=== PATIENT | male | born 1960 | race Caucasian/White ===

== ENCOUNTER 2020-04-03 19:16 | Inpatient (IN) | payer MEDICARE, SELFPAY ==
[2020-04-03] VITALS (10 sets, daily range): BP systolic 118–157; BP diastolic 54–88; PULSE 69–90; RESP 15–24; TEMP 36.8–38; O2SAT 88–98; BMI 24.1
--- NOTE | 2020-04-03 19:20 | XR_ITS ---
PROCEDURE: XR CHEST PORTABLE CLINICAL HISTORY: short of breath COMPARISON: CT CT ANGIO CHEST from 04/03/2020 FINDINGS: The cardiomediastinal silhouette and pulmonary vascularity are within normal limits. Bilateral lower lobe consolidation. There are low lung volumes. No acute bony abnormalities. IMPRESSION: Bilateral lower lobe pneumonia Dictated by: Jamie Shoemaker MD 04/04/2020 05:32 Jamie Shoemaker MD in [place] 04/04/2020 05:32
[2020-04-03 19:32] LABS: Basophils % 0.4 % (0.1-2.0); Eosinophils % 0.1 % (0.1-12.0); Hematocrit 47.1 % (42.0-52.0); Hemoglobin 15.5 g/dL (14.1-18.0); Lymphocytes # 1.2 K/mm3 (0.7-4.5); Mean Corpuscular Hemoglobin 30.5 pg (27.0-31.2); Mean Corpuscular Volume 92.5 fl (80-94); Mean Platelet Volume 9.2 fl (7.4-10.4); Monocytes # 0.4 K/mm3 (0.1-1.0); Monocytes % 3.2 % (1.7-9.3); Neutrophils # 10.7 K/mm3 (1.8-7.8); Neutrophils % 86.3 % (37.0-80.0); Platelet Count 271 K/mm3 (142-424); Red Blood Count 5.09 M/mm3 (4.60-6.20); Red Cell Distribution Width 14.6 % (11.5-17.5); White Blood Count 12.4 K/mm3 (4.8-10.8)
[2020-04-03 19:34] LABS: Chloride 102 mmol/L (98-107)
[2020-04-03 19:35] LABS: Potassium 4.2 mmoL/L (3.5-5.1); Sodium 134 mmol/L (136-145)
[2020-04-03 19:36] LABS: MANUAL DIFFERENTIAL MANUAL DIFFERENTIAL (MANUAL DIFF)
[2020-04-03 19:37] LABS: Alanine Aminotransferase 59 U/L (12-78); Alkaline Phosphatase 86 U/L (38-126); Aspartate Amino Transferase 106 U/L (17-59); Bilirubin,Total 0.4 mg/dl (0.2-1.3); Blood Urea Nitrogen 17 mg/dl (9-20); Creatinine Clearance Estimated 74 mL/min (50-200); Estimated Glomerular Filt Rate 69 ml/min (>60); GFR (African American) 83 ML/MIN (>60)
[2020-04-03 19:38] LABS: Anion Gap 15.2 mEq/L (5-15); Calcium 9.2 mg/dl (8.4-10.2); Carbon Dioxide 21 mmol/L (22.0-30.0); Globulin 4.2 g/dL (1.3-3.2); Glucose 127 mg/dl (74-100); Lactic Acid 1.8 mmol/L (0.7-2.1); Total Protein,Serum 8.2 g/dl (6.3-8.2)
[2020-04-03 19:43] LABS: C-Reactive Protein 60.9 mg/L (0-4)
--- NOTE | 2020-04-03 19:44 | ECG_ITS ---
APPROVED REPORT Exam: Resting ECG HR:83 bpm ECG Measurements Heart Rate 83 AXES LA 136 P 57 QRSd 72 QRS 17 QT 350 T 9 QTc 411 Conclusion Normal sinus rhythm Late r wave progression Abnormal ECG Electronically signed by : Renan Dorsey, 04/04/2020 15:20:29
[2020-04-03 19:56] LABS: Troponin I < 0.01 ng/ml (0.00-0.034)
[2020-04-03 19:58] LABS: Lymphocytes % 15 % (10-50); Monocytes % 4 % (2-9); Neutrophils % 76 % (42-76); Platelet Estimate Normal; RBC Morphology Normal; Total Cells Counted 100
[2020-04-03 20:05] LABS: NT Pro Brain Natriuretic Pep. 23.2 pg/mL (0-125)
[2020-04-03 20:06] LABS: Erythrocyte Sedimentation Rate 19 mm/hr (0-20)
--- NOTE | 2020-04-03 20:09 | HMH.EDSOB ---
ED Disposition Clinical Impression: COVID-19 virus detected, COVID-19 virus IgG antibody detected, Acute exacerbation of chronic obstructive airways disease, Tobacco use Respiratory failure with hypoxia Qualifiers: Chronicity: acute Qualified Code(s): J96.01 - Acute respiratory failure with hypoxia Disposition: Admitted As Inpatient Condition on Discharge: Serious Referrals: PCP,No [Primary Care Provider] - - Critical Care Critical Care Time: No Attestation: On 04/03/20, the high probability of a clinically significant, sudden or life threatening deterioration of the following system(s) required my full and direct attention, intervention and personal management. The time I documented below is in addition to time spent performing reported procedures but includes the following listed in this critical care notation. Medical Decision Making - Medical Records Medical records reviewed: Yes: I reviewed the patient's medical records. - Jose Inquiry Pt receiving controlled substance: No Vital Signs: 04/03/20 19:06 Temperature 100.4 F H Temperature Source Oral Pulse Rate [Right Brachial] 90 Respiratory Rate 22 Blood Pressure [Right Arm] 127/79 Blood Pressure Mean [Right Arm] 95 Blood Pressure Source [Right Arm] Automatic Cuff Blood Pressure Position [Right Arm] Supine 02 Sat by Pulse Oximetry 88 L Oxygen Delivery Method Room Air - Lab Data Lab results reviewed: Yes: I reviewed the patient's lab results. Lab Results 04/03/20 19:10: WBC 12.4 H, RBC 5.09, Hgb 15.5, Hct 47.1, MCV 92.5, MCH 30.5, MCHC 33.0, RDW 14.6, Plt Count 271, MPV 9.2, Neut % (Auto) 86.3 H, Lymph % (Auto) 10.0, [place] % (Auto) 3.2, Eos % (Auto) 0.1, Baso % (Auto) 0.4, Neut # (Auto) 10.7 H, Lymph # (Auto) 1.2, [place] # (Auto) 0.4, Eos # (Auto) 0.0, Baso # (Auto) 0.0, Total Counted 100, Neutrophils % (Manual) 76, Band Neutrophils % 5.0, Lymphocytes % (Manual) 15, Monocytes % (Manual) 4, Platelet Estimate Normal, RBC Morphology Normal, ESR 19 04/03/20 19:10: Sodium 134 L, Potassium 4.2, Chloride 102, Carbon Dioxide 21 L, Anion Gap 15.2 H, BUN 17, Creatinine 1.10, Estimated Creat Clear 74, Estimated GFR 69, Est GFR ( Amer) 83, Glucose 127 H, Calcium 9.2, Total Bilirubin 0.4, AST 106 H, ALT 59, Alkaline Phosphatase 86, Troponin I < 0.01, C-Reactive Protein 60.9 H, Total Protein 8.2, Albumin 4.0, Globulin 4.2 H, Albumin/Globulin Ratio 1.0 L 04/03/20 19:10: Lactate 1.8 04/03/20 19:10: NT-Pro-B Natriuret Pep 23.2 04/03/20 19:10: SARS-CoV-2 IgG Ab (Rapid) Positive A, SARS-CoV-2 IgM Ab (Rapid) Negative 04/03/20 19:10: Procalcitonin 0.205 04/03/20 20:52: Specimen Source Left radial, O2 % 2 lpm, ABG pH 7.39, ABG pCO2 27.3 L, ABG pO2 49.4 L, ABG HCO3 16.3 L, ABG Total CO2 17.1 L, ABG O2 Saturation 87 L*, ABG Base Excess -8.6 L, Jamie Test Acceptable Result diagrams: 04/03/20 19:10 04/03/20 19:10 Orders (Tests/Meds): ED MEDICATIONS Generic Name Dose Route Start Last Admin Trade Name Freq PRN Reason Stop Dose Admin Sodium Chloride 1,000 mls @ 999 mls/hr 04/03/20 19:30 04/03/20 19:26 Sod Chlor 0.9% 1000ml Bag IV 04/03/20 20:30 999 mls/hr .Q1H1M HOMERO Administration Discontinued Medications Generic Name Dose Route Start Last Admin Trade Name Freq PRN Reason Stop Dose Admin Iopamidol 70 ml 04/03/20 20:47 04/03/20 20:49 Iopamidol-370 (76%);100ml Bottle IV 04/03/20 20:48 70 ml ONCE ONE Administration Methylprednisolone Sodium Succinate 125 mg 04/03/20 19:21 04/03/20 19:25 Methylprednisolone Sod Succ 125mg Vial IV 04/03/20 19:22 125 mg ONCE ONE Administration Ondansetron HCl 4 mg 04/03/20 19:21 04/03/20 19:25 Ondansetron 4mg/2ml Vial IV 04/03/20 19:22 4 mg ONCE ONE Administration Sodium Chloride 40 ml 04/03/20 20:47 04/03/20 20:48 0.9 % Sodium Chloride 50 Ml Vial IV 04/03/20 20:48 40 ml ONCE ONE Administration Sodium Chloride 10 ml 04/03/20 20:47 04/03/20 20:49 Sodium Chloride 0.9% 10ml Sy
--- NOTE | 2020-04-03 20:10 | CT_ITS ---
PROCEDURE: CT ANGIO CHEST CLINCIAL INDICATION: shortness of air Shortness of air with chest COMPARISON: No exams were available for comparison TECHNIQUE: IV Contrast: 70ML Isovue 370 Axial images obtained with sagittal and coronal reformats. All CT scans at the facility use one or more dose reduction, viz: automated exposure control, ma/kV adjustment per patient size (including targeted exams where dose is matched to indication, i.e. head), or iterative reconstruction technique. FINDINGS: HEART AND MEDIASTINAL STRUCTURES: No evidence of aortic aneurysm or dissection. No evidence of pulmonary embolus. No mediastinal mass. Coronary artery calcifications are present. There are mildly prominent hilar lymph nodes on both sides greater on the right measuring up to 3.4 by 2 cm. There is mild thickening of the pericardium anteriorly LUNGS AND PLEURAL SPACES: Multifocal in bilateral mostly peripheral ground-glass opacities with superimposed interlobular septal thickening with areas of consolidation with a crazy paving pattern. This may be seen with atypical/Covid19 pneumonia. No effusions. BONY STRUCTURES: No acute bony abnormalities apparent. UPPER ABDOMEN: Mild nonspecific thickening of the distal esophagus ADDITIONAL FINDINGS: No other significant abnormalities. IMPRESSION: 1. No evidence of pulmonary embolus. 2. Bilateral pneumonia as described above with crazy paving pattern which may be seen with Covid19 pneumonia among other etiologies. 3. Mild hilar adenopathy 4. Trace pericardial effusion Dictated by: Jamie Shoemaker MD 04/04/2020 06:38 Jamie Shoemaker MD in [place] 04/04/2020 06:38
[2020-04-03 20:16] LABS: Adenovirus,PCR Not Detected (NotDetected); Bordetella Pertussis Not Detected (NotDetected); Chlamydophila Pneumoniae, PCR Not Detected (NotDetected); Coronavirus 229E Not Detected (NotDetected); Coronavirus NL63 Not Detected (NotDetected); Coronavirus OC43 Not Detected (NotDetected); Coronovirus HKU1,PCR Not Detected (NotDetected); Human Metapneumovirus Not Detected (NotDetected); Influenza A, PCR Not Detected (NotDetected); Influenza AH1, 2009 Not Detected (NotDetected); Influenza AH1, PCR Not Detected (NotDetected); Influenza AH3,PCR Not Detected (NotDetected); Influenza B, PCR Not Detected (NotDetected); Mycoplasma Pneumoniae, PCR Not Detected (NotDetected); Parainfluenza 1, PCR Not Detected (NotDetected); Parainfluenza 2, PCR Not Detected (NotDetected); Parainfluenza 3, PCR Not Detected (NotDetected); Parainfluenza 4, PCR Not Detected (NotDetected); Respiratory Syncytial Virus Not Detected (NotDetected); Rhinovirus/Enterovirus Not Detected (NotDetected)
[2020-04-03 20:41] LABS: Coronavirus 19 IgG Antibody Positive (Negative); Coronavirus 19 IgM Antibody Negative (Negative)
[2020-04-03 20:48] LABS: Procalcitonin 0.205 ng/mL (0.0-2.0)
[2020-04-03 21:11] LABS: ABG Base Excess -8.6 mmol/L (-2.4-2.3); ABG HCO3 16.3 mmhg (22.0-26.0); ABG Oxygen Saturation 87 % (90-100); ABG PCO2 27.3 mmhg (35.0-45.0); ABG PH 7.39 mmol/L (7.35-7.45); ABG TCO2 17.1 mmhg (23-27)
[2020-04-03 21:14] LABS: Allen's Test Acceptable; Oxygen 2 lpm %; Source Left Radial
[2020-04-03 21:18] LABS: ABG PO2 49.4 mmhg (80-100)
[2020-04-03 21:50] LABS: Coronavirus 19, PCR Detected (NotDetected)
--- NOTE | 2020-04-03 21:52 | PC.NURSE ---
house wrecker notified of need for bed assignment.
--- NOTE | 2020-04-03 21:56 | PC.NURSE ---
on phone with dr lindquist
--- NOTE | 2020-04-03 22:52 | PC.NURSE ---
ED called and states they will bring pt up @ this time.
[2020-04-03 23:09] LABS: Troponin I < 0.01 ng/ml (0.00-0.034)
--- NOTE | 2020-04-03 23:37 | PC.NURSE ---
Pt. given up for SPT.
[2020-04-04] VITALS (47 sets, daily range): BP systolic 81–131; BP diastolic 55–80; PULSE 65–102; RESP 18–45; TEMP 36.5–38.1; O2SAT 72–99; BMI 24.1
[2020-04-04 02:43] LABS: Troponin I < 0.01 ng/ml (0.00-0.034)
--- NOTE | 2020-04-04 04:47 | PC.NURSE ---
Since arriving to floor @ 2315 pt has been restless and continues to state I've never felt this bad repeatedly. Pt initially on 3L O2 per nasal cannula, pt did desat to low-mid 80's and O2 was titrated to maintain sat > 90%. Pt continued to de-sat throughout night and was therefore placed on a venturi mask @ 50%. Dr. Metzger aware of these events. Lungs noted to have ronchi in bilat upper lobes. Pt has a frequent non-productive cough. Is aware that a sputum specimen is needed, and a cup is available at bedside. IS is at bedside as well, he has been educated on, but will need encouragement. Is @ best = 750. Pt reports diarrhea and has had one loose stool since arriving to floor. Voiding clear jorge urine w/o difficulty. Skin intact. No needs voiced @ this time. Call sabrina w/in reach.
--- NOTE | 2020-04-04 06:21 | PC.NURSE ---
0600 - Pt heard moaning from nurses station saying help me , sat had decreased to 80%. RN entered room and found pt had taken off his mask and sitting on side of bed. Placed venturi mask back on pt and educated him on need for O2. Pt verbalized understanding and was assisted back in bed, repositioned and HOB elevated. O2 sat slow to increased, 86% @ best. Pt placed on non-rebreather @ 0615, sat currently 92%.
--- NOTE | 2020-04-04 07:04 | PC.NURSE ---
0600 - Pt heard moaning from nurses station saying help me , sat had decreased to might 70's. RN entered room and found pt had taken off his mask and sitting on side of bed. Placed venturi mask back on pt and educated him on need for O2. Pt verbalized understanding and was assisted back in bed, repositioned and HOB elevated. O2 sat slow to increased, 86% @ best. Pt placed on non-rebreather @ 0620, sat increased to 92%. 0640 - Pt's sat decreased to mid 80's on non-rebreather. RN entered room and found pt to be tachypneic @ 35 breaths/min and w/ fever of 100.5. Dr. Metzger notified of this. Orders for pt to be placed on vapotherm, RT notified of this. 0715 - Pt placed on vapotherm 40 L @ 100%.
[2020-04-04 07:05] LABS: Basophils % 0.1 % (0.1-2.0); Eosinophils % 0.1 % (0.1-12.0); Hematocrit 42.5 % (42.0-52.0); Lymphocytes # 1.1 K/mm3 (0.7-4.5); Lymphocytes % 5.9 % (10-50); Mean Corpuscular HGB Conc 32.9 g/dL (31.8-35.4); Mean Corpuscular Hemoglobin 30.3 pg (27.0-31.2); Mean Corpuscular Volume 92.2 fl (80-94); Monocytes # 0.3 K/mm3 (0.1-1.0); Monocytes % 1.8 % (1.7-9.3); Neutrophils # 16.6 K/mm3 (1.8-7.8); Neutrophils % 92.2 % (37.0-80.0); Platelet Count 305 K/mm3 (142-424); Red Blood Count 4.61 M/mm3 (4.60-6.20); Red Cell Distribution Width 14.7 % (11.5-17.5)
--- NOTE | 2020-04-04 07:05 | HMH.HP ---
*Admission Date: 04/03/20 *Chief complaint: COVID-19 pneumonia, respiratory distress *History of present illness: Mr. Gayle is a 60-year-old male who presented to the ER due to 2 to 3 days of shortness of breath. He has a history of smoking, reported history of hypertension but does not currently take anything. Complains that he has been feeling tightness in his chest and difficulty breathing leading to the point he needed to come to the hospital. On presentation he was found to be hypoxic on room air with a saturation in the high 80s. Was started on oxygen and initial work-up begun. Found to be positive for COVID-19 with diffuse bilateral infiltrates necessitating admission. On assessment this morning, unable to gain any further information from the patient due to his fatigue and somnolence. He will wake briefly to answer questions and then dozes back off. Overnight he has had progressive worsening of respiratory failure with escalation of support to high flow nasal cannula on 100% oxygen this morning at 40 L. History predominantly obtained from chart. Patient is a service patient and we will reach out to his primary care, Dr. Lee in [place], for further information on next of kin and medical history. Pharmacy assisting this morning with obtaining medical record/medications over the past year. At this time it appears that he is on no medications as an outpatient. [facility] History I have reviewed the patient's past medical history: Yes Medical History: Reports:: Hyperlipidemia Denies:: Internal Pacemaker *Have you ever received a pneumonia vaccine?: No *Have you received a flu vaccine this season?: No Other Surgeries: Yes: No Previous Surgery. No: Pacemaker - *Social History Last grade of school completed: 11th or 12th Smoking Status: Current every day smoker Tobacco Type: cigarettes # Packs/Day (cigarettes): 1 Alcohol Intake: never Alcohol Intake Frequency:: holidays/special occasions only *Occupational Status:: disabled *Travel in the last 8 weeks: None Family Hx:: No significant family history Review of Systems - Review of Systems Review of systems:: pertinent systems reviewed and negative unless documented below (14 point review of systems performed, pertinent positives and negatives as per HPI) - *Neurologic Denies seizure-like activity Meds Home Medications Medication Instructions Recorded Confirmed Type No Known Home Medications 04/04/20 04/04/20 History Allergies Allergy/AdvReac Type Severity Reaction Status Date / Time esomeprazole [From NEXIUM] Allergy Intermediate I-ITCHING Verified 04/03/20 19:25 methocarbamol [From ROBAXIN] Allergy Intermediate I-ITCHING Verified 04/03/20 19:25 morphine [MORPHINE] Allergy Mild NA-NAUSEA Verified 04/03/20 19:25 Exam Vital signs and Labs for Last 24 Hours: Temp Pulse Resp BP Pulse Ox 99.5 F 69 24 118/54 L 92 L 04/03/20 23:40 04/03/20 23:40 04/03/20 23:42 04/03/20 23:40 04/03/20 23:42 Laboratory Results - last 24 hr 04/03/20 19:10: WBC 12.4 H, RBC 5.09, Hgb 15.5, Hct 47.1, MCV 92.5, MCH 30.5, MCHC 33.0, RDW 14.6, Plt Count 271, MPV 9.2, Neut % (Auto) 86.3 H, Lymph % (Auto) 10.0, [place] % (Auto) 3.2, Eos % (Auto) 0.1, Baso % (Auto) 0.4, Neut # (Auto) 10.7 H, Lymph # (Auto) 1.2, [place] # (Auto) 0.4, Eos # (Auto) 0.0, Baso # (Auto) 0.0, Total Counted 100, Neutrophils % (Manual) 76, Band Neutrophils % 5.0, Lymphocytes % (Manual) 15, Monocytes % (Manual) 4, Platelet Estimate Normal, RBC Morphology Normal, ESR 19 04/03/20 19:10: Sodium 134 L, Potassium 4.2, Chloride 102, Carbon Dioxide 21 L, Anion Gap 15.2 H, BUN 17, Creatinine 1.10, Estimated Creat Clear 74, Estimated GFR 69, Est GFR ( Amer) 83, Glucose 127 H, Calcium 9.2, Total Bilirubin 0.4, AST 106 H, ALT 59, Alkaline Phosphatase 86, Troponin I < 0.01, C-Reactive Protein 60.9 H, Total Protein 8.2, Albumin 4.0, Globulin 4.2 H, Albumin/Globulin Ratio 1.0 L 04/03/20 19:10: Lactate 1.8 04/03/20 19:10: NT
[2020-04-04 07:08] LABS: MANUAL DIFFERENTIAL MANUAL DIFFERENTIAL (MANUAL DIFF)
[2020-04-04 07:11] LABS: Blood Urea Nitrogen 15 mg/dl (9-20); Calcium 8.5 mg/dl (8.4-10.2); Carbon Dioxide 19 mmol/L (22.0-30.0); Chloride 105 mmol/L (98-107); Creatinine Clearance Estimated 96 mL/min (50-200); Estimated Glomerular Filt Rate 86 ml/min (>60); GFR (African American) 105 ML/MIN (>60); Glucose 179 mg/dl (74-100); Sodium 133 mmol/L (136-145)
[2020-04-04 07:44] LABS: Lymphocytes % 4 % (10-50); Monocytes % 2 % (2-9); Neutrophils % 91 % (42-76); Platelet Estimate Normal; RBC Morphology Normal; Total Cells Counted 100
--- NOTE | 2020-04-04 08:12 | P.CONPHA_ITS ---
[facility] Pharmacy VTE Monitoring - Patient Demographics Admission date: 04/03/20 Report Date: 04/04/20 Time: 08:12 Allergies/Adverse Reactions: Patient Allergies esomeprazole [From NEXIUM] Allergy (Intermediate, Verified 04/03/20 19:25) I-ITCHING methocarbamol [From ROBAXIN] Allergy (Intermediate, Verified 04/03/20 19:25) I-ITCHING morphine [MORPHINE] Allergy (Mild, Verified 04/03/20 19:25) NA-NAUSEA Height: 1.78 m Weight: 76.43 kg Patient Problems: Current Active Problems COVID-19 virus detected (Acute) COVID-19 virus IgG antibody detected (Acute) Acute exacerbation of chronic obstructive airways disease (Acute) Tobacco use (Acute) Respiratory failure with hypoxia (Acute) Acute hypoxemic respiratory failure due to COVID-19 (Acute) Acute respiratory distress syndrome (ARDS) due to 2019 novel coronavirus (Acute) - VTE Risk Labs: VTE Related Lab Results Hgb 14.0 g/dL (14.1-18.0) L 04/04/20 06:00 Hct 42.5 % (42.0-52.0) 04/04/20 06:00 Plt Count 305 K/mm3 (142-424) 04/04/20 06:00 BUN 15 mg/dl (9-20) 04/04/20 06:00 Creatinine 0.90 mg/dl (0.66-1.25) 04/04/20 06:00 Estimated Creat Clear 96 mL/min (50-200) 04/04/20 06:00 Was VTE Risk Assessment Performed: Yes VTE Score: 3 VTE Risk Level: Low Risk - Prophylaxis VTE Prophylaxis Ordered?: Yes Types of VTE Prophylaxis: Pharmacological Pharmacologic Type: Enoxaparin
--- NOTE | 2020-04-04 08:23 | HMH.PHACONS ---
- Pharmacy Consult Date: 04/04/20 Time: 08:23 Referring provider: DR. PERALTA Reason for Consult:: VANCOMYCIN DOSING Allergies and ADEs:: Allergies Allergy/AdvReac Type Severity Reaction Status Date / Time esomeprazole [From NEXIUM] Allergy Intermediate I-ITCHING Verified 04/03/20 19:25 methocarbamol [From ROBAXIN] Allergy Intermediate I-ITCHING Verified 04/03/20 19:25 morphine [MORPHINE] Allergy Mild NA-NAUSEA Verified 04/03/20 19:25 Home Medications:: Home Medications Medication Instructions Recorded Confirmed Type No Known Home Medications 04/04/20 04/04/20 History Height: 1.78 m Weight: 76.43 kg Laboratory Results:: Laboratory Results - last 24 hr 04/03/20 19:10: WBC 12.4 H, RBC 5.09, Hgb 15.5, Hct 47.1, MCV 92.5, MCH 30.5, MCHC 33.0, RDW 14.6, Plt Count 271, MPV 9.2, Neut % (Auto) 86.3 H, Lymph % (Auto) 10.0, [place] % (Auto) 3.2, Eos % (Auto) 0.1, Baso % (Auto) 0.4, Neut # (Auto) 10.7 H, Lymph # (Auto) 1.2, [place] # (Auto) 0.4, Eos # (Auto) 0.0, Baso # (Auto) 0.0, Total Counted 100, Neutrophils % (Manual) 76, Band Neutrophils % 5.0, Lymphocytes % (Manual) 15, Monocytes % (Manual) 4, Platelet Estimate Normal, RBC Morphology Normal, ESR 19 04/03/20 19:10: Sodium 134 L, Potassium 4.2, Chloride 102, Carbon Dioxide 21 L, Anion Gap 15.2 H, BUN 17, Creatinine 1.10, Estimated Creat Clear 74, Estimated GFR 69, Est GFR ( Amer) 83, Glucose 127 H, Calcium 9.2, Total Bilirubin 0.4, AST 106 H, ALT 59, Alkaline Phosphatase 86, Troponin I < 0.01, C-Reactive Protein 60.9 H, Total Protein 8.2, Albumin 4.0, Globulin 4.2 H, Albumin/Globulin Ratio 1.0 L 04/03/20 19:10: Lactate 1.8 04/03/20 19:10: NT-Pro-B Natriuret Pep 23.2 04/03/20 19:10: SARS-CoV-2 IgG Ab (Rapid) Positive A, SARS-CoV-2 IgM Ab (Rapid) Negative 04/03/20 19:10: Procalcitonin 0.205 04/03/20 20:00: Chlamy pneumoniae PCR Not detected, Adenovirus (PCR) Not detected, B. pertussis DNA (PCR) Not detected, Coronavirus OC43 (PCR) Not detected, Coronavirus HKU1 (PCR) Not detected, Coronavirus 229E (PCR) Not detected, SARS-CoV-2 (PCR) Detected A, Coronavirus NL63 (PCR) Not detected, Human Metapneumovir PCR Not detected, Influenza A (H1) PCR Not detected, Influ A (H1N1/09) PCR Not detected, Influenza A (H3) PCR Not detected, Influenza Type A (PCR) Not detected, Influenza Type B (PCR) Not detected, M. pneumoniae (PCR) Not detected, Parainfluenza 1 (PCR) Not detected, Parainfluenza 2 (PCR) Not detected, Parainfluenza 3 (PCR) Not detected, Parainfluenza 4 (PCR) Not detected, RSV (PCR) Not detected, Entero/Rhino (PCR) Not detected 04/03/20 20:52: Specimen Source Left radial, O2 % 2 lpm, ABG pH 7.39, ABG pCO2 27.3 L, ABG pO2 49.4 L, ABG HCO3 16.3 L, ABG Total CO2 17.1 L, ABG O2 Saturation 87 L*, ABG Base Excess -8.6 L, Jamie Test Acceptable 04/03/20 22:38: Troponin I < 0.01 04/04/20 01:40: Troponin I < 0.01 04/04/20 06:00: WBC 18.0 H D, RBC 4.61, Hgb 14.0 L, Hct 42.5, MCV 92.2, MCH 30.3, MCHC 32.9, RDW 14.7, Plt Count 305, MPV 10.0, Neut % (Auto) 92.2 H, Lymph % (Auto) 5.9 L, [place] % (Auto) 1.8, Eos % (Auto) 0.1, Baso % (Auto) 0.1, Neut # (Auto) 16.6 H, Lymph # (Auto) 1.1, [place] # (Auto) 0.3, Eos # (Auto) 0.0, Baso # (Auto) 0.0, Total Counted 100, Neutrophils % (Manual) 91 H, Band Neutrophils % 3.0, Lymphocytes % (Manual) 4 L, Monocytes % (Manual) 2, Platelet Estimate Normal, RBC Morphology Normal 04/04/20 06:00: Sodium 133 L, Chloride 105, Carbon Dioxide 19 L, BUN 15, Creatinine 0.90, Estimated Creat Clear 96, Estimated GFR 86, Est GFR ( Amer) 105 D, Glucose 179 H D, Calcium 8.5 Medical History: Reports:: Hyperlipidemia Denies:: Internal Pacemaker Assessment and Plan (1) Acute respiratory distress syndrome (ARDS) due to 2019 novel coronavirus Status: Acute Category: Medical Code(s): U07.1 - COVID-19; J80 - Acute respiratory distress syndrome (2) Acute hypoxemic respiratory failure due to COVID-19 Status: Acute Category: Medical Code(s): U07.1 - COVID-19; J96.01 - Acute respiratory fail
[2020-04-04 08:26] LABS: Anion Gap 13.1 mEq/L (5-15); Potassium 4.1 mmoL/L (3.5-5.1)
--- NOTE | 2020-04-04 10:21 | PC.NURSE ---
Dr. Shah @ BS with Liss and RTs (Sabrina, Bryanna, and Julia). Dr. Shah intubated pt @ 0952 with a 7.5 ET tube. Tube is on the right side of mouth 25 @ the lip. Etomidate 50mg was given @ 0950. Rocuronium 50mg was given @ 0953. Vent settings: 80% fI02, rate 18, TV 420, PEEP10. OG inserted @ 10am. It is 56cm @ the lip.
--- NOTE | 2020-04-04 10:24 | XR_ITS ---
PROCEDURE: XR CHEST PORTABLE CLINICAL HISTORY: intubation and OG tube placement COMPARISON: CT CT ANGIO CHEST from 04/03/2020 CR XR CHEST PORTABLE from 04/03/2020 FINDINGS: 10:09 a.m. Endotracheal tube is in good position with the tip 6 cm above the scooby at the T3-T4 level. Orogastric tube tip is in the region of the body of the stomach. There is bilateral airspace disease involving the mid lower lung zones. No acute bony abnormalities. IMPRESSION: Endotracheal tube and nasogastric tube in good position with diffuse bilateral pneumonia which appears slightly worse. Dictated by: Jamie Shoemaker MD 04/04/2020 11:11 Jamie Shoemaker MD in [place] 04/04/2020 11:11
[2020-04-04 10:37] LABS: ABG HCO3 19.3 mmhg (22.0-26.0); ABG Oxygen Saturation 88 % (90-100); ABG PO2 67.8 mmhg (80-100); ABG TCO2 21.1 mmhg (23-27)
[2020-04-04 10:48] LABS: Allen's Test Patient Unable; Oxygen 80 %; PEEP 10; Tidal Volume 420; Vent Rate 18
[2020-04-04 10:49] LABS: ABG PCO2 60.5 mmhg (35.0-45.0); ABG PH 7.12 mmol/L (7.35-7.45); Source Left Radial
--- NOTE | 2020-04-04 11:12 | XR_ITS ---
PROCEDURE: XR CHEST PORTABLE CLINICAL HISTORY: hypoxia COMPARISON: CT CT ANGIO CHEST from 04/03/2020 CR XR CHEST PORTABLE from 04/03/2020 CR XR CHEST PORTABLE from 04/04/2020 FINDINGS: Endotracheal tube tip is at the T3-T4 level. The tip is 6.7 cm above the scooby. Nasogastric tube tip is in the region the body of stomach. No change diffuse bilateral pneumonia. IMPRESSION: Endotracheal tube and nasogastric tube in good position with diffuse bilateral pneumonia Dictated by: Jamie Shoemaker MD 04/04/2020 12:47 Jamie Shoemaker MD in [place] 04/04/2020 12:47
--- NOTE | 2020-04-04 13:00 | PC.NURSE ---
Dr. Valles @ BS and inserted left SC TLDL.
--- NOTE | 2020-04-04 13:02 | XR_ITS ---
PROCEDURE: XR CHEST PORTABLE CLINICAL HISTORY: Central Line Placement COMPARISON: CT CT ANGIO CHEST from 04/03/2020 CR XR CHEST PORTABLE from 04/03/2020 CR XR CHEST PORTABLE from 04/04/2020 CR XR CHEST PORTABLE from 04/04/2020 FINDINGS: Endotracheal tube is slightly high at the T3 level and could be advanced 1-2 cm. NG tube tip is in the region of the body of the stomach. New central venous line is present from left subclavian approach with tip in the region the SVC. No evidence of pneumothorax. There is bilateral lower lobe pneumonia not significantly changed. Heart size is normal. IMPRESSION: 1. Tubes and lines present as described above with bilateral pneumonia Dictated by: Jamie Shoemaker MD 04/04/2020 14:01 Jamie Shoemaker MD in [place] 04/04/2020 14:01
[2020-04-04 13:21] LABS: ABG Base Excess -9.7 mmol/L (-2.4-2.3); ABG HCO3 17.7 mmhg (22.0-26.0); ABG Oxygen Saturation 84 % (90-100); ABG PCO2 41.8 mmhg (35.0-45.0); ABG PH 7.24 mmol/L (7.35-7.45); ABG PO2 51.1 mmhg (80-100)
[2020-04-04 13:23] LABS: Oxygen 100 %; Tidal Volume 420; Vent Rate 24
[2020-04-04 13:24] LABS: Allen's Test Patient Unable; PEEP 12; Source Right Radial
--- NOTE | 2020-04-04 13:26 | HMH.PROC ---
[facility] Procedure Note Procedure Note:: Preoperative diagnosis: Need for central venous access Postoperative diagnosis: Same Procedure: Placement of 7.5 [place] triple-lumen nontunneled catheter and left subclavian vein Anesthesia: 1% Xylocaine Indications: 60-year-old male admitted overnight with Covid pneumonia who has had significant respiratory compromise requiring sedation and mechanical ventilation. Surgery was consulted for central line placement. Consent was obtained. Patient was positioned in Trendelenburg position. Left neck and chest were prepped and draped in the standard surgical fashion. Local anesthetic was infiltrated inferior to the left clavicle medial to the deltopectoral groove. 18-gauge needle was inserted and left subclavian vein was cannulated with somewhat sluggish return of venous blood. However, guidewire easily threaded. Small incision was made at the insertion site. Subcutaneous tissues were dilated. 7.5 [place] triple-lumen catheter was inserted over the guidewire using Seldinger technique. It was secured at the skin at approximately 18 cm skylar with silk suture. Clean dry sterile dressing was applied. Chest x-ray done at the time of this dictation.
--- NOTE | 2020-04-04 13:42 | PC.NURSE ---
PEEP turned to 14 per .
--- NOTE | 2020-04-04 13:43 | CA_ITS ---
APPROVED REPORT EXAM: Comprehensive 2D, Doppler, and color-flow Echocardiogram Accounting Instructor: Esthela Rizo CRT Ht: 5 ft 10 in Wt: 168lbs BSA: 1.94 BP: 122/79 mmHg Indications: Covid, COPD, Shortness of Breath, Hyperlipidemia Echo Enhancing Agent Indication: Rule out Shunt Agent(s) / Amount(s) Used: Agitated Saline 5 cc Comments: B/S x 3 Appears negative. 2D Dimensions LVOT 1.73 cm (M/F) 1.5-2.5 M-Mode Dimensions RVDd 2.47 cm (0.9-2.6) LA Diam 3.79 cm (1.9-4.0) LVDd 5.94 cm (3.5-5.7) Ao Diam 3.91 cm (2.0-3.7) LVDs 4.61 cm (3.5-5.7) IVSd 0.99 cm (0.6-1.1) PWd 0.69 cm (0.6-1.1) EF (Teich) 44.40% FS 22.40% EDV (Teich) 175.90 mL ESV (Teich) 97.80 mL LV Diastology E Decel Time 237.00 (160-240 msec) E/A Ratio 0.45 MED E' 5.80 (< 7 cm/sec) MED A' 13.40 cm/s E'/MED E' Ratio 7.93 (>14) LAT E' 4.40 (<10 cm/sec) LAT A' 11.30 cm/s E/LAT E' Ratio 10.45 (>14) Aortic Valve AO Peak GR. 6.80 mmHg Mitral Valve MV A Velocity 102.00 (40-130 cm/s) E/A Ratio 0.45 MV Decel. Time 237.00 (160-240 ms) Pulmonary Valve PV Peak Velocity 64.00 (50-150 cm/s) Tricuspid Valve TR P. Velocity 247.00 cm/s RAP Estimate 10.00 mmHg RVSP 34.40 mmHg Left Ventricle Left atrium is mildly enlarged, left ventricle is mildly dilated, severe reduced left ventricular systolic function, visually estimated ejection fraction 25%, left ventricle is globally hypokinetic. Grade 1 diastolic dysfunction seen without tissue Doppler evidence of raise left atrial pressure. Doppler evidence of low cardiac output state seen. Right Ventricle Right atrium and right ventricle are normal size and contractility. Atria Intra-atrial septum is intact, there is no flow across the interatrial septum, agitated saline contrast fails to identify intracardiac shunt. Aortic Valve Aortic valve is thickened and calcified, there is no aortic stenosis or aortic insufficiency. Mitral Valve Mitral valve is minimally thickened, there is mild mitral regurgitation. Tricuspid Valve Tricuspid valve is grossly normal, there is mild tricuspid regurgitation, tricuspid regurgitation jet velocity is inadequate for calculation of the right ventricular systolic pressure. Pulmonic Valve Pulmonic valve is poorly visualized. Great Vessels Aortic root is normal size. Pericardium No significant pericardial effusion noted. Conclusion 1. Mildly enlarged left atrium, mildly dilated left ventricle, severely disrupt ventricular systolic function, visually estimated ejection fraction 25%, left ventricle is globally hypokinetic, Doppler evidence of low cardiac output state seen, grade 1 diastolic dysfunction without tissue Doppler evidence of raise left atrial pressure. 2. Mild mitral and tricuspid regurgitation. 3. No significant pericardial effusion noted. 4. Agitated saline contrast study fails to identify intracardiac shunt, inferior vena cava is normal size with normal inspiratory collapse. Electronically signed by : Guillermo Siegel, 04/07/2020 14:45:19
--- NOTE | 2020-04-04 13:56 | ECG_ITS ---
APPROVED REPORT Exam: Resting ECG HR:74 bpm ECG Measurements Heart Rate 74 AXES SD 132 P 50 QRSd 90 QRS -13 QT 406 T 17 QTc 450 Conclusion Normal sinus rhythm Normal ECG Electronically signed by : Renan Dorsey, 04/04/2020 15:18:06
--- NOTE | 2020-04-04 14:17 | PC.NURSE ---
PEEP turned to [address] Shah.
--- NOTE | 2020-04-04 14:31 | PC.NURSE ---
PEEP turned back to [address] Shah.
--- NOTE | 2020-04-04 14:51 | HMH.PULMCON ---
*Admission Date: 04/03/20 *Reason for consult:: Acute hypoxic respiratory failure, COVID-19 pneumonia *History of present illness: Mr. Gayle is a 60-year-old male significant smoking history, carries a diagnosis of OPD using inhalers presented to the hospital complaining of 2 to 3-day worsening shortness of breath and productive phlegm. Of breath also says the fevers and chills are worsening productive phlegm. Patient did not remember any known sick contacts. Presentation the patient needing oxygen requirement with his saturations initially on high 80s. He was admitted to the isolation unit and pulmonary was called for further management. [facility] History Medical History: Reports:: Hyperlipidemia Denies:: Internal Pacemaker *Have you ever received a pneumonia vaccine?: No *Have you received a flu vaccine this season?: No Other Surgeries: Yes: No Previous Surgery. No: Pacemaker - *Social History Last grade of school completed: 11th or 12th Smoking Status: Current every day smoker Tobacco Type: cigarettes # Packs/Day (cigarettes): 1 Alcohol Intake: never Alcohol Intake Frequency:: holidays/special occasions only *Occupational Status:: disabled *Travel in the last 8 weeks: None Family Hx:: No significant family history ROS - Review of Systems Review of systems:: pertinent systems reviewed and negative unless documented below Review of systems limited as patient was on high flow nasal cannula confused not able to answer all the questions appropriately - Cons Reports anorexia, Reports body ache(s), Reports chills - Card Reports shortness of breath, Reports shortness of breath with activity - Resp Respiratory: Reports change in phlegm color, Reports chest congestion, Reports cough, Reports dyspnea on exertion, Reports excessive phlegm production, Denies coughing up blood - GI Gastrointestingal: Reports: system reviewed and no additional complaints, except as docu Meds Home Medications Medication Instructions Recorded Confirmed Type No Known Home Medications 04/04/20 04/04/20 History Allergies Allergy/AdvReac Type Severity Reaction Status Date / Time esomeprazole [From NEXIUM] Allergy Intermediate I-ITCHING Verified 04/03/20 19:25 methocarbamol [From ROBAXIN] Allergy Intermediate I-ITCHING Verified 04/03/20 19:25 morphine [MORPHINE] Allergy Mild NA-NAUSEA Verified 04/03/20 19:25 Exam - Constitutional Comment:: Patient appeared to be in severe respiratory distress, on high flow nasal cannula 40 L 100% saturating 87%. - HENMT Exam HENMT: normocephalic, atraumatic - Eye Exam Eyes:: eyelids normal, normal conjunctiva - Neck Exam Neck:: thyroid normal, no lymphadenopathy - Respiratory Exam Comments: Patient in severe respiratory distress. Unable to speak in full sentences. Bilateral coarse breath sounds with decreased air movement. - Cardiovascular Exam Cardiac:: S1, S2 - GI Exam GI:: soft, no hepatosplenomegaly - Skin Exam Skin: warm, no rash, dry - Neurological Exam Neurological: awake - Extremities Exam Extremities: no cyanosis, no clubbing, no edema - Psychiatric Exam Psychiatric: normal affect Internal Medicine - CN: Reslt - Labs CBC & Chem 7: 04/04/20 06:00 04/04/20 06:00 Labs: Short CBC 04/03/20 04/04/20 Range/Units 19:10 06:00 WBC 12.4 H 18.0 H D (4.8-10.8) K/mm3 Hgb 15.5 14.0 L (14.1-18.0) g/dL Hct 47.1 42.5 (42.0-52.0) % Plt Count 271 305 (142-424) K/mm3 BMP 04/03/20 04/04/20 19:10 06:00 Sodium 134 L 133 L Potassium 4.2 4.1 Chloride 102 105 Carbon Dioxide 21 L 19 L BUN 17 15 Creatinine 1.10 0.90 Glucose 127 H 179 H D Calcium 9.2 8.5 Cardiac Enzymes 04/03/20 04/03/20 04/04/20 Range/Units 19:10 22:38 01:40 Troponin I < 0.01 < 0.01 < 0.01 (0.00-0.034) ng/ml Liver Function 04/03/20 Range/Units 19:10 Total Bilirubin 0.4 (0.2-1.3) mg/dl AST 106 H (17-59) U/L ALT 59 (12-78)
[2020-04-04 14:56] LABS: Troponin I 1.55 ng/ml (0.00-0.034)
--- NOTE | 2020-04-04 15:05 | P.PCN_ITS ---
[facility] Procedure Note Procedure Note:: Name of the procedure: endotracheal intubation Reason for intubation: Acute hypoxic respiratory failure A time out was performed. My hands were washed immediately prior to the procedure. The patient was placed on a traffic monitor specialist including continuous pulse oximetry. Rapid Sequence Intubation was conducted. The patient received 50 mg of Etomidate for induction and 100 mg of Rocoronium for adequate paralysis. Cricoid pressure was maintained from time induction agent was given to time of cuff balloon inflation. Using a Size 4 mac laryngoscope and a size 7.5 endotracheal tube with stylet, the patient was intubated on the first attempt. The stylet was removed and cuff balloon was inflated. Appropriate endotracheal tube position was confirmed by direct visualization of vocal cord passage, CO2 colometric indicator and bilateral symmetric breath sounds. The tube was secured at 26 cm at the lips. Post intubation chest x-ray is pending at this time. Patient tolerated the procedure well. Estimated blood loss minimal
[2020-04-04 15:42] LABS: Microscopic, Urine URINE MICROSCOPIC (MICROSCOPIC)
[2020-04-04 16:03] LABS: Appearance,Urine CLEAR (Clear); Bilirubin,Urine Negative (Negative); Blood, Urine 1+ (Negative); Color,Urine YELLOW (Yellow); Glucose,Urine (UA) Negative (Negative); Ketones,Urine Negative (Negative); Leukocyte Esterase,Urine Negative (Negative); Nitrate,Urine Negative (Negative); PH,Urine 5.5 (5.0-8.5); Protein,Urine 2+ (Negative); Specific Gravity, Urine >= 1.030 (1.005-1.030); Urobilinogen,Urine 0.2 EU/dl (0.2)
[2020-04-04 16:18] LABS: Amorphous Sediment,Urine 3+ /lpf; Squamous Epithelial Cell,Urine Occasional #/hpf (0-5)
[2020-04-04 16:40] LABS: Activated Partial Thrombo Time 33.7 seconds (23.6-34.0)
--- NOTE | 2020-04-04 16:59 | DIET.NUTRFU ---
Pt intubated, recommend initiating continuous tube feeding upon MD order with following regimen: Recommend initiating continuous tube feeding regimen of Pulmocare 1.5 at 20ml/hr and increase by 10ml/hr q 8hrs as tolerated to goal rate of 55ml/hr. Pt meeting fluid needs through IVF at 100ml/hr, recommend slightly decreasing IVF as pt reaches goal rate. Formula provides 950ml. Recommend minimal water flushes of 60ml for irrigation. Will monitor IVF and adjust as indicated. Current propofol rate providing minimal additional kcal, will monitor and adjust TF rate as indicated.
--- NOTE | 2020-04-04 18:32 | PC.NURSE ---
shift note: this RN was transferred to the COVID unit to care for this pt @ 0900. Please see the following time of events: 0900: O2 sats on 40L/100% are between 72/84%. Pt is breathing 19-38 breaths/min. He is very lethargic and does not wake to answer questions. 0952: Dr. Shah intubated pt with a 7.5 ET tube that is 25 @ the lip. OG inserted and remains clamped. 1030: Fentanyl gtt started @ 25mcg/hr per Dr. Shah 1045: pt bucking the vent and sats continue in the 70s and 80s. 1053: Propofol gtt started @ 20mcg/kg/min per Dr. Shah [id number]: multiple vent changes made by Dr. Shah and RT secondary to sats in the 70s and 80s. 1300: Dr. Valles @ BS and inserted left SC 7fr TLDL. 1400: Pt flailing arms, bucking vent and with high peak pressures. Per Dr. Shah, Fentanyl gtt increased to 50mcg/hr and Propofol gtt increased to 50mcg/kg/min. 1527: Levophed gtt started @ 5mcg/min per Dr. Metzger secondary to SBP 80s. 1600: SBP high 80s/low 90s and Levophed gtt increased to 10mcg/min. 1630: Heparin gtt started per Dr. Shah @ 900units/hr. 4857-2264: SBP 90s. Levophed gtt continues @ 10mcg/min. 1900: Fentanyl gtt @ 50mcg/hr, Propofol gtt @ 50mcg/kg/min, Levophed gtt @ 10mcg/min, Heparin gtt @ 900units/hr, and NS @ 100mL/hr. Pt had an echo with bubbles, and EKG, and troponin lab drawn today. Osuna catheter inserted @ 1400 with 380mL returned in bag. Urine specimen sent to lab for routine UA. CRE rectal swab obtained. Next PTT is due @ [address] Metzger plans to place an arterial line for better BP monitoring and serial ABGs. Lasix 60mb IV was given today without diuresis. Current vent settings: 100% FiO2, AC, 24, 440, 14/-. Oral care provided Q2 ATC. Pt was turned and repositioned Q2 ATC as well. Report given to Juan Pablo Walls RN.
[2020-04-04 21:49] LABS: POC Glucose,Bedside 196 (70-110)
[2020-04-04 22:24] LABS: Activated Partial Thrombo Time 55.3 seconds (23.6-34.0)
[2020-04-04 22:48] LABS: Basophils # 0.2 K/mm3 (0-0.2); Basophils % 0.6 % (0.1-2.0); Hematocrit 39.1 % (42.0-52.0); Hemoglobin 12.9 g/dL (14.1-18.0); Lymphocytes # 1.3 K/mm3 (0.7-4.5); Lymphocytes % 3.7 % (10-50); Mean Corpuscular HGB Conc 32.9 g/dL (31.8-35.4); Mean Corpuscular Hemoglobin 30.7 pg (27.0-31.2); Mean Corpuscular Volume 93.3 fl (80-94); Mean Platelet Volume 9.6 fl (7.4-10.4); Monocytes # 0.4 K/mm3 (0.1-1.0); Monocytes % 1.2 % (1.7-9.3); Neutrophils # 34.3 K/mm3 (1.8-7.8); Neutrophils % 94.5 % (37.0-80.0); Platelet Count 331 K/mm3 (142-424); Red Blood Count 4.19 M/mm3 (4.60-6.20); Red Cell Distribution Width 15.2 % (11.5-17.5)
[2020-04-04 22:51] LABS: White Blood Count 36.3 K/mm3 (4.8-10.8)
[2020-04-04 22:52] LABS: MANUAL DIFFERENTIAL MANUAL DIFFERENTIAL (MANUAL DIFF)
[2020-04-04 23:05] LABS: Lymphocytes % 2 % (10-50); Neutrophils % 64 % (42-76); Platelet Estimate Normal; RBC Morphology Normal; Rouleaux 3+; Total Cells Counted 100
[2020-04-04 23:12] LABS: Troponin I 1.97 ng/ml (0.00-0.034)
[2020-04-05] VITALS (98 sets, daily range): BP systolic 87–122; BP diastolic 51–79; PULSE 67–90; RESP 5–32; TEMP 36.3–37.2; O2SAT 93–98; BMI 25.5
--- NOTE | 2020-04-05 00:35 | PC.NURSE ---
1929 sbp in the 80s with map less than 65. levophed drip increased to 12 mcq
--- NOTE | 2020-04-05 00:36 | PC.NURSE ---
3 dr. lemus notified of decreasing rectal temp, diaphoresis and cool skin, new orders received for stat labs.
--- NOTE | 2020-04-05 00:38 | PC.NURSE ---
2315 received lab results from roberto in lab.
--- NOTE | 2020-04-05 00:38 | PC.NURSE ---
2320 dr. lemus notified of stat lab results, no new orders received.
--- NOTE | 2020-04-05 01:27 | PC.NURSE ---
2126 patient has been extremely diaphoretic and cool to touch. fsbs 196
[2020-04-05 04:16] LABS: Basophils # 0.2 K/mm3 (0-0.2); Basophils % 0.5 % (0.1-2.0); Hematocrit 38.9 % (42.0-52.0); Hemoglobin 12.8 g/dL (14.1-18.0); Lymphocytes # 1.3 K/mm3 (0.7-4.5); Lymphocytes % 3.6 % (10-50); Mean Corpuscular Hemoglobin 31.2 pg (27.0-31.2); Mean Corpuscular Volume 94.6 fl (80-94); Mean Platelet Volume 10.5 fl (7.4-10.4); Monocytes # 0.5 K/mm3 (0.1-1.0); Monocytes % 1.2 % (1.7-9.3); Neutrophils # 34.2 K/mm3 (1.8-7.8); Neutrophils % 94.7 % (37.0-80.0); Platelet Count 333 K/mm3 (142-424); Red Blood Count 4.11 M/mm3 (4.60-6.20); White Blood Count 36.1 K/mm3 (4.8-10.8)
[2020-04-05 04:27] LABS: Chloride 109 mmol/L (98-107); Sodium 137 mmol/L (136-145)
[2020-04-05 04:28] LABS: Potassium 4.4 mmoL/L (3.5-5.1)
[2020-04-05 04:30] LABS: Alanine Aminotransferase 37 U/L (12-78); Albumin Level 3.2 g/dl (3.5-5.0); Albumin/Globulin Ratio 0.9 (1.1-1.8); Alkaline Phosphatase 89 U/L (38-126); Anion Gap 16.4 mEq/L (5-15); Aspartate Amino Transferase 76 U/L (17-59); Bilirubin,Total 0.3 mg/dl (0.2-1.3); Blood Urea Nitrogen 33 mg/dl (9-20); Carbon Dioxide 16 mmol/L (22.0-30.0); Creatinine Clearance Estimated 54 mL/min (50-200); Estimated Glomerular Filt Rate 44 ml/min (>60); GFR (African American) 54 ML/MIN (>60); Globulin 3.6 g/dL (1.3-3.2); Total Protein,Serum 6.8 g/dl (6.3-8.2)
[2020-04-05 04:31] LABS: Calcium 7.9 mg/dl (8.4-10.2)
[2020-04-05 04:37] LABS: Glucose 232 mg/dl (74-100)
[2020-04-05 04:48] LABS: Activated Partial Thrombo Time 63.8 seconds (23.6-34.0)
--- NOTE | 2020-04-05 04:49 | PC.NURSE ---
received call from pharmacist, no change to heparin drip needed
--- NOTE | 2020-04-05 06:00 | XR_ITS ---
PROCEDURE: XR CHEST PORTABLE CLINICAL HISTORY: Assess tube placement Pneumonia follow-up COMPARISON: CT CT ANGIO CHEST from 04/03/2020 CR XR CHEST PORTABLE from 04/04/2020 CR XR CHEST PORTABLE from 04/04/2020 CR XR CHEST PORTABLE from 04/04/2020 FINDINGS: 5:43 a.m.. Endotracheal tube nasogastric tube and left subclavian central venous line are all in good position. Endotracheal tube tip is at the T3 level 7 cm above the scooby There is diffuse bilateral pneumonia in the mid lower lung zones not significantly changed. No evidence of pneumothorax. No acute bony abnormalities. IMPRESSION: Tubes and lines in good position with no change diffuse bilateral pneumonia Dictated by: Jamie Shoemaker MD 04/05/2020 06:09 Jamie Shoemaker MD in [place] 04/05/2020 06:09
--- NOTE | 2020-04-05 06:27 | PC.NURSE ---
shift summary patient has remained on levophed at 12 mcq/min with sbp greater than 90 and map greater than 65. diprivan at 50 mcq/kg, fentanyl at 50 mcq, rass score -3, cpot 0. heparin drip titrated per pharmacy according to ptt results. conveyor monitor shows sr without ectopy, peep of 14 and fio2 of 100% with sats sustaining greater than 95%, respiratory rate 24-32. peep pressures maintained 42-45 throughout shift. draining clear yellow urine with occasional sediment present. ogt in place-clamped. unable to obtain temperatures except for rectally throughout shift. temp ranged from 97.5 to 98.3 rectally. patient was cool to touch and extremely diaphoretic, saturating bedding throughout shift up until about 0400. patient also appeared to be pale at that time. currently patient more pink in color, warmer but still cool and dry.
--- NOTE | 2020-04-05 08:24 | HMH.ACPN2 ---
Internal Medicine - PN: Subj *Date: 04/05/20 *Time: 08:24 Interval history: Patient remains intubated and sedated on ventilator-see pulmonary notes. Labs, CT scan reports, medication list reviewed. Exam Vital signs and Labs for Last 24 Hours: Temp Pulse Resp BP Pulse Ox 98.2 F 77 20 108/62 L 94 L 04/05/20 06:00 04/05/20 07:00 04/05/20 07:00 04/05/20 07:00 04/05/20 07:00 Laboratory Results - last 24 hr 04/04/20 06:00: Potassium 4.1, Anion Gap 13.1 04/04/20 10:45: Specimen Source Left radial, O2 % 80, ABG pH 7.12 L*, ABG pCO2 60.5 H, ABG pO2 67.8 L, ABG HCO3 19.3 L, ABG Total CO2 21.1 L, ABG O2 Saturation 88 L, ABG Base Excess -10.0 L, Jamie Test Patient unable, Vent Rate 18, Tidal Volume 420, PEEP 10 04/04/20 13:00: Specimen Source Right radial, O2 % 100, ABG pH 7.24 L*, ABG pCO2 41.8, ABG pO2 51.1 L, ABG HCO3 17.7 L, ABG Total CO2 19.0 L, ABG O2 Saturation 84 L*, ABG Base Excess -9.7 L, Jamie Test Patient unable, Vent Rate 24, Tidal Volume 420, PEEP 12 04/04/20 14:05: Troponin I 1.55 H 04/04/20 15:15: Urine Color Yellow, Urine Appearance Clear, Urine pH 5.5, Ur Specific [place] >= 1.030, Urine Protein 2+, Urine Glucose (UA) Negative, Urine Ketones Negative, Urine Blood 1+, Urine Nitrate Negative, Urine Bilirubin Negative, Urine Urobilinogen 0.2, Ur Leukocyte Esterase Negative, Urine RBC 5-10, Urine WBC None, Ur Squamous Epith Cells Occasional, Amorphous Sediment 3+, Urine Bacteria None, Coarse Granular Casts 10-20 04/04/20 16:05: APTT 33.7 04/04/20 21:25: POC Glucose 196 H 04/04/20 21:50: APTT 55.3 H* D 04/04/20 22:40: WBC 36.3 H* D, RBC 4.19 L, Hgb 12.9 L, Hct 39.1 L, MCV 93.3, MCH 30.7, MCHC 32.9, RDW 15.2, Plt Count 331, MPV 9.6, Neut % (Auto) 94.5 H, Lymph % (Auto) 3.7 L, Creek % (Auto) 1.2 L, Eos % (Auto) 0.0 L, Baso % (Auto) 0.6, Neut # (Auto) 34.3 H, Lymph # (Auto) 1.3, [place] # (Auto) 0.4, Eos # (Auto) 0.0, Baso # (Auto) 0.2, Total Counted 100, Neutrophils % (Manual) 64, Band Neutrophils % 34.0 H, Lymphocytes % (Manual) 2 L, Platelet Estimate Normal, RBC Morphology Normal, [place] 3+ 04/04/20 22:40: Troponin I 1.97 H 04/05/20 03:45: APTT 63.8 H* D 04/05/20 03:45: WBC 36.1 H*, RBC 4.11 L, Hgb 12.8 L, Hct 38.9 L, MCV 94.6 H, MCH 31.2, MCHC 33.0, RDW 15.0, Plt Count 333, MPV 10.5 H, Neut % (Auto) 94.7 H, Lymph % (Auto) 3.6 L, Creek % (Auto) 1.2 L, Eos % (Auto) 0.0 L, Baso % (Auto) 0.5, Neut # (Auto) 34.2 H, Lymph # (Auto) 1.3, Creek # (Auto) 0.5, Eos # (Auto) 0.0, Baso # (Auto) 0.2 04/05/20 03:45: Sodium 137, Potassium 4.4, Chloride 109 H, Carbon Dioxide 16 L, Anion Gap 16.4 H, BUN 33 H D, Creatinine 1.60 H D, Estimated Creat Clear 54, Estimated GFR 44 L, Est GFR ( Amer) 54 L D, Glucose 232 H D, Calcium 7.9 L, Total Bilirubin 0.3, AST 76 H D, ALT 37 D, Alkaline Phosphatase 89, Total Protein 6.8, Albumin 3.2 L D, Globulin 3.6 H, Albumin/Globulin Ratio 0.9 L I & O for Last 24 hours: Intake & Output 04/02/20 04/03/20 04/04/20 04/05/20 11:59 11:59 11:59 11:59 Intake Total 642 / 642 3294.639 / 3294.639 Output Total 1400 / 1400 1025 / 1025 Balance -758 / -758 2269.639 / 2269.639 Weight 168 lb 8 oz 178 lb 5.663 oz Microbiology Reports for the Last 24 Hours: Microbiology 04/04/20 10:05 Sputum - Endotracheal Tube Aspirate Gram Stain - Final 04/04/20 10:05 Sputum - Endotracheal Tube Aspirate Sputum Culture - Preliminary Narrative: Patient is intubated, sedated, appears comfortable. Is not overbreathing the ventilator. Lungs with rhonchi and crackles throughout, symmetric air entry. Trachea is midline. Heart rate regular but muffled sounds secondary to ventilator sounds. Abdomen is soft. Osuna catheter draining clear yellow urine. No perfusion deficits in the extremities. ENT exam otherwise clear. Assessment and Plan (1) Acute respiratory distress syndrome (ARDS) due to 2019 novel coronavirus Status: Acute Category: Medical Code(s): U07.1 - COVID-19; J80 - Acute respiratory distr
[2020-04-05 08:42] LABS: ABG Oxygen Saturation 92 % (90-100); ABG PCO2 33.8 mmhg (35.0-45.0); ABG PH 7.26 mmol/L (7.35-7.45); ABG PO2 65.9 mmhg (80-100)
[2020-04-05 08:45] LABS: Allen's Test Patient Unable; Oxygen 100 %; PEEP 14; Source Left Radial; Tidal Volume 440; Vent Rate 24
--- NOTE | 2020-04-05 10:06 | HMH.PHAHEP ---
[facility] Pharmacy Heparin Dosing - Demographic Data Admission date:: 04/05/20 Date: 04/05/20 Time: 16:30 Allergies/Adverse Reactions: Allergies Allergy/AdvReac Type Severity Reaction Status Date / Time esomeprazole [From NEXIUM] Allergy Intermediate I-ITCHING Verified 04/03/20 19:25 methocarbamol [From ROBAXIN] Allergy Intermediate I-ITCHING Verified 04/03/20 19:25 morphine [MORPHINE] Allergy Mild NA-NAUSEA Verified 04/03/20 19:25 Height: 1.78 m Weight: 80.9 kg - Indication Medication therapy:: Heparin Patient Problems: Current Active Problems COVID-19 virus detected (Acute) COVID-19 virus IgG antibody detected (Acute) Acute exacerbation of chronic obstructive airways disease (Acute) Tobacco use (Acute) Respiratory failure with hypoxia (Acute) Acute hypoxemic respiratory failure due to COVID-19 (Acute) Acute respiratory distress syndrome (ARDS) due to 2019 novel coronavirus (Acute) Severe sepsis (Acute) Metabolic acidosis (Acute) Acute respiratory acidosis (Acute) Acute kidney injury (Acute) Cardiomyopathy (Acute) CVA?: No Bleeding problem?: No Kidney disease?: No UT?: No Desired PTT range:: 60-80 seconds - Labs Anticoagulation Lab Results:: 04/04/20 04/05/20 22:40 03:45 Hgb 12.9 L 12.8 L Hct 39.1 L 38.9 L Plt Count 331 333 - Monitoring Dose Monitor 1 Date: 04/04/20 Time: 16:30 PTT Result:: 33.7 Infusion Rate:: 900 UNITS/HR NO BOLUS PER DR. CORREIA Dose Monitor 2 Date: 04/04/20 Time: 22:00 PTT Result:: 55.3 Infusion Rate:: HEPARIN 1050 UNITS/HR Dose Monitor 3 Date: 04/05/20 Time: 04:00 PTT Result:: 63.8 Infusion Rate:: CONTINUE HEPARIN 1050 UNITS/HR Dose Monitor 4 Date: 04/05/20 Time: 09:00 PTT Result:: 58.0 Infusion Rate:: 1200 UNITS/HR Dose Monitor 5 Date: 04/05/20 Time: 15:00 PTT Result:: 63.6 Infusion Rate:: 1200 UNITS/HR Dose Monitor 6 Date: 04/05/20 Time: 22:00 PTT Result:: 62.1 Infusion Rate:: 1200 UNITS/HR Dose Monitor 7 Date: 04/06/20 Time: 06:00 PTT Result:: 58.0 Infusion Rate:: 1200 UNITS/HR Dose Monitor 8 Date: 04/06/20 Time: 18:00 PTT Result:: 56.1 Infusion Rate:: 1200 UNITS/HR Dose Monitor 9 Date: 04/07/20 Time: 06:00 PTT Result:: 54.6 Infusion Rate:: INCREASE TO 1250 UNITS/HR Dose Monitor 10 Date: 04/07/20 Time: 15:45 PTT Result:: 118.0 Infusion Rate:: LEAVE AT 25 ML/HR AND REDRAW Dose Monitor 11 Date: 04/07/20 Time: 17:40 PTT Result:: 124.0 Infusion Rate:: DECREASE TO 1200 UNITS/HR Dose Monitor 12 Date: 04/08/20 Time: 01:15 PTT Result:: 41.5 Infusion Rate:: CONTINUE WITH 1200 UNITS/HR Dose Monitor 13 Date: 04/08/20 Time: 07:55 PTT Result:: 67.4 Infusion Rate:: D/C BY MD. [place] STARTED - Core Measures Is INR > or = 2 at discharge?: No Most Recent Labs:: Laboratory Results - last 24 hr 04/04/20 10:45: Specimen Source Left radial, O2 % 80, ABG pH 7.12 L*, ABG pCO2 60.5 H, ABG pO2 67.8 L, ABG HCO3 19.3 L, ABG Total CO2 21.1 L, ABG O2 Saturation 88 L, ABG Base Excess -10.0 L, Jamie Test Patient unable, Vent Rate 18, Tidal Volume 420, PEEP 10 04/04/20 13:00: Specimen Source Right radial, O2 % 100, ABG pH 7.24 L*, ABG pCO2 41.8, ABG pO2 51.1 L, ABG HCO3 17.7 L, ABG Total CO2 19.0 L, ABG O2 Saturation 84 L*, ABG Base Excess -9.7 L, Jamie Test Patient unable, Vent Rate 24, Tidal Volume 420, PEEP 12 04/04/20 14:05: Troponin I 1.55 H 04/04/20 15:15: Urine Color Yellow, Urine Appearance Clear, Urine pH 5.5, Ur Specific [place] >= 1.030, Urine Protein 2+, Urine Glucose (UA) Negative, Urine Ketones Negative, Urine Blood 1+, Urine Nitrate Negative, Urine Bilirubin Negative, Urine Urobilinogen 0.2, Ur Leukocyte Esterase Negative, Urine RBC 5-10, Urine WBC None, Ur Squamous Epith Cells Occasional, Amorphous Sediment 3+, Urine Bacteria None, Coarse Granular Casts 1
[2020-04-05 13:54] LABS: ABG Base Excess -12.4 mmol/L (-2.4-2.3); ABG HCO3 15.2 mmhg (22.0-26.0); ABG Oxygen Saturation 78 % (90-100); ABG PH 7.23 mmol/L (7.35-7.45); ABG TCO2 16.3 mmhg (23-27)
[2020-04-05 13:57] LABS: Allen's Test Patient Unable; PEEP 14; Source Right Brachial; Tidal Volume 440; Vent Rate 24
[2020-04-05 13:58] LABS: ABG PO2 42.9 mmhg (80-100)
--- NOTE | 2020-04-05 16:30 | PC.NURSE ---
Addendum entered by Ina Johnson RN 04/05/20 18:36: Levo titrated and currently @ 8 mcg/min Propofol titrated and currently @ 20 mcg/kg/min Original Note: No acute changes this shift. Remains on [facility] vent on assist control 100%, TV 440, PEEP 14, Rate 24. 7.5 ETT 25 @ lip, midline. Fine crackles auscultated in bilat lower lobe. Secretions are clear and thin, minimal. Suctioning performed Q2HP as well as oral care provided. Sinus rhythm noted on tely. Remains on Levo gtt, has been titrated down to 10 mcg/min. OGT remains 56 cm @ lip. No BM this shift. Osuna cath to drain @ beside w/ adequte UOP this shift. Urine is clear and yellow. Skin is intact. Has been turned & repositioned Q2H. Remained afebrile this shift. L SC line dressing changed @ 1300 using sterile technique. Propofol titrated to 30 mcg/kg/min. Fentanyl remains @ 50 mcg/hr. Dr. Shah spoke w/ pharmacy, IVF changed to Sodium Bicarb 100 meq in NS @ 150mls/hr.
[2020-04-05 17:09] LABS: Activated Partial Thrombo Time 63.6 seconds (23.6-34.0)
[2020-04-05 17:25] LABS: Chloride 113 mmol/L (98-107); Potassium 4.4 mmoL/L (3.5-5.1); Sodium 138 mmol/L (136-145)
[2020-04-05 17:28] LABS: Anion Gap 13.4 mEq/L (5-15); Blood Urea Nitrogen 45 mg/dl (9-20); Calcium 7.8 mg/dl (8.4-10.2); Carbon Dioxide 16 mmol/L (22.0-30.0); Creatinine Clearance Estimated 57 mL/min (50-200); Estimated Glomerular Filt Rate 44 ml/min (>60); GFR (African American) 54 ML/MIN (>60); Glucose 170 mg/dl (74-100)
[2020-04-05 22:25] LABS: Activated Partial Thrombo Time 62.1 seconds (23.6-34.0)
[2020-04-06] VITALS (60 sets, daily range): BP systolic 93–113; BP diastolic 55–73; PULSE 67–89; RESP 13–32; TEMP 36.4–37.7; O2SAT 82–100; BMI 25.0
--- NOTE | 2020-04-06 00:47 | PC.NURSE ---
1999 diprivan increased to 30mcq, patient overbreathing vent and stacking breaths. peak pressures maintaining high 40s to low 50s, rr 28-32.
--- NOTE | 2020-04-06 00:48 | PC.NURSE ---
2330 diprivan drip increased to 40 mcq, patient awake, attempting to climb out of bed and pull ett out. peak airway pressures sustaining 50s, respiratory rate 35-40, sats dropped to 81%, when patient sedated again, peak pressures returned to low 40s, rr mid 20s and sats returned back to mid 90s.
--- NOTE | 2020-04-06 00:52 | PC.NURSE ---
2200 levophed drip decreased to 6 mcq for systolic greater than 100 and map greater than 65.
--- NOTE | 2020-04-06 00:53 | PC.NURSE ---
0030 levophed drip decreased to 4 mcq for systolic greater than 100 and map greater than 65.
--- NOTE | 2020-04-06 02:26 | PC.NURSE ---
0200 levophed drip decreased to 2 mcq for systolic greater than 100 and map greater than 65.
--- NOTE | 2020-04-06 04:40 | PC.NURSE ---
0300 levo drip turned off for systolic greater than 100 and map greater than 65. temp has been more consistent tonight than previous night, patients skin warm,pink and moist, occasionally diaphoretic. parachute [employer] has shown sr without ectopic beats. propofol has needed to be increased throughout shift, now currently at 40 mcq and resting with slight grimace to brow. fentanyl drip currently at 50 mcq. heparin drip has maintained 1200 per pharmacy. sats have maintained mid to high 90s, with rr of 26 to 32 on 100% fio2 and peep of 14. breath sounds course throughout and diminished in right lower lobe. ogt 56 cm at lip and clamped auscultated for placement. guido to gravity,clear yellow urine.
--- NOTE | 2020-04-06 06:00 | XR_ITS ---
PROCEDURE: XR CHEST PORTABLE CLINICAL HISTORY: Assess tube placement COMPARISON: CT CT ANGIO CHEST from 04/03/2020 CR XR CHEST PORTABLE from 04/04/2020 CR XR CHEST PORTABLE from 04/04/2020 CR XR CHEST PORTABLE from 04/05/2020 FINDINGS: The endotracheal tube is 4.2 cm above the scooby. The left subclavian line is again noted with the tip in the SVC above the right atrium. The NG tube is in satisfactory position. Coarse patchy ill-defined opacities are seen in both perihilar regions and lower lobes slightly more prominent and diffuse than seen on yesterday's study. IMPRESSION: Satisfactory position of tubes and lines, interval progression of diffuse bilateral perihilar and lower lobe ill-defined patchy pneumonic infiltrates consistent with Covid19 pneumonia Dictated by: Dr. Arnulfo Yarbrough MD 04/06/2020 09:33 Dr. Arnulfo Yarbrough MD in [place] 04/06/2020 09:33
[2020-04-06 06:21] LABS: Basophils % 0.1 % (0.1-2.0); Hematocrit 31.2 % (42.0-52.0); Hemoglobin 10.2 g/dL (14.1-18.0); Lymphocytes # 0.7 K/mm3 (0.7-4.5); Lymphocytes % 2.9 % (10-50); Mean Corpuscular HGB Conc 32.7 g/dL (31.8-35.4); Mean Corpuscular Hemoglobin 30.3 pg (27.0-31.2); Mean Corpuscular Volume 92.7 fl (80-94); Mean Platelet Volume 9.5 fl (7.4-10.4); Monocytes # 0.4 K/mm3 (0.1-1.0); Monocytes % 1.6 % (1.7-9.3); Neutrophils # 21.6 K/mm3 (1.8-7.8); Neutrophils % 95.2 % (37.0-80.0); Platelet Count 293 K/mm3 (142-424); Red Blood Count 3.37 M/mm3 (4.60-6.20); Red Cell Distribution Width 15.3 % (11.5-17.5); White Blood Count 22.6 K/mm3 (4.8-10.8)
[2020-04-06 06:30] LABS: MANUAL DIFFERENTIAL MANUAL DIFFERENTIAL (MANUAL DIFF)
[2020-04-06 06:33] LABS: Alanine Aminotransferase 27 U/L (12-78); Albumin Level 2.6 g/dl (3.5-5.0); Albumin/Globulin Ratio 0.8 (1.1-1.8); Alkaline Phosphatase 100 U/L (38-126); Anion Gap 13.2 mEq/L (5-15); Aspartate Amino Transferase 67 U/L (17-59); Bilirubin,Total 0.3 mg/dl (0.2-1.3); Blood Urea Nitrogen 49 mg/dl (9-20); Calcium 7.7 mg/dl (8.4-10.2); Carbon Dioxide 19 mmol/L (22.0-30.0); Chloride 115 mmol/L (98-107); Creatinine Clearance Estimated 64 mL/min (50-200); Estimated Glomerular Filt Rate 52 ml/min (>60); GFR (African American) 63 ML/MIN (>60); Globulin 3.3 g/dL (1.3-3.2); Potassium 4.2 mmoL/L (3.5-5.1); Sodium 143 mmol/L (136-145); Total Protein,Serum 5.9 g/dl (6.3-8.2)
--- NOTE | 2020-04-06 06:40 | PC.NURSE ---
per pharmacy continue heparin drip at current rate 1200 units
[2020-04-06 06:42] LABS: Glucose 129 mg/dl (74-100)
[2020-04-06 07:16] LABS: ABG Base Excess -8.3 mmol/L (-2.4-2.3); ABG HCO3 17.6 mmhg (22.0-26.0); ABG Oxygen Saturation 96 % (90-100); ABG PCO2 33.9 mmhg (35.0-45.0); ABG PH 7.33 mmol/L (7.35-7.45); ABG PO2 82.4 mmhg (80-100); ABG TCO2 18.6 mmhg (23-27)
[2020-04-06 07:19] LABS: Allen's Test Patient Unable; Oxygen 100 %; PEEP 14; Source Right Radial; Tidal Volume 440; Vent Rate 24
[2020-04-06 07:56] LABS: Lymphocytes % 4 % (10-50); Monocytes % 2 % (2-9); Neutrophils % 94 % (42-76); Platelet Estimate Normal; RBC Morphology Normal; Total Cells Counted 100
--- NOTE | 2020-04-06 08:56 | HMH.ACPN2 ---
Internal Medicine - PN: Subj *Date: 04/06/20 *Time: 08:56 Interval history: Patient was stable through the night, was able to be weaned off of Levophed drip, tolerated a higher intensity fluids and a couple of fluid boluses well and kidney function is slightly improved per his panel this morning. Remains intubated and sedated on ventilator. Appreciate pulmonary ventilator management. Exam Vital signs and Labs for Last 24 Hours: Temp Pulse Resp BP Pulse Ox 98.7 F 76 30 H 110/56 L 99 04/06/20 06:00 04/06/20 07:02 04/06/20 07:02 04/06/20 06:39 04/06/20 07:02 Laboratory Results - last 24 hr 04/05/20 09:30: APTT 58.0 H* 04/05/20 13:00: Specimen Source Right brachial, O2 % 100% mixed sample, ABG pH 7.23 L*, ABG pCO2 37.0, ABG pO2 42.9 L, ABG HCO3 15.2 L, ABG Total CO2 16.3 L, ABG O2 Saturation 78 L*, ABG Base Excess -12.4 L, Jamie Test Patient unable, Vent Rate 24, Tidal Volume 440, PEEP 14 04/05/20 14:50: APTT 63.6 H* 04/05/20 17:00: Sodium 138, Potassium 4.4, Chloride 113 H, Carbon Dioxide 16 L, Anion Gap 13.4, BUN 45 H D, Creatinine 1.60 H, Estimated Creat Clear 57, Estimated GFR 44 L, Est GFR ( Amer) 54 L, Glucose 170 H D, Calcium 7.8 L 04/05/20 21:55: Vancomycin Trough 20.0 H 04/05/20 21:55: APTT 62.1 H* 04/06/20 05:00: APTT 58.0 H* 04/06/20 05:00: WBC 22.6 H* D, RBC 3.37 L, Hgb 10.2 L, Hct 31.2 L, MCV 92.7, MCH 30.3, MCHC 32.7, RDW 15.3, Plt Count 293, MPV 9.5, Neut % (Auto) 95.2 H, Lymph % (Auto) 2.9 L, [place] % (Auto) 1.6 L, Eos % (Auto) 0.0 L, Baso % (Auto) 0.1, Neut # (Auto) 21.6 H, Lymph # (Auto) 0.7, [place] # (Auto) 0.4, Eos # (Auto) 0.0, Baso # (Auto) 0.0, Total Counted 100, Neutrophils % (Manual) 94 H, Lymphocytes % (Manual) 4 L, Monocytes % (Manual) 2, Platelet Estimate Normal, RBC Morphology Normal 04/06/20 05:00: Sodium 143, Potassium 4.2, Chloride 115 H, Carbon Dioxide 19 L, Anion Gap 13.2, BUN 49 H, Creatinine 1.40 H, Estimated Creat Clear 64, Estimated GFR 52 L, Est GFR ( Amer) 63, Glucose 129 H D, Calcium 7.7 L, Total Bilirubin 0.3, AST 67 H, ALT 27 D, Alkaline Phosphatase 100, Total Protein 5.9 L, Albumin 2.6 L D, Globulin 3.3 H, Albumin/Globulin Ratio 0.8 L 04/06/20 07:14: Specimen Source Right radial, O2 % 100, ABG pH 7.33 L, ABG pCO2 33.9 L, ABG pO2 82.4, ABG HCO3 17.6 L, ABG Total CO2 18.6 L, ABG O2 Saturation 96, ABG Base Excess -8.3 L, Jamie Test Patient unable, Vent Rate 24, Tidal Volume 440, PEEP 14 I & O for Last 24 hours: Intake & Output 04/03/20 04/04/20 04/05/20 04/06/20 11:59 11:59 11:59 11:59 Intake Total 642 / 642 4644.639 / 5217.639 4119.413 / 4119.413 Output Total 1400 / 1400 1210 / 1310 1979 / 1979 Balance -758 / -758 3434.639 / 3907.639 2139.413 / 2139.413 Weight 168 lb 8 oz 178 lb 5.663 oz 174 lb 8 oz Microbiology Reports for the Last 24 Hours: Microbiology 04/04/20 10:05 Sputum - Endotracheal Tube Aspirate Gram Stain - Final 04/04/20 10:05 Sputum - Endotracheal Tube Aspirate Sputum Culture - Preliminary 04/03/20 19:10 Blood Blood Culture - Preliminary NO GROWTH AFTER 48 HOURS 04/03/20 19:10 Blood Blood Culture - Preliminary NO GROWTH AFTER 48 HOURS Narrative: Patient intubated, sedated. Pressure readings reviewed on ventilator, still remains fairly high but are stable. Blood pressure 103/60 off Levophed. Lungs actually sound pretty good this morning with ventilator sounds but symmetric expansion. Heart rate regular but exam difficult because of ventilator sounds. No gallops or murmurs heard. Abdomen soft. Osuna catheter draining clear yellow urine. Of note urine output has been good. Extremities warm and well-perfused. Oropharynx clear, no bleeding. Assessment and Plan (1) Acute respiratory distress syndrome (ARDS) due to 2019 novel coronavirus Status: Acute Category: Medical Code(s): U07.1 - COVID-19; J80 - Acute respiratory distress syndrome (2) Acute hypoxemi
--- NOTE | 2020-04-06 13:05 | HMH.PHACONS ---
- Pharmacy Consult Date: 04/06/20 Time: 13:05 Referring provider: DR. PERALTA Reason for Consult:: VANCOMYCIN LEVEL Allergies and ADEs:: Allergies Allergy/AdvReac Type Severity Reaction Status Date / Time esomeprazole [From NEXIUM] Allergy Intermediate I-ITCHING Verified 04/03/20 19:25 methocarbamol [From ROBAXIN] Allergy Intermediate I-ITCHING Verified 04/03/20 19:25 morphine [MORPHINE] Allergy Mild NA-NAUSEA Verified 04/03/20 19:25 Home Medications:: Home Medications Medication Instructions Recorded Confirmed Type No Known Home Medications 04/04/20 04/04/20 History Height: 1.78 m Weight: 79.152 kg Laboratory Results:: Laboratory Results - last 24 hr 04/05/20 13:00: Specimen Source Right brachial, O2 % 100% mixed sample, ABG pH 7.23 L*, ABG pCO2 37.0, ABG pO2 42.9 L, ABG HCO3 15.2 L, ABG Total CO2 16.3 L, ABG O2 Saturation 78 L*, ABG Base Excess -12.4 L, Jamie Test Patient unable, Vent Rate 24, Tidal Volume 440, PEEP 14 04/05/20 14:50: APTT 63.6 H* 04/05/20 17:00: Sodium 138, Potassium 4.4, Chloride 113 H, Carbon Dioxide 16 L, Anion Gap 13.4, BUN 45 H D, Creatinine 1.60 H, Estimated Creat Clear 57, Estimated GFR 44 L, Est GFR ( Amer) 54 L, Glucose 170 H D, Calcium 7.8 L 04/05/20 21:55: Vancomycin Trough 20.0 H 04/05/20 21:55: APTT 62.1 H* 04/06/20 05:00: APTT 58.0 H* 04/06/20 05:00: WBC 22.6 H* D, RBC 3.37 L, Hgb 10.2 L, Hct 31.2 L, MCV 92.7, MCH 30.3, MCHC 32.7, RDW 15.3, Plt Count 293, MPV 9.5, Neut % (Auto) 95.2 H, Lymph % (Auto) 2.9 L, [place] % (Auto) 1.6 L, Eos % (Auto) 0.0 L, Baso % (Auto) 0.1, Neut # (Auto) 21.6 H, Lymph # (Auto) 0.7, [place] # (Auto) 0.4, Eos # (Auto) 0.0, Baso # (Auto) 0.0, Total Counted 100, Neutrophils % (Manual) 94 H, Lymphocytes % (Manual) 4 L, Monocytes % (Manual) 2, Platelet Estimate Normal, RBC Morphology Normal 04/06/20 05:00: Sodium 143, Potassium 4.2, Chloride 115 H, Carbon Dioxide 19 L, Anion Gap 13.2, BUN 49 H, Creatinine 1.40 H, Estimated Creat Clear 64, Estimated GFR 52 L, Est GFR ( Amer) 63, Glucose 129 H D, Calcium 7.7 L, Total Bilirubin 0.3, AST 67 H, ALT 27 D, Alkaline Phosphatase 100, Total Protein 5.9 L, Albumin 2.6 L D, Globulin 3.3 H, Albumin/Globulin Ratio 0.8 L 04/06/20 07:14: Specimen Source Right radial, O2 % 100, ABG pH 7.33 L, ABG pCO2 33.9 L, ABG pO2 82.4, ABG HCO3 17.6 L, ABG Total CO2 18.6 L, ABG O2 Saturation 96, ABG Base Excess -8.3 L, Jamie Test Patient unable, Vent Rate 24, Tidal Volume 440, PEEP 14 Medical History: Reports:: Hyperlipidemia Denies:: Internal Pacemaker Assessment and Plan (1) Acute respiratory distress syndrome (ARDS) due to 2019 novel coronavirus Status: Acute Category: Medical Code(s): U07.1 - COVID-19; J80 - Acute respiratory distress syndrome (2) Acute hypoxemic respiratory failure due to COVID-19 Status: Acute Category: Medical Code(s): U07.1 - COVID-19; J96.01 - Acute respiratory failure with hypoxia (3) Tobacco use Status: Acute Category: Social Hx Code(s): Z72.0 - Tobacco use (4) Severe sepsis Status: Acute Category: Medical Code(s): A41.9 - Sepsis, unspecified organism; R65.20 - Severe sepsis without septic shock (5) Metabolic acidosis Status: Acute Category: Medical Code(s): E87.2 - Acidosis (6) Acute respiratory acidosis Status: Acute Category: Medical Code(s): E87.2 - Acidosis (7) Acute kidney injury Status: Acute Category: Medical Code(s): N17.9 - Acute kidney failure, unspecified (8) Cardiomyopathy Status: Acute Category: Medical Code(s): I42.9 - Cardiomyopathy, unspecified - Assessment and plan all Dx Assessment and Plan for all problems:: PATIENT'S VANCOMYCIN TROUGH LEVEL WAS 20.0 MCG/ML OVERNIGHT. HAD NURSE HOLD DOSE OVERNIGHT AND RESTARTED THIS AM AT VANCOMYCIN 1500 MG Q18H. PHARMACY WILL FOLLOW DAILY AND ADJUST APPROPRIATE.
[2020-04-06 18:26] LABS: Activated Partial Thrombo Time 56.1 seconds (23.6-34.0)
--- NOTE | 2020-04-06 18:29 | PC.NURSE ---
Remains on mech vent on assist control 100%, TV 440, PEEP 14, Rate 24. 7.5 ETT 25 @ lip, Right side. Has had increase in secretions today, creamy and thick. Suctioning performed Q2HP as well as oral care provided. Sinus rhythm noted on tely. Has remained off Levo gtt. OGT remains 56 cm @ lip. Spoke w/ Dr. Dorsey this AM about tube feeds, wishes to hold off on tube feeds today and possible start tomorrow. No BM this shift. Osuna cath to drain @ beside w/ adequte UOP this shift. Urine is clear and yellow. Skin is intact. Has been turned & repositioned Q2H. Heparin gtt managed, no changes made this shift. Propofol @ 50 mcg/kg/min. Fentanyl @ 50 mcg/hr.
[2020-04-07] VITALS (33 sets, daily range): BP systolic 97–142; BP diastolic 56–80; PULSE 66–97; RESP 14–34; TEMP 37–37.7; O2SAT 92–100; BMI 26.2
[2020-04-07 06:15] LABS: Basophils % 0.2 % (0.1-2.0); Hematocrit 30.6 % (42.0-52.0); Lymphocytes # 0.6 K/mm3 (0.7-4.5); Lymphocytes % 3.1 % (10-50); Mean Corpuscular HGB Conc 32.8 g/dL (31.8-35.4); Mean Corpuscular Volume 94.5 fl (80-94); Mean Platelet Volume 9.2 fl (7.4-10.4); Monocytes # 0.5 K/mm3 (0.1-1.0); Monocytes % 2.6 % (1.7-9.3); Neutrophils # 18.6 K/mm3 (1.8-7.8); Platelet Count 339 K/mm3 (142-424); Red Blood Count 3.23 M/mm3 (4.60-6.20); Red Cell Distribution Width 15.7 % (11.5-17.5); White Blood Count 19.8 K/mm3 (4.8-10.8)
[2020-04-07 06:16] LABS: Alanine Aminotransferase 22 U/L (12-78); Albumin Level 2.4 g/dl (3.5-5.0); Albumin/Globulin Ratio 0.7 (1.1-1.8); Alkaline Phosphatase 96 U/L (38-126); Anion Gap 10.3 mEq/L (5-15); Aspartate Amino Transferase 60 U/L (17-59); Bilirubin,Total 0.3 mg/dl (0.2-1.3); Blood Urea Nitrogen 52 mg/dl (9-20); Calcium 7.7 mg/dl (8.4-10.2); Carbon Dioxide 21 mmol/L (22.0-30.0); Chloride 119 mmol/L (98-107); Creatinine Clearance Estimated 64 mL/min (50-200); Estimated Glomerular Filt Rate 52 ml/min (>60); GFR (African American) 63 ML/MIN (>60); Globulin 3.3 g/dL (1.3-3.2); Glucose 134 mg/dl (74-100); Potassium 4.3 mmoL/L (3.5-5.1); Sodium 146 mmol/L (136-145); Total Protein,Serum 5.7 g/dl (6.3-8.2)
[2020-04-07 06:21] LABS: MANUAL DIFFERENTIAL MANUAL DIFFERENTIAL (MANUAL DIFF)
[2020-04-07 06:23] LABS: Activated Partial Thrombo Time 54.6 seconds (23.6-34.0)
[2020-04-07 07:06] LABS: ABG Base Excess -6.3 mmol/L (-2.4-2.3); ABG Oxygen Saturation 99 % (90-100); ABG PCO2 33.8 mmhg (35.0-45.0); ABG PH 7.37 mmol/L (7.35-7.45); ABG PO2 159.6 mmhg (80-100); ABG TCO2 20.1 mmhg (23-27)
[2020-04-07 07:07] LABS: Oxygen 100 %; Tidal Volume 440
[2020-04-07 07:08] LABS: Allen's Test Patient Unable; PEEP 14; Source Right Radial; Vent Rate 24
--- NOTE | 2020-04-07 09:00 | XR_ITS ---
PROCEDURE: XR CHEST PORTABLE CLINICAL HISTORY: PNM Follow-up pneumonia COMPARISON: CT CT ANGIO CHEST from 04/03/2020 CR XR CHEST PORTABLE from 04/04/2020 CR XR CHEST PORTABLE from 04/05/2020 CR XR CHEST PORTABLE from 04/06/2020 FINDINGS: Endotracheal tube nasogastric tube and left subclavian central venous line remain in good position. Bilateral pneumonia once again noted involving the mid lower lung zones which appears slightly improved. No acute bony abnormalities. IMPRESSION: Tubes and lines in good position with persistent but slightly improved bilateral pneumonia Dictated by: Jamie Shoemaker MD 04/07/2020 10:06 Jamie Shoemaker MD in [place] 04/07/2020 10:06
[2020-04-07 09:21] LABS: Lymphocytes % 4 % (10-50); Monocytes % 2 % (2-9); Neutrophils % 94 % (42-76); Total Cells Counted 100
[2020-04-07 09:22] LABS: Platelet Estimate Normal; RBC Morphology Normal
--- NOTE | 2020-04-07 09:30 | HMH.ACPN2 ---
Internal Medicine - PN: Tameka *Date: 04/07/20 *Time: 09:30 Interval history: Internal medicine intensive care unit follow-up note: Patient remains intubated, sedated, ventilator settings are unchanged, please refer to pulmonary notes. Acute kidney injury has stabilized, patient's perfusion remains good and he has now been off Levophed drip for over 24 hours. Urine output is good. Exam Vital signs and Labs for Last 24 Hours: Temp Pulse Resp BP Pulse Ox 99.3 F 70 29 H 112/64 100 04/07/20 06:56 04/07/20 06:56 04/07/20 08:13 04/07/20 06:56 04/07/20 08:13 Laboratory Results - last 24 hr 04/06/20 18:00: APTT 56.1 H* 04/07/20 05:10: APTT 54.6 H* 04/07/20 05:10: WBC 19.8 H, RBC 3.23 L, Hgb 10.0 L, Hct 30.6 L, MCV 94.5 H, MCH 31.0, MCHC 32.8, RDW 15.7, Plt Count 339, MPV 9.2, Neut % (Auto) 94.0 H, Lymph % (Auto) 3.1 L, [place] % (Auto) 2.6, Eos % (Auto) 0.0 L, Baso % (Auto) 0.2, Neut # (Auto) 18.6 H, Lymph # (Auto) 0.6 L, [place] # (Auto) 0.5, Eos # (Auto) 0.0, Baso # (Auto) 0.0, Total Counted 100, Neutrophils % (Manual) 94 H, Lymphocytes % (Manual) 4 L, Monocytes % (Manual) 2, Platelet Estimate Normal, RBC Morphology Normal 04/07/20 05:10: Sodium 146 H, Potassium 4.3, Chloride 119 H, Carbon Dioxide 21 L, Anion Gap 10.3, BUN 52 H, Creatinine 1.40 H, Estimated Creat Clear 64, Estimated GFR 52 L, Est GFR ( Amer) 63, Glucose 134 H, Calcium 7.7 L, Total Bilirubin 0.3, AST 60 H, ALT 22, Alkaline Phosphatase 96, Total Protein 5.7 L, Albumin 2.4 L, Globulin 3.3 H, Albumin/Globulin Ratio 0.7 L 04/07/20 06:45: Specimen Source Right radial, O2 % 100, ABG pH 7.37, ABG pCO2 33.8 L, ABG pO2 159.6 H, ABG HCO3 19.0 L, ABG Total CO2 20.1 L, ABG O2 Saturation 99, ABG Base Excess -6.3 L, Jamie Test Patient unable, Vent Rate 24, Tidal Volume 440, PEEP 14 I & O for Last 24 hours: Intake & Output 04/04/20 04/05/20 04/06/20 04/07/20 11:59 11:59 11:59 11:59 Intake Total 642 / 642 4644.639 / 5217.639 5453.413 / 5504.413 4487.333 / 4487.333 Output Total 1400 / 1400 1210 / 1310 2445 / 2520 1780 / 1780 Balance -758 / -758 3434.639 / 3907.639 3008.413 / 2984.413 2707.333 / 2707.333 Weight 168 lb 8 oz 178 lb 5.663 oz 174 lb 8 oz 182 lb 15.739 oz Microbiology Reports for the Last 24 Hours: Microbiology 04/04/20 10:05 Sputum - Endotracheal Tube Aspirate Gram Stain - Final 04/04/20 10:05 Sputum - Endotracheal Tube Aspirate Sputum Culture - Preliminary Narrative: Unchanged exam, intubated and sedated, oropharynx otherwise clear. OG tube in good position. Lungs have fairly symmetric air entry, minimal rhonchi. Heart rate regular, distal perfusion good, extremities warm, abdomen soft and nontender. Osuna catheter draining clear yellow urine. Assessment and Plan (1) Acute respiratory distress syndrome (ARDS) due to 2019 novel coronavirus Status: Acute Category: Medical Code(s): U07.1 - COVID-19; J80 - Acute respiratory distress syndrome (2) Acute hypoxemic respiratory failure due to COVID-19 Status: Acute Category: Medical Code(s): U07.1 - COVID-19; J96.01 - Acute respiratory failure with hypoxia (3) Tobacco use Status: Acute Category: Social Hx Code(s): Z72.0 - Tobacco use (4) Severe sepsis Status: Acute Category: Medical Code(s): A41.9 - Sepsis, unspecified organism; R65.20 - Severe sepsis without septic shock (5) Metabolic acidosis Status: Acute Category: Medical Code(s): E87.2 - Acidosis (6) Acute respiratory acidosis Status: Acute Category: Medical Code(s): E87.2 - Acidosis (7) Acute kidney injury Status: Acute Category: Medical Code(s): N17.9 - Acute kidney failure, unspecified (8) Cardiomyopathy Status: Acute Category: Medical Code(s): I42.9 - Cardiomyopathy, unspecified - Assessment and plan all Dx Assessment and Plan for all problems:: Remains in ICU with very guarded and overall poor prognosis secondary to cardiomyopathy and significant effects from
--- NOTE | 2020-04-07 10:20 | PC.NURSE ---
Upon entering the room found ventilator on 80% FiO2. See chart note for details.
--- NOTE | 2020-04-07 10:26 | HMH.PULMPN ---
Internal Medicine - PN: Subj *Date: 04/07/20 *Time: 10:26 Interval history: Patient remained intubated and mechanically ventilated over the weekend. Patient off pressors. Oxygenation improved. Exam - Constitutional Constitutional:: no acute distress, comfortable - HENMT Exam HENMT: normocephalic, atraumatic - Eye Exam Eyes:: normal appearance both eyes and related structures - Neck Exam Neck:: normal visual inspection, thyroid normal - Respiratory Exam Comments: Intubated and sedated. Bilateral coarse breath sounds, slightly improved. - Cardiovascular Exam Cardiac:: S1, S2 - GI Exam GI:: no hepatosplenomegaly - Skin Exam Skin: warm, no rash - Extremities Exam Extremities: no cyanosis, no clubbing, edema Assessment and Plan (1) Acute respiratory distress syndrome (ARDS) due to 2019 novel coronavirus Status: Acute Category: Medical Code(s): U07.1 - COVID-19; J80 - Acute respiratory distress syndrome (2) Acute hypoxemic respiratory failure due to COVID-19 Status: Acute Category: Medical Code(s): U07.1 - COVID-19; J96.01 - Acute respiratory failure with hypoxia (3) Tobacco use Status: Acute Category: Social Hx Code(s): Z72.0 - Tobacco use (4) Severe sepsis Status: Acute Category: Medical Code(s): A41.9 - Sepsis, unspecified organism; R65.20 - Severe sepsis without septic shock (5) Metabolic acidosis Status: Acute Category: Medical Code(s): E87.2 - Acidosis (6) Acute respiratory acidosis Status: Acute Category: Medical Code(s): E87.2 - Acidosis (7) Acute kidney injury Status: Acute Category: Medical Code(s): N17.9 - Acute kidney failure, unspecified (8) Cardiomyopathy Status: Acute Category: Medical Code(s): I42.9 - Cardiomyopathy, unspecified - Assessment and plan all Dx Assessment and Plan for all problems:: # Acute hypoxic respiratory failure needing mechanical ventilation: # COVID-19 pneumonia: 60-year-old COPD presented with worsening respiratory failure and chest x-ray showed bilateral pulmonary infiltrates. CTA did not show evidence of PE but showed diffuse bilateral pulmonary infiltrates along with trace effusions. Patient respiratory status acutely worsened after admission, escalated from 3 L nasal cannula to mechanical ventilation within 12 hours. Interval update: Patient respiratory status post intubation slightly improved. Auscultation coarse breath sounds slightly improved from admission -FiO2 decreased to 80% Examination revealed volume overload with bilateral worsening lower extremity edema. Will discontinue incline fluid study closely monitor volume status and determine the need for Lasix tomorrow. Patient already clear urine output throughout the hospital course. Patient also found a low EF at 20% elevated troponins, not a candidate for cardiac angiography, initiated on heparin drip. ABG this morning improved with a PO2 of 160, pH of 7.37 and PCO2 33.8 Plan: -Continue lung protective mechanical ventilation, currently on PEEP of 14, 440 tidal volume rate of 24 and FiO2 of 80% -Discontinue maintenance fluids, dietary consult and initiate tube feeding -Continue vancomycin and cefepime levofloxacin and azithromycin. Follow with BAL and nasal MRSA cultures - Continue remdesivir and dexamethasone for COVID-19 pneumonia - Sedation and analgesics with propofol and fentanyl with RASS goal of 0 to 1 and CPOT goal of less than or equal to 2 - VAP bundle with aspiration precautions - Chemical DVT and PPI prophylaxis #Rest of medical management including electrolyte replacement as per primary team Total critical care time spent on this patient is 40 minutes managing acute hypoxic respiratory failure needing mechanical ventilation. This time spent include reviewing test results including interpreting chest x-rays, labs and arterial blood gas, optimizing the ventilator settings,formulating plan of care, discussing the plan of care with the team
--- NOTE | 2020-04-07 15:40 | PC.NURSE ---
HALI THURSTON CALLED RT DUE TO THE VENT ALARMING LOW FI02. UPON ENTERING PTS ROOM VENT WAS ALARMING LOW FI02 AND LOW PAW. SPO2 85% BEGAN BAGGING. RISK PROFESSIONAL AND MAINTENANCE CALLED, TROUBLESHOOTING VENTILATOR PER RISK PROFESSIONAL REQUEST VENT EXCHANGED WITH ANOTHER VENTILATOR. PROBLEM CONTINUED. PT MOVED TO A DIFFERENT ROOM IN ORDER FOR MAINTENANCE EVALUATION. BAGGED PT TO NEW LOCATION. PLACED ON VENTILATOR TOLERATED WELL AND REMAINED STABLE. VENT ASSESSMENT IN CHART.
--- NOTE | 2020-04-07 17:20 | PC.NURSE ---
UPON DOING BREATHING TX VENT STARTED ALARMING LOW FI02 AGAIN. VENT CHANGED AT THIS TIME.
--- NOTE | 2020-04-07 17:26 | DIET.NUTRFU ---
Tube feedings were held today dt not having proper equipment per nursing, to be started this evening. No changes to regimen listed below at this time. Plans to dc IVF- when dc'd add water flushes of 230ml q 4hr to meet additional fluid needs not provided by formula. Continuing to monitor IVF/propofol and will monitor pt tolerance to adjust regimen/rate as indicated. Regimen listed below for convenience: Recommend initiating continuous tube feeding regimen of Pulmocare 1.5 at 20ml/hr and increase by 10ml/hr q 8hrs as tolerated to goal rate of 55ml/hr. Pt meeting fluid needs through IVF at 100ml/hr, recommend slightly decreasing IVF as pt reaches goal rate. Formula provides 950ml. Recommend minimal water flushes of 60ml for irrigation. Will monitor IVF and adjust as indicated.- If IVF completely dc'd- add water flushes of 230ml q 4hr.
--- NOTE | 2020-04-07 18:59 | PC.NURSE ---
Patient continues to be intubated and sedated, FiO2 decreased to 80% this shift per Dr Shah, lungs diminished in bl bases with scattered rhonchi, 7.[address] 25@lip, OG in place 56 @lip, tube feedings initiated this shift, abd soft and nontender, hypoactive bs in all quads, perrla, pupils 2+, FC patent and draining clear yellow urine, peripheral pulses 2+, nonpitting edema noted peripherally, vss at this time, will continue to monitor.
[2020-04-07 22:36] LABS: Vancomycin,Trough 17.3 ug/mL (5.0-10.0)
[2020-04-08] VITALS (34 sets, daily range): BP systolic 129–165; BP diastolic 73–93; PULSE 88–121; RESP 24–34; TEMP 36.8–38.3; O2SAT 95–99; BMI 26.4
[2020-04-08 01:40] LABS: Activated Partial Thrombo Time 41.5 seconds (23.6-34.0)
--- NOTE | 2020-04-08 02:11 | PC.NURSE ---
He is intubated and sedated. Vent settings are as follows: AC mode, TV 440, Rate 24, PEEP 14, 100% FiO2. He continues in contact airborne precautions. His HOB is elevated to 30 degrees. Per report, his last BM was on 04/04/20. He continues with pulmocare tube feedings with residual at 2000 is 5mL and 2400 is 60mL. His glasses, watch, and phone is in the drawer.
--- NOTE | 2020-04-08 05:00 | XR_ITS ---
PROCEDURE: XR CHEST PORTABLE CLINICAL HISTORY: Pt intubated Pneumonia COMPARISON: CT CT ANGIO CHEST from 04/03/2020 CR XR CHEST PORTABLE from 04/05/2020 CR XR CHEST PORTABLE from 04/06/2020 CR XR CHEST PORTABLE from 04/07/2020 FINDINGS: The endotracheal tube tip is slightly high at the T2 level. Endotracheal tube is 8.6 cm proximal to the scooby. Nasogastric tube tip is in the region of the body of stomach. Left subclavian central venous line tip in the SVC. Bilateral pneumonia once again noted and appears slightly improved. No evidence of pneumothorax. No acute bony abnormalities. IMPRESSION: Endotracheal tube tip slightly high and could be advanced 2-3 cm. Bilateral pneumonia slightly improved Dictated by: Jamie Shoemaker MD 04/08/2020 06:45 Jamie Shoemaker MD in [facility] 04/08/2020 06:45
[2020-04-08 06:24] LABS: Alanine Aminotransferase 22 U/L (12-78); Albumin Level 2.8 g/dl (3.5-5.0); Albumin/Globulin Ratio 0.8 (1.1-1.8); Alkaline Phosphatase 93 U/L (38-126); Anion Gap 8.7 mEq/L (5-15); Aspartate Amino Transferase 45 U/L (17-59); Bilirubin,Total 0.4 mg/dl (0.2-1.3); Blood Urea Nitrogen 55 mg/dl (9-20); Carbon Dioxide 24 mmol/L (22.0-30.0); Chloride 122 mmol/L (98-107); Creatinine Clearance Estimated 73 mL/min (50-200); Estimated Glomerular Filt Rate 57 ml/min (>60); GFR (African American) 68 ML/MIN (>60); Globulin 3.5 g/dL (1.3-3.2); Glucose 147 mg/dl (74-100); Potassium 4.7 mmoL/L (3.5-5.1); Total Protein,Serum 6.3 g/dl (6.3-8.2)
[2020-04-08 06:29] LABS: Sodium 150 mmol/L (136-145)
[2020-04-08 06:53] LABS: Basophils # 0.1 K/mm3 (0-0.2); Basophils % 0.3 % (0.1-2.0); Hemoglobin 10.7 g/dL (14.1-18.0); Lymphocytes # 0.6 K/mm3 (0.7-4.5); Lymphocytes % 2.7 % (10-50); Mean Corpuscular HGB Conc 32.4 g/dL (31.8-35.4); Mean Corpuscular Hemoglobin 30.9 pg (27.0-31.2); Mean Corpuscular Volume 95.4 fl (80-94); Mean Platelet Volume 9.2 fl (7.4-10.4); Monocytes # 0.9 K/mm3 (0.1-1.0); Monocytes % 3.9 % (1.7-9.3); Neutrophils # 21.3 K/mm3 (1.8-7.8); Neutrophils % 93.1 % (37.0-80.0); Platelet Count 414 K/mm3 (142-424); Red Blood Count 3.46 M/mm3 (4.60-6.20); Red Cell Distribution Width 15.6 % (11.5-17.5); White Blood Count 22.9 K/mm3 (4.8-10.8)
--- NOTE | 2020-04-08 06:55 | PC.NURSE ---
OG advance 3cm per chest x-ray. OG currently at 59 @ the lip.
--- NOTE | 2020-04-08 06:57 | HMH.ACPN2 ---
Internal Medicine - PN: Subj *Date: 04/08/20 *Time: 09:28 Interval history: Internal medicine intensive care unit follow-up note: Patient remains intubated, sedated, ventilator settings are unchanged, please refer to pulmonary notes. Acute kidney injury remains sam. Started on Tube feeds yesterday, no intolerance. Reviewed labs, has developed Hypernatremia. Tachycardic overnight with development of fever. Perfusion remains good and he has now been off Levophed drip for over 48 hours. Urine output is good. Exam Vital signs and Labs for Last 24 Hours: Temp Pulse Resp BP Pulse Ox 99.8 F H 105 H 33 H 149/90 H 98 04/08/20 05:00 04/08/20 06:47 04/08/20 06:47 04/08/20 06:47 04/08/20 06:47 Laboratory Results - last 24 hr 04/07/20 05:10: Total Counted 100, Neutrophils % (Manual) 94 H, Lymphocytes % (Manual) 4 L, Monocytes % (Manual) 2, Platelet Estimate Normal, RBC Morphology Normal 04/07/20 06:45: Specimen Source Right radial, O2 % 100, ABG pH 7.37, ABG pCO2 33.8 L, ABG pO2 159.6 H, ABG HCO3 19.0 L, ABG Total CO2 20.1 L, ABG O2 Saturation 99, ABG Base Excess -6.3 L, Jamie Test Patient unable, Vent Rate 24, Tidal Volume 440, PEEP 14 04/07/20 15:45: APTT 118.0 H* D 04/07/20 17:40: APTT 124.0 H* 04/07/20 20:25: Vancomycin Trough 17.3 H 04/08/20 01:15: APTT 41.5 H D 04/08/20 05:10: Sodium 150 H, Potassium 4.7, Chloride 122 H, Carbon Dioxide 24, Anion Gap 8.7, BUN 55 H, Creatinine 1.30 H, Estimated Creat Clear 73, Estimated GFR 57 L, Est GFR ( Amer) 68, Glucose 147 H, Total Bilirubin 0.4, AST 45, ALT 22, Alkaline Phosphatase 93, Total Protein 6.3, Albumin 2.8 L D, Globulin 3.5 H, Albumin/Globulin Ratio 0.8 L I & O for Last 24 hours: Intake & Output 04/05/20 04/06/20 04/07/20 04/08/20 23:59 23:59 23:59 23:59 Intake Total 4827.052 / 5035.052 5228.208 / 5429.208 3896.000 / 3946.000 828.792 / 828.792 Output Total 1889 / 1965 2045 / 2170 2690 / 2915 1150 / 1150 Balance 2937.052 / 3070.052 3183.208 / 3259.208 1206.000 / 1031.000 -321.208 / -321.208 Weight 80.9 kg 79.152 kg 83 kg 83.869 kg - Constitutional mild distress, average body habitus - *Routine HEENT Exam Head: Present: normocephalic Eye: Present: EOMI, PERRL ENT: Present: mucous membranes moist Comments: ET tube and OG in place - *Routine Neck Exam Present: supple. Absent: lymphadenopathy - *Routine Respiratory Exam Present: patient mechanically ventilated, rhonchi, wheezes - *Routine Cardiovascular Exam Present: tachycardia - *Routine Abdominal Exam Present: soft, normoactive bowel sounds. Absent: tenderness - *Routine Extremities Exam Absent: cyanosis, clubbing, edema - *Routine Skin Exam Present: warm. Absent: rash - *Routine Neurological Exam Present: altered mental status (Intubated and sedated) Assessment and Plan (1) Acute respiratory distress syndrome (ARDS) due to 2019 novel coronavirus Status: Acute Category: Medical Code(s): U07.1 - COVID-19; J80 - Acute respiratory distress syndrome (2) Acute hypoxemic respiratory failure due to COVID-19 Status: Acute Category: Medical Code(s): U07.1 - COVID-19; J96.01 - Acute respiratory failure with hypoxia (3) Tobacco use Status: Acute Category: Social Hx Code(s): Z72.0 - Tobacco use (4) Severe sepsis Status: Acute Category: Medical Code(s): A41.9 - Sepsis, unspecified organism; R65.20 - Severe sepsis without septic shock (5) Metabolic acidosis Status: Acute Category: Medical Code(s): E87.2 - Acidosis (6) Acute respiratory acidosis Status: Acute Category: Medical Code(s): E87.2 - Acidosis (7) Acute kidney injury Status: Acute Category: Medical Code(s): N17.9 - Acute kidney failure, unspecified (8) Cardiomyopathy Status: Acute Category: Medical Code(s): I42.9 - Cardiomyopathy, unspecified - Assessment and plan all Dx Assessment and Plan for all problems:: Mr. Gayle is a 60-year-old male with COVID-19
[2020-04-08 07:02] LABS: ABG Base Excess -5.3 mmol/L (-2.4-2.3); ABG Oxygen Saturation 100 % (90-100); ABG PH 7.31 mmol/L (7.35-7.45); ABG PO2 278.3 mmhg (80-100); ABG TCO2 22.3 mmhg (23-27)
[2020-04-08 07:05] LABS: Allen's Test Patient Unable; Oxygen 100 %; PEEP 14; Source Right Radial; Tidal Volume 440; Vent Rate 24
[2020-04-08 07:12] LABS: MANUAL DIFFERENTIAL MANUAL DIFFERENTIAL (MANUAL DIFF)
--- NOTE | 2020-04-08 07:30 | PC.NURSE ---
Heparin gtt turned OFF per Dr. Metzger, who is @ [facility] rounding.
--- NOTE | 2020-04-08 08:00 | PC.NURSE ---
gastric residual 0mL. Tubefeed rate increased to 30mL/hr. Goal rate is 55mL/hr.
[2020-04-08 08:41] LABS: Lymphocytes % 27 % (10-50); Monocytes % 4 % (2-9); Neutrophils % 69 % (42-76); Platelet Estimate Slight Increase; RBC Morphology Normal; Total Cells Counted 100
[2020-04-08 08:49] LABS: Activated Partial Thrombo Time 67.4 seconds (23.6-34.0)
--- NOTE | 2020-04-08 09:24 | PC.NURSE ---
Dr. Metzger added D5 1/2NS @ 150mL/hr x 1 liter this morning @ 0730. Fluid was hung @ 0735. Dr. Shah just rounded and ordered to discontinue D5 1/2NS. Fluid was stopped @ 0925.
--- NOTE | 2020-04-08 09:27 | DIET.NUTRFU ---
Dr. Metzger requested free water be adjusted with stop in IV fluids. Free water flushes have been increased to 230mL every four hours. This will provide pt an additional 1380mL free H2O per day and 950mL of free water from TF formula at goal rate. Will continue to monitor pt TF tolerance and adjust fluids as needed.
--- NOTE | 2020-04-08 09:29 | P.CONPHA_ITS ---
- Pharmacy Consult Date: 04/08/20 Time: 09:29 Referring provider: DR. PERALTA Reason for Consult:: VANCOMYCIN TROUGH LEVEL Allergies and ADEs:: Allergies Allergy/AdvReac Type Severity Reaction Status Date / Time esomeprazole [From NEXIUM] Allergy Intermediate I-ITCHING Verified 04/03/20 19:25 methocarbamol [From ROBAXIN] Allergy Intermediate I-ITCHING Verified 04/03/20 19:25 morphine [MORPHINE] Allergy Mild NA-NAUSEA Verified 04/03/20 19:25 Home Medications:: Home Medications Medication Instructions Recorded Confirmed Type No Known Home Medications 04/04/20 04/04/20 History Height: 1.78 m Weight: 83.869 kg Laboratory Results:: Laboratory Results - last 24 hr 04/07/20 15:45: APTT 118.0 H* D 04/07/20 17:40: APTT 124.0 H* 04/07/20 20:25: Vancomycin Trough 17.3 H 04/08/20 01:15: APTT 41.5 H D 04/08/20 05:10: WBC 22.9 H*, RBC 3.46 L, Hgb 10.7 L, Hct 33.0 L, MCV 95.4 H, MCH 30.9, MCHC 32.4, RDW 15.6, Plt Count 414, MPV 9.2, Neut % (Auto) 93.1 H, Lymph % (Auto) 2.7 L, [place] % (Auto) 3.9, Eos % (Auto) 0.0 L, Baso % (Auto) 0.3, Neut # (Auto) 21.3 H, Lymph # (Auto) 0.6 L, [place] # (Auto) 0.9, Eos # (Auto) 0.0, Baso # (Auto) 0.1, Total Counted 100, Neutrophils % (Manual) 69, Lymphocytes % (Manual) 27, Monocytes % (Manual) 4, Platelet Estimate Slight increase, RBC Morphology Normal 04/08/20 05:10: Sodium 150 H, Potassium 4.7, Chloride 122 H, Carbon Dioxide 24, Anion Gap 8.7, BUN 55 H, Creatinine 1.30 H, Estimated Creat Clear 73, Estimated GFR 57 L, Est GFR ( Amer) 68, Glucose 147 H, Total Bilirubin 0.4, AST 45, ALT 22, Alkaline Phosphatase 93, Total Protein 6.3, Albumin 2.8 L D, Globulin 3.5 H, Albumin/Globulin Ratio 0.8 L 04/08/20 06:00: Specimen Source Right radial, O2 % 100, ABG pH 7.31 L, ABG pCO2 43.0, ABG pO2 278.3 H, ABG HCO3 21.0 L, ABG Total CO2 22.3 L, ABG O2 Saturation 100, ABG Base Excess -5.3 L, Jamie Test Patient unable, Vent Rate 24, Tidal Volume 440, PEEP 14 04/08/20 07:55: APTT 67.4 H* D Medical History: Reports:: Hyperlipidemia Denies:: Internal Pacemaker Assessment and Plan (1) Acute respiratory distress syndrome (ARDS) due to 2019 novel coronavirus Status: Acute Category: Medical Code(s): U07.1 - COVID-19; J80 - Acute respiratory distress syndrome (2) Acute hypoxemic respiratory failure due to COVID-19 Status: Acute Category: Medical Code(s): U07.1 - COVID-19; J96.01 - Acute respiratory failure with hypoxia (3) Tobacco use Status: Acute Category: Social Hx Code(s): Z72.0 - Tobacco use (4) Severe sepsis Status: Acute Category: Medical Code(s): A41.9 - Sepsis, unspecified organism; R65.20 - Severe sepsis without septic shock (5) Metabolic acidosis Status: Acute Category: Medical Code(s): E87.2 - Acidosis (6) Acute respiratory acidosis Status: Acute Category: Medical Code(s): E87.2 - Acidosis (7) Acute kidney injury Status: Acute Category: Medical Code(s): N17.9 - Acute kidney failure, unspecified (8) Cardiomyopathy Status: Acute Category: Medical Code(s): I42.9 - Cardiomyopathy, unspecified - Assessment and plan all Dx Assessment and Plan for all problems:: BASED ON PATIENT FACTORS AND VANCOMYCIN TROUGH LEVEL LAST NIGHT, RECOMMEND CONTINUING VANCOMYCIN 1500 MG IV Q18H. PHARMACY WILL CONTINUE TO MONITOR DAILY AND ADJUST APPROPRIATE.
--- NOTE | 2020-04-08 09:33 | HMH.PULMPN ---
Internal Medicine - PN: Subj *Date: 04/08/20 *Time: 09:33 Interval history: No acute respite events overnight. Patient respiratory status improved with improved oxygenation on his ABG. Exam - Constitutional Constitutional:: no acute distress, comfortable - HENMT Exam HENMT: normocephalic, atraumatic - Eye Exam Eyes:: eyelids normal, normal conjunctiva - Neck Exam Neck:: thyroid normal, no lymphadenopathy - Respiratory Exam Comments: Patient intubated and sedated. Appears comfortable. Bilateral coarse breath sounds improved from yesterday. - Cardiovascular Exam Cardiac:: S1, S2 - GI Exam GI:: soft, no hepatosplenomegaly - Skin Exam Skin: warm, no rash - Extremities Exam Extremities: no cyanosis, no clubbing, no edema Assessment and Plan (1) Acute respiratory distress syndrome (ARDS) due to 2019 novel coronavirus Status: Acute Category: Medical Code(s): U07.1 - COVID-19; J80 - Acute respiratory distress syndrome (2) Acute hypoxemic respiratory failure due to COVID-19 Status: Acute Category: Medical Code(s): U07.1 - COVID-19; J96.01 - Acute respiratory failure with hypoxia (3) Tobacco use Status: Acute Category: Social Hx Code(s): Z72.0 - Tobacco use (4) Severe sepsis Status: Acute Category: Medical Code(s): A41.9 - Sepsis, unspecified organism; R65.20 - Severe sepsis without septic shock (5) Metabolic acidosis Status: Acute Category: Medical Code(s): E87.2 - Acidosis (6) Acute respiratory acidosis Status: Acute Category: Medical Code(s): E87.2 - Acidosis (7) Acute kidney injury Status: Acute Category: Medical Code(s): N17.9 - Acute kidney failure, unspecified (8) Cardiomyopathy Status: Acute Category: Medical Code(s): I42.9 - Cardiomyopathy, unspecified - Assessment and plan all Dx Assessment and Plan for all problems:: # Acute hypoxic respiratory failure needing mechanical ventilation: # COVID-19 pneumonia: 60-year-old COPD presented with worsening respiratory failure and chest x-ray showed bilateral pulmonary infiltrates. CTA did not show evidence of PE but showed diffuse bilateral pulmonary infiltrates along with trace effusions. Patient respiratory status acutely worsened after admission, escalated from 3 L nasal cannula to mechanical ventilation within 12 hours. Interval update: Patient respiratory status post intubation slightly improved. Auscultation coarse breath sounds slightly improved from admission -FiO2 decreased to 80% Examination revealed volume overload with bilateral worsening lower extremity edema. Will discontinue incline fluid study closely monitor volume status and determine the need for Lasix tomorrow. Patient already clear urine output throughout the hospital course. Patient also found a low EF at 20% elevated troponins, not a candidate for cardiac angiography, initiated on heparin drip. Interval update: Patient continues to be on vancomycin cefepime azithromycin along with heparin drip. Patient oxygenation improved with a PO2 of 278 on this morning's ABG, FiO2 decreased to 60%, will maintain a PEEP of 14 patient continued to have adequate urine output. We will hold off on initiating Lasix at this point of time. Renal function improving, creatinine decreased to 1.30 today. Hypernatremia worsening today, will change all his antibiotic dilations to D5 water from normal saline. We will hold off on initiating any additional fluid to avoid volume overload. We will closely monitor his sodium levels. Chest x-ray reviewed, improving infiltrates, ET tube well above the scooby, however still 22 cm at the lip. Unclear whether the ET tube was advanced or not after the chest x-ray was done. We will repeat a chest x-ray to confirm the placement Plan: - Continue lung protective mechanical ventilation, currently on PEEP of 14, 440 tidal volume rate of 24 and FiO2 of 60% - Continue tube feeding - Continue vancomycin and cefepime levofloxacin
--- NOTE | 2020-04-08 09:39 | XR_ITS ---
PROCEDURE: XR CHEST PORTABLE CLINICAL HISTORY: ET tube placement COMPARISON: CT CT ANGIO CHEST from 04/03/2020 CR XR CHEST PORTABLE from 04/06/2020 CR XR CHEST PORTABLE from 04/07/2020 CR XR CHEST PORTABLE from 04/08/2020 FINDINGS: Endotracheal tube tip is approximately 6.7 cm above the scooby at the T3-T4 level and could be advanced 2 cm. NG tube tip is in the region of the body of the stomach and left subclavian central venous line tip is in good position in the region of the superior vena cava. Bilateral lower lobe pneumonia unchanged. No acute bony abnormalities. IMPRESSION: Slightly high position of the endotracheal tube. No change bilateral pneumonia Dictated by: Jamie Shoemaker MD 04/08/2020 12:31 Jamie Shoemaker MD in [facility] 04/08/2020 12:31
[2020-04-08 11:33] LABS: Calcium 8.6 mg/dl (8.4-10.2)
--- NOTE | 2020-04-08 11:36 | PC.NURSE ---
Dr. Shah @ [facility] and ordered to advance ET tube 3cm. Called RT (Ary) and updated her.
--- NOTE | 2020-04-08 12:00 | PC.NURSE ---
gastric residual 0mL. Tubefeed rate increased to 40mL/hr.
--- NOTE | 2020-04-08 12:20 | PC.NURSE ---
Addendum entered by Rosalia Ornelas RN 04/08/20 16:52: should say advanced ET tube by 3cm Original Note: RT (Bryanna) advanced ET tube by cm. ET tube is now 27 @ the lip. Repeat CXR to confirm placement has been ordered.
--- NOTE | 2020-04-08 12:21 | XR_ITS ---
PROCEDURE: XR CHEST PORTABLE CLINICAL HISTORY: ET tube advanced by 3cm. COMPARISON: CT CT ANGIO CHEST from 04/03/2020 CR XR CHEST PORTABLE from 04/07/2020 CR XR CHEST PORTABLE from 04/08/2020 CR XR CHEST PORTABLE from 04/08/2020 FINDINGS: Endotracheal tube tip in good position at the T3-T4 level 6 cm above the scooby. Nasogastric tube left subclavian central venous line remain in place. No change diffuse bilateral pneumonia. IMPRESSION: Endotracheal tube slightly advanced at the T3-T4 level Dictated by: Jamie Shoemaker MD 04/08/2020 15:31 Jamie Shoemaker MD in [facility] 04/08/2020 15:31
--- NOTE | 2020-04-08 15:43 | HMH.ACPN ---
Internal Medicine - PN: Subj *Date: 04/08/20 *Time: 15:43 Exam Vital signs and Labs for Last 24 Hours: Temp Pulse Resp BP Pulse Ox 100.3 F H 100 H 24 145/83 H 97 04/08/20 12:00 04/08/20 15:00 04/08/20 15:00 04/08/20 15:00 04/08/20 15:00 Laboratory Results - last 24 hr 04/07/20 15:45: APTT 118.0 H* D 04/07/20 17:40: APTT 124.0 H* 04/07/20 20:25: Vancomycin Trough 17.3 H 04/08/20 01:15: APTT 41.5 H D 04/08/20 05:10: WBC 22.9 H*, RBC 3.46 L, Hgb 10.7 L, Hct 33.0 L, MCV 95.4 H, MCH 30.9, MCHC 32.4, RDW 15.6, Plt Count 414, MPV 9.2, Neut % (Auto) 93.1 H, Lymph % (Auto) 2.7 L, [place] % (Auto) 3.9, Eos % (Auto) 0.0 L, Baso % (Auto) 0.3, Neut # (Auto) 21.3 H, Lymph # (Auto) 0.6 L, [place] # (Auto) 0.9, Eos # (Auto) 0.0, Baso # (Auto) 0.1, Total Counted 100, Neutrophils % (Manual) 69, Lymphocytes % (Manual) 27, Monocytes % (Manual) 4, Platelet Estimate Slight increase, RBC Morphology Normal 04/08/20 05:10: Sodium 150 H, Potassium 4.7, Chloride 122 H, Carbon Dioxide 24, Anion Gap 8.7, BUN 55 H, Creatinine 1.30 H, Estimated Creat Clear 73, Estimated GFR 57 L, Est GFR ( Amer) 68, Glucose 147 H, Calcium 8.6 D, Total Bilirubin 0.4, AST 45, ALT 22, Alkaline Phosphatase 93, Total Protein 6.3, Albumin 2.8 L D, Globulin 3.5 H, Albumin/Globulin Ratio 0.8 L 04/08/20 06:00: Specimen Source Right radial, O2 % 100, ABG pH 7.31 L, ABG pCO2 43.0, ABG pO2 278.3 H, ABG HCO3 21.0 L, ABG Total CO2 22.3 L, ABG O2 Saturation 100, ABG Base Excess -5.3 L, Jamie Test Patient unable, Vent Rate 24, Tidal Volume 440, PEEP 14 04/08/20 07:55: APTT 67.4 H* D I & O for Last 24 hours: Intake & Output 04/05/20 04/06/20 04/07/20 04/08/20 23:59 23:59 23:59 23:59 Intake Total 4827.052 / 5035.052 5228.208 / 5429.208 3896.000 / 3946.000 1444.792 / 1444.792 Output Total 1890 / 1965 2045 / 2170 2690 / 2915 2375 / 2375 Balance 2937.052 / 3070.052 3183.208 / 3259.208 1206.000 / 1031.000 -930.208 / -930.208 Weight 80.9 kg 79.152 kg 83 kg 83.869 kg Microbiology Reports for the Last 24 Hours: Microbiology 04/04/20 15:15 Rectum CRE Surveillance Culture - Final Negative 04/04/20 10:05 Sputum - Endotracheal Tube Aspirate Gram Stain - Final 04/04/20 10:05 Sputum - Endotracheal Tube Aspirate Sputum Culture - Preliminary Gram Positive Cocci Assessment and Plan (1) Acute respiratory distress syndrome (ARDS) due to 2019 novel coronavirus Status: Acute Category: Medical Code(s): U07.1 - COVID-19; J80 - Acute respiratory distress syndrome (2) Acute hypoxemic respiratory failure due to COVID-19 Status: Acute Category: Medical Code(s): U07.1 - COVID-19; J96.01 - Acute respiratory failure with hypoxia (3) Tobacco use Status: Acute Category: Social Hx Code(s): Z72.0 - Tobacco use (4) Severe sepsis Status: Acute Category: Medical Code(s): A41.9 - Sepsis, unspecified organism; R65.20 - Severe sepsis without septic shock (5) Metabolic acidosis Status: Acute Category: Medical Code(s): E87.2 - Acidosis (6) Acute respiratory acidosis Status: Acute Category: Medical Code(s): E87.2 - Acidosis (7) Acute kidney injury Status: Acute Category: Medical Code(s): N17.9 - Acute kidney failure, unspecified (8) Cardiomyopathy Status: Acute Category: Medical Code(s): I42.9 - Cardiomyopathy, unspecified The patient's infection will respond to the chosen ABx?: Yes Is the patient receiving the right drug, dose, and route?: Yes Could a more targeted ABx be ordered?: No
--- NOTE | 2020-04-08 16:00 | PC.NURSE ---
gastric residual is 0mL. Tubefeed rate increased to 55mL/hr, which is the goal rate.
--- NOTE | 2020-04-08 20:16 | PC.NURSE ---
He continues in contact and airborne precautions. Voiding per f/c. Urine is yellow, clear. Turn and reposition q 2 hours. He has 2+ non-pitting edema in his right hand and 1+ non-pitting edema in his left hand. BUE are elevated. Gag reflex is present. Receiving pulmocare tube feedings at 55mL/hr. HOB elevated 30 degrees. Ambu bag available at the bedside. He is overbreathing the vent. His belongings are still in the supervisor covering and lining the room.
--- NOTE | 2020-04-08 20:28 | PC.NURSE ---
Noted to be febrile. Attempt made at environmental factors. Covers removed and fan turned on in room.
[2020-04-09] VITALS (29 sets, daily range): BP systolic 145–175; BP diastolic 86–100; PULSE 84–118; RESP 24–33; TEMP 36.6–37.4; O2SAT 90–100; BMI 26.4
[2020-04-09 04:52] LABS: Basophils # 0.1 K/mm3 (0-0.2); Basophils % 0.2 % (0.1-2.0); Hematocrit 34.2 % (42.0-52.0); Hemoglobin 10.5 g/dL (14.1-18.0); Lymphocytes # 0.6 K/mm3 (0.7-4.5); Lymphocytes % 2.7 % (10-50); Mean Corpuscular HGB Conc 30.6 g/dL (31.8-35.4); Mean Corpuscular Hemoglobin 30.5 pg (27.0-31.2); Mean Corpuscular Volume 99.6 fl (80-94); Mean Platelet Volume 9.8 fl (7.4-10.4); Monocytes # 0.8 K/mm3 (0.1-1.0); Monocytes % 3.8 % (1.7-9.3); Neutrophils # 19.5 K/mm3 (1.8-7.8); Neutrophils % 93.2 % (37.0-80.0); Platelet Count 411 K/mm3 (142-424); Red Blood Count 3.43 M/mm3 (4.60-6.20); Red Cell Distribution Width 15.4 % (11.5-17.5)
[2020-04-09 04:53] LABS: Chloride 122 mmol/L (98-107)
[2020-04-09 04:54] LABS: Potassium 4.9 mmoL/L (3.5-5.1)
[2020-04-09 04:56] LABS: Alanine Aminotransferase 20 U/L (12-78); Aspartate Amino Transferase 30 U/L (17-59); Bilirubin,Total 0.5 mg/dl (0.2-1.3); Blood Urea Nitrogen 64 mg/dl (9-20); Creatinine Clearance Estimated 86 mL/min (50-200); Estimated Glomerular Filt Rate 69 ml/min (>60); GFR (African American) 83 ML/MIN (>60)
[2020-04-09 04:57] LABS: Albumin Level 2.7 g/dl (3.5-5.0); Albumin/Globulin Ratio 0.8 (1.1-1.8); Alkaline Phosphatase 82 U/L (38-126); Anion Gap 8.9 mEq/L (5-15); Calcium 8.8 mg/dl (8.4-10.2); Carbon Dioxide 25 mmol/L (22.0-30.0); Globulin 3.5 g/dL (1.3-3.2); Glucose 206 mg/dl (74-100); Magnesium 3.3 mg/dl (1.6-2.3); Total Protein,Serum 6.2 g/dl (6.3-8.2)
[2020-04-09 05:00] LABS: MANUAL DIFFERENTIAL MANUAL DIFFERENTIAL (MANUAL DIFF)
--- NOTE | 2020-04-09 05:00 | XR_ITS ---
PROCEDURE: XR CHEST PORTABLE CLINICAL HISTORY: Pt intubated Pneumonia follow-up COMPARISON: CT CT ANGIO CHEST from 04/03/2020 CR XR CHEST PORTABLE from 04/08/2020 CR XR CHEST PORTABLE from 04/08/2020 CR XR CHEST PORTABLE from 04/08/2020 FINDINGS: 5:26 a.m.. Endotracheal tube nasogastric tube and left subclavian central venous line all are in good position. The endotracheal tube tip is 6 cm above the scooby at the T4 level. Normal heart size. Diffuse bilateral pneumonia with some sparing though of the lung apices once again noted not significantly changed. No acute bony abnormalities. IMPRESSION: Tubes and lines in good position with diffuse bilateral pneumonia Dictated by: Jamie Shoemaker MD 04/09/2020 05:43 Jamie Shoemaker MD in [facility] 04/09/2020 05:43
[2020-04-09 05:01] LABS: Sodium 151 mmol/L (136-145)
--- NOTE | 2020-04-09 05:56 | PC.NURSE ---
ETT moved from midline to the right side.
[2020-04-09 06:25] LABS: Lymphocytes % 1 % (10-50); Neutrophils % 99 % (42-76); Total Cells Counted 100
[2020-04-09 06:26] LABS: Macrocytosis 1+; Platelet Estimate Normal; Stomatocytes 1+
[2020-04-09 07:06] LABS: ABG Base Excess -3.4 mmol/L (-2.4-2.3); ABG HCO3 22.8 mmhg (22.0-26.0); ABG Oxygen Saturation 98 % (90-100); ABG PCO2 46.3 mmhg (35.0-45.0); ABG PH 7.31 mmol/L (7.35-7.45); ABG PO2 109.2 mmhg (80-100); ABG TCO2 24.3 mmhg (23-27)
[2020-04-09 07:13] LABS: Allen's Test Patient Unable; Oxygen 60 %; PEEP 14; Source Right Radial; Tidal Volume 440; Vent Rate 24
--- NOTE | 2020-04-09 08:49 | CA_ITS ---
APPROVED REPORT EXAM: Comprehensive 2D, Doppler, and color-flow Echocardiogram Jet Man: Nery Vences, RT(R) Ht: 5 ft 10 in Wt: 184lbs BSA: 2.02 BP: 150/90 mmHg Indications: COVID pneumonia, COPD, SOB, hyperlipidemia, EF check only, EF 25% 04/04/20 M-Mode Dimensions RVDd 1.68 cm (0.9-2.6) LVDd 6.00 cm (3.5-5.7) LVDs 4.93 cm (3.5-5.7) IVSd 0.71 cm (0.6-1.1) PWd 0.75 cm (0.6-1.1) EF (Teich) 36.40% FS 17.80% EDV (Teich) 180.00 mL ESV (Teich) 114.40 mL Conclusion 1. Limited transthoracic echocardiogram was obtained to evaluate left ventricular systolic function. 2. Left ventricle is normal size, there is preserved left ventricular systolic function, visually estimated ejection fraction 55% with no regional wall motion abnormality. 3. As compared to prior echocardiogram left ventricular ejection fraction has significantly improved. Electronically signed by : Guillermo Siegel, 04/10/2020 15:13:06
--- NOTE | 2020-04-09 08:50 | HMH.ACPN2 ---
Internal Medicine - PN: Subj *Date: 04/09/20 *Time: 08:50 Interval history: Patient has remained stable over the past 24 hours, FiO2 has been weaned down. Blood pressure has been actually somewhat elevated, perfusion has been good, has remained off pressors for 48 hours. Exam Vital signs and Labs for Last 24 Hours: Temp Pulse Resp BP Pulse Ox 99.0 F 107 H 27 H 150/90 H 100 04/09/20 07:00 04/09/20 07:00 04/09/20 07:00 04/09/20 07:00 04/09/20 02:25 Laboratory Results - last 24 hr 04/08/20 05:10: Calcium 8.6 D 04/09/20 04:00: WBC 21.0 H*, RBC 3.43 L, Hgb 10.5 L, Hct 34.2 L, MCV 99.6 H, MCH 30.5, MCHC 30.6 L, RDW 15.4, Plt Count 411, MPV 9.8, Neut % (Auto) 93.2 H, Lymph % (Auto) 2.7 L, [place] % (Auto) 3.8, Eos % (Auto) 0.0 L, Baso % (Auto) 0.2, Neut # (Auto) 19.5 H, Lymph # (Auto) 0.6 L, [place] # (Auto) 0.8, Eos # (Auto) 0.0, Baso # (Auto) 0.1, Total Counted 100, Neutrophils % (Manual) 99 H, Lymphocytes % (Manual) 1 L, Platelet Estimate Normal, Macrocytosis 1+, Stomatocytes 1+ 04/09/20 04:00: Sodium 151 H*, Potassium 4.9, Chloride 122 H, Carbon Dioxide 25, Anion Gap 8.9, BUN 64 H, Creatinine 1.10, Estimated Creat Clear 86, Estimated GFR 69, Est GFR ( Amer) 83 D, Glucose 206 H D, Calcium 8.8, Magnesium 3.3 H, Total Bilirubin 0.5, AST 30 D, ALT 20, Alkaline Phosphatase 82, Total Protein 6.2 L, Albumin 2.7 L, Globulin 3.5 H, Albumin/Globulin Ratio 0.8 L 04/09/20 06:00: Specimen Source Right radial, O2 % 60, ABG pH 7.31 L, ABG pCO2 46.3 H, ABG pO2 109.2 H, ABG HCO3 22.8, ABG Total CO2 24.3, ABG O2 Saturation 98, ABG Base Excess -3.4 L, Jamie Test Patient unable, Vent Rate 24, Tidal Volume 440, PEEP 14 I & O for Last 24 hours: Intake & Output 04/06/20 04/07/20 04/08/20 04/09/20 11:59 11:59 11:59 11:59 Intake Total 5453.413 / 5504.413 5769.333 / 5831.333 1838.667 / 7785.020 6706 / 1796 Output Total 2445 / 2520 2330 / 2480 3015 / 3390 3315 / 3315 Balance 3008.413 / 2984.413 3439.333 / 3351.333 -1176.333 / -1431.333 -1519 / -1519 Weight 174 lb 8 oz 182 lb 15.739 oz 184 lb 14.4 oz 184 lb 4.8 oz Microbiology Reports for the Last 24 Hours: Microbiology 04/03/20 19:10 Blood Blood Culture - Final NO GROWTH AFTER 5 DAYS 04/03/20 19:10 Blood Blood Culture - Final NO GROWTH AFTER 5 DAYS 04/04/20 15:15 Rectum CRE Surveillance Culture - Final Negative 04/04/20 10:05 Sputum - Endotracheal Tube Aspirate Gram Stain - Final 04/04/20 10:05 Sputum - Endotracheal Tube Aspirate Sputum Culture - Preliminary Gram Positive Cocci Narrative: Patient remains intubated and sedated on ventilator. OG feedings are going well, nurses report no residuals, on max goal feeds. Abdomen soft and nontender. Lungs are well expanded on ventilator, heart rate regular. Perfusion is good distally. Oropharynx clear, tubes appear to be in good position. No evidence of bleeding, rash or extremity deformity. Assessment and Plan (1) Acute respiratory distress syndrome (ARDS) due to 2019 novel coronavirus Status: Acute Category: Medical Code(s): U07.1 - COVID-19; J80 - Acute respiratory distress syndrome (2) Acute hypoxemic respiratory failure due to COVID-19 Status: Acute Category: Medical Code(s): U07.1 - COVID-19; J96.01 - Acute respiratory failure with hypoxia (3) Tobacco use Status: Acute Category: Social Hx Code(s): Z72.0 - Tobacco use (4) Severe sepsis Status: Acute Category: Medical Code(s): A41.9 - Sepsis, unspecified organism; R65.20 - Severe sepsis without septic shock (5) Metabolic acidosis Status: Acute Category: Medical Code(s): E87.2 - Acidosis (6) Acute respiratory acidosis Status: Acute Category: Medical Code(s): E87.2 - Acidosis (7) Acute kidney injury Status: Acute Category: Medical Code(s): N17.9 - Acute kidney failure, unspecified (8)
--- NOTE | 2020-04-09 12:17 | HMH.PULMPN ---
Internal Medicine - PN: Subj *Date: 04/09/20 *Time: 12:17 Interval history: No acute respiratory vents overnight. Patient respiratory status remained stable. Exam - Constitutional Constitutional:: comfortable - HENMT Exam HENMT: normocephalic, atraumatic - Eye Exam Eyes:: normal conjunctiva - Neck Exam Neck:: thyroid normal, no lymphadenopathy - Respiratory Exam Comments: Bilateral coarse breath sound significantly improved from prior. Patient intubated and sedated. ET tube in place. - Cardiovascular Exam Cardiac:: S1, S2 - GI Exam GI:: soft, no hepatosplenomegaly - Skin Exam Skin: warm, no rash - Extremities Exam Extremities: no cyanosis, no clubbing, edema Assessment and Plan (1) Acute respiratory distress syndrome (ARDS) due to 2019 novel coronavirus Status: Acute Category: Medical Code(s): U07.1 - COVID-19; J80 - Acute respiratory distress syndrome (2) Acute hypoxemic respiratory failure due to COVID-19 Status: Acute Category: Medical Code(s): U07.1 - COVID-19; J96.01 - Acute respiratory failure with hypoxia (3) Tobacco use Status: Acute Category: Social Hx Code(s): Z72.0 - Tobacco use (4) Severe sepsis Status: Acute Category: Medical Code(s): A41.9 - Sepsis, unspecified organism; R65.20 - Severe sepsis without septic shock (5) Metabolic acidosis Status: Acute Category: Medical Code(s): E87.2 - Acidosis (6) Acute respiratory acidosis Status: Acute Category: Medical Code(s): E87.2 - Acidosis (7) Acute kidney injury Status: Acute Category: Medical Code(s): N17.9 - Acute kidney failure, unspecified (8) Cardiomyopathy Status: Acute Category: Medical Code(s): I42.9 - Cardiomyopathy, unspecified - Assessment and plan all Dx Assessment and Plan for all problems:: # Acute hypoxic respiratory failure needing mechanical ventilation: # COVID-19 pneumonia: 60-year-old COPD presented with worsening respiratory failure and chest x-ray showed bilateral pulmonary infiltrates. CTA did not show evidence of PE but showed diffuse bilateral pulmonary infiltrates along with trace effusions. Patient respiratory status acutely worsened after admission, escalated from 3 L nasal cannula to mechanical ventilation within 12 hours. Patient during the course also started on heparin drip as concern for NSTEMI Interval update: Patient continued to be on vancomycin cefepime azithromycin along with heparin drip. Patient oxygenation slightly worsened yesterday with a PaO2 at 108. No acute respiratory events X-ray relatively unchanged Patient examination appears volume overload bilateral lower extremity edema present we will proceed with diuresis today and then will eventually decrease the PEEP as tolerated. Leukocytosis unresolved, relatively stable at 21.0. Patient remains off pressors Renal function improving, creatinine at 1.10. Patient hyponatremia worsened over 151 Plan: - Continue lung protective mechanical ventilation, currently on PEEP of 14, 440 tidal volume rate of 24 and FiO2 of 60% -wean PEEP as tolerated to 10 after diuresis - Continue tube feeding - Continue vancomycin and cefepime levofloxacin and azithromycin. Follow with BAL and nasal MRSA cultures - Continue remdesivir and dexamethasone for COVID-19 pneumonia - Sedation and analgesics with midazolam and fentanyl with RASS goal of 0 to 1 and CPOT goal of less than or equal to 2 (propofol was changed to midazolam secondary to pharmacy shortage) - VAP bundle with aspiration precautions - Chemical DVT and PPI prophylaxis #Rest of medical management including electrolyte management as per primary team Total critical care time spent on this patient is 45 minutes managing acute hypoxic respiratory failure needing mechanical ventilation. This time spent include reviewing test results including interpreting chest x-rays, labs and arterial blood gas, optimizing the ventilator settings,formulating plan of care, di
--- NOTE | 2020-04-09 17:00 | DIET.NUTRFU ---
Addendum entered by Brooke Elizalde 04/11/20 16:48: Tolerating tube feeds at goal rate. Question accuracy in 15# weight loss recorded over past 48h. BG ~160. Continued elevated Na-149 and BUN-71. Pt is meeting fluid needs receiving 2322ml/day through formula and water flushes. No changes at this time to nutritional care plan as stated in TF order. Original Note: Pt tolerating tube feeds well, have reached goal rate. Water flushes of 230ml q 4h were added when IVF DC'd, he has tolerated well. Weight is stable. Increasing hypernatremia- 151, improvement renal function, BG avg.=160. No changes to nutritional care plan at this time, continuing to monitor.
--- NOTE | 2020-04-09 18:33 | PC.NURSE ---
gastric residuals were 0mL @ 0800, 1200, and 1600
[2020-04-10] VITALS (26 sets, daily range): BP systolic 140–181; BP diastolic 80–99; PULSE 88–113; RESP 24–41; TEMP 36.3–38.6; O2SAT 92–96; BMI 26.2
[2020-04-10 07:12] LABS: ABG Base Excess 0.2 mmol/L (-2.4-2.3); ABG HCO3 27.3 mmhg (22.0-26.0); ABG Oxygen Saturation 94 % (90-100); ABG PH 7.26 mmol/L (7.35-7.45); ABG PO2 74.5 mmhg (80-100); ABG TCO2 29.3 mmhg (23-27)
[2020-04-10 07:21] LABS: Allen's Test ACCEPTABLE; Oxygen 60 %; PEEP 10; Source R RADIAL; Tidal Volume 440; Vent Rate 24
[2020-04-10 07:22] LABS: ABG PCO2 62.9 mmhg (35.0-45.0)
--- NOTE | 2020-04-10 08:49 | XR_ITS ---
PROCEDURE: XR CHEST PORTABLE CLINICAL HISTORY: PNM Follow-up pneumonia COMPARISON: CT CT ANGIO CHEST from 04/03/2020 CR XR CHEST PORTABLE from 04/08/2020 CR XR CHEST PORTABLE from 04/08/2020 CR XR CHEST PORTABLE from 04/09/2020 FINDINGS: Endotracheal tube is in good position with the tip at the T3 level well above the scooby. Nasogastric tube tip is in the region of the body of stomach. Left subclavian central venous line tip in the region of superior vena cava. There is bilateral lower lobe pneumonia which appears slightly improved. No acute bony abnormalities. IMPRESSION: Tubes and lines in good position with bilateral pneumonia slightly improved Dictated by: Jamie Shoemaker MD 04/10/2020 10:37 Jamie Shoemaker MD in [facility] 04/10/2020 10:37
--- NOTE | 2020-04-10 08:59 | HMH.ACPN2 ---
Internal Medicine - PN: Subj *Date: 04/10/20 *Time: 08:59 Interval history: Patient has remained intubated and sedated in the unit, pulmonary has been able to wean down some of his pressure parameters and FiO2. Overnight he has developed some elevated blood pressure and heart rate issues which are new for him. Remains on antibiotics, remains culture negative from blood and urine and sputum. Remains on ICU prophylaxis for DVT and stress ulcer. Dexamethasone has been tapered down according to ARDS protocol. Exam Vital signs and Labs for Last 24 Hours: Temp Pulse Resp BP Pulse Ox 97.9 F 106 H 27 H 167/93 H 93 L 04/10/20 08:00 04/10/20 08:00 04/10/20 08:00 04/10/20 08:00 04/10/20 08:00 Laboratory Results - last 24 hr 04/10/20 07:07: Specimen Source R radial, O2 % 60, ABG pH 7.26 L, ABG pCO2 62.9 H, ABG pO2 74.5 L, ABG HCO3 27.3 H, ABG Total CO2 29.3 H, ABG O2 Saturation 94, ABG Base Excess 0.2, Jamie Test Acceptable, Vent Rate 24, Tidal Volume 440, PEEP 10 I & O for Last 24 hours: Intake & Output 04/07/20 04/08/20 04/09/20 04/10/20 11:59 11:59 11:59 11:59 Intake Total 5769.333 / 5831.333 1838.667 / 7503.880 9436 / 2156 3588 / 3588 Output Total 2330 / 2480 3015 / 3390 4000 / 4450 4835 / 4835 Balance 3439.333 / 3351.333 -1176.333 / -1431.333 -2024 / -2294 -1247 / -1247 Weight 182 lb 15.739 oz 184 lb 14.4 oz 184 lb 4.8 oz 182 lb 15.739 oz Microbiology Reports for the Last 24 Hours: Microbiology 04/04/20 10:05 Sputum - Endotracheal Tube Aspirate Gram Stain - Final 04/04/20 10:05 Sputum - Endotracheal Tube Aspirate Sputum Culture - Final Streptococcus pneumoniae 04/04/20 15:00 Nose - Nasal MRSA Culture - Final Negative Narrative: Slight elevation noted. Patient is intubated and sedated. Appears fairly comfortable except for some belly breathing. Lungs have rhonchorous sounds but are well-expanded bilaterally, heart rate tachycardic but regular. Extremities are warm and well-perfused Assessment and Plan (1) Acute respiratory distress syndrome (ARDS) due to 2019 novel coronavirus Status: Acute Category: Medical Code(s): U07.1 - COVID-19; J80 - Acute respiratory distress syndrome (2) Acute hypoxemic respiratory failure due to COVID-19 Status: Acute Category: Medical Code(s): U07.1 - COVID-19; J96.01 - Acute respiratory failure with hypoxia (3) Tobacco use Status: Acute Category: Social Hx Code(s): Z72.0 - Tobacco use (4) Severe sepsis Status: Acute Category: Medical Code(s): A41.9 - Sepsis, unspecified organism; R65.20 - Severe sepsis without septic shock (5) Metabolic acidosis Status: Acute Category: Medical Code(s): E87.2 - Acidosis (6) Acute respiratory acidosis Status: Acute Category: Medical Code(s): E87.2 - Acidosis (7) Acute kidney injury Status: Acute Category: Medical Code(s): N17.9 - Acute kidney failure, unspecified (8) Cardiomyopathy Status: Acute Category: Medical Code(s): I42.9 - Cardiomyopathy, unspecified - Assessment and plan all Dx Assessment and Plan for all problems:: Overall no changes in plan. Echocardiogram from yesterday looked improved vis-?-vis his ejection fraction. I will order a check of troponin level this morning to look at myocardial inflammation and also a twelve-lead EKG. We will start low-dose labetalol to keep blood pressure and pulse rates more physiologic. Ventilatory management per pulmonary-much appreciated. Remains on broad-spectrum IV antibiotics, remdesivir and lower dose dexamethasone. Please note 1 hour critical care time.
[2020-04-10 10:25] LABS: Basophils # 0.1 K/mm3 (0-0.2); Basophils % 0.2 % (0.1-2.0); Hematocrit 36.9 % (42.0-52.0); Hemoglobin 11.7 g/dL (14.1-18.0); Lymphocytes # 0.6 K/mm3 (0.7-4.5); Lymphocytes % 2.5 % (10-50); Mean Corpuscular HGB Conc 31.6 g/dL (31.8-35.4); Mean Corpuscular Hemoglobin 30.9 pg (27.0-31.2); Mean Corpuscular Volume 97.8 fl (80-94); Mean Platelet Volume 9.7 fl (7.4-10.4); Monocytes % 3.7 % (1.7-9.3); Neutrophils # 24.3 K/mm3 (1.8-7.8); Neutrophils % 93.6 % (37.0-80.0); Platelet Count 519 K/mm3 (142-424); Red Blood Count 3.78 M/mm3 (4.60-6.20); Red Cell Distribution Width 15.1 % (11.5-17.5); White Blood Count 25.9 K/mm3 (4.8-10.8)
[2020-04-10 10:26] LABS: MANUAL DIFFERENTIAL MANUAL DIFFERENTIAL (MANUAL DIFF)
[2020-04-10 10:30] LABS: Chloride 117 mmol/L (98-107); Potassium 5.8 mmoL/L (3.5-5.1)
[2020-04-10 10:33] LABS: Alanine Aminotransferase 18 U/L (12-78); Albumin Level 3.1 g/dl (3.5-5.0); Albumin/Globulin Ratio 0.8 (1.1-1.8); Alkaline Phosphatase 98 U/L (38-126); Anion Gap 8.8 mEq/L (5-15); Aspartate Amino Transferase 30 U/L (17-59); Bilirubin,Total 0.4 mg/dl (0.2-1.3); Blood Urea Nitrogen 70 mg/dl (9-20); Calcium 9.4 mg/dl (8.4-10.2); Carbon Dioxide 31 mmol/L (22.0-30.0); Creatinine Clearance Estimated 93 mL/min (50-200); Estimated Glomerular Filt Rate 76 ml/min (>60); GFR (African American) 93 ML/MIN (>60); Globulin 3.8 g/dL (1.3-3.2); Glucose 153 mg/dl (74-100); Total Protein,Serum 6.9 g/dl (6.3-8.2)
[2020-04-10 10:44] LABS: Troponin I 0.13 ng/ml (0.00-0.034)
[2020-04-10 10:51] LABS: Sodium 151 mmol/L (136-145)
[2020-04-10 11:11] LABS: Lymphocytes % 5 % (10-50); Monocytes % 4 % (2-9); Myelocytes % 2 (0-1); Neutrophils % 87 % (42-76); Platelet Estimate Moderate Increase; RBC Morphology Normal; Total Cells Counted 100
--- NOTE | 2020-04-10 11:27 | XR_ITS ---
PROCEDURE: XR CHEST PORTABLE CLINICAL HISTORY: Change in breathing pattern Pneumonia COMPARISON: CT CT ANGIO CHEST from 04/03/2020 CR XR CHEST PORTABLE from 04/08/2020 CR XR CHEST PORTABLE from 04/09/2020 CR XR CHEST PORTABLE from 04/10/2020 FINDINGS: The cardiomediastinal silhouette and pulmonary vascularity are within normal limits. Endotracheal tube is in good position 6.9 cm above the scooby. Nasogastric tube tip in good position in the fundus of the stomach. There remains diffuse bilateral pneumonia which is probably unchanged given difference in technique. Left subclavian central venous line tip is in the region of the superior vena cava No acute bony abnormalities. IMPRESSION: Endotracheal tube and nasogastric tube in good position. No change diffuse bilateral pneumonia Dictated by: Jamie Shoemaker MD 04/10/2020 14:06 Jamie Shoemaker MD in [facility] 04/10/2020 14:06
--- NOTE | 2020-04-10 11:41 | HMH.PULMPN ---
Internal Medicine - PN: Subj *Date: 04/10/20 *Time: 11:41 Interval history: Patient respiratory status remained stable since yesterday. PEEP weaned down to 10 Exam - Constitutional Constitutional:: no acute distress, comfortable - HENMT Exam HENMT: normocephalic, atraumatic - Eye Exam Eyes:: normal conjunctiva - Neck Exam Neck:: thyroid normal, no lymphadenopathy - Respiratory Exam Respiratory:: bibailar crackels heard - Cardiovascular Exam Cardiac:: S1, S2 - GI Exam GI:: soft, no hepatosplenomegaly - Skin Exam Skin: warm, no rash - Neurological Exam Intubated and sedated. Appears comfortable. - Extremities Exam Extremities: no cyanosis, no clubbing, no edema Assessment and Plan (1) Acute respiratory distress syndrome (ARDS) due to 2019 novel coronavirus Status: Acute Category: Medical Code(s): U07.1 - COVID-19; J80 - Acute respiratory distress syndrome (2) Acute hypoxemic respiratory failure due to COVID-19 Status: Acute Category: Medical Code(s): U07.1 - COVID-19; J96.01 - Acute respiratory failure with hypoxia (3) Tobacco use Status: Acute Category: Social Hx Code(s): Z72.0 - Tobacco use (4) Severe sepsis Status: Acute Category: Medical Code(s): A41.9 - Sepsis, unspecified organism; R65.20 - Severe sepsis without septic shock (5) Metabolic acidosis Status: Acute Category: Medical Code(s): E87.2 - Acidosis (6) Acute respiratory acidosis Status: Acute Category: Medical Code(s): E87.2 - Acidosis (7) Acute kidney injury Status: Acute Category: Medical Code(s): N17.9 - Acute kidney failure, unspecified (8) Cardiomyopathy Status: Acute Category: Medical Code(s): I42.9 - Cardiomyopathy, unspecified - Assessment and plan all Dx Assessment and Plan for all problems:: # Acute hypoxic respiratory failure needing mechanical ventilation: # COVID-19 pneumonia: 60-year-old COPD presented with worsening respiratory failure and chest x-ray showed bilateral pulmonary infiltrates. CTA did not show evidence of PE but showed diffuse bilateral pulmonary infiltrates along with trace effusions. Patient respiratory status acutely worsened after admission, escalated from 3 L nasal cannula to mechanical ventilation within 12 hours. Patient during the course also started on heparin drip as concern for NSTEMI Interval update: Patient respiratory status improved yesterday, his PEEP eventually weaned down to 10 however given worsening blood gas likely from derecruitment will increase the PEEP. We will discontinue vancomycin and azithromycin. Sputum cultures growing strep pneumonia. Blood gas showed respiratory acidosis Chest x-ray relatively stable. Hemodynamically stable. Renal function stable. Continued to have hypernatremia with a sodium of 151 Along with hyperkalemia today. Plan: -nAdvance ET tube by 2 cm - Continue lung protective mechanical ventilation, currently on PEEP of 12, 440 tidal volume rate of 24 and FiO2 of 60% - Repeat Blood gas - Continue tube feeding - Discontinue vancomycin and azithromycin - Continue cefepime for a total of 7 days - Continue remdesivir and dexamethasone x for COVID-19 pneumonia - Sedation and analgesics with midazolam and fentanyl with RASS goal of 0 to 1 and CPOT goal of less than or equal to 2 (propofol was changed to midazolam secondary to pharmacy shortage) - VAP bundle with aspiration precautions - Chemical DVT and PPI prophylaxis #Rest of medical management including electrolyte management / Hypernatremia as per primary team Total critical care time spent on this patient is 45 minutes managing acute hypoxic respiratory failure needing mechanical ventilation. This time spent include reviewing test results including interpreting chest x-rays, labs and arterial blood gas, optimizing the ventilator settings,formulating plan of care, discussing the plan of care with the team and the nursing staff.
--- NOTE | 2020-04-10 12:27 | ECG_ITS ---
APPROVED REPORT Exam: Resting ECG HR:103 bpm ECG Measurements Heart Rate 103 AXES LA 114 P 63 QRSd 64 QRS 40 QT 308 T 58 QTc 403 Conclusion Sinus tachycardia with premature supraventricular complexes Possible Left atrial enlargement Septal infarct, age undetermined Abnormal ECG Electronically signed by : Renan Dorsey, 04/10/2020 19:25:59
[2020-04-10 16:58] LABS: ABG HCO3 27.5 mmhg (22.0-26.0); ABG Oxygen Saturation 95 % (90-100); ABG PH 7.29 mmol/L (7.35-7.45); ABG PO2 73.1 mmhg (80-100); ABG TCO2 29.3 mmhg (23-27); Allen's Test Patient Unable; Oxygen 100 %; PEEP 12; Tidal Volume 440; Vent Rate 24
[2020-04-10 16:59] LABS: Source rr
--- NOTE | 2020-04-10 17:12 | PC.NURSE ---
Dr. Shah called @ this time after review of ABG, states to increase TV to 480. Julia,RT notified of this.
--- NOTE | 2020-04-10 19:32 | PC.NURSE ---
Shift Summary: Patient remains intubated and sedated, perrla, pupils 2+, HR reg, lung sounds scattered rhonchi, diminished in bl bases, 7.[address] 27@lip, abd soft with active bs in all quads, OG tube in place 59@lip, pulmocare infusing at goal rate, FC patent and draining clear yellow urine, 2+ peripheral edema noted to bue, LSC TLDL in place with dsg intact, peripheral pulses 2+, vss at this time, will continue to monitor.
[2020-04-11] VITALS (29 sets, daily range): BP systolic 127–158; BP diastolic 61–96; PULSE 73–120; RESP 28–38; TEMP 36.2–38.3; O2SAT 92–98; BMI 24.0
--- NOTE | 2020-04-11 00:46 | PC.NURSE ---
refrained from turning patient due to increased oxygen demand during activity, fio2 60%, peep of 12, rr 41, labored and abdominal breathing
[2020-04-11 05:59] LABS: ABG Base Excess 1.7 mmol/L (-2.4-2.3); ABG HCO3 27.1 mmhg (22.0-26.0); ABG Oxygen Saturation 94 % (90-100); ABG PCO2 48.1 mmhg (35.0-45.0); ABG PH 7.37 mmol/L (7.35-7.45); ABG PO2 70.1 mmhg (80-100); ABG TCO2 28.5 mmhg (23-27)
[2020-04-11 06:00] LABS: Allen's Test Patient Unable; Oxygen 60 %; PEEP 12; Source Left Radial; Tidal Volume 480; Vent Rate 24
--- NOTE | 2020-04-11 06:00 | XR_ITS ---
PROCEDURE: XR CHEST PORTABLE CLINICAL HISTORY: tube placement Covid19 pneumonia COMPARISON: CT CT ANGIO CHEST from 04/03/2020 CR XR CHEST PORTABLE from 04/09/2020 CR XR CHEST PORTABLE from 04/10/2020 CR XR CHEST PORTABLE from 04/10/2020 FINDINGS: 0500 hours. Endotracheal tube nasogastric tube and left subclavian central venous line all remain in good position. Bilateral mid lower lung airspace disease once again noted consistent with Covid19 pneumonia which appears slightly improved. IMPRESSION: Tubes and lines in good position. Persistent but slightly improved bilateral pneumonia Dictated by: Jamie Shoemaker MD 04/11/2020 06:54 Jamie Shoemaker MD in [facility] 04/11/2020 06:54
[2020-04-11 06:24] LABS: Basophils % 0.1 % (0.1-2.0); Eosinophils % 0.1 % (0.1-12.0); Hematocrit 36.1 % (42.0-52.0); Hemoglobin 11.6 g/dL (14.1-18.0); Lymphocytes # 0.7 K/mm3 (0.7-4.5); Lymphocytes % 3.4 % (10-50); Mean Corpuscular Hemoglobin 30.8 pg (27.0-31.2); Mean Corpuscular Volume 96.3 fl (80-94); Mean Platelet Volume 9.9 fl (7.4-10.4); Monocytes # 0.5 K/mm3 (0.1-1.0); Monocytes % 2.2 % (1.7-9.3); Neutrophils # 19.6 K/mm3 (1.8-7.8); Neutrophils % 94.1 % (37.0-80.0); Platelet Count 481 K/mm3 (142-424); Red Blood Count 3.75 M/mm3 (4.60-6.20); Red Cell Distribution Width 15.1 % (11.5-17.5); White Blood Count 20.8 K/mm3 (4.8-10.8)
[2020-04-11 06:30] LABS: Magnesium 3.1 mg/dl (1.6-2.3)
[2020-04-11 06:31] LABS: Alanine Aminotransferase 17 U/L (12-78); Albumin/Globulin Ratio 0.8 (1.1-1.8); Alkaline Phosphatase 99 U/L (38-126); Anion Gap 6.6 mEq/L (5-15); Aspartate Amino Transferase 25 U/L (17-59); Bilirubin,Total 0.4 mg/dl (0.2-1.3); Blood Urea Nitrogen 71 mg/dl (9-20); Calcium 9.5 mg/dl (8.4-10.2); Carbon Dioxide 31 mmol/L (22.0-30.0); Chloride 117 mmol/L (98-107); Creatinine Clearance Estimated 86 mL/min (50-200); Estimated Glomerular Filt Rate 76 ml/min (>60); GFR (African American) 93 ML/MIN (>60); Globulin 3.6 g/dL (1.3-3.2); Glucose 161 mg/dl (74-100); Potassium 5.6 mmoL/L (3.5-5.1); Sodium 149 mmol/L (136-145); Total Protein,Serum 6.6 g/dl (6.3-8.2)
[2020-04-11 06:41] LABS: MANUAL DIFFERENTIAL MANUAL DIFFERENTIAL (MANUAL DIFF)
--- NOTE | 2020-04-11 06:45 | HMH.ACPN2 ---
Internal Medicine - PN: Subj *Date: 04/11/20 *Time: 08:50 Interval history: Patient remained hemodynamically stable overnight. Blood gas reviewed from this morning. Stable oxygenation ventilation on current vent settings. Patient remained afebrile. Exam Vital signs and Labs for Last 24 Hours: Temp Pulse Resp BP Pulse Ox 97.8 F 91 H 35 H 149/89 H 96 04/11/20 06:00 04/11/20 06:00 04/11/20 06:00 04/11/20 06:00 04/11/20 06:00 Laboratory Results - last 24 hr 04/10/20 07:07: Specimen Source R radial, O2 % 60, ABG pH 7.26 L, ABG pCO2 62.9 H, ABG pO2 74.5 L, ABG HCO3 27.3 H, ABG Total CO2 29.3 H, ABG O2 Saturation 94, ABG Base Excess 0.2, Jamie Test Acceptable, Vent Rate 24, Tidal Volume 440, PEEP 10 04/10/20 09:31: Sodium 151 H*, Potassium 5.8 H, Chloride 117 H, Carbon Dioxide 31 H D, Anion Gap 8.8, BUN 70 H, Creatinine 1.00, Estimated Creat Clear 93, Estimated GFR 76, Est GFR ( Amer) 93, Glucose 153 H, Calcium 9.4, Total Bilirubin 0.4, AST 30, ALT 18, Alkaline Phosphatase 98, Total Protein 6.9, Albumin 3.1 L D, Globulin 3.8 H, Albumin/Globulin Ratio 0.8 L 04/10/20 09:31: WBC 25.9 H*, RBC 3.78 L, Hgb 11.7 L, Hct 36.9 L, MCV 97.8 H, MCH 30.9, MCHC 31.6 L, RDW 15.1, Plt Count 519 H D, MPV 9.7, Neut % (Auto) 93.6 H, Lymph % (Auto) 2.5 L, [place] % (Auto) 3.7, Eos % (Auto) 0.0 L, Baso % (Auto) 0.2, Neut # (Auto) 24.3 H, Lymph # (Auto) 0.6 L, [place] # (Auto) 1.0, Eos # (Auto) 0.0, Baso # (Auto) 0.1, Total Counted 100, Neutrophils % (Manual) 87 H, Lymphocytes % (Manual) 5 L, Monocytes % (Manual) 4, Metamyelocytes % 2.0 H, Myelocytes % 2 H, Platelet Estimate Moderate increase, RBC Morphology Normal 04/10/20 09:31: Troponin I 0.13 H 04/10/20 16:43: Specimen Source rr, O2 % 100, ABG pH 7.29 L, ABG pCO2 58.0 H, ABG pO2 73.1 L, ABG HCO3 27.5 H, ABG Total CO2 29.3 H, ABG O2 Saturation 95, ABG Base Excess 1.0, Jamie Test Patient unable, Vent Rate 24, Tidal Volume 440, PEEP 12 04/11/20 04:45: WBC 20.8 H*, RBC 3.75 L, Hgb 11.6 L, Hct 36.1 L, MCV 96.3 H, MCH 30.8, MCHC 32.0, RDW 15.1, Plt Count 481 H, MPV 9.9, Neut % (Auto) 94.1 H, Lymph % (Auto) 3.4 L, [place] % (Auto) 2.2, Eos % (Auto) 0.1, Baso % (Auto) 0.1, Neut # (Auto) 19.6 H, Lymph # (Auto) 0.7, [place] # (Auto) 0.5, Eos # (Auto) 0.0, Baso # (Auto) 0.0 04/11/20 04:45: Magnesium 3.1 H 04/11/20 04:45: Sodium 149 H, Potassium 5.6 H, Chloride 117 H, Carbon Dioxide 31 H, Anion Gap 6.6, BUN 71 H, Creatinine 1.00, Estimated Creat Clear 86, Estimated GFR 76, Est GFR ( Amer) 93, Glucose 161 H, Calcium 9.5, Total Bilirubin 0.4, AST 25, ALT 17, Alkaline Phosphatase 99, Total Protein 6.6, Albumin 3.0 L, Globulin 3.6 H, Albumin/Globulin Ratio 0.8 L 04/11/20 06:00: Specimen Source Left radial, O2 % 60, ABG pH 7.37, ABG pCO2 48.1 H, ABG pO2 70.1 L, ABG HCO3 27.1 H, ABG Total CO2 28.5 H, ABG O2 Saturation 94, ABG Base Excess 1.7, Jamie Test Patient unable, Vent Rate 24, Tidal Volume 480, PEEP 12 I & O for Last 24 hours: Intake & Output 04/08/20 04/09/20 04/10/20 04/11/20 23:59 23:59 23:59 23:59 Intake Total 3037.792 / 3050.792 3121 / 3191 1333.5 / 1747.5 1267.167 / 1267.167 Output Total 3795 / 3920 5590 / 5765 3900 / 4155 1280 / 1280 Balance -757.208 / -869.208 -2469 / -2574 -2566.5 / -2407.5 -12.833 / -12.833 Weight 83.869 kg 83.597 kg 83 kg 76.022 kg Microbiology Reports for the Last 24 Hours: Microbiology 04/04/20 10:05 Sputum - Endotracheal Tube Aspirate Gram Stain - Final 04/04/20 10:05 Sputum - Endotracheal Tube Aspirate Sputum Culture - Final Streptococcus pneumoniae - Constitutional mild distress, obtunded Comments: Sedated and intubated - *Routine HEENT Exam Head: Present: normocephalic Eye: Present: EOMI, PERRL ENT: Present: mucous membranes dry Comments: Poor dentition - *Routine Neck Exam Present: supple. Absent: lymphadenopathy - *Routine Respiratory Exam Present: patient mechanically ventilated Comments: Coarse bilaterally
--- NOTE | 2020-04-11 08:00 | PC.NURSE ---
gastric residual 70mL. Tubefeed rate continues @ goal rate of 55mL/hr.
[2020-04-11 09:19] LABS: Lymphocytes % 8 % (10-50); Monocytes % 1 % (2-9); Neutrophils % 91 % (42-76); Platelet Estimate Slight Increase; RBC Morphology Normal; Total Cells Counted 100
--- NOTE | 2020-04-11 10:27 | CA_ITS ---
APPROVED REPORT Bilateral Lower Extremity Venous Study for DVT. 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 Indications Lower Extremity Edema: Bilateral Current Smoker lower extremity swelling,COVID +,PT ON VENT Risk Factors Bed Rest Current Smoker Vein Imaging CFV (R): compressive, spontaneous, phasic, augmentation FEM (R): compressive, spontaneous, phasic, augmentation POP (R): compressive, spontaneous, phasic, augmentation PTV (R): Compressible GSV (R): Compressible Peroneals (R):Compressible GAS (R): Compressible CFV (L): compressive, spontaneous, phasic, augmentation FEM (L): compressive, spontaneous, phasic, augmentation POP (L): compressive, spontaneous, phasic, augmentation PTV (L): Compressible GSV (L): Compressible Peroneals (L):Compressible GAS (L): Compressible Findings Study suggests no evidence of DVT of the bilateral lower extremites. Study suggests no evidence of SVT of the bilateral lower extremites. Conclusion Study suggests no evidence of DVT of the bilateral lower extremites. Study suggests no evidence of SVT of the bilateral lower extremites. Electronically signed by : Jamie Shoemaker MD 04/11/2020 16:47:49
[2020-04-11 11:18] LABS: D-Dimer 1.19 ug/mL (0.0-0.5)
--- NOTE | 2020-04-11 12:00 | PC.NURSE ---
gastric residual 0mL. Tubefeed rate continues @ goal rate of 55mL/hr.
--- NOTE | 2020-04-11 13:50 | HMH.PULMPN ---
Internal Medicine - PN: Subj *Date: 04/11/20 *Time: 13:50 Interval history: Patient respiratory status remained relatively stable with no acute events overnight. Exam - Constitutional Constitutional:: comfortable - HENMT Exam HENMT: normocephalic, atraumatic - Eye Exam Eyes:: eyelids normal, normal conjunctiva - Neck Exam Neck:: normal visual inspection, thyroid normal - Respiratory Exam Comments: Bilateral coarse breath sounds unchanged from yesterday. Patient intubated sedated, appears comfortable. - Cardiovascular Exam Cardiac:: S1, S2 - GI Exam GI:: soft, no hepatosplenomegaly - Skin Exam Skin: warm, no rash - Neurological Exam Neurological: alert Intubated and sedated, appears comfortable. - Extremities Exam Extremities: no cyanosis, no clubbing, edema Assessment and Plan (1) Acute respiratory distress syndrome (ARDS) due to 2019 novel coronavirus Status: Acute Category: Medical Code(s): U07.1 - COVID-19; J80 - Acute respiratory distress syndrome (2) Acute hypoxemic respiratory failure due to COVID-19 Status: Acute Category: Medical Code(s): U07.1 - COVID-19; J96.01 - Acute respiratory failure with hypoxia (3) Tobacco use Status: Acute Category: Social Hx Code(s): Z72.0 - Tobacco use (4) Severe sepsis Status: Acute Category: Medical Code(s): A41.9 - Sepsis, unspecified organism; R65.20 - Severe sepsis without septic shock (5) Metabolic acidosis Status: Acute Category: Medical Code(s): E87.2 - Acidosis (6) Acute respiratory acidosis Status: Acute Category: Medical Code(s): E87.2 - Acidosis (7) Acute kidney injury Status: Acute Category: Medical Code(s): N17.9 - Acute kidney failure, unspecified (8) Cardiomyopathy Status: Acute Category: Medical Code(s): I42.9 - Cardiomyopathy, unspecified - Assessment and plan all Dx Assessment and Plan for all problems:: # Acute hypoxic respiratory failure needing mechanical ventilation: # COVID-19 pneumonia: 60-year-old COPD presented with worsening respiratory failure and chest x-ray showed bilateral pulmonary infiltrates. CTA did not show evidence of PE but showed diffuse bilateral pulmonary infiltrates along with trace effusions. Patient respiratory status acutely worsened after admission, escalated from 3 L nasal cannula to mechanical ventilation within 12 hours. Patient during the course also started on heparin drip as concern for NSTEMI Vancomycin and azithromycin DC'd owing to negative cultures and completed 5-day course. Endotracheal aspirate from eighth growing strep pneumonia. Interval update: Patient continued to receive remdesivir, dexamethasone, cefepime and heparin Patient respiratory status remained stable after increasing the PEEP to 12 yesterday. ABG this morning showed a PO2 of 70.1. Renal function stable, patient having adequate urine output 3900 mL yesterday, net negative 2.5 L. Hemodynamically stable. Afebrile. Chest x-ray showed marked improvement in his bilateral pulmonary infiltrates. Given adequate urine output will hold off on diuresis at this point of time. Will evaluate on a daily basis to determine the need for Lasix. Hemodynamically stable. Afebrile. Renal function stable, creatinine 1.0. Plan: - Bilateral lower extremity venous Doppler and D-dimer - Continue lung protective mechanical ventilation - Continue tube feeding - Continue cefepime for a total of 7 days - Continue remdesivir and dexamethasone x for COVID-19 pneumonia - Sedation and analgesics with midazolam and fentanyl with RASS goal of 0 to 1 and CPOT goal of less than or equal to 2 (propofol was changed to midazolam secondary to pharmacy shortage) - VAP bundle with aspiration precautions - Chemical DVT and PPI prophylaxis #Rest of medical management including electrolyte management as per primary team Total critical care time spent on this patient is 35 minutes managing acute hypoxic respiratory fail
--- NOTE | 2020-04-11 16:00 | PC.NURSE ---
gastric residual 30mL. Tubefeed rate continues @ 55mL/hr.
[2020-04-12] VITALS (33 sets, daily range): BP systolic 104–148; BP diastolic 51–88; PULSE 93–119; RESP 11–40; TEMP 36.4–38.3; O2SAT 92–96; BMI 22.8
[2020-04-12 04:21] LABS: ABG Base Excess 2.6 mmol/L (-2.4-2.3); ABG HCO3 28.5 mmhg (22.0-26.0); ABG Oxygen Saturation 96 % (90-100); ABG PH 7.33 mmol/L (7.35-7.45); ABG TCO2 30.2 mmhg (23-27)
[2020-04-12 04:22] LABS: Allen's Test Patient Unable; Oxygen 60 %; PEEP 12; Source Right Radial; Tidal Volume 460; Vent Rate 26
[2020-04-12 04:23] LABS: ABG PCO2 54.8 mmhg (35.0-45.0)
--- NOTE | 2020-04-12 06:00 | XR_ITS ---
PROCEDURE: XR CHEST PORTABLE Referring Doctor: Zion Metzger Patient Age:60Y CLINICAL HISTORY: tube placement covid positive, cough shortness of breath. Check tube placements COMPARISON: CT CT ANGIO CHEST from 04/03/2020 CR XR CHEST PORTABLE from 04/10/2020 CR XR CHEST PORTABLE from 04/10/2020 CR XR CHEST PORTABLE from 04/11/2020 FINDINGS: AP portable supine CXR performed today is compared to yesterday's CXR. ET tube satisfactory position nearly 6 cm above scooby. NG tube passes approximately 8 cm stomach with tip projected over the proximal stomach and directed towards fundus although good position currently you may want to advance to maintain good position Left subclavian central line appears stable satisfactory with tip at SVC. Bilateral infiltrates most pronounced towards the lung bases. Infiltrates are slightly more evident today towards bases but this may in part reflect a slightly higher contrast less penetrated CXR. Left lung I would note that there is been the slight clearing of a mild focal patchy infiltrate which partially obscure the medial left hemidiaphragm on yesterday's study.-Today we see slightly more diffuse interstitial infiltrate at the left lung base but again this may be accentuated by sugar reprocess operator head technique Right lung base with infiltrate most evident just above right hemidiaphragm but not obscuring it. Mild RLL volume loss but When compared back to April 10 there has been more definite improvement radiographically, with less vascular congestion and improving infiltrates at the mid and upper lung dickinson bilaterally. The heart is normal in size johnny and mediastinal structures satisfactory. Chest wall unremarkable IMPRESSION: Today's sugar reprocess operator head P CXR reveals mild accentuation bilateral infiltrates at the lung bases, when compared to yesterday's study. The question subtle progression versus technique. Ongoing follow-up required. However there has more convincing improvement improvement when compared back to April 10 CXR ET tube satisfactory position. NG tube tip at proximal stomach as detailed above Dictated by: Rex Jackson MD 04/12/2020 10:08 Rex Jackson MD in [facility] 04/12/2020 10:08
[2020-04-12 06:37] LABS: Basophils % 0.1 % (0.1-2.0); Hematocrit 36.9 % (42.0-52.0); Hemoglobin 11.5 g/dL (14.1-18.0); Lymphocytes # 0.7 K/mm3 (0.7-4.5); Lymphocytes % 2.1 % (10-50); Mean Corpuscular Hemoglobin 30.5 pg (27.0-31.2); Mean Corpuscular Volume 98.3 fl (80-94); Mean Platelet Volume 9.9 fl (7.4-10.4); Monocytes # 0.5 K/mm3 (0.1-1.0); Monocytes % 1.5 % (1.7-9.3); Neutrophils % 96.2 % (37.0-80.0); Platelet Count 501 K/mm3 (142-424); Red Blood Count 3.76 M/mm3 (4.60-6.20); Red Cell Distribution Width 14.9 % (11.5-17.5); White Blood Count 34.3 K/mm3 (4.8-10.8)
[2020-04-12 06:45] LABS: Alanine Aminotransferase 16 U/L (12-78); Albumin/Globulin Ratio 0.8 (1.1-1.8); Alkaline Phosphatase 96 U/L (38-126); Anion Gap 9.1 mEq/L (5-15); Aspartate Amino Transferase 21 U/L (17-59); Bilirubin,Total 0.4 mg/dl (0.2-1.3); Calcium 9.3 mg/dl (8.4-10.2); Carbon Dioxide 33 mmol/L (22.0-30.0); Chloride 115 mmol/L (98-107); Creatinine Clearance Estimated 74 mL/min (50-200); Estimated Glomerular Filt Rate 69 ml/min (>60); GFR (African American) 83 ML/MIN (>60); Globulin 3.7 g/dL (1.3-3.2); Glucose 206 mg/dl (74-100); Magnesium 3.5 mg/dl (1.6-2.3); Total Protein,Serum 6.7 g/dl (6.3-8.2)
[2020-04-12 06:50] LABS: Blood Urea Nitrogen 85 mg/dl (9-20); Potassium 6.1 mmoL/L (3.5-5.1); Sodium 151 mmol/L (136-145)
[2020-04-12 06:52] LABS: MANUAL DIFFERENTIAL MANUAL DIFFERENTIAL (MANUAL DIFF)
--- NOTE | 2020-04-12 07:08 | PC.NURSE ---
Pt remains intubated. Current settings are as follows: AC, FiO2 60%, TV, 460, R 26, PEEP, 12. Pt is edematous to chadd hands. Scab noted to lips. F/C draining to bedside with clear, yellow urine. Medication administered per may. Pulmocare infusing @ 55 ml/hr. Fentanyl infusing @ 75 mcg/hr. Versed infusing @ 0.15 mg/kg/hr. notified of critical labs this am. No new orders. Will continue to monitor.
--- NOTE | 2020-04-12 07:36 | HMH.ACPN2 ---
Internal Medicine - PN: Subj *Date: 04/12/20 *Time: 11:13 Interval history: Patient remains intubated and sedated. Appears slightly increased distress today. Persistent tachypnea and tachycardia. Patient has been febrile overnight. Reviewed labs from this morning, elevated potassium, magnesium, BUN. Kidney function/Cr remains stable. 1 bowel movement overnight, no melena Exam Vital signs and Labs for Last 24 Hours: Temp Pulse Resp BP Pulse Ox 100 F H 111 H 37 H 131/78 94 L 04/12/20 07:00 04/12/20 07:16 04/12/20 07:00 04/12/20 07:00 04/12/20 07:00 Laboratory Results - last 24 hr 04/11/20 04:45: Total Counted 100, Neutrophils % (Manual) 91 H, Lymphocytes % (Manual) 8 L, Monocytes % (Manual) 1 L, Platelet Estimate Slight increase, RBC Morphology Normal 04/11/20 10:35: D-Dimer 1.19 H 04/12/20 06:00: Specimen Source Right radial, O2 % 60, ABG pH 7.33 L, ABG pCO2 54.8 H, ABG pO2 83.0, ABG HCO3 28.5 H, ABG Total CO2 30.2 H, ABG O2 Saturation 96, ABG Base Excess 2.6 H, Jamie Test Patient unable, Vent Rate 26, Tidal Volume 460, PEEP 12 04/12/20 06:00: WBC 34.3 H* D, RBC 3.76 L, Hgb 11.5 L, Hct 36.9 L, MCV 98.3 H, MCH 30.5, MCHC 31.0 L, RDW 14.9, Plt Count 501 H, MPV 9.9, Neut % (Auto) 96.2 H, Lymph % (Auto) 2.1 L, [place] % (Auto) 1.5 L, Eos % (Auto) 0.0 L, Baso % (Auto) 0.1, Neut # (Auto) 33.0 H, Lymph # (Auto) 0.7, [place] # (Auto) 0.5, Eos # (Auto) 0.0, Baso # (Auto) 0.0 04/12/20 06:00: Sodium 151 H*, Potassium 6.1 H*, Chloride 115 H, Carbon Dioxide 33 H, Anion Gap 9.1, BUN 85 H, Creatinine 1.10, Estimated Creat Clear 74, Estimated GFR 69, Est GFR ( Amer) 83, Glucose 206 H, Calcium 9.3, Magnesium 3.5 H D, Total Bilirubin 0.4, AST 21, ALT 16, Alkaline Phosphatase 96, Total Protein 6.7, Albumin 3.0 L, Globulin 3.7 H, Albumin/Globulin Ratio 0.8 L I & O for Last 24 hours: Intake & Output 04/09/20 04/10/20 04/11/20 04/12/20 23:59 23:59 23:59 23:59 Intake Total 3121 / 3191 1333.5 / 1747.5 4010.417 / 4010.417 620 / 620 Output Total 5590 / 5765 3900 / 4155 4615 / 4740 715 / 715 Balance -2469 / -2574 -2566.5 / -2407.5 -604.583 / -729.583 -95 / -95 Weight 83.597 kg 83 kg 76.022 kg 72.393 kg Narrative: - Constitutional mild distress, obtunded Comments: Sedated and intubated - *Routine HEENT Exam Head: Present: normocephalic Eye: Present: EOMI, PERRL ENT: Present: mucous membranes dry Comments: Poor dentition - *Routine Neck Exam Present: supple. Absent: lymphadenopathy - *Routine Respiratory Exam Present: patient mechanically ventilated Comments: Coarse bilaterally, stable previous exam - *Routine Cardiovascular Exam Present: tachycardia - *Routine Abdominal Exam Present: soft, normoactive bowel sounds. Absent: tenderness - *Routine Extremities Exam Absent: cyanosis, clubbing, edema - *Routine Skin Exam Present: warm. Absent: rash - *Routine Neurological Exam unable to assess due to sedation Assessment and Plan (1) Acute respiratory distress syndrome (ARDS) due to 2019 novel coronavirus Status: Acute Category: Medical Code(s): U07.1 - COVID-19; J80 - Acute respiratory distress syndrome (2) Acute hypoxemic respiratory failure due to COVID-19 Status: Acute Category: Medical Code(s): U07.1 - COVID-19; J96.01 - Acute respiratory failure with hypoxia (3) Tobacco use Status: Acute Category: Social Hx Code(s): Z72.0 - Tobacco use (4) Severe sepsis Status: Acute Category: Medical Code(s): A41.9 - Sepsis, unspecified organism; R65.20 - Severe sepsis without septic shock (5) Metabolic acidosis Status: Acute Category: Medical Code(s): E87.2 - Acidosis (6) Acute respiratory acidosis Status: Acute Category: Medical Code(s): E87.2 - Acidosis (7) Acute kidney injury Status: Acute Category: Medical Code(s): N17.9 - Acute kidney failure, unspecified (8) Cardiomyopathy Status: Acute Category: Medical Code(s): I42.9 - Cardiomyopathy, unspecifie
[2020-04-12 08:14] LABS: Procalcitonin 0.717 ng/mL (0.0-2.0)
[2020-04-12 08:18] LABS: Creatine Kinase 39 U/L (55-170)
[2020-04-12 09:22] LABS: Lymphocytes % 4 % (10-50); Monocytes % 4 % (2-9); Neutrophils % 92 % (42-76); Platelet Estimate Slight Increase; RBC Morphology Normal; Total Cells Counted 100
--- NOTE | 2020-04-12 09:50 | PC.NURSE ---
blood cultures drawn. One set drawn from left SC TLDL and one set drawn from right hand stick. Bottles labeled as such.
--- NOTE | 2020-04-12 10:52 | PC.NURSE ---
Dr. Shah rounded and ordered 500mL LR bolus. Order faxed to pharmacy
--- NOTE | 2020-04-12 11:00 | ECG_ITS ---
APPROVED REPORT Exam: Resting ECG HR:116 bpm ECG Measurements Heart Rate 116 AXES RI 122 P 78 QRSd 54 QRS 65 QT 298 T 90 QTc 414 Conclusion Sinus tachycardia Right atrial abnormality Borderline ECG Electronically signed by : Renan Dorsey, 04/14/2020 19:42:10
--- NOTE | 2020-04-12 11:05 | PC.NURSE ---
EKG read by Dr. Metzger, who is @ rounding. He also requested that nursing staff not call juan HE regarding critical ABG results as Dr. Shah is managing the vent. I will enter a communication order. Notification sent to manager gaming, Elvia Romero RN.
--- NOTE | 2020-04-12 11:28 | HMH.PULMPN ---
Internal Medicine - PN: Subj *Date: 04/12/20 *Time: 11:28 Interval history: No acute respiratory events overnight. Exam - Constitutional Constitutional:: comfortable - HENMT Exam HENMT: atraumatic - Eye Exam Eyes:: eyelids normal, normal conjunctiva - Neck Exam Neck:: thyroid normal, no lymphadenopathy - Respiratory Exam Comments: Bilateral mild coarse breath sounds unchanged from yesterday. No audible wheeze heard. Intubated and sedated. Appears comfortable. - Cardiovascular Exam Cardiac:: S1, S2 - GI Exam GI:: soft, no hepatosplenomegaly - Skin Exam Skin: warm, no rash - Neurological Exam Intubated and sedated - Extremities Exam Extremities: no cyanosis, no clubbing, no edema Assessment and Plan (1) Acute respiratory distress syndrome (ARDS) due to 2019 novel coronavirus Status: Acute Category: Medical Code(s): U07.1 - COVID-19; J80 - Acute respiratory distress syndrome (2) Acute hypoxemic respiratory failure due to COVID-19 Status: Acute Category: Medical Code(s): U07.1 - COVID-19; J96.01 - Acute respiratory failure with hypoxia (3) Tobacco use Status: Acute Category: Social Hx Code(s): Z72.0 - Tobacco use (4) Severe sepsis Status: Acute Category: Medical Code(s): A41.9 - Sepsis, unspecified organism; R65.20 - Severe sepsis without septic shock (5) Metabolic acidosis Status: Acute Category: Medical Code(s): E87.2 - Acidosis (6) Acute respiratory acidosis Status: Acute Category: Medical Code(s): E87.2 - Acidosis (7) Acute kidney injury Status: Acute Category: Medical Code(s): N17.9 - Acute kidney failure, unspecified (8) Cardiomyopathy Status: Acute Category: Medical Code(s): I42.9 - Cardiomyopathy, unspecified (9) Hyperkalemia Status: Acute Category: Medical Code(s): E87.5 - Hyperkalemia (10) Hypermagnesemia Status: Acute Category: Medical Code(s): E83.41 - Hypermagnesemia - Assessment and plan all Dx Assessment and Plan for all problems:: # Acute hypoxic respiratory failure needing mechanical ventilation: # COVID-19 pneumonia: 60-year-old COPD presented with worsening respiratory failure and chest x-ray showed bilateral pulmonary infiltrates. CTA did not show evidence of PE but showed diffuse bilateral pulmonary infiltrates along with trace effusions. Patient respiratory status acutely worsened after admission, escalated from 3 L nasal cannula to mechanical ventilation within 12 hours. Patient during the course also started on heparin drip as concern for NSTEMI Vancomycin and azithromycin DC'd owing to negative cultures and completed 5-day course. Endotracheal aspirate from eighth growing strep pneumonia. Interval update: Patient continued to receive remdesivir, dexamethasone, cefepime and heparin Patient respiratory status remained stable. Renal function stable Chest x-ray unchanged from yesterday. Hemodynamically stable. Leukocytosis worsening increased to 34. Patient afebrile in the last 12 hours. Blood cultures pending -given hemodynamic stability, afebrile with only low-grade temps with a T-max of 100.2 yesterday and stable settings on the ventilator and stable CXR we will closely monitor this patient's worsening leukocytosis. Plan:. - Continue lung protective mechanical ventilation - Continue tube feeding - Continue cefepime for a total of 7 days - Continue remdesivir and dexamethasone x for COVID-19 pneumonia - Sedation and analgesics with midazolam and fentanyl with RASS goal of 0 to 1 and CPOT goal of less than or equal to 2 (propofol was changed to midazolam secondary to pharmacy shortage) - VAP bundle with aspiration precautions - Chemical DVT and PPI prophylaxis #Rest of medical management including electrolyte management as per primary team Total critical care time spent on this patient is 35 minutes managing acute hypoxic respiratory failure needing mechanical ventilation. This time spent includ
--- NOTE | 2020-04-12 11:39 | PC.NURSE ---
guido catheter changed per Dr. Metzger. Specimen sent to lab for UA with cx/s.
--- NOTE | 2020-04-12 11:43 | DIET.NUTRFU ---
Addendum entered by Brooke Elizalde 04/18/20 16:32: Tolerating tube feeds well, weight is stable, BG moderate, electrolyte abnormalities and elevated Na, BUN continuing to improve. BUN and Na remain elevated. K wnl, Magnesium remains slightly elevated. Had 3 BMs with stool softener yesterday. Pt is meeting energy, protein, and fluid needs. Considering presumed GI bleed and continued stabilizing labs, continuing TF at current rate indicated. No change to current nutritional care plan as stated in order. Continuing to monitor and reassess. Addendum entered by Brooke Elizalde 04/16/20 13:06: Pt has had good tolerance and improvement nutrition related labs with new TF formula/rate. Weight is stabilizing, 19# loss past 48h. Of note pt was having diarrhea with Pulmocare, he has not had a BM since change in formula. Pt is meeting conservative energy and protein needs, receiving optimal fluids through water flushes. No changes to current regimen at this time, continuing to monitor and will advance as indicated. Would like him to have a BM as well as see further normalized labs over next 48h, upon this will increase rate cautiously. Addendum entered by Brooke Elizalde 04/14/20 14:42: Informed Osmolite 1.5 not available, order changed to Osmolite 1.2 with goal rate of 50ml/h- Start at 40ml/h and advance to 50ml/hr q 8h as tolerated. Will reevaluate goal rate based on pt's tolerance/labs. Fluids very slightly decreased from 230 to 220ml q 4h- 2303ml total with flushes and formula (30ml/kg). Regimen of continuous tube feeding of Osmolite 1.2 at 50ml/hr provides 1440kcal, 66g protein, 189g cho, 47g fat, and 984ml free water. Addendum entered by Brooke Elizalde 04/14/20 09:42: Pt with fair toleration, most concerned by 15# weight gain past 24h despite low running TF rate. Electrolytes have decreased but remain elevated. Remains with clinical indicators dehydration, however is meeting optimal fluid needs of 30ml/kg. Possibility GI bleed noted as well. I suspect pt would better tolerate a low residue, low osmolality formula which offers lowest renal solute load of formulas available to [facility]. While macronutrient range of this formula not ideal for respiratory support/COVID, it does meet needs and should assist with electrolyte abnormalities as well as being the most appropriate option for possible GI bleed/any GI dysfunction. Do have concerns for hyperglycemia with formula switch, pt is not a diabetic but has had hyperglycemia rt COVID/steroids t/o stay, will monitor closely. We will plan to advance very slowly, starting new formula of Osmolite 1.5 at current rate of 40ml/h. Would like to cautiously evaluate how pt tolerate's this rate t/o today, will evaluate advancement plan/new goal rate pending tolerance/labs/BG. New regimen of continuous tube feeding of Osmolite 1.5 at current rate of 40ml/h provides 1380kcal, 58g protein, 188g cho, 45g fat, and 701ml free water. No changes to fluids at this time, continue flushes of 230ml q 4h, pt still meeting elevated needs at 2088ml. Addendum entered by Brooke Elizalde 04/13/20 16:45: Pt advanced to 40ml/h with good tolerance. Order changed to 40ml/h as current goal rate, communicated with RN. Goal is to slowly advance as tolerated and indicated by labs, will reassess with MD in am. Addendum entered by Brooke Elizalde 04/13/20 15:16: Pt with continued elevated labs, concur with MD's order to restart TF at 30ml/hr. Advance q 8h as tolerated, slow and low advancement important, monitoring tolerance/labs. Pt receiving 1900ml fluid with formula and flushes, 2100ml at goal rate. Weight stable, normal BM past 24h. BG moderate-high. Original Note: Nutritional consult received, change made in TF rate to 44ml/h. No change in fluids at this time. Will monitor pt tolerance and continue to alter rate as needed, will add additional protein as indicated with lab normalization. Pt with nutritional indicators possible refeedi
[2020-04-12 14:00] LABS: Microscopic, Urine URINE MICROSCOPIC (MICROSCOPIC)
[2020-04-12 14:54] LABS: Appearance,Urine CLEAR (Clear); Bilirubin,Urine Negative (Negative); Blood, Urine 2+ (Negative); Color,Urine YELLOW (Yellow); Glucose,Urine (UA) Negative (Negative); Ketones,Urine Negative (Negative); Leukocyte Esterase,Urine Negative (Negative); Nitrate,Urine Negative (Negative); Protein,Urine 1+ (Negative); Urobilinogen,Urine 0.2 EU/dl (0.2)
[2020-04-12 15:57] LABS: Bacteria,Urine 2+ /lpf
--- NOTE | 2020-04-12 17:40 | PC.NURSE ---
gastric residual has been 0mL for 0800, 1200, and 1600. Tubefeed rate continues @ goal of 55mL/hr. Left SC TLDL dressing changed using sterile technique.
[2020-04-12 18:25] LABS: Chloride 115 mmol/L (98-107); Sodium 149 mmol/L (136-145)
[2020-04-12 18:28] LABS: Carbon Dioxide 31 mmol/L (22.0-30.0); Creatinine Clearance Estimated 58 mL/min (50-200); Estimated Glomerular Filt Rate 52 ml/min (>60); GFR (African American) 63 ML/MIN (>60); Glucose 301 mg/dl (74-100)
[2020-04-12 18:29] LABS: Anion Gap 9.8 mEq/L (5-15); Blood Urea Nitrogen 99 mg/dl (9-20); Potassium 6.8 mmoL/L (3.5-5.1)
--- NOTE | 2020-04-12 18:34 | PC.NURSE ---
notified Dr. Metzger that potassium is 6.8 and BUN 99.
[2020-04-13] VITALS (32 sets, daily range): BP systolic 105–130; BP diastolic 58–76; PULSE 80–112; RESP 21–33; TEMP 36.2–38.3; O2SAT 96–100; BMI 23.3
--- NOTE | 2020-04-13 02:41 | PC.NURSE ---
Spoke with MD Metzger early in shift. New orders placed. Pulmocare feeding to be held @ 2100 and reassessed in AM by . 1 Liter of D5 1/2 NS @ 150 ml/hr. Calcium gluconate 1 gm, D50, Regular insulin 10 units and Kayexalate. Orders carried out. FSBS was obtained prior resulting 243. Pt turned and repositioned. Oral care provided. Vent settings are as follows: AC, FiO2 60%, TV 460, R 26, PEEP 12. F/C draining to bedside with clear, yellow urine. Medications administered per may. Central line patent with Fentanyl infusing @ 75 mcg/hr and Versed infusing @ 0.15 mg/kg/hr. D5 1/2 NS is infusing @ 150 ml/hr. BP stable. He is sinus tach with periods of NSR. He is febrile. No other concerns. Will continue to monitor.
--- NOTE | 2020-04-13 07:00 | XR_ITS ---
PROCEDURE: XR CHEST PORTABLE Referring Doctor: DomenicaZion Patient Age:60Y CLINICAL HISTORY: ETT and OG placement Covid; pneumonia COMPARISON: CR XR CHEST PORTABLE from 04/12/2020 FINDINGS: . AP portable upright CXR performed today . ET tube satisfactory position with tip 6.5 cm above scooby.. . NG tube passes through GE junction slightly into the stomach. This study does not include much of the upper abdomen but it appears NG tube has been pulled back slightly since yesterday with tip. Towards the cardia of the stomach come and just 5.5 cm through the GE junction. You may want advance NG tube to further, secure its position . Left subclavian central line remains stable with with tip at SVC. Unchanged since yesterday Bibasilar infiltrates persist similar to yesterday's study or. No significant change since yesterday. Upper lung dickinson remain fairly clear. Normal pulmonary vascularity Heart normal size johnny and mediastinal structures stable chest wall unremarkable; no pleural effusions, no pneumothorax IMPRESSION: ET tube and left subclavian central line-and stable satisfactory position. NG tube appears to been pulled back and only slightly passes through the GE junction into the stomach. You may want to advance it to better secure its position into the stomach. Bilateral bibasilar infiltrates appear overall similar to yesterday. No significant change Dictated by: Rex Jackson MD 04/13/2020 08:35 Rex Jackson MD in [place] 04/13/2020 08:35
[2020-04-13 07:08] LABS: ABG HCO3 28.2 mmhg (22.0-26.0); ABG Oxygen Saturation 91 % (90-100); ABG PCO2 48.8 mmhg (35.0-45.0); ABG PH 7.38 mmol/L (7.35-7.45); ABG PO2 58.6 mmhg (80-100); ABG TCO2 29.7 mmhg (23-27)
[2020-04-13 07:11] LABS: Allen's Test Patient Unable; Oxygen 60 %; PEEP 12; Tidal Volume 460; Vent Rate 26
[2020-04-13 07:12] LABS: Source Right Radial
[2020-04-13 07:58] LABS: Basophils # 0.1 K/mm3 (0-0.2); Basophils % 0.2 % (0.1-2.0); Eosinophils # 0.1 K/mm3 (0.0-0.4); Eosinophils % 0.2 % (0.1-12.0); Hematocrit 32.9 % (42.0-52.0); Hemoglobin 10.4 g/dL (14.1-18.0); Mean Corpuscular HGB Conc 31.7 g/dL (31.8-35.4); Mean Corpuscular Hemoglobin 30.8 pg (27.0-31.2); Mean Corpuscular Volume 97.2 fl (80-94); Mean Platelet Volume 10.6 fl (7.4-10.4); Monocytes # 0.7 K/mm3 (0.1-1.0); Monocytes % 2.2 % (1.7-9.3); Neutrophils # 31.5 K/mm3 (1.8-7.8); Neutrophils % 94.5 % (37.0-80.0); Platelet Count 443 K/mm3 (142-424); Red Blood Count 3.39 M/mm3 (4.60-6.20); White Blood Count 33.4 K/mm3 (4.8-10.8)
--- NOTE | 2020-04-13 08:00 | PC.NURSE ---
gastric residual 0mL. Dr. Metzger @ BS and ordered to restart tubefeed @ 30mL/hr. Tubefeeds restarted. Pt also had a large liquid BM.
[2020-04-13 08:05] LABS: MANUAL DIFFERENTIAL MANUAL DIFFERENTIAL (MANUAL DIFF)
[2020-04-13 08:10] LABS: Alanine Aminotransferase 17 U/L (12-78); Albumin Level 2.8 g/dl (3.5-5.0); Albumin/Globulin Ratio 0.8 (1.1-1.8); Alkaline Phosphatase 78 U/L (38-126); Anion Gap 9.1 mEq/L (5-15); Aspartate Amino Transferase 25 U/L (17-59); Bilirubin,Total 0.4 mg/dl (0.2-1.3); Calcium 8.9 mg/dl (8.4-10.2); Carbon Dioxide 31 mmol/L (22.0-30.0); Chloride 117 mmol/L (98-107); Creatinine Clearance Estimated 69 mL/min (50-200); Estimated Glomerular Filt Rate 62 ml/min (>60); GFR (African American) 75 ML/MIN (>60); Globulin 3.4 g/dL (1.3-3.2); Glucose 234 mg/dl (74-100); Magnesium 3.6 mg/dl (1.6-2.3); Total Protein,Serum 6.2 g/dl (6.3-8.2)
[2020-04-13 08:11] LABS: Lactic Acid 1.1 mmol/L (0.7-2.1)
--- NOTE | 2020-04-13 08:13 | PC.NURSE ---
Notified Dr. Metzger of the following: Na 151, K 6.1, and BUN 105.
--- NOTE | 2020-04-13 08:25 | HMH.ACPN2 ---
Internal Medicine - PN: Subj *Date: 04/13/20 *Time: 09:52 Interval history: Patient remains intubated and sedated. Appears slightly increased distress today. Persistent tachypnea and tachycardia. Patient has been febrile overnight. Reviewed labs from this morning, elevated potassium, magnesium, BUN. Kidney function/Cr remains stable. 1 bowel movement overnight, no melena Exam Vital signs and Labs for Last 24 Hours: Temp Pulse Resp BP Pulse Ox 97.9 F 92 H 30 H 119/75 96 04/13/20 08:00 04/13/20 08:00 04/13/20 08:00 04/13/20 08:00 04/13/20 08:00 Laboratory Results - last 24 hr 04/12/20 06:00: Total Counted 100, Neutrophils % (Manual) 92 H, Lymphocytes % (Manual) 4 L, Monocytes % (Manual) 4, Platelet Estimate Slight increase, RBC Morphology Normal 04/12/20 13:20: Urine Color Yellow, Urine Appearance Clear, Urine pH 6.0, Ur Specific [place] 1.020, Urine Protein 1+, Urine Glucose (UA) Negative, Urine Ketones Negative, Urine Blood 2+, Urine Nitrate Negative, Urine Bilirubin Negative, Urine Urobilinogen 0.2, Ur Leukocyte Esterase Negative, Urine RBC None, Urine WBC 5-10, Ur Squamous Epith Cells None, Urine Bacteria 2+ 04/12/20 18:00: Sodium 149 H, Potassium 6.8 H*, Chloride 115 H, Carbon Dioxide 31 H, Anion Gap 9.8, BUN 99 H, Creatinine 1.40 H D, Estimated Creat Clear 58, Estimated GFR 52 L, Est GFR ( Amer) 63 D, Glucose 301 H D, Calcium 9.0 04/13/20 07:00: Specimen Source Right radial, O2 % 60, ABG pH 7.38, ABG pCO2 48.8 H, ABG pO2 58.6 L, ABG HCO3 28.2 H, ABG Total CO2 29.7 H, ABG O2 Saturation 91, ABG Base Excess 3.0 H, Jamie Test Patient unable, Vent Rate 26, Tidal Volume 460, PEEP 12 04/13/20 07:25: WBC 33.4 H*, RBC 3.39 L, Hgb 10.4 L, Hct 32.9 L, MCV 97.2 H, MCH 30.8, MCHC 31.7 L, RDW 15.0, Plt Count 443 H, MPV 10.6 H, Neut % (Auto) 94.5 H, Lymph % (Auto) 3.0 L, [place] % (Auto) 2.2, Eos % (Auto) 0.2, Baso % (Auto) 0.2, Neut # (Auto) 31.5 H, Lymph # (Auto) 1.0, [place] # (Auto) 0.7, Eos # (Auto) 0.1, Baso # (Auto) 0.1 04/13/20 07:25: Sodium 151 H*, Potassium 6.1 H*, Chloride 117 H, Carbon Dioxide 31 H, Anion Gap 9.1, BUN 105 H*, Creatinine 1.20, Estimated Creat Clear 69, Estimated GFR 62, Est GFR ( Amer) 75, Glucose 234 H D, Calcium 8.9, Magnesium 3.6 H, Total Bilirubin 0.4, AST 25, ALT 17, Alkaline Phosphatase 78, Total Protein 6.2 L, Albumin 2.8 L, Globulin 3.4 H, Albumin/Globulin Ratio 0.8 L 04/13/20 07:25: Lactate 1.1 I & O for Last 24 hours: Intake & Output 04/10/20 04/11/20 04/12/20 04/13/20 23:59 23:59 23:59 23:59 Intake Total 1333.5 / 1747.5 4010.417 / 4010.417 3182.000 / 3182.000 121.416 / 121.416 Output Total 3900 / 4155 4615 / 4740 2340 / 2515 1085 / 1085 Balance -2566.5 / -2407.5 -604.583 / -729.583 842.000 / 667.000 -963.584 / -963.584 Weight 83 kg 76.022 kg 72.393 kg 73.799 kg Assessment and Plan (1) Acute respiratory distress syndrome (ARDS) due to 2019 novel coronavirus Status: Acute Category: Medical Code(s): U07.1 - COVID-19; J80 - Acute respiratory distress syndrome (2) Acute hypoxemic respiratory failure due to COVID-19 Status: Acute Category: Medical Code(s): U07.1 - COVID-19; J96.01 - Acute respiratory failure with hypoxia (3) Tobacco use Status: Acute Category: Social Hx Code(s): Z72.0 - Tobacco use (4) Severe sepsis Status: Acute Category: Medical Code(s): A41.9 - Sepsis, unspecified organism; R65.20 - Severe sepsis without septic shock (5) Metabolic acidosis Status: Acute Category: Medical Code(s): E87.2 - Acidosis (6) Acute respiratory acidosis Status: Acute Category: Medical Code(s): E87.2 - Acidosis (7) Acute kidney injury Status: Acute Category: Medical Code(s): N17.9 - Acute kidney failure, unspecified (8) Cardiomyopathy Status: Acute Category: Medical Code(s): I42.9 - Cardiomyopathy, unspecified (9) Hyperkalemia Status: Acute Category: Medical Code(s): E87.5 - Hyperkalemia (10) Hypermagnesemia Statu
[2020-04-13 08:33] LABS: Lymphocytes % 1 % (10-50); Neutrophils % 99 % (42-76); Total Cells Counted 100
[2020-04-13 08:34] LABS: Platelet Estimate Slight Increase; RBC Morphology Normal
[2020-04-13 11:24] LABS: POC Glucose,Bedside 243 (70-110)
--- NOTE | 2020-04-13 16:00 | PC.NURSE ---
gastric residual 0mL. Tubefeed rate increased to 40mL/hr.
--- NOTE | 2020-04-13 17:59 | PC.NURSE ---
this tech swept and mopped pt's room
[2020-04-14] VITALS (34 sets, daily range): BP systolic 111–151; BP diastolic 53–77; PULSE 80–100; RESP 22–92; TEMP 36.5–38; O2SAT 60–98; BMI 24.3
--- NOTE | 2020-04-14 05:35 | PC.NURSE ---
No acute changes this shift. Vent settings are as follows: FiO2 60%, TV 460, R 26, PEEP 12. O2 sats 97% at this time. VS have been stable this shift. Pt is NSR on telemetry. He has been febrile at times. Medications administered per may. Fentanyl gtt infusing @ 75 mcg/hr. Versed @ 0.15 mg/kg/hr. Pulmocare feedings at a rate of 40 ml/hr. Residuals no more than 20 ml. Oral care and suctioning provided. Pt has some bleeding to gums at times due to prior poor dental hygiene. Pt turned and repositioned. F/C draining to bedside with clear, yellow urine. Will continue to monitor.
--- NOTE | 2020-04-14 06:30 | XR_ITS ---
PROCEDURE: XR CHEST PORTABLE CLINICAL HISTORY: tube placement, monitor infiltrates Covid19 pneumonia COMPARISON: CT CT ANGIO CHEST from 04/03/2020 CR XR CHEST PORTABLE from 04/11/2020 CR XR CHEST PORTABLE from 04/12/2020 CR XR CHEST PORTABLE from 04/13/2020 FINDINGS: 5:12 a.m.. The endotracheal tube nasogastric tube and left subclavian central venous line all remain in good position. Patchy bilateral lower lobe pneumonia once again noted unchanged. No acute bony abnormalities. IMPRESSION: Tubes and lines in good position. No change bilateral pneumonia Dictated by: Jamie Shoemaker MD 04/14/2020 06:24 Jamie Shoemaker MD in [facility] 04/14/2020 06:24
[2020-04-14 06:48] LABS: Basophils # 0.1 K/mm3 (0-0.2); Basophils % 0.3 % (0.1-2.0); Eosinophils # 0.1 K/mm3 (0.0-0.4); Eosinophils % 0.2 % (0.1-12.0); Hematocrit 31.4 % (42.0-52.0); Hemoglobin 9.6 g/dL (14.1-18.0); Lymphocytes # 0.5 K/mm3 (0.7-4.5); Lymphocytes % 1.7 % (10-50); Mean Corpuscular HGB Conc 30.6 g/dL (31.8-35.4); Mean Corpuscular Hemoglobin 30.2 pg (27.0-31.2); Mean Corpuscular Volume 98.8 fl (80-94); Mean Platelet Volume 11.8 fl (7.4-10.4); Monocytes # 1.3 K/mm3 (0.1-1.0); Monocytes % 4.5 % (1.7-9.3); Neutrophils # 26.3 K/mm3 (1.8-7.8); Neutrophils % 93.2 % (37.0-80.0); Platelet Count 445 K/mm3 (142-424); Red Blood Count 3.18 M/mm3 (4.60-6.20); Red Cell Distribution Width 14.7 % (11.5-17.5); White Blood Count 28.2 K/mm3 (4.8-10.8)
[2020-04-14 06:49] LABS: Alanine Aminotransferase 38 U/L (12-78); Albumin Level 2.6 g/dl (3.5-5.0); Albumin/Globulin Ratio 0.8 (1.1-1.8); Alkaline Phosphatase 89 U/L (38-126); Anion Gap 7.7 mEq/L (5-15); Aspartate Amino Transferase 53 U/L (17-59); Bilirubin,Total 0.4 mg/dl (0.2-1.3); Calcium 8.7 mg/dl (8.4-10.2); Carbon Dioxide 31 mmol/L (22.0-30.0); Chloride 117 mmol/L (98-107); Creatinine Clearance Estimated 67 mL/min (50-200); Estimated Glomerular Filt Rate 57 ml/min (>60); GFR (African American) 68 ML/MIN (>60); Globulin 3.3 g/dL (1.3-3.2); Glucose 142 mg/dl (74-100); Magnesium 3.4 mg/dl (1.6-2.3); Potassium 5.7 mmoL/L (3.5-5.1); Total Protein,Serum 5.9 g/dl (6.3-8.2)
[2020-04-14 06:54] LABS: MANUAL DIFFERENTIAL MANUAL DIFFERENTIAL (MANUAL DIFF)
[2020-04-14 07:00] LABS: Sodium 150 mmol/L (136-145)
[2020-04-14 07:01] LABS: Blood Urea Nitrogen 111 mg/dl (9-20)
--- NOTE | 2020-04-14 07:17 | PC.NURSE ---
notified of labs NA 150, BUN 111.
[2020-04-14 07:41] LABS: ABG Base Excess 0.2 mmol/L (-2.4-2.3); ABG HCO3 25.1 mmhg (22.0-26.0); ABG Oxygen Saturation 98 % (90-100); ABG PCO2 42.2 mmhg (35.0-45.0); ABG PH 7.39 mmol/L (7.35-7.45); ABG TCO2 26.4 mmhg (23-27)
[2020-04-14 07:47] LABS: Allen's Test ACCEPTABLE; Oxygen 60 %; PEEP 12; Source Left Radial; Tidal Volume 460; Vent Rate 26
--- NOTE | 2020-04-14 08:00 | SW/DCPLANNER ---
PATIENT REMAINS IN THE COVID UNIT... 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 AT THIS TIME HIS CONDITION REMAINS GUARDED...
[2020-04-14 08:02] LABS: Lymphocytes % 5 % (10-50); Monocytes % 4 % (2-9); Neutrophils % 91 % (42-76); Platelet Estimate Slight Increase; RBC Morphology Normal; Total Cells Counted 100
--- NOTE | 2020-04-14 08:43 | HMH.ACPN2 ---
Internal Medicine - PN: Subj *Date: 04/14/20 *Time: 08:43 Interval history: Patient remains in the intensive care unit, intubated, sedated. Over the weekend lab abnormalities began to show themselves, namely elevated BUN, significantly out of proportion to creatinine elevation, along with hyperkalemia. This was treated medically and has been improving and potassium levels this morning are better. Etiology of elevated BUN is somewhat obscure although he has dropped his hemoglobin a couple of points over the weekend, making GI bleed a distinct possibility. Other possibilities include nutritional over replacement of protein and potassium in his current tube feeds, possibly ATN from his antibiotics although you would expect creatinine elevation, also possibly impending renal failure with initial elevation of BUN with creatinine to follow. Prerenal azotemia is a possibility but patient is receiving a seemingly adequate amount of free water in his G-tube. Exam Vital signs and Labs for Last 24 Hours: Temp Pulse Resp BP Pulse Ox 97.7 F 81 22 116/62 97 04/14/20 07:54 04/14/20 07:54 04/14/20 07:54 04/14/20 07:54 04/14/20 07:54 Laboratory Results - last 24 hr 04/12/20 21:31: POC Glucose 243 H 04/14/20 05:24: WBC 28.2 H*, RBC 3.18 L, Hgb 9.6 L, Hct 31.4 L, MCV 98.8 H, MCH 30.2, MCHC 30.6 L, RDW 14.7, Plt Count 445 H, MPV 11.8 H, Neut % (Auto) 93.2 H, Lymph % (Auto) 1.7 L, [place] % (Auto) 4.5, Eos % (Auto) 0.2, Baso % (Auto) 0.3, Neut # (Auto) 26.3 H, Lymph # (Auto) 0.5 L, [place] # (Auto) 1.3 H, Eos # (Auto) 0.1, Baso # (Auto) 0.1, Total Counted 100, Neutrophils % (Manual) 91 H, Lymphocytes % (Manual) 5 L, Monocytes % (Manual) 4, Platelet Estimate Slight increase, RBC Morphology Normal 04/14/20 05:24: Sodium 150 H, Potassium 5.7 H, Chloride 117 H, Carbon Dioxide 31 H, Anion Gap 7.7, BUN 111 H*, Creatinine 1.30 H, Estimated Creat Clear 67, Estimated GFR 57 L, Est GFR ( Amer) 68, Glucose 142 H D, Calcium 8.7, Magnesium 3.4 H, Total Bilirubin 0.4, AST 53 D, ALT 38 D, Alkaline Phosphatase 89, Total Protein 5.9 L, Albumin 2.6 L, Globulin 3.3 H, Albumin/Globulin Ratio 0.8 L 04/14/20 07:00: Specimen Source Left radial, O2 % 60, ABG pH 7.39, ABG pCO2 42.2, ABG pO2 107.0 H, ABG HCO3 25.1, ABG Total CO2 26.4, ABG O2 Saturation 98, ABG Base Excess 0.2, Jamie Test Acceptable, Vent Rate 26, Tidal Volume 460, PEEP 12 I & O for Last 24 hours: Intake & Output 04/11/20 04/12/20 04/13/20 04/14/20 11:59 11:59 11:59 11:59 Intake Total 1870.667 / 7376.913 7596.917 / 3433.917 2645.749 / 2645.749 2273.125 / 2273.125 Output Total 4730 / 5080 3950 / 3950 2510 / 2580 2175 / 2175 Balance -2859.333 / -3209.333 -516.083 / -516.083 135.749 / 65.749 98.125 / 98.125 Weight 167 lb 9.6 oz 159 lb 9.6 oz 162 lb 11.2 oz 169 lb 11.2 oz Microbiology Reports for the Last 24 Hours: Microbiology 04/12/20 13:20 Urine,Clean Catch Urine Culture - Preliminary NO GROWTH AFTER 24 HOURS Narrative: Unchanged over yesterday's exam, patient is breathing easily on the ventilator. Well-expanded. Vital signs are normal. Oxygenation is good on current ventilator settings. Abdomen soft, heart rate regular. Extremities are warm and well-perfused, abdomen is soft and scaphoid, no masses, no tenderness. Neurologic exam nonfocal but patient is sedated. Assessment and Plan (1) Acute respiratory distress syndrome (ARDS) due to 2019 novel coronavirus Status: Acute Category: Medical Code(s): U07.1 - COVID-19; J80 - Acute respiratory distress syndrome (2) Acute hypoxemic respiratory failure due to COVID-19 Status: Acute Category: Medical Code(s): U07.1 - COVID-19; J96.01 - Acute respiratory failure with hypoxia (3) Tobacco use Status: Acute Category: Social Hx Code(s): Z72.0 - Tobacco use (4) Severe sepsis Status: Acute Category: Medical Code(s): A41.9 - Sepsis, unspecified organism; R65.20 - Severe sepsis with
--- NOTE | 2020-04-14 10:05 | PC.NURSE ---
Peep decreased to [address] Shah @ this time
--- NOTE | 2020-04-14 10:44 | HMH.PULMPN ---
Internal Medicine - PN: Subj *Date: 04/14/20 *Time: 10:44 Interval history: No acute respiratory events overnight. Exam - Constitutional Constitutional:: comfortable - HENMT Exam HENMT: atraumatic - Eye Exam Eyes:: normal conjunctiva - Neck Exam Neck:: thyroid normal, no lymphadenopathy - Respiratory Exam Comments: Bilateral clear breath sounds with no audible wheeze - Cardiovascular Exam Cardiac:: S1, S2 - GI Exam GI:: soft, no hepatosplenomegaly - Skin Exam Skin: warm, no rash - Neurological Exam Intubated and sedated. Appears comfortable. - Extremities Exam Extremities: no cyanosis, no clubbing, edema Assessment and Plan (1) Acute respiratory distress syndrome (ARDS) due to 2019 novel coronavirus Status: Acute Category: Medical Code(s): U07.1 - COVID-19; J80 - Acute respiratory distress syndrome (2) Acute hypoxemic respiratory failure due to COVID-19 Status: Acute Category: Medical Code(s): U07.1 - COVID-19; J96.01 - Acute respiratory failure with hypoxia (3) Tobacco use Status: Acute Category: Social Hx Code(s): Z72.0 - Tobacco use (4) Severe sepsis Status: Acute Category: Medical Code(s): A41.9 - Sepsis, unspecified organism; R65.20 - Severe sepsis without septic shock (5) Metabolic acidosis Status: Acute Category: Medical Code(s): E87.2 - Acidosis (6) Acute respiratory acidosis Status: Acute Category: Medical Code(s): E87.2 - Acidosis (7) Acute kidney injury Status: Acute Category: Medical Code(s): N17.9 - Acute kidney failure, unspecified (8) Cardiomyopathy Status: Acute Category: Medical Code(s): I42.9 - Cardiomyopathy, unspecified (9) Hyperkalemia Status: Acute Category: Medical Code(s): E87.5 - Hyperkalemia (10) Hypermagnesemia Status: Acute Category: Medical Code(s): E83.41 - Hypermagnesemia (11) Acute uremia Status: Acute Category: Medical Code(s): N19 - Unspecified kidney failure - Assessment and plan all Dx Assessment and Plan for all problems:: # Acute hypoxic respiratory failure needing mechanical ventilation: # COVID-19 pneumonia: 60-year-old COPD presented with worsening respiratory failure and chest x-ray showed bilateral pulmonary infiltrates. CTA did not show evidence of PE but showed diffuse bilateral pulmonary infiltrates along with trace effusions. Patient respiratory status acutely worsened after admission, escalated from 3 L nasal cannula to mechanical ventilation within 12 hours. Patient during the course also started on heparin drip as concern for NSTEMI Vancomycin and azithromycin DC'd owing to negative cultures and completed 5-day course. Endotracheal aspirate from grew strep pneumonia, completed Abx course. Interval update: Patient completed antibiotic course of vancomycin, cefepime, Azithromycin, and remdesivir. Continued to receive heparin and dexamethasone Respiratory status remained stable with improvement in his oxygenation levels with a PaO2 of 107.0. pH is 7.39. Creatinine relatively stable with mild increased to 1.30. Patient also noted to have hyperkalemia with a potassium at 5.7. Chest x-ray unchanged from yesterday, ET tube in position. Hemodynamically stable. Leukocytosis slightly improved, at 28 today. Patient afebrile with a T-max of 99.2 in the last 24 hours. Primary team evaluating the etiology of his hyperkalemia and disproportionately elevated BUN Plan:. -Continue heparin and dexamethasone - Continue lung protective mechanical ventilation, wean as tolerated, currently on a PEEP of 10 and FiO2 of 60 - Continue tube feeding - Sedation and analgesics with midazolam and fentanyl with RASS goal of 0 to 1 and CPOT goal of less than or equal to 2 (propofol was changed to midazolam secondary to pharmacy shortage) - VAP bundle with aspiration precautions - Chemical DVT and PPI prophylaxis #Rest of medical management including electrolyte management as per primary team
[2020-04-14 16:59] LABS: Occult Blood,Stool Positive (Negative)
--- NOTE | 2020-04-14 19:32 | PC.NURSE ---
No acute changes this shift. [facility] mode: 460, 10, 26, 60%. #7.5 ETT 26 @ lip. Scab noted to lower lip on left side. Oral care performed Q2H. Minimal secretions when suctioned. NSR on tely. Abdomen soft, non-tender and round. Pt did have a large tarry BM this shift. Occult stool was positive, Dr. Dorsey aware. OGT @ 55 cm. TF given per corporate general manager's orders, tolerating well w/ minimal residual at checks. [place] cath draining clear yellow urine, UOP adequate. Stage II ulcer noted to Coccyx, area cleaned and dressing applied. Pt turned and repositioned Q2H. Resting in bed w/ eyes closed.
[2020-04-14 20:39] LABS: Blood Urea Nitrogen 105 mg/dl (9-20); Potassium 6.1 mmoL/L (3.5-5.1); Sodium 151 mmol/L (136-145)
[2020-04-15] VITALS (32 sets, daily range): BP systolic 126–148; BP diastolic 70–83; PULSE 92–108; RESP 25–31; TEMP 36.6–37.9; O2SAT 87–98; BMI 21.8
[2020-04-15 05:59] LABS: Basophils # 0.1 K/mm3 (0-0.2); Basophils % 0.4 % (0.1-2.0); Eosinophils # 0.1 K/mm3 (0.0-0.4); Eosinophils % 0.4 % (0.1-12.0); Hematocrit 31.2 % (42.0-52.0); Hemoglobin 10.1 g/dL (14.1-18.0); Lymphocytes # 1.6 K/mm3 (0.7-4.5); Mean Corpuscular HGB Conc 32.4 g/dL (31.8-35.4); Mean Corpuscular Hemoglobin 31.3 pg (27.0-31.2); Mean Corpuscular Volume 96.6 fl (80-94); Mean Platelet Volume 10.9 fl (7.4-10.4); Monocytes # 0.8 K/mm3 (0.1-1.0); Monocytes % 3.5 % (1.7-9.3); Neutrophils # 19.8 K/mm3 (1.8-7.8); Neutrophils % 88.8 % (37.0-80.0); Platelet Count 469 K/mm3 (142-424); Red Blood Count 3.23 M/mm3 (4.60-6.20); White Blood Count 22.3 K/mm3 (4.8-10.8)
--- NOTE | 2020-04-15 06:00 | XR_ITS ---
PROCEDURE: XR CHEST PORTABLE CLINICAL HISTORY: ETT and OG placement Pneumonia COMPARISON: CT CT ANGIO CHEST from 04/03/2020 CR XR CHEST PORTABLE from 04/12/2020 CR XR CHEST PORTABLE from 04/13/2020 CR XR CHEST PORTABLE from 04/14/2020 FINDINGS: Endotracheal tube tip is in good position 6 cm above the scooby. Left subclavian central venous line tip in the region the SVC. Nasogastric tube tip within the stomach COPD with infiltrate in the lower lobes. A nodular opacity is present in right upper lobe not readily apparent previously measuring approximately 15 mm possibly due to overlying artifact or coalescence of consolidation. No evidence of pneumothorax. No acute bony abnormalities. IMPRESSION: Tubes and lines in good position. No change bilateral pneumonia. 15 mm nodular opacity right upper lobe possibly due to artifact or coalescence of consolidation Dictated by: Jamie Shoemaker MD 04/15/2020 05:52 Jamie Shoemaker MD in [facility] 04/15/2020 05:52
[2020-04-15 06:04] LABS: Alanine Aminotransferase 40 U/L (12-78); Albumin Level 2.9 g/dl (3.5-5.0); Albumin/Globulin Ratio 0.9 (1.1-1.8); Alkaline Phosphatase 89 U/L (38-126); Aspartate Amino Transferase 48 U/L (17-59); Bilirubin,Total 0.4 mg/dl (0.2-1.3); Blood Urea Nitrogen 75 mg/dl (9-20); Calcium 9.1 mg/dl (8.4-10.2); Carbon Dioxide 33 mmol/L (22.0-30.0); Chloride 117 mmol/L (98-107); Creatinine Clearance Estimated 65 mL/min (50-200); Estimated Glomerular Filt Rate 62 ml/min (>60); GFR (African American) 75 ML/MIN (>60); Globulin 3.4 g/dL (1.3-3.2); Glucose 156 mg/dl (74-100); Total Protein,Serum 6.3 g/dl (6.3-8.2)
[2020-04-15 06:18] LABS: MANUAL DIFFERENTIAL MANUAL DIFFERENTIAL (MANUAL DIFF)
[2020-04-15 06:59] LABS: ABG Base Excess 2.7 mmol/L (-2.4-2.3); ABG HCO3 27.5 mmhg (22.0-26.0); ABG Oxygen Saturation 95 % (90-100); ABG PCO2 45.9 mmhg (35.0-45.0); ABG PO2 74.8 mmhg (80-100); ABG TCO2 28.9 mmhg (23-27)
[2020-04-15 07:01] LABS: Oxygen 60 %; PEEP 10; Tidal Volume 460; Vent Rate 26
[2020-04-15 07:02] LABS: Allen's Test ACCEPTABLE; Source R RADIAL
[2020-04-15 07:07] LABS: Sodium 152 mmol/L (136-145)
--- NOTE | 2020-04-15 07:27 | PC.NURSE ---
Vent settings are as follows:AC, FiO2 60%, TV 460, R 26, PEEP 10. OG in place with Osmolite feedings @ 50 ml/hr at goal rate. Residuals 30ml or less this shift. Brown in color. Pt has had two liquid stools. Dark brown in color. F/C draining to bedside with clear, yellow urine. Medications administered per mar. Central line patent with Fentanyl infusing @ 75 mcg/hr. Versed infusing @ 0.15 mg/kg/hr. Critical lab values reported to MD Metzger. Report given to Jessie Ornelas RN.
--- NOTE | 2020-04-15 08:00 | PC.NURSE ---
gastric residual 0mL. Tubefeed rate continues @ goal of 50mL/hr.
--- NOTE | 2020-04-15 08:44 | HMH.ACPN2 ---
Internal Medicine - PN: Subj *Date: 04/15/20 *Time: 09:34 Interval history: Patient had no acute events overnight. Remains stable on current vent settings. Afebrile. Reviewed labs this morning, improvement in BUN since switching from therapeutic to prophylactic Lovenox and escalating GI prophylaxis. Continues to have adequate urine output. Hemoglobin improved today. Exam Vital signs and Labs for Last 24 Hours: Temp Pulse Resp BP Pulse Ox 99.3 F 105 H 29 H 143/78 H 95 04/15/20 08:00 04/15/20 08:00 04/15/20 08:00 04/15/20 08:00 04/15/20 08:00 Laboratory Results - last 24 hr 04/13/20 07:25: Sodium 151 H*, Potassium 6.1 H*, BUN 105 H* 04/14/20 16:30: Stool Occult Blood Positive A 04/15/20 05:25: WBC 22.3 H*, RBC 3.23 L, Hgb 10.1 L, Hct 31.2 L, MCV 96.6 H, MCH 31.3 H, MCHC 32.4, RDW 15.0, Plt Count 469 H, MPV 10.9 H, Neut % (Auto) 88.8 H, Lymph % (Auto) 7.0 L, [place] % (Auto) 3.5, Eos % (Auto) 0.4, Baso % (Auto) 0.4, Neut # (Auto) 19.8 H, Lymph # (Auto) 1.6, [place] # (Auto) 0.8, Eos # (Auto) 0.1, Baso # (Auto) 0.1 04/15/20 05:25: Sodium 152 H*, Potassium 6.0 H, Chloride 117 H, Carbon Dioxide 33 H, Anion Gap 8.0, BUN 75 H D, Creatinine 1.20, Estimated Creat Clear 65, Estimated GFR 62, Est GFR ( Amer) 75, Glucose 156 H, Calcium 9.1, Total Bilirubin 0.4, AST 48, ALT 40, Alkaline Phosphatase 89, Total Protein 6.3, Albumin 2.9 L D, Globulin 3.4 H, Albumin/Globulin Ratio 0.9 L 04/15/20 07:00: Specimen Source R radial, O2 % 60, ABG pH 7.40, ABG pCO2 45.9 H, ABG pO2 74.8 L, ABG HCO3 27.5 H, ABG Total CO2 28.9 H, ABG O2 Saturation 95, ABG Base Excess 2.7 H, Jamie Test Acceptable, Vent Rate 26, Tidal Volume 460, PEEP 10 I & O for Last 24 hours: Intake & Output 04/12/20 04/13/20 04/14/20 04/15/20 23:59 23:59 23:59 23:59 Intake Total 3182.000 / 3182.000 1885.416 / 0087.729 5738.875 / 2854.875 474 / 474 Output Total 2340 / 2515 2815 / 2940 3010 / 3285 1450 / 1450 Balance 842.000 / 667.000 -929.584 / -1054.584 -243.125 / -430.125 -976 / -976 Weight 72.393 kg 73.799 kg 76.975 kg 69.173 kg Microbiology Reports for the Last 24 Hours: Microbiology 04/12/20 13:20 Urine,Clean Catch Urine Culture - Final NO GROWTH AFTER 48 HOURS 04/12/20 09:15 Blood Blood Culture - Preliminary NO GROWTH AFTER 48 HOURS 04/12/20 09:15 Blood Blood Culture - Preliminary NO GROWTH AFTER 48 HOURS Narrative: - Constitutional mild distress, Sedated and intubated - *Routine HEENT Exam Head: Present: normocephalic Eye: Present: EOMI, PERRL ENT: Present: mucous membranes dry Comments: Poor dentition - *Routine Neck Exam Present: supple. Absent: lymphadenopathy - *Routine Respiratory Exam Present: patient mechanically ventilated, interval improvement in coarse bilaterally - *Routine Cardiovascular Exam Present: tachycardia - *Routine Abdominal Exam Present: soft, normoactive bowel sounds. Absent: tenderness - *Routine Extremities Exam Absent: cyanosis, clubbing, edema - *Routine Skin Exam Present: warm. Absent: rash - *Routine Neurological Exam unable to assess due to sedation Assessment and Plan (1) Acute respiratory distress syndrome (ARDS) due to 2019 novel coronavirus Status: Acute Category: Medical Code(s): U07.1 - COVID-19; J80 - Acute respiratory distress syndrome (2) Acute hypoxemic respiratory failure due to COVID-19 Status: Acute Category: Medical Code(s): U07.1 - COVID-19; J96.01 - Acute respiratory failure with hypoxia (3) Tobacco use Status: Acute Category: Social Hx Code(s): Z72.0 - Tobacco use (4) Severe sepsis Status: Acute Category: Medical Code(s): A41.9 - Sepsis, unspecified organism; R65.20 - Severe sepsis without septic shock (5) Metabolic acidosis Status: Acute Category: Medical Code(s): E87.2 - Acidosis (6) Acute respiratory acidosis Status: Acute Category
[2020-04-15 09:04] LABS: Lymphocytes % 22 % (10-50); Monocytes % 5 % (2-9); Neutrophils % 73 % (42-76); Platelet Estimate Normal; RBC Morphology Normal; Total Cells Counted 100
--- NOTE | 2020-04-15 12:00 | PC.NURSE ---
gastric residual 0mL.
--- NOTE | 2020-04-15 13:33 | PC.NURSE ---
contact info for daughter, Laura Sánchez, who lives in [facility]. Phone number [phone]. Email is [email or web address]
--- NOTE | 2020-04-15 15:40 | HMH.PULMPN ---
Internal Medicine - PN: Subj *Date: 04/15/20 *Time: 15:40 Interval history: No acute respiratory events overnight. Vent settings improved since yesterday. Exam - Constitutional Constitutional:: no acute distress, comfortable - HENMT Exam HENMT: normocephalic - Eye Exam Eyes:: normal appearance both eyes and related structures - Neck Exam Neck:: normal visual inspection - Respiratory Exam Comments: Intubated and sedated. Appears comfortable. Bilateral mild coarse breath sounds, relatively stable from yesterday. No audible wheeze heard. - Cardiovascular Exam Cardiac:: S1, S2 - GI Exam GI:: soft - Skin Exam Skin: warm, no rash - Neurological Exam Intubated and sedated. - Extremities Exam Extremities: no cyanosis, no clubbing, no edema Assessment and Plan (1) Acute respiratory distress syndrome (ARDS) due to 2019 novel coronavirus Status: Acute Category: Medical Code(s): U07.1 - COVID-19; J80 - Acute respiratory distress syndrome (2) Acute hypoxemic respiratory failure due to COVID-19 Status: Acute Category: Medical Code(s): U07.1 - COVID-19; J96.01 - Acute respiratory failure with hypoxia (3) Tobacco use Status: Acute Category: Social Hx Code(s): Z72.0 - Tobacco use (4) Severe sepsis Status: Acute Category: Medical Code(s): A41.9 - Sepsis, unspecified organism; R65.20 - Severe sepsis without septic shock (5) Metabolic acidosis Status: Acute Category: Medical Code(s): E87.2 - Acidosis (6) Acute respiratory acidosis Status: Acute Category: Medical Code(s): E87.2 - Acidosis (7) Acute kidney injury Status: Acute Category: Medical Code(s): N17.9 - Acute kidney failure, unspecified (8) Cardiomyopathy Status: Acute Category: Medical Code(s): I42.9 - Cardiomyopathy, unspecified (9) Hyperkalemia Status: Acute Category: Medical Code(s): E87.5 - Hyperkalemia (10) Hypermagnesemia Status: Acute Category: Medical Code(s): E83.41 - Hypermagnesemia (11) Acute uremia Status: Acute Category: Medical Code(s): N19 - Unspecified kidney failure - Assessment and plan all Dx Assessment and Plan for all problems:: # Acute hypoxic respiratory failure needing mechanical ventilation: # COVID-19 pneumonia: 60-year-old COPD presented with worsening respiratory failure and chest x-ray showed bilateral pulmonary infiltrates. CTA did not show evidence of PE but showed diffuse bilateral pulmonary infiltrates along with trace effusions. Patient respiratory status acutely worsened after admission, escalated from 3 L nasal cannula to mechanical ventilation within 12 hours. Patient during the course also started on heparin drip as concern for NSTEMI Vancomycin and azithromycin DC'd owing to negative cultures and completed 5-day course. Endotracheal aspirate from grew strep pneumonia, completed Abx course with Zosyn. Interval update: Patient respiratory status improved from yesterday, vent settings decreased to 8 of PEEP and 50% FiO2 today. We will closely monitor. Completed antibiotic course, leukocytosis improved from yesterday. Afebrile in the last 24 hours. Hemodynamically stable. Creatinine stable around 1.20, likely improved from 1.3 yesterday, also found to have hyponatremia and hyperkalemia managed by primary team patient also having elevated BUN improved from yesterday, therapeutic anticoagulation changed to prophylactic dose. Intubated and sedated, appears comfortable currently receiving midazolam and fentanyl. Plan:. - Continue dexamethasone - Continue lung protective mechanical ventilation, wean as tolerated, PEEP decreased to 8 and FiO2 decreased to 50% - Continue tube feeding - Sedation and analgesics with midazolam and fentanyl with RASS goal of 0 to 1 and CPOT goal of less than or equal to 2 (propofol was changed to midazolam secondary to pharmacy shortage) - VAP bundle with aspiration precautions - Chemical DVT and PPI prophylaxis
[2020-04-16] VITALS (32 sets, daily range): BP systolic 99–135; BP diastolic 55–74; PULSE 77–100; RESP 19–31; TEMP 36.1–38; O2SAT 87–97; BMI 21.2
--- NOTE | 2020-04-16 05:09 | XR_ITS ---
PROCEDURE: XR CHEST PORTABLE CLINICAL HISTORY: resp failure Covid19 pneumonia follow-up COMPARISON: CT CT ANGIO CHEST from 04/03/2020 CR XR CHEST PORTABLE from 04/13/2020 CR XR CHEST PORTABLE from 04/14/2020 CR XR CHEST PORTABLE from 04/15/2020 FINDINGS: The cardiomediastinal silhouette and pulmonary vascularity are within normal limits. There remains diffuse bilateral pneumonia mainly centered in the lower lobes slightly worse in the left lung base.. Endotracheal tube is in good position 4 cm above the scooby. Left subclavian central venous line tip is in the region the SVC. Nasogastric tube is present. The tip is not visible on the film but below the GE junction. No acute bony abnormalities. IMPRESSION: Tubes and lines in good position Diffuse bilateral lower lobe pneumonia slightly worse on the left Dictated by: Jamie Shoemaker MD 04/16/2020 06:10 Jamie Shoemaker MD in [facility] 04/16/2020 06:10
[2020-04-16 06:48] LABS: ABG Base Excess 0.6 mmol/L (-2.4-2.3); ABG HCO3 25.5 mmhg (22.0-26.0); ABG Oxygen Saturation 90 % (90-100); ABG PCO2 42.8 mmhg (35.0-45.0); ABG PH 7.39 mmol/L (7.35-7.45); ABG PO2 60.9 mmhg (80-100); ABG TCO2 26.8 mmhg (23-27)
[2020-04-16 06:49] LABS: Oxygen 60 %; PEEP 8; Tidal Volume 460; Vent Rate 26
[2020-04-16 06:50] LABS: Allen's Test acceptable
[2020-04-16 07:52] LABS: Basophils # 0.1 K/mm3 (0-0.2); Basophils % 0.5 % (0.1-2.0); Eosinophils % 0.1 % (0.1-12.0); Hematocrit 30.7 % (42.0-52.0); Hemoglobin 9.8 g/dL (14.1-18.0); Lymphocytes # 0.9 K/mm3 (0.7-4.5); Lymphocytes % 8.6 % (10-50); Mean Corpuscular Hemoglobin 31.5 pg (27.0-31.2); Mean Corpuscular Volume 98.5 fl (80-94); Mean Platelet Volume 11.4 fl (7.4-10.4); Monocytes # 0.3 K/mm3 (0.1-1.0); Monocytes % 3.2 % (1.7-9.3); Neutrophils # 9.3 K/mm3 (1.8-7.8); Neutrophils % 87.6 % (37.0-80.0); Platelet Count 401 K/mm3 (142-424); Red Blood Count 3.12 M/mm3 (4.60-6.20); White Blood Count 10.6 K/mm3 (4.8-10.8)
[2020-04-16 07:53] LABS: Alanine Aminotransferase 34 U/L (12-78); Albumin Level 2.9 g/dl (3.5-5.0); Albumin/Globulin Ratio 0.9 (1.1-1.8); Alkaline Phosphatase 80 U/L (38-126); Anion Gap 9.5 mEq/L (5-15); Aspartate Amino Transferase 39 U/L (17-59); Bilirubin,Total 0.4 mg/dl (0.2-1.3); Blood Urea Nitrogen 68 mg/dl (9-20); Calcium 9.3 mg/dl (8.4-10.2); Carbon Dioxide 33 mmol/L (22.0-30.0); Chloride 114 mmol/L (98-107); Creatinine Clearance Estimated 76 mL/min (50-200); Estimated Glomerular Filt Rate 76 ml/min (>60); GFR (African American) 93 ML/MIN (>60); Globulin 3.4 g/dL (1.3-3.2); Glucose 210 mg/dl (74-100); Magnesium 2.9 mg/dl (1.6-2.3); Total Protein,Serum 6.3 g/dl (6.3-8.2)
[2020-04-16 08:03] LABS: MANUAL DIFFERENTIAL MANUAL DIFFERENTIAL (MANUAL DIFF)
[2020-04-16 08:05] LABS: Potassium 6.5 mmoL/L (3.5-5.1); Sodium 150 mmol/L (136-145)
--- NOTE | 2020-04-16 08:08 | [facility].ACPN2 ---
Internal Medicine - PN: Subj *Date: 04/16/20 *Time: 08:08 Interval history: Patient remains sedated and intubated in the intensive care unit. However, pulmonary has been able to wean his ventilator settings down and he seems to be doing well with this. Also on a positive note, BUN levels have come down with treatment for presumed GI bleeding. Potassium is also slightly better today after dietary is extremely helpful intervention with tube feed changes. Exam Vital signs and Labs for Last 24 Hours: Temp Pulse Resp BP Pulse Ox 98.9 F 86 26 H 129/72 94 L 04/16/20 06:00 04/16/20 07:00 04/16/20 07:00 04/16/20 07:00 04/16/20 07:00 Laboratory Results - last 24 hr 04/15/20 05:25: Total Counted 100, Neutrophils % (Manual) 73, Lymphocytes % (Manual) 22, Monocytes % (Manual) 5, Platelet Estimate Normal, RBC Morphology Normal 04/16/20 05:40: WBC 10.6 D, RBC 3.12 L, Hgb 9.8 L, Hct 30.7 L, MCV 98.5 H, MCH 31.5 H, MCHC 32.0, RDW 15.0, Plt Count 401, MPV 11.4 H, Neut % (Auto) 87.6 H, Lymph % (Auto) 8.6 L, Nolan % (Auto) 3.2, Eos % (Auto) 0.1, Baso % (Auto) 0.5, Neut # (Auto) 9.3 H, Lymph # (Auto) 0.9, Nolan # (Auto) 0.3, Eos # (Auto) 0.0, Baso # (Auto) 0.1 04/16/20 05:40: Sodium 150 H, Potassium 6.5 H*, Chloride 114 H, Carbon Dioxide 33 H, Anion Gap 9.5, BUN 68 H, Creatinine 1.00, Estimated Creat Clear 76, Estimated GFR 76, Est GFR ( Amer) 93 D, Glucose 210 H, Calcium 9.3, Magnesium 2.9 H D, Total Bilirubin 0.4, AST 39, ALT 34, Alkaline Phosphatase 80, Total Protein 6.3, Albumin 2.9 L, Globulin 3.4 H, Albumin/Globulin Ratio 0.9 L 04/16/20 07:00: Specimen Source r radial, O2 % 60, ABG pH 7.39, ABG pCO2 42.8, ABG pO2 60.9 L, ABG HCO3 25.5, ABG Total CO2 26.8, ABG O2 Saturation 90, ABG Base Excess 0.6, Jamie Test acceptable, Vent Rate 26, Tidal Volume 460, PEEP 8 I & O for Last 24 hours: Intake & Output 04/13/20 04/14/20 04/15/20 04/16/20 11:59 11:59 11:59 11:59 Intake Total 2645.749 / 2645.749 2640.125 / 2929.125 2431.75 / 2431.75 3800.625 / 3800.625 Output Total 2510 / 2580 2420 / 2595 4145 / 4495 3031 / 3031 Balance 135.749 / 65.749 220.125 / 334.125 -1713.25 / -2063.25 769.625 / 769.625 Weight 162 lb 11.2 oz 169 lb 11.2 oz 152 lb 8 oz 148 lb Microbiology Reports for the Last 24 Hours: Microbiology 04/15/20 10:10 Aspirate - Bronchial Gram Stain - Final Narrative: Intubated, sedated. OG and ET tube seem to be in good position. Lungs have good air expansion and are symmetric with no tracheal deviation. Heart rate regular. Abdomen soft. No perfusion deficits. No rash. Neurologic exam nonfocal but sedated. Assessment and Plan (1) Acute respiratory distress syndrome (ARDS) due to 2019 novel coronavirus Status: Acute Category: Medical Code(s): U07.1 - COVID-19; J80 - Acute respiratory distress syndrome (2) Acute hypoxemic respiratory failure due to COVID-19 Status: Acute Category: Medical Code(s): U07.1 - COVID-19; J96.01 - Acute respiratory failure with hypoxia (3) Tobacco use Status: Acute Category: Social Hx Code(s): Z72.0 - Tobacco use (4) Severe sepsis Status: Acute Category: Medical Code(s): A41.9 - Sepsis, unspecified organism; R65.20 - Severe sepsis without septic shock (5) Metabolic acidosis Status: Acute Category: Medical Code(s): E87.2 - Acidosis (6) Acute respiratory acidosis Status: Acute Category: Medical Code(s): E87.2 - Acidosis (7) Acute kidney injury Status: Acute Category: Medical Code(s): N17.9 - Acute kidney failure, unspecified (8) Cardiomyopathy Status: Acute Category: Medical Code(s): I42.9 - Cardiomyopathy, unspecified (9) Hyperkalemia Status: Acute Category: Medical Code(s): E87.5 - Hyperkalemia (10) Hypermagnesemia Status: Acute Category: Medical Code(s): E83.41 - Hypermagnesemia (11) Acute uremia Status: Acute Category: Medical Code(s): N19 - Unspecified kidney failure - Asses
[2020-04-16 10:32] LABS: Lymphocytes % 5 % (10-50); Monocytes % 9 % (2-9); Neutrophils % 79 % (42-76); Platelet Estimate Normal; RBC Morphology Normal; Total Cells Counted 100
--- NOTE | 2020-04-16 16:25 | [facility]H.PULMPN ---
Internal Medicine - PN: Subj *Date: 04/16/20 *Time: 16:25 Interval history: No acute respiratory events overnight. Patient respiratory status remained stable. Exam - Constitutional Constitutional:: no acute distress, comfortable - Respiratory Exam Comments: Bibasilar coarse breath sounds - Cardiovascular Exam Cardiac:: S1, S2 - GI Exam GI:: soft - Skin Exam Skin: warm, no rash, dry - Extremities Exam Extremities: no cyanosis, no clubbing, no edema Assessment and Plan (1) Acute respiratory distress syndrome (ARDS) due to 2019 novel coronavirus Status: Acute Category: Medical Code(s): U07.1 - COVID-19; J80 - Acute respiratory distress syndrome (2) Acute hypoxemic respiratory failure due to COVID-19 Status: Acute Category: Medical Code(s): U07.1 - COVID-19; J96.01 - Acute respiratory failure with hypoxia (3) Tobacco use Status: Acute Category: Social Hx Code(s): Z72.0 - Tobacco use (4) Severe sepsis Status: Acute Category: Medical Code(s): A41.9 - Sepsis, unspecified organism; R65.20 - Severe sepsis without septic shock (5) Metabolic acidosis Status: Acute Category: Medical Code(s): E87.2 - Acidosis (6) Acute respiratory acidosis Status: Acute Category: Medical Code(s): E87.2 - Acidosis (7) Acute kidney injury Status: Acute Category: Medical Code(s): N17.9 - Acute kidney failure, unspecified (8) Cardiomyopathy Status: Acute Category: Medical Code(s): I42.9 - Cardiomyopathy, unspecified (9) Hyperkalemia Status: Acute Category: Medical Code(s): E87.5 - Hyperkalemia (10) Hypermagnesemia Status: Acute Category: Medical Code(s): E83.41 - Hypermagnesemia (11) Acute uremia Status: Acute Category: Medical Code(s): N19 - Unspecified kidney failure - Assessment and plan all Dx Assessment and Plan for all problems:: # Acute hypoxic respiratory failure needing mechanical ventilation: # COVID-19 pneumonia: 60-year-old COPD presented with worsening respiratory failure and chest x-ray showed bilateral pulmonary infiltrates. CTA did not show evidence of PE but showed diffuse bilateral pulmonary infiltrates along with trace effusions. Patient respiratory status acutely worsened after admission, escalated from 3 L nasal cannula to mechanical ventilation within 12 hours. Patient during the course also started on heparin drip as concern for NSTEMI Vancomycin and azithromycin DC'd owing to negative cultures and completed 5-day course. Endotracheal aspirate from grew strep pneumonia, completed Abx course with Zosyn. Interval update: Patient respiratory status remained stable since yesterday. Saturating 95% today. We'll attempt SBT. Can also have concerning right lower lobe pulmonary infiltrates has been worsening and also have found to have thick secretions. PAL performed yesterday showed gram-positive cocci in clusters, will closely monitor. Completed antibiotic course, leukocytosis improved from yesterday. Afebrile in the last 24 hours. Hemodynamically stable. Abdomen soft nondistended. Creatinine improved from yesterday, 1.0 today. Intubated and sedated, appears comfortable currently receiving midazolam and fentanyl. Plan:. - Continue dexamethasone - Continue lung protective mechanical ventilation, wean as tolerated, currently on PEEP of 8 and FiO2 of 50%, perform SBT for 1 h, patient tolerated well. Will perform SBT again tomorrow morning and will determine the readiness for extubation. We'll also closely monitor her respiratory status and PAL cultures given his worsening right lower lobe pulmonary infiltrate. - Continue tube feeding - Sedation and analgesics with midazolam and fentanyl with RASS goal of 1-2 and CPOT goal of less than or equal to 2 (propofol was changed to midazolam secondary to pharmacy shortage) - VAP bundle with aspiration precautions - Chemical DVT and PPI prophylaxis #Rest of medical management including electrolyte managemen
--- NOTE | 2020-04-16 17:57 | PC.NURSE ---
No acute changes noted this shift, patient remains intubated and sedated with versed and fentanyl, perrla, pupils pinpoint, gag reflex intact, oral care provided q2h, moderated amount of thick moran sputum noted, 7.[address], 26@lip, 16F OG tube in place @55, HR reg, 2+ peripheral edema noted, peripheral pulses present, lung sounds diminished t/o, abd soft and nontender with active bowel sounds in all quads, FC patent and draining clear yellow urine at bedside, patient has been turned q2h, stage II noted to coccyx with sacral dsg in place, after receiving kayexalate this am patient has had numerous liquids stools, full bed change and full bed bath given, SBT attempted this shift, will attempt again in the am, vss, will continue to monitor for changes.
--- NOTE | 2020-04-16 22:32 | PC.NURSE ---
He continues in contact and airborne precautions. He is intubated and sedated. Vent settings as follows: AC mode, TV 460, PEEP 9, R 26, FiO2 50%. 7.5 ETT @ 26 midline. ETT moved midline per respiratory at 1800. OG @ 65 which is taped to OG tube. He is receiving osmolite @ 50mL/hr. Residual was 5mL at 2000. Temperature of 100.4, acetaminophen given. Gag reflex present. Heel protectors in place. Bilateral hands with 1+ edema. He is being turned and repositioned q 2 hours. Oral care given q 2 hours. Difficult to give oral care to tongue r/t to clinched jaw. He is voiding per f/c. Urine is dark yellow with sediment. Per report, his last BM was on 04/16/20.
--- NOTE | 2020-04-16 22:54 | PC.NURSE ---
His sister Ese called for an update and asked for an update. She asked has anyone done any test to see if he has any brain waves. She stated he has a living will stating that he does not want to be kept alive on a ventilator. She was informed that a copy would need to be brought in. She stated she would try to get it from the [facility].
[2020-04-17] VITALS (51 sets, daily range): BP systolic 109–171; BP diastolic 51–87; PULSE 69–95; RESP 15–30; TEMP 36.4–37.8; O2SAT 91–97; BMI 22.6
--- NOTE | 2020-04-17 05:00 | XR_ITS ---
PROCEDURE: XR CHEST PORTABLE CLINICAL HISTORY: Pt intubated Follow-up pneumonia COMPARISON: CT CT ANGIO CHEST from 04/03/2020 CR XR CHEST PORTABLE from 04/14/2020 CR XR CHEST PORTABLE from 04/15/2020 CR XR CHEST PORTABLE from 04/16/2020 FINDINGS: Endotracheal tube tip is in good position at the T3 level well above the scooby. Left subclavian central venous line tip is in the region the SVC. Nasogastric tube tip not visible on the image but below the GE junction. No change right lower lobe pneumonia. Left lower lobe pneumonia appears slightly improved. COPD. No acute bony abnormalities. IMPRESSION: Tubes and lines in good position. No change right lower lobe pneumonia with slight improvement left lower lobe pneumonia Dictated by: Jamie Shoemaker MD 04/17/2020 05:57 Jamie Shoemaker MD in [facility] 04/17/2020 05:57
[2020-04-17 05:18] LABS: POC Glucose,Bedside 247 (70-110)
[2020-04-17 06:50] LABS: ABG Base Excess 4.5 mmol/L (-2.4-2.3); ABG HCO3 28.7 mmhg (22.0-26.0); ABG Oxygen Saturation 96 % (90-100); ABG PCO2 43.2 mmhg (35.0-45.0); ABG PH 7.44 mmol/L (7.35-7.45); ABG PO2 78.3 mmhg (80-100)
[2020-04-17 07:02] LABS: Allen's Test acceptable; Oxygen 50% %; PEEP 8; Source L RADIAL; Tidal Volume 460; Vent Rate 26
[2020-04-17 07:05] LABS: Basophils # 0.1 K/mm3 (0-0.2); Basophils % 0.6 % (0.1-2.0); Eosinophils % 0.2 % (0.1-12.0); Hematocrit 26.3 % (42.0-52.0); Hemoglobin 8.4 g/dL (14.1-18.0); Lymphocytes # 1.1 K/mm3 (0.7-4.5); Lymphocytes % 9.8 % (10-50); Mean Corpuscular Hemoglobin 31.3 pg (27.0-31.2); Mean Corpuscular Volume 97.8 fl (80-94); Mean Platelet Volume 10.5 fl (7.4-10.4); Monocytes # 0.4 K/mm3 (0.1-1.0); Monocytes % 3.4 % (1.7-9.3); Platelet Count 392 K/mm3 (142-424); Red Blood Count 2.69 M/mm3 (4.60-6.20); Red Cell Distribution Width 14.8 % (11.5-17.5); White Blood Count 11.6 K/mm3 (4.8-10.8)
[2020-04-17 07:15] LABS: Alanine Aminotransferase 36 U/L (12-78); Albumin Level 2.8 g/dl (3.5-5.0); Albumin/Globulin Ratio 0.8 (1.1-1.8); Alkaline Phosphatase 78 U/L (38-126); Anion Gap 6.2 mEq/L (5-15); Aspartate Amino Transferase 41 U/L (17-59); Bilirubin,Total 0.3 mg/dl (0.2-1.3); Blood Urea Nitrogen 71 mg/dl (9-20); Carbon Dioxide 35 mmol/L (22.0-30.0); Chloride 115 mmol/L (98-107); Creatinine Clearance Estimated 81 mL/min (50-200); Estimated Glomerular Filt Rate 76 ml/min (>60); GFR (African American) 93 ML/MIN (>60); Globulin 3.3 g/dL (1.3-3.2); Glucose 245 mg/dl (74-100); Potassium 5.2 mmoL/L (3.5-5.1); Total Protein,Serum 6.1 g/dl (6.3-8.2)
[2020-04-17 07:29] LABS: MANUAL DIFFERENTIAL MANUAL DIFFERENTIAL (MANUAL DIFF)
[2020-04-17 07:40] LABS: Sodium 151 mmol/L (136-145)
--- NOTE | 2020-04-17 08:27 | [facility].ACPN2 ---
Internal Medicine - PN: Subj *Date: 04/17/20 *Time: 08:27 Interval history: Patient remains intubated and sedated in the intensive care unit although did tolerate a spontaneous breathing trial for about an hour yesterday, and respiratory parameters continue to improve with lessening of the intensity of his ventilatory support. From an electrolyte standpoint he also continues to improve with improving potassium and BUN levels. Unfortunately, his hemoglobin has declined, expectedly however given his evidence of GI bleed and he is below 9 g today. Exam Vital signs and Labs for Last 24 Hours: Temp Pulse Resp BP Pulse Ox 97.9 F 85 27 H 118/69 96 04/17/20 08:00 04/17/20 08:00 04/17/20 08:00 04/17/20 08:00 04/17/20 08:00 Laboratory Results - last 24 hr 04/16/20 05:40: Total Counted 100, Neutrophils % (Manual) 79 H, Band Neutrophils % 7.0, Lymphocytes % (Manual) 5 L, Monocytes % (Manual) 9, Platelet Estimate Normal, RBC Morphology Normal 04/17/20 04:59: POC Glucose 247 H 04/17/20 05:55: WBC 11.6 H, RBC 2.69 L, Hgb 8.4 L, Hct 26.3 L, MCV 97.8 H, MCH 31.3 H, MCHC 32.0, RDW 14.8, Plt Count 392, MPV 10.5 H, Neut % (Auto) 86.0 H, Lymph % (Auto) 9.8 L, [place] % (Auto) 3.4, Eos % (Auto) 0.2, Baso % (Auto) 0.6, Neut # (Auto) 10.0 H, Lymph # (Auto) 1.1, [place] # (Auto) 0.4, Eos # (Auto) 0.0, Baso # (Auto) 0.1 04/17/20 05:55: Sodium 151 H*, Potassium 5.2 H, Chloride 115 H, Carbon Dioxide 35 H, Anion Gap 6.2, BUN 71 H, Creatinine 1.00, Estimated Creat Clear 81, Estimated GFR 76, Est GFR ( Amer) 93, Glucose 245 H, Calcium 9.0, Total Bilirubin 0.3, AST 41, ALT 36, Alkaline Phosphatase 78, Total Protein 6.1 L, Albumin 2.8 L, Globulin 3.3 H, Albumin/Globulin Ratio 0.8 L 04/17/20 07:00: Specimen Source L radial, O2 % 50%, ABG pH 7.44, ABG pCO2 43.2, ABG pO2 78.3 L, ABG HCO3 28.7 H, ABG Total CO2 30.0 H, ABG O2 Saturation 96, ABG Base Excess 4.5 H, Jamie Test acceptable, Vent Rate 26, Tidal Volume 460, PEEP 8 I & O for Last 24 hours: Intake & Output 04/14/20 04/15/20 04/16/20 04/17/20 11:59 11:59 11:59 11:59 Intake Total 2640.125 / 2929.125 2431.75 / 2431.75 3891.375 / 3891.375 486 / 486 Output Total 2420 / 2595 4145 / 4495 3456 / 3456 2555 / 2555 Balance 220.125 / 334.125 -1713.25 / -2063.25 435.375 / 435.375 -2069 / -2069 Weight 169 lb 11.2 oz 152 lb 8 oz 148 lb 158 lb 9.6 oz Narrative: Intubated, sedated, OG tube in good position. Heart rate regular without murmurs. Lungs clear and well-expanded with some ventilatory sounds. Abdomen soft and nontender. Perfusion is good is in extremities, no masses in the abdomen. Assessment and Plan (1) Acute respiratory distress syndrome (ARDS) due to 2019 novel coronavirus Status: Acute Category: Medical Code(s): U07.1 - COVID-19; J80 - Acute respiratory distress syndrome (2) Acute hypoxemic respiratory failure due to COVID-19 Status: Acute Category: Medical Code(s): U07.1 - COVID-19; J96.01 - Acute respiratory failure with hypoxia (3) Tobacco use Status: Acute Category: Social Hx Code(s): Z72.0 - Tobacco use (4) Severe sepsis Status: Acute Category: Medical Code(s): A41.9 - Sepsis, unspecified organism; R65.20 - Severe sepsis without septic shock (5) Metabolic acidosis Status: Acute Category: Medical Code(s): E87.2 - Acidosis (6) Acute respiratory acidosis Status: Acute Category: Medical Code(s): E87.2 - Acidosis (7) Acute kidney injury Status: Acute Category: Medical Code(s): N17.9 - Acute kidney failure, unspecified (8) Cardiomyopathy Status: Acute Category: Medical Code(s): I42.9 - Cardiomyopathy, unspecified (9) Hyperkalemia Status: Acute Category: Medical Code(s): E87.5 - Hyperkalemia (10) Hypermagnesemia Status: Acute Category: Medical Code(s): E83.41 - Hypermagnesemia (11) Acute uremia Status: Acute Category: Medical Code(s): N19 - Unspecified kidney failure - Assessment and plan
--- NOTE | 2020-04-17 08:59 | HMH.PULMPN ---
Internal Medicine - PN: Subj *Date: 04/17/20 *Time: 11:15 Exam - Constitutional Constitutional:: no acute distress, comfortable - HENMT Exam HENMT: normocephalic, atraumatic - Respiratory Exam Respiratory:: no respiratory distress, normal respiratory effort, crackles - Cardiovascular Exam Cardiac:: S1, S2 - GI Exam GI:: soft - Skin Exam Skin: warm, no rash - Extremities Exam Extremities: no cyanosis, no clubbing, edema Assessment and Plan (1) Acute respiratory distress syndrome (ARDS) due to 2019 novel coronavirus Status: Acute Category: Medical Code(s): U07.1 - COVID-19; J80 - Acute respiratory distress syndrome (2) Acute hypoxemic respiratory failure due to COVID-19 Status: Acute Category: Medical Code(s): U07.1 - COVID-19; J96.01 - Acute respiratory failure with hypoxia (3) Tobacco use Status: Acute Category: Social Hx Code(s): Z72.0 - Tobacco use (4) Severe sepsis Status: Acute Category: Medical Code(s): A41.9 - Sepsis, unspecified organism; R65.20 - Severe sepsis without septic shock (5) Metabolic acidosis Status: Acute Category: Medical Code(s): E87.2 - Acidosis (6) Acute respiratory acidosis Status: Acute Category: Medical Code(s): E87.2 - Acidosis (7) Acute kidney injury Status: Acute Category: Medical Code(s): N17.9 - Acute kidney failure, unspecified (8) Cardiomyopathy Status: Acute Category: Medical Code(s): I42.9 - Cardiomyopathy, unspecified (9) Hyperkalemia Status: Acute Category: Medical Code(s): E87.5 - Hyperkalemia (10) Hypermagnesemia Status: Acute Category: Medical Code(s): E83.41 - Hypermagnesemia (11) Acute uremia Status: Acute Category: Medical Code(s): N19 - Unspecified kidney failure - Assessment and plan all Dx Assessment and Plan for all problems:: # Acute hypoxic respiratory failure needing mechanical ventilation: # COVID-19 pneumonia: 60-year-old COPD presented with worsening respiratory failure and chest x-ray showed bilateral pulmonary infiltrates. CTA did not show evidence of PE but showed diffuse bilateral pulmonary infiltrates along with trace effusions. Patient respiratory status acutely worsened after admission, escalated from 3 L nasal cannula to mechanical ventilation within 12 hours. Patient during the course also started on heparin drip as concern for NSTEMI Vancomycin and azithromycin DC'd owing to negative cultures and completed 5-day course. Endotracheal aspirate from grew strep pneumonia, completed Abx course with Zosyn. Interval update: Patient respiratory status remained stable since yesterday. Tolerating SBT well however patient deeply sedated not responding to sternal rub. Will wean the sedation. Chest x-ray relatively unchanged from yesterday. Auscultation revealed prominent right lower lobe coarse breath sounds unchanged from yesterday. ABG this morning showed a PaO2 of 78.3, patient saturating 96% to 97%. Completed antibiotic course. Afebrile. Hemodynamically stable. Patient hemoglobin dropped and receiving transfusions, as per primary team Abdomen soft nondistended. Plan:. - Continue dexamethasone - Continue lung protective mechanical ventilation, wean as tolerated, currently on PEEP of 8 and FiO2 of 50%, -we will perform SBT and wean sedation - Continue tube feeding -Discontinue midazolam, and if patient need medication for sedation we will start propofol with a RASS goal of 1-2, wean fentanyl as tolerated with CPOT goal of less than or equal to 2 - VAP bundle with aspiration precautions - Chemical DVT and PPI prophylaxis #Rest of medical management including electrolyte management as per primary team Total critical care time spent on this patient is 35 minutes managing acute hypoxic respiratory failure needing mechanical ventilation. This time spent include reviewing test results including interpreting chest x-rays, labs and arterial blood gas, optimizing the ventilator s
[2020-04-17 10:03] LABS: Lymphocytes % 11 % (10-50); Monocytes % 1 % (2-9); Neutrophils % 88 % (42-76); Platelet Estimate Normal; RBC Morphology Normal; Total Cells Counted 100
--- NOTE | 2020-04-17 17:34 | PC.NURSE ---
No acute changes noted this shift, patient remains intubated and sedated, versed has been weaned to off today, fentanyl infusing, patient done well with sbt this shift, lungs diminished t/o, abd soft and nontender, active bowel sounds in all quads, OG tube in place, minimal GRV noted this shift, peripheral pulses intact, 2+ edema noted peripherally, vss, FC patent and draining clear yellow urine at bedside, no s/s of distress noted, vss, will continue to monitor.
[2020-04-17 18:22] LABS: Hematocrit 33.8 % (42.0-52.0)
[2020-04-17 18:23] LABS: Hemoglobin 10.2 g/dL (14.1-18.0)
--- NOTE | 2020-04-17 18:49 | PC.WOUNDNOTE ---
Wound Location: Stage II coccyx
--- NOTE | 2020-04-17 18:50 | PC.WOUNDNOTE ---
Wound Location: Left side of bottom lip
--- NOTE | 2020-04-17 18:51 | PC.WOUNDNOTE ---
Wound Location: Right Ear
[2020-04-18] VITALS (29 sets, daily range): BP systolic 107–173; BP diastolic 61–90; PULSE 68–97; RESP 22–32; TEMP 36.2–37.7; O2SAT 89–98; BMI 21.2
--- NOTE | 2020-04-18 04:44 | XR_ITS ---
PROCEDURE: XR CHEST PORTABLE CLINICAL HISTORY: respiratory failure COMPARISON: CT CT ANGIO CHEST from 04/03/2020 CR XR CHEST PORTABLE from 04/15/2020 CR XR CHEST PORTABLE from 04/16/2020 CR XR CHEST PORTABLE from 04/17/2020 FINDINGS: The endotracheal tube tip is slightly high at the T2-T3 level nearly 9 cm above the scooby and could be advanced approximately 3 cm. NG tube tip is in the region the body of the stomach. Bilateral lower lobe pneumonia unchanged with COPD. Left subclavian central venous line in good position. IMPRESSION: Slight high position of endotracheal tube. Suggest advanced ET tube approximately 3 cm. No change bilateral pneumonia Dictated by: Jamie Shoemaker MD 04/18/2020 06:53 Jamie Shoemaker MD in [facility] 04/18/2020 06:53
[2020-04-18 06:21] LABS: Chloride 116 mmol/L (98-107)
[2020-04-18 06:22] LABS: Potassium 5.1 mmoL/L (3.5-5.1)
[2020-04-18 06:24] LABS: Alanine Aminotransferase 72 U/L (12-78); Albumin/Globulin Ratio 0.8 (1.1-1.8); Alkaline Phosphatase 107 U/L (38-126); Anion Gap 9.1 mEq/L (5-15); Aspartate Amino Transferase 63 U/L (17-59); Bilirubin,Total 0.3 mg/dl (0.2-1.3); Blood Urea Nitrogen 52 mg/dl (9-20); Carbon Dioxide 30 mmol/L (22.0-30.0); Creatinine Clearance Estimated 76 mL/min (50-200); Estimated Glomerular Filt Rate 76 ml/min (>60); GFR (African American) 93 ML/MIN (>60); Globulin 3.6 g/dL (1.3-3.2); Total Protein,Serum 6.6 g/dl (6.3-8.2)
[2020-04-18 06:25] LABS: Calcium 9.5 mg/dl (8.4-10.2); Glucose 183 mg/dl (74-100)
--- NOTE | 2020-04-18 06:25 | PC.NURSE ---
shift summary patient has been turned 40 degrees for maximum secretion mobilization q 2 hrs. legs frog legged to promote air circulation in campos area. patient has tolerated all turns tonight as well as bathing without desating. breath sounds remain diminished throughout all lobes. resp rate 26-31 this shift, labored with abdominal breathing at times. patient has spontaneously opened eyes at times. at 0400 patient eyes wide open, diaphoretic, breathing 32 times a minute, abdomenal breathing, sats at 92%. fentanyl bolus given x 2 15 min apart. patient sats returned to previous, rr returned to 27 and abdominal breathing decreased. nuclear monitoring technician shows sr, guido draining clear yellow urine. tolerating tube feeding at 50 ml/hr. propofol at 40 mcq, fentanyl 60 mcq.
[2020-04-18 06:27] LABS: Sodium 150 mmol/L (136-145)
[2020-04-18 06:45] LABS: Basophils # 0.1 K/mm3 (0-0.2); Basophils % 0.5 % (0.1-2.0); Eosinophils % 0.3 % (0.1-12.0); Lymphocytes # 1.4 K/mm3 (0.7-4.5); Lymphocytes % 10.1 % (10-50); Mean Corpuscular HGB Conc 32.9 g/dL (31.8-35.4); Mean Corpuscular Hemoglobin 30.7 pg (27.0-31.2); Mean Corpuscular Volume 93.4 fl (80-94); Mean Platelet Volume 11.5 fl (7.4-10.4); Monocytes # 0.4 K/mm3 (0.1-1.0); Monocytes % 2.9 % (1.7-9.3); Neutrophils # 11.9 K/mm3 (1.8-7.8); Neutrophils % 86.3 % (37.0-80.0); Platelet Count 459 K/mm3 (142-424); Red Blood Count 3.75 M/mm3 (4.60-6.20); Red Cell Distribution Width 15.5 % (11.5-17.5); White Blood Count 13.8 K/mm3 (4.8-10.8)
--- NOTE | 2020-04-18 06:48 | HMH.ACPN2 ---
Internal Medicine - PN: Subj *Date: 04/18/20 *Time: 08:45 Interval history: Remains sedated and intubated. No acute distress overnight. Tolerating current vent settings. Hemodynamically stable. Continues to have bowel movements making adequate urine Exam Vital signs and Labs for Last 24 Hours: Temp Pulse Resp BP Pulse Ox 98.3 F 72 24 123/77 94 L 04/18/20 06:00 04/18/20 06:00 04/18/20 06:00 04/18/20 06:00 04/18/20 06:00 Laboratory Results - last 24 hr 04/17/20 05:55: WBC 11.6 H, RBC 2.69 L, Hgb 8.4 L, Hct 26.3 L, MCV 97.8 H, MCH 31.3 H, MCHC 32.0, RDW 14.8, Plt Count 392, MPV 10.5 H, Neut % (Auto) 86.0 H, Lymph % (Auto) 9.8 L, [place] % (Auto) 3.4, Eos % (Auto) 0.2, Baso % (Auto) 0.6, Neut # (Auto) 10.0 H, Lymph # (Auto) 1.1, [place] # (Auto) 0.4, Eos # (Auto) 0.0, Baso # (Auto) 0.1, Total Counted 100, Neutrophils % (Manual) 88 H, Lymphocytes % (Manual) 11, Monocytes % (Manual) 1 L, Platelet Estimate Normal, RBC Morphology Normal 04/17/20 05:55: Sodium 151 H*, Potassium 5.2 H, Chloride 115 H, Carbon Dioxide 35 H, Anion Gap 6.2, BUN 71 H, Creatinine 1.00, Estimated Creat Clear 81, Estimated GFR 76, Est GFR ( Amer) 93, Glucose 245 H, Calcium 9.0, Total Bilirubin 0.3, AST 41, ALT 36, Alkaline Phosphatase 78, Total Protein 6.1 L, Albumin 2.8 L, Globulin 3.3 H, Albumin/Globulin Ratio 0.8 L 04/17/20 07:00: Specimen Source L radial, O2 % 50%, ABG pH 7.44, ABG pCO2 43.2, ABG pO2 78.3 L, ABG HCO3 28.7 H, ABG Total CO2 30.0 H, ABG O2 Saturation 96, ABG Base Excess 4.5 H, Jamie Test acceptable, Vent Rate 26, Tidal Volume 460, PEEP 8 04/17/20 08:56: Blood Type A Positive, Antibody Screen Negative, Crossmatch ([facility]) See Detail 04/17/20 09:45: Blood Type Confirm A Positive 04/17/20 18:15: Hgb 10.2 L D, Hct 33.8 L 04/18/20 05:20: Sodium 150 H, Potassium 5.1, Chloride 116 H, Carbon Dioxide 30, Anion Gap 9.1, BUN 52 H D, Creatinine 1.00, Estimated Creat Clear 76, Estimated GFR 76, Est GFR ( Amer) 93, Glucose 183 H D, Calcium 9.5, Total Bilirubin 0.3, AST 63 H D, ALT 72 D, Alkaline Phosphatase 107, Total Protein 6.6, Albumin 3.0 L, Globulin 3.6 H, Albumin/Globulin Ratio 0.8 L I & O for Last 24 hours: Intake & Output 04/15/20 04/16/20 04/17/20 04/18/20 23:59 23:59 23:59 23:59 Intake Total 3362.625 / 3661.625 1504.75 / 1516.75 2664 / 2969 985 / 985 Output Total 4431 / 4531 2815 / 2875 3290 / 3390 895 / 895 Balance -1068.375 / -869.375 -1310.25 / -1358.25 -626 / -421 90 / 90 Weight 69.173 kg 67.132 kg 71.94 kg 67.449 kg Microbiology Reports for the Last 24 Hours: Microbiology 04/12/20 09:15 Blood Blood Culture - Final NO GROWTH AFTER 5 DAYS 04/12/20 09:15 Blood Blood Culture - Final NO GROWTH AFTER 5 DAYS 04/15/20 10:10 Aspirate - Bronchial Gram Stain - Final 04/15/20 10:10 Aspirate - Bronchial Bronchial Aspirate Culture - Preliminary Narrative: - Constitutional minimal distress, Sedated and intubated - *Routine HEENT Exam Head: Present: normocephalic Eye: Present: EOMI, PERRL ENT: Present: mucous membranes dry Comments: Poor dentition - *Routine Neck Exam Present: supple. Absent: lymphadenopathy - *Routine Respiratory Exam Present: patient mechanically ventilated, interval improvement in coarse bilaterally - *Routine Cardiovascular Exam Present: tachycardia - *Routine Abdominal Exam Present: soft, normoactive bowel sounds. Absent: tenderness - *Routine Extremities Exam Absent: cyanosis, clubbing, edema - *Routine Skin Exam Present: warm. stage 2 decub on coccyx - *Routine Neurological Exam unable to assess due to sedation Assessment and Plan (1) Acute respiratory distress syndrome (ARDS) due to 2019 novel coronavirus Status: Acute Category: Medical Code(s): U07.1 - COVID-19; J80 - Acute respiratory distress syndrome (2) Acute hypoxemic respiratory failure due to COVID-19 Status: Acute Category: Medical
[2020-04-18 06:53] LABS: MANUAL DIFFERENTIAL MANUAL DIFFERENTIAL (MANUAL DIFF)
--- NOTE | 2020-04-18 06:54 | PC.NURSE ---
received call from radiology, dr. walsh notification, ett needs advanced 3 cm, resp therapy notified.
[2020-04-18 07:11] LABS: ABG Base Excess 2.3 mmol/L (-2.4-2.3); ABG HCO3 25.9 mmhg (22.0-26.0); ABG Oxygen Saturation 95 % (90-100); ABG PCO2 35.6 mmhg (35.0-45.0); ABG PH 7.48 mmol/L (7.35-7.45); ABG PO2 73.6 mmhg (80-100)
[2020-04-18 07:12] LABS: Allen's Test ACCEPTABLE; Oxygen 50 %; PEEP 8; Tidal Volume 460; Vent Rate 26
[2020-04-18 07:13] LABS: Source R RADIAL
[2020-04-18 07:57] LABS: Hemoglobin 11.6 g/dL (14.1-18.0)
--- NOTE | 2020-04-18 09:09 | HMH.PULMPN ---
Internal Medicine - PN: Subj *Date: 04/18/20 *Time: 15:16 Interval history: Patient respiratory status remained stable since yesterday. Exam - Constitutional Constitutional:: Present: comfortable - HENMT Exam HENMT: Present: atraumatic - Respiratory Exam Respiratory:: Present: no respiratory distress Comments: Patient intubated and sedated. Appears comfortable. Bilateral lower coarse breath sounds relatively unchanged from yesterday. - Cardiovascular Exam Cardiac:: Present: S1, S2 - GI Exam GI:: Present: soft - Skin Exam Skin: Present: warm, no rash - Extremities Exam Extremities: Present: no cyanosis, no clubbing, no edema Assessment and Plan (1) Acute respiratory distress syndrome (ARDS) due to 2019 novel coronavirus Status: Acute Category: Medical Code(s): U07.1 - COVID-19; J80 - Acute respiratory distress syndrome (2) Acute hypoxemic respiratory failure due to COVID-19 Status: Acute Category: Medical Code(s): U07.1 - COVID-19; J96.01 - Acute respiratory failure with hypoxia (3) Tobacco use Status: Acute Category: Social Hx Code(s): Z72.0 - Tobacco use (4) Severe sepsis Status: Acute Category: Medical Code(s): A41.9 - Sepsis, unspecified organism; R65.20 - Severe sepsis without septic shock (5) Metabolic acidosis Status: Acute Category: Medical Code(s): E87.2 - Acidosis (6) Acute respiratory acidosis Status: Acute Category: Medical Code(s): E87.2 - Acidosis (7) Acute kidney injury Status: Acute Category: Medical Code(s): N17.9 - Acute kidney failure, unspecified (8) Cardiomyopathy Status: Acute Category: Medical Code(s): I42.9 - Cardiomyopathy, unspecified (9) Hyperkalemia Status: Acute Category: Medical Code(s): E87.5 - Hyperkalemia (10) Hypermagnesemia Status: Acute Category: Medical Code(s): E83.41 - Hypermagnesemia (11) Acute uremia Status: Acute Category: Medical Code(s): N19 - Unspecified kidney failure - Assessment and plan all Dx Assessment and Plan for all problems:: # Acute hypoxic respiratory failure needing mechanical ventilation: # COVID-19 pneumonia: 60-year-old COPD presented with worsening respiratory failure and chest x-ray showed bilateral pulmonary infiltrates. CTA did not show evidence of PE but showed diffuse bilateral pulmonary infiltrates along with trace effusions. Patient respiratory status acutely worsened after admission, escalated from 3 L nasal cannula to mechanical ventilation within 12 hours. Patient during the course also started on heparin drip as concern for NSTEMI Vancomycin and azithromycin DC'd owing to negative cultures and completed 5-day course. Endotracheal aspirate from grew strep pneumonia, completed Abx course with Zosyn. Interval update: Patient respiratory status remained stable since yesterday. Tolerating SBT well however patient only opening eyes to verbal commands, not following commands. Chest x-ray relatively unchanged from yesterday. Auscultation revealed prominent right lower lobe coarse breath sounds unchanged from yesterday. ABG this morning showed a PaO2 of 73.6 patient saturating 94% to 95%. His PEEP decreased to 5 and FiO2 decreased to 40 Completed antibiotic course. Afebrile. Hemodynamically stable. Creatinine stable. Patient net negative yesterday. Abdomen soft nondistended. Overall patient respiratory status significantly improved, however his mentation is not optimal, we will continue to aggressively wean sedation for his mentation to be appropriate for extubation. Will perform daily SBT's. Plan:. -Sedation and analgesics with a RASS goal of 1-2 and the CPOT goal of less than or equal to 2 (no need for deep sedation). We will wean sedation and facilitate SBT tomorrow morning. - Continue dexamethasone - Continue lung protective mechanical ventilation, wean as tolerated, currently on PEEP of 5 and FiO2 of 40% - Continue tube feeding - VAP bundle with aspirat
--- NOTE | 2020-04-18 09:40 | PC.NURSE ---
Dr. Shah @ BS. He ordered to STOP Fent and Propofol and to do a 1hr SBT. Both gtts stopped @ 0940. If pt gets agitated/restless, he ordered to turn Propofol back on @ half the dose and to use prn Fentanyl IV.
[2020-04-18 10:00] LABS: Eosinophils % 1 % (0-3); Lymphocytes % 6 % (10-50); Monocytes % 1 % (2-9); Neutrophils % 92 % (42-76); Total Cells Counted 100
[2020-04-18 10:02] LABS: Platelet Estimate Slight Increase; RBC Morphology Normal
[2020-04-18 10:54] LABS: VBG Base Excess 0.2 mmol/L (-2.4-2.3); VBG HCO3 24.1 mmol/L (23-30); VBG Oxygen Saturation 99.3 % (50-70); VBG PH 7.46 mmol/L (7.31-7.41); VBG PO2 183.9 mmol/L (28-40); VBG Total CO2 25.2 mmol/L (23-27)
--- NOTE | 2020-04-18 11:37 | PC.NURSE ---
Pt back on previous vent settings. Propofol gtt turned back on @ 20mcg
--- NOTE | 2020-04-18 12:23 | PC.NURSE ---
Pt has received 3 doses of prn Fentanyl IV 12.5mcg since restarted the Propofol gtt. Pt's eyes are open and he is bucking the vent. Fentanyl gtt restarted @ previous dose of 60mcg/hr. Propofol gtt increased to 40mcg.
--- NOTE | 2020-04-18 13:33 | PC.NURSE ---
received call from Dr. Shah. He ordered to decrease Propofol gtt to 20mcg and to decrease Fentanyl gtt to 30mcg.
--- NOTE | 2020-04-18 14:49 | PC.NURSE ---
pt is bucking the vent and is agitated/restless. Propofol gtt increased to 40mcg.
--- NOTE | 2020-04-18 16:08 | PC.NURSE ---
gastric residual 0mL @ 0800, 1200, and 1600. Tubefeed rate continues @ goal rate of 50mL/hr.
[2020-04-19] VITALS (33 sets, daily range): BP systolic 99–151; BP diastolic 50–81; PULSE 67–95; RESP 20–35; TEMP 36.4–37.8; O2SAT 87–98; BMI 21.2
--- NOTE | 2020-04-19 04:06 | PC.NURSE ---
RESPIRATORY CARE NOTE: 0345- ETT ADJUSTED AND SLIGHTLY ADVANCED TO 26 CM AT THE LIP IN REFERENCE TO INITIAL INTUBATION. NEW ETT REY APPLIED WELL. PT TOLERATED ALL ADJUSTMENTS, ALTHOUGH IS ANXIOUS DUE TO DECREASED SEDATION PER MD ORDERS FOR AM SPONTANEOUS BREATHING TRIAL.
--- NOTE | 2020-04-19 06:25 | PC.NURSE ---
shift summary, patient has had eyes open throughout shift, not following commands or tracking with eyes. sedation decreased to half at 0300 and then stopped at 0400. patient is currently awake and alert, looking around room. will shake his head yes and no at times and squeeze eyes shut to command. patient is extremely weak. patient has remained calm but appears fearful with grimace . situation has been repeatedly explained to him to reassure him. breath sounds course throughout, moderate amount of thick yellow secretions orally and from ett throughout shift. respiratory rate has been 26 up to 34 at times. without sedation patient averages 29-30. sats have remained 88-91 throughout shift on a/c or pressure support. breathing pattern has been labored throughout all shift, increasing to abdominal breathing with intercostal retractions without sedation on a/c or pressure support. cardiac specialist has shown sr. guido draining clear yellow urine. osmolite 1.2 running at 50ml/h without difficulty. patient has been turned q 2 hrs 40 degree minimal for maximum mobilization of secretions. campos area under scrotum reddened. powder applied and legs positioned q hrs to maximize air flow around scrotum.
[2020-04-19 06:35] LABS: Basophils % 0.2 % (0.1-2.0); Eosinophils # 0.1 K/mm3 (0.0-0.4); Eosinophils % 0.7 % (0.1-12.0); Hemoglobin 11.9 g/dL (14.1-18.0); Lymphocytes # 1.3 K/mm3 (0.7-4.5); Lymphocytes % 8.2 % (10-50); Mean Corpuscular Volume 93.7 fl (80-94); Mean Platelet Volume 10.1 fl (7.4-10.4); Monocytes # 0.5 K/mm3 (0.1-1.0); Neutrophils # 13.3 K/mm3 (1.8-7.8); Neutrophils % 87.8 % (37.0-80.0); Platelet Count 472 K/mm3 (142-424); Red Blood Count 3.95 M/mm3 (4.60-6.20); Red Cell Distribution Width 15.3 % (11.5-17.5); White Blood Count 15.1 K/mm3 (4.8-10.8)
[2020-04-19 06:48] LABS: Alanine Aminotransferase 85 U/L (12-78); Albumin Level 3.1 g/dl (3.5-5.0); Albumin/Globulin Ratio 0.8 (1.1-1.8); Alkaline Phosphatase 127 U/L (38-126); Anion Gap 8.6 mEq/L (5-15); Aspartate Amino Transferase 61 U/L (17-59); Bilirubin,Total 0.5 mg/dl (0.2-1.3); Blood Urea Nitrogen 40 mg/dl (9-20); Calcium 9.5 mg/dl (8.4-10.2); Carbon Dioxide 29 mmol/L (22.0-30.0); Chloride 108 mmol/L (98-107); Creatinine Clearance Estimated 84 mL/min (50-200); Estimated Glomerular Filt Rate 86 ml/min (>60); GFR (African American) 105 ML/MIN (>60); Globulin 3.9 g/dL (1.3-3.2); Glucose 139 mg/dl (74-100); Magnesium 2.1 mg/dl (1.6-2.3); Potassium 4.6 mmoL/L (3.5-5.1); Sodium 141 mmol/L (136-145)
[2020-04-19 07:07] LABS: MANUAL DIFFERENTIAL MANUAL DIFFERENTIAL (MANUAL DIFF)
--- NOTE | 2020-04-19 07:25 | HMH.ACPN2 ---
Internal Medicine - PN: Subj *Date: 04/19/20 *Time: 12:25 Interval history: Patient on spontaneous breathing trial this morning. Respirations in the mid 20s. Opens eyes to voice, tracks well. Nods head to questions. Weak in his extremities but squeezed my hand and wiggled his toes on command. Minimal distress at this time. Afebrile, hemodynamically stable. Vent settings FiO2 50%, PEEP 5. Reviewed blood gas this morning, defer changes to pulmonology. Pulmonology aware of blood gas results and patient status. Exam Vital signs and Labs for Last 24 Hours: Temp Pulse Resp BP Pulse Ox 99.1 F 86 28 H 140/69 93 L 04/19/20 05:00 04/19/20 07:00 04/19/20 07:00 04/19/20 07:00 04/19/20 07:00 Laboratory Results - last 24 hr 04/18/20 05:20: Hgb 11.6 L D, Total Counted 100, Neutrophils % (Manual) 92 H, Lymphocytes % (Manual) 6 L, Monocytes % (Manual) 1 L, Eosinophils % (Manual) 1, Differential Comment , Platelet Estimate Slight increase, RBC Morphology Normal 04/18/20 09:10: VBG pH 7.46 H, VBG pCO2 35.0, VBG pO2 183.9 H, VBG HCO3 24.1, VBG Total CO2 25.2, VBG O2 Saturation 99.3 H, VBG Base Excess 0.2 04/19/20 05:30: WBC 15.1 H, RBC 3.95 L, Hgb 11.9 L, Hct 37.0 L, MCV 93.7, MCH 30.0, MCHC 32.0, RDW 15.3, Plt Count 472 H, MPV 10.1, Neut % (Auto) 87.8 H, Lymph % (Auto) 8.2 L, [place] % (Auto) 3.0, Eos % (Auto) 0.7, Baso % (Auto) 0.2, Neut # (Auto) 13.3 H, Lymph # (Auto) 1.3, [place] # (Auto) 0.5, Eos # (Auto) 0.1, Baso # (Auto) 0.0 04/19/20 05:30: Sodium 141, Potassium 4.6, Chloride 108 H, Carbon Dioxide 29, Anion Gap 8.6, BUN 40 H, Creatinine 0.90, Estimated Creat Clear 84, Estimated GFR 86, Est GFR ( Amer) 105, Glucose 139 H, Calcium 9.5, Magnesium 2.1 D, Total Bilirubin 0.5, AST 61 H, ALT 85 H, Alkaline Phosphatase 127 H, Total Protein 7.0, Albumin 3.1 L, Globulin 3.9 H, Albumin/Globulin Ratio 0.8 L I & O for Last 24 hours: Intake & Output 04/16/20 04/17/20 04/18/20 04/19/20 23:59 23:59 23:59 23:59 Intake Total 1504.75 / 1516.75 2664 / 2969 3469 / 3469 635 / 635 Output Total 2815 / 2875 3290 / 3390 2812 / 2927 805 / 805 Balance -1310.25 / -1358.25 -626 / -421 657 / 542 -170 / -170 Weight 67.132 kg 71.94 kg 67.449 kg 67.086 kg Microbiology Reports for the Last 24 Hours: Microbiology 04/15/20 10:10 Aspirate - Bronchial Gram Stain - Final 04/15/20 10:10 Aspirate - Bronchial Bronchial Aspirate Culture - Final Enterococcus faecalis Staphylococcus epidermidis Narrative: - Constitutional minimal distress, awake and alert, weak but following verbal commands. Unable to assess orientation due to intubation - *Routine HEENT Exam Head: Present: normocephalic Eye: Present: EOMI, PERRL ENT: Present: mucous membranes dry Comments: Poor dentition; ET tube, 26 cm at lip - *Routine Neck Exam Present: supple. Absent: lymphadenopathy - *Routine Respiratory Exam Present: patient mechanically ventilated, breathing independently, some belly breathing appreciated. Interval improvement in coarse bilaterally - *Routine Cardiovascular Exam Present: Regular rate and rhythm, no appreciable murmurs - *Routine Abdominal Exam Present: soft, normoactive bowel sounds. Absent: tenderness - *Routine Extremities Exam Absent: cyanosis, clubbing, 1+ edema in upper extremities, trace in lower extremities - *Routine Skin Exam Present: warm. stage 2 decub on coccyx, unstageable early discoloration on left heel - *Routine Neurological Exam No focal deficit, very weak Assessment and Plan (1) Acute respiratory distress syndrome (ARDS) due to 2019 novel coronavirus Status: Acute Category: Medical Code(s): U07.1 - COVID-19; J80 - Acute respiratory distress syndrome (2) Acute hypoxemic respiratory failure due to COVID-19 Status: Acute Category: Medical Code(s): U07.1 - COVID-19; J96.01 - Acute respiratory failure with hypoxia (3) Tobacco use Status: Acu
[2020-04-19 07:29] LABS: ABG PCO2 28.1 mmhg (35.0-45.0); ABG PO2 54.1 mmhg (80-100)
[2020-04-19 07:30] LABS: ABG Base Excess -0.9 mmol/L (-2.4-2.3); ABG HCO3 21.3 mmhg (22.0-26.0); ABG Oxygen Saturation 90 % (90-100); ABG TCO2 22.2 mmhg (23-27); Allen's Test ACCEPTABLE; Oxygen 50 %; PEEP 5; Pressure Support 5; Source Right Radial
--- NOTE | 2020-04-19 07:40 | PC.NURSE ---
Patti calling results of SBT ABG to Dr. Shah @ this time
[2020-04-19 08:18] LABS: Lymphocytes % 7 % (10-50); Monocytes % 2 % (2-9); Neutrophils % 91 % (42-76); Platelet Estimate Slight Increase; RBC Morphology Normal; Total Cells Counted 100
--- NOTE | 2020-04-19 17:45 | PC.NURSE ---
No acute changes this shift. Pt tolerated SBT well this AM. Pt placed back on assist control @ [address] Shah, no changes to settings made. #7.5 ETT 26 @ lip (right side). Pt has had copious amount of secretions this shift. Oral care and suctioning performed Q2H. Scabbed sore noted to lower lip, left side. OGT @ 55 cm. Tube feed @ goal rate of 50 mls/hr. NSR on tely, rate currently 70's. Abdomen soft, non-tender w/ hypoactive BS. Pt did have one large liquid brown BM this shift. Dressing to coccyx C/D/I. Osuna cath changed per Dr. Metzger. Maria Alejandra care performed and 16 Fr Osuna cath inserted using sterile technique. Left heel noted to be boggy, bilat heels floating. Pt turned and repositioned Q2H. Bed alarm in place. Safety in place.
--- NOTE | 2020-04-19 18:20 | PC.NURSE ---
No acute changes this shift. Pt tolerated SBT well this AM. Pt placed back on assist control @ [address] Shah, no changes to settings made. #7.5 ETT 26 @ lip (right side). Pt has had copious amount of secretions this shift. Oral care and suctioning performed Q2H. Scabbed sore noted to lower lip, left side. OGT @ 55 cm. Tube feed @ goal rate of 50 mls/hr. NSR on tely, rate currently 70's. Abdomen soft, non-tender w/ hypoactive BS. Pt did have one large liquid brown BM this shift. Dressing to coccyx C/D/I. Osuna cath to drain @ bedside w/ clear straw urine noted. Osuna care performed Qshift by nursing staff. Left heel noted to be boggy, bilat heels floating. Pt turned and repositioned Q2H. Safety in place.
[2020-04-19 18:38] LABS: Microscopic,Cath URINE MICROSCOPIC (MICROSCOPIC)
[2020-04-19 18:44] LABS: Appearance,Urine/Cath CLEAR (Clear); Bilirubin,Cath Negative (Negative); Blood, Urine/Cath 2+ (Negative); Color,Urine/Cath YELLOW (Yellow); Glucose,Urine/Cath (UA) Negative (Negative); Ketones,Urine/Cath Negative (Negative); Leukocyte Esterase,Cath TRACE (Negative); Nitrate,Cath Negative (Negative); Protein,Urine/Cath 1+ (Negative); Urobilinogen,Cath 0.2 EU/dl (0.2)
[2020-04-20] VITALS (33 sets, daily range): BP systolic 101–126; BP diastolic 53–77; PULSE 67–100; RESP 16–34; TEMP 36–37.9; O2SAT 90–100; BMI 21.3
--- NOTE | 2020-04-20 06:40 | PC.NURSE ---
shift summary, patient has been awake throughout shift, not following commands until sedation shut off at 0400. breath sounds coarse throughout all dickinson, suctioning copious amounts of thick tenacious secretion both orally and from ett, yellow moran in color. resp rate remained high 20s to low 30s, effort of breathing remains labored but less labored than previous night. sats have remained greater than 95% on 50 % fio2 and peep of 5. vehicle monitor technician has shown sr, has had elevated temps at times requiring tylenol. guido to gravity with clear yellow urine. tolerated tube feedings at 50 ml/hr. since sedation has been off at 0400, patient much awake and alert does follow commands by squeezing eyes, is able to move head and shoulders around slightly independantly but remains extrememly weak.
[2020-04-20 06:45] LABS: Basophils % 0.2 % (0.1-2.0); Eosinophils # 0.2 K/mm3 (0.0-0.4); Eosinophils % 1.5 % (0.1-12.0); Hematocrit 35.6 % (42.0-52.0); Hemoglobin 11.3 g/dL (14.1-18.0); Lymphocytes # 1.4 K/mm3 (0.7-4.5); Mean Corpuscular HGB Conc 31.6 g/dL (31.8-35.4); Mean Corpuscular Volume 94.8 fl (80-94); Mean Platelet Volume 10.6 fl (7.4-10.4); Monocytes # 0.5 K/mm3 (0.1-1.0); Neutrophils % 86.3 % (37.0-80.0); Platelet Count 420 K/mm3 (142-424); Red Blood Count 3.76 M/mm3 (4.60-6.20); Red Cell Distribution Width 14.9 % (11.5-17.5); White Blood Count 15.1 K/mm3 (4.8-10.8)
[2020-04-20 06:47] LABS: MANUAL DIFFERENTIAL MANUAL DIFFERENTIAL (MANUAL DIFF)
[2020-04-20 06:53] LABS: Chloride 107 mmol/L (98-107)
[2020-04-20 06:54] LABS: Potassium 4.3 mmoL/L (3.5-5.1); Sodium 138 mmol/L (136-145)
[2020-04-20 06:56] LABS: Alanine Aminotransferase 66 U/L (12-78); Aspartate Amino Transferase 45 U/L (17-59); Blood Urea Nitrogen 41 mg/dl (9-20); Creatinine Clearance Estimated 108 mL/min (50-200); Estimated Glomerular Filt Rate 115 ml/min (>60); GFR (African American) 140 ML/MIN (>60)
[2020-04-20 06:57] LABS: Albumin Level 3.1 g/dl (3.5-5.0); Albumin/Globulin Ratio 0.8 (1.1-1.8); Alkaline Phosphatase 105 U/L (38-126); Anion Gap 8.3 mEq/L (5-15); Bilirubin,Total 0.5 mg/dl (0.2-1.3); Calcium 9.1 mg/dl (8.4-10.2); Carbon Dioxide 27 mmol/L (22.0-30.0); Glucose 147 mg/dl (74-100); Total Protein,Serum 7.1 g/dl (6.3-8.2)
[2020-04-20 07:19] LABS: ABG HCO3 21.6 mmhg (22.0-26.0); ABG Oxygen Saturation 95 % (90-100); ABG PCO2 29.9 mmhg (35.0-45.0); ABG PH 7.48 mmol/L (7.35-7.45); ABG PO2 75.5 mmhg (80-100); ABG TCO2 22.5 mmhg (23-27)
[2020-04-20 07:26] LABS: Allen's Test ACCEPTABLE; Oxygen 50 %; PEEP 5; Pressure Support 5
[2020-04-20 07:27] LABS: Source R RADIAL
--- NOTE | 2020-04-20 07:43 | HMH.ACPN2 ---
Internal Medicine - PN: Subj *Date: 04/20/20 *Time: 12:33 Interval history: Patient on spontaneous breathing trial this morning. Respirations in the mid 20s. Opens eyes to voice, tracks well. Nods head to questions. Weak in his extremities but squeezed hand and wiggled his toes on command. Minimal distress at this time. Hemodynamically stable. Had Fever overnight. Vent settings FiO2 50%, PEEP 5. Reviewed blood gas this morning, defer changes to pulmonology. Pulmonology aware of blood gas results and patient status. Exam Vital signs and Labs for Last 24 Hours: Temp Pulse Resp BP Pulse Ox 100.2 F H 84 30 H 125/63 98 04/20/20 06:00 04/20/20 06:46 04/20/20 06:46 04/20/20 06:46 04/20/20 06:46 Laboratory Results - last 24 hr 04/19/20 05:30: Total Counted 100, Neutrophils % (Manual) 91 H, Lymphocytes % (Manual) 7 L, Monocytes % (Manual) 2, Platelet Estimate Slight increase, RBC Morphology Normal 04/19/20 18:30: Urine Color Yellow, Urine Appearance Clear, Urine pH 7.0, Ur Specific [place] 1.020, Urine Protein 1+, Urine Glucose (UA) Negative, Urine Ketones Negative, Urine Blood 2+, Urine Nitrate Negative, Urine Bilirubin Negative, Urine Urobilinogen 0.2, Ur Leukocyte Esterase Trace, Urine RBC 10-20, Urine WBC 5-10 04/20/20 05:20: WBC 15.1 H, RBC 3.76 L, Hgb 11.3 L, Hct 35.6 L, MCV 94.8 H, MCH 30.0, MCHC 31.6 L, RDW 14.9, Plt Count 420, MPV 10.6 H, Neut % (Auto) 86.3 H, Lymph % (Auto) 9.0 L, [place] % (Auto) 3.0, Eos % (Auto) 1.5, Baso % (Auto) 0.2, Neut # (Auto) 13.0 H, Lymph # (Auto) 1.4, [place] # (Auto) 0.5, Eos # (Auto) 0.2, Baso # (Auto) 0.0 04/20/20 05:20: Sodium 138, Potassium 4.3, Chloride 107, Carbon Dioxide 27, Anion Gap 8.3, BUN 41 H, Creatinine 0.70 D, Estimated Creat Clear 108, Estimated GFR 115, Est GFR ( Amer) 140 D, Glucose 147 H, Calcium 9.1, Magnesium 2.0, Total Bilirubin 0.5, AST 45 D, ALT 66, Alkaline Phosphatase 105, Total Protein 7.1, Albumin 3.1 L, Globulin 4.0 H, Albumin/Globulin Ratio 0.8 L 04/20/20 07:00: Specimen Source R radial, O2 % 50, ABG pH 7.48 H, ABG pCO2 29.9 L, ABG pO2 75.5 L, ABG HCO3 21.6 L, ABG Total CO2 22.5 L, ABG O2 Saturation 95, ABG Base Excess -2.0, Jamie Test Acceptable, PEEP 5 I & O for Last 24 hours: Intake & Output 04/17/20 04/18/20 04/19/20 04/20/20 23:59 23:59 23:59 23:59 Intake Total 2664 / 2969 3469 / 3469 2566 / 2873 1054 / 1054 Output Total 3290 / 3390 2812 / 2927 2130 / 2200 405 / 405 Balance -626 / -421 657 / 542 436 / 673 649 / 649 Weight 71.94 kg 67.449 kg 67.086 kg 67.5 kg Microbiology Reports for the Last 24 Hours: Microbiology 04/15/20 10:10 Aspirate - Bronchial Gram Stain - Final 04/15/20 10:10 Aspirate - Bronchial Bronchial Aspirate Culture - Final Enterococcus faecalis Staphylococcus epidermidis Narrative: - Constitutional minimal distress, awake and alert, weak but following verbal commands. Unable to assess orientation due to intubation - *Routine HEENT Exam Head: Present: normocephalic Eye: Present: EOMI, PERRL ENT: Present: mucous membranes moist Comments: Poor dentition; ET tube, 26 cm at lip - *Routine Neck Exam Present: supple. Absent: lymphadenopathy - *Routine Respiratory Exam Present: patient mechanically ventilated, breathing independently, some belly breathing appreciated. Interval improvement in bilateral lung sounds. - *Routine Cardiovascular Exam Present: Regular rate and rhythm, no appreciable murmurs - *Routine Abdominal Exam Present: soft, normoactive bowel sounds. Absent: tenderness - *Routine Extremities Exam Absent: cyanosis, clubbing, 1+ edema in upper extremities, trace in lower extremities - *Routine Skin Exam Present: warm. stage 2 decub on coccyx, unstageable early discoloration on left heel - *Routine Neurological Exam No focal deficit, very weak Assessment and Plan (1) Acute respiratory distress syndrome (ARDS) due to 20
[2020-04-20 08:15] LABS: Eosinophils % 1 % (0-3); Lymphocytes % 12 % (10-50); Monocytes % 5 % (2-9); Neutrophils % 82 % (42-76); Total Cells Counted 100
[2020-04-20 08:17] LABS: Platelet Estimate Normal; RBC Morphology Normal
--- NOTE | 2020-04-20 13:40 | DIET.NUTRFU ---
Addendum entered by Brooke Elizalde 04/28/20 15:53: Pt has been extubated, failed swallow eval, consult placed for Gtube, unfortunately pt refusing procedure at this time. He has been hostile about NPO status and would like to go home. Currently on day 3 without nourishment, is receiving D5 in IVF. Weight is down 9#, with moderate hypernatremia and hypokalemia. No BM since extubation. Continuing to monitor further care plans to provide MNT as needed. Addendum entered by Brooke Elizalde 04/25/20 15:02: Pt stable nutritionally- tolerating tube feeds well at goal rate, normal bowel function, nutrition related labs wnl, weight stable. Pt meeting energy, protein, and fluid needs. No changes to current nutritional care plan. Possible extubation noted..continuing to monitor. Will meet nutritional needs through PO intake as indicated. Pt will likely need speech eval/dysphagia diet. Addendum entered by Brooke Elizalde 04/23/20 13:03: Tube feeds were advanced to goal rate with good tolerance. Normal bowel function, nutrition related labs wnl, weight down 6#. Pt is receiving Propofol, additional kcal insignificant at this time. No changes to nutritional care plan as stated in order at this time, continuing to monitor. Addendum entered by Brooke Elizalde 04/21/20 17:23: Tube feeds were started with good toleration, then stopped today for procedure. Restarted again, continuing to monitor tolerance to adjust as indicated. Nutrition related labs wnl, weight stable. No BM 48h, did have diarrhea in 48h prior. Original Note: Nutrition consult received to transition pt to Pulmocare TF. New TF order to begin pt on 25mL/hr of Pulmocare continuous and increase as tolerated to goal rate of 45mL/hr continuous. Pulmocare at a goal rate of 45mL/hr will provide pt 1,620 kcal, 67g protein, and 848mL free H2O per day. Additional free water has been increased slightly to 245mL flushes every 4 hours to make up for the difference in free water in Pulmocare vs. Osmolite 1.2. The new goal rate of 45mL/hr of Pulmocare is very comparable to the well tolerated previous goal rate for Osmolite 1.2. Will monitor closely and adjust TF rate/fluid as needed.
--- NOTE | 2020-04-20 18:09 | PC.NURSE ---
No acute changes. Dr. Shah notified of ABG's this AM. No changes to vent settings, remains on SIMV 26,480,50%, 5. #7.5 ETT 26 @ lip. Copious amount of thick secretions suctioned from ETT and using yaunkeur. Resp rate typically in high 20's this shift. NSR on tely. Generalized edema noted. Abdomen soft, non-tender. OGT @ 55 cm, Pulmocare started per MD orders, currently @ 35 mls/hr, tolerating well. Pt incontinent of BM this shift. Dressing changed to Coccyx.Osuna cath to drain @ bedside w/ clear straw colored urine. Pt remains afebrile this shift, MD states that if pt was to have temp for blood cultures, sputum cultures, brought spectrum antibiotics would then be ordered. VS remain stable.
[2020-04-21] VITALS (33 sets, daily range): BP systolic 91–154; BP diastolic 49–82; PULSE 76–107; RESP 20–38; TEMP 36.4–38.4; O2SAT 86–100; BMI 21.2
--- NOTE | 2020-04-21 03:30 | PC.NURSE ---
SPUTUM SAMPLE GOTTEN FROM ENDOTRACHEAL SUCTION AND SENT TO LAB.
[2020-04-21 04:40] LABS: Chloride 109 mmol/L (98-107)
[2020-04-21 04:41] LABS: Sodium 139 mmol/L (136-145)
[2020-04-21 04:43] LABS: Blood Urea Nitrogen 33 mg/dl (9-20); Creatinine Clearance Estimated 95 mL/min (50-200); Estimated Glomerular Filt Rate 99 ml/min (>60); GFR (African American) 120 ML/MIN (>60)
[2020-04-21 04:44] LABS: Alanine Aminotransferase 60 U/L (12-78); Albumin Level 3.3 g/dl (3.5-5.0); Albumin/Globulin Ratio 0.8 (1.1-1.8); Alkaline Phosphatase 134 U/L (38-126); Aspartate Amino Transferase 45 U/L (17-59); Bilirubin,Total 0.5 mg/dl (0.2-1.3); Calcium 9.4 mg/dl (8.4-10.2); Carbon Dioxide 25 mmol/L (22.0-30.0); Globulin 4.3 g/dL (1.3-3.2); Glucose 123 mg/dl (74-100); Total Protein,Serum 7.6 g/dl (6.3-8.2)
[2020-04-21 04:53] LABS: Basophils # 0.1 K/mm3 (0-0.2); Basophils % 0.4 % (0.1-2.0); Eosinophils # 0.3 K/mm3 (0.0-0.4); Eosinophils % 1.7 % (0.1-12.0); Hematocrit 37.9 % (42.0-52.0); Hemoglobin 12.1 g/dL (14.1-18.0); Lymphocytes # 1.5 K/mm3 (0.7-4.5); Lymphocytes % 9.9 % (10-50); Mean Corpuscular HGB Conc 31.8 g/dL (31.8-35.4); Mean Corpuscular Hemoglobin 30.3 pg (27.0-31.2); Mean Corpuscular Volume 95.2 fl (80-94); Mean Platelet Volume 10.2 fl (7.4-10.4); Monocytes # 0.4 K/mm3 (0.1-1.0); Neutrophils # 12.6 K/mm3 (1.8-7.8); Platelet Count 457 K/mm3 (142-424); Red Blood Count 3.98 M/mm3 (4.60-6.20); Red Cell Distribution Width 14.9 % (11.5-17.5); White Blood Count 14.9 K/mm3 (4.8-10.8)
[2020-04-21 04:57] LABS: MANUAL DIFFERENTIAL MANUAL DIFFERENTIAL (MANUAL DIFF)
--- NOTE | 2020-04-21 05:04 | XR_ITS ---
PROCEDURE: XR CHEST PORTABLE CLINICAL HISTORY: resp failure Covid19 pneumonia COMPARISON: CT CT ANGIO CHEST from 04/03/2020 CR XR CHEST PORTABLE from 04/16/2020 CR XR CHEST PORTABLE from 04/17/2020 CR XR CHEST PORTABLE from 04/18/2020 FINDINGS: 5:46 a.m.. Endotracheal tube, nasogastric tube, and left subclavian central venous line all appear to be in good position. Changes of COPD/emphysema with superimposed pneumonia in the right lower lobe and left lower lobe which appears slightly worse. No acute bony finding. IMPRESSION: Tubes and line in good position. Bilateral pneumonia which appears slightly worse Dictated by: Jamie Shoemaker MD 04/21/2020 06:26 Jamie Shoemaker MD in [place] 04/21/2020 06:26
[2020-04-21 05:26] LABS: Hypochromasia 1+; Lymphocytes % 7 % (10-50); Macrocytosis 1+; Monocytes % 1 % (2-9); Neutrophils % 84 % (42-76); Platelet Estimate Slight Increase; Rouleaux 2+; Total Cells Counted 100
--- NOTE | 2020-04-21 07:34 | PC.NURSE ---
shift summary pts lung sounds are clear with some coarse crackles, pts sats remained 90-98% with a rate ranging fom 26-33.pt was turned every 2 hours at a 40 degree angle to maximize globalization of secretions. pt tolerated turns sats maintained 88% or higher. 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 0300 pt spiked a temp which was 100.9 rectally,new orders received.0300 pts sedation was reduced by half fentanyl at 12.5 mcq and diprivan was at 30mcq. guido in place urine clear and dark yellow in color. tube feeding increased. 0400 pt sedation was turned off, pt is awake and can follow certain commands.
--- NOTE | 2020-04-21 08:11 | HMH.ACPN2 ---
Internal Medicine - PN: Subj *Date: 04/21/20 *Time: 08:11 Interval history: Overnight patient did well in regards to respiratory standpoint, remains alert, spontaneously breathing fairly well over the ventilator. Please see pulmonary notes for details. Patient did have fever spikes, and blood cultures, urine cultures and sputum cultures were redone and appropriate antibiotics were started for possible tracheitis versus bronchitis. Exam Vital signs and Labs for Last 24 Hours: Temp Pulse Resp BP Pulse Ox 99.6 F 101 H 28 H 146/75 H 91 L 04/21/20 06:48 04/21/20 06:48 04/21/20 06:48 04/21/20 06:48 04/21/20 07:10 Laboratory Results - last 24 hr 04/20/20 05:20: Total Counted 100, Neutrophils % (Manual) 82 H, Lymphocytes % (Manual) 12, Monocytes % (Manual) 5, Eosinophils % (Manual) 1, Platelet Estimate Normal, RBC Morphology Normal 04/21/20 04:10: WBC 14.9 H, RBC 3.98 L, Hgb 12.1 L, Hct 37.9 L, MCV 95.2 H, MCH 30.3, MCHC 31.8, RDW 14.9, Plt Count 457 H, MPV 10.2, Neut % (Auto) 85.0 H, Lymph % (Auto) 9.9 L, [place] % (Auto) 3.0, Eos % (Auto) 1.7, Baso % (Auto) 0.4, Neut # (Auto) 12.6 H, Lymph # (Auto) 1.5, [place] # (Auto) 0.4, Eos # (Auto) 0.3, Baso # (Auto) 0.1, Total Counted 100, Neutrophils % (Manual) 84 H, Band Neutrophils % 8.0, Lymphocytes % (Manual) 7 L, Monocytes % (Manual) 1 L, Platelet Estimate Slight increase, Hypochromasia 1+, Macrocytosis 1+, Rouleaux 2+ 04/21/20 04:10: Sodium 139, Potassium 4.0, Chloride 109 H, Carbon Dioxide 25, Anion Gap 9.0, BUN 33 H, Creatinine 0.80, Estimated Creat Clear 95, Estimated GFR 99, Est GFR ( Amer) 120, Glucose 123 H, Calcium 9.4, Magnesium 2.0, Total Bilirubin 0.5, AST 45, ALT 60, Alkaline Phosphatase 134 H, Total Protein 7.6, Albumin 3.3 L, Globulin 4.3 H, Albumin/Globulin Ratio 0.8 L I & O for Last 24 hours: Intake & Output 04/18/20 04/19/20 04/20/20 04/21/20 11:59 11:59 11:59 11:59 Intake Total 3740 / 3740 3324 / 3633 3010 / 3010 1609 / 1609 Output Total 3285 / 3535 2807 / 2867 1625 / 1625 2110 / 2110 Balance 455 / 205 517 / 766 1385 / 1385 -501 / -501 Weight 148 lb 11.2 oz 147 lb 14.4 oz 148 lb 12.992 oz 148 lb 6 oz Microbiology Reports for the Last 24 Hours: Microbiology 04/21/20 03:25 Sputum - Endotracheal Tube Aspirate Gram Stain - Final Narrative: Alert, nods, in no distress. Vital signs look great. Lungs have some rough ventilator sounds but well-expanded. Heart rate regular. Abdomen soft. Extremities well perfused, is exceedingly weak but is able to move extremities spontaneously. Assessment and Plan (1) Acute respiratory distress syndrome (ARDS) due to 2019 novel coronavirus Status: Acute Category: Medical Code(s): U07.1 - COVID-19; J80 - Acute respiratory distress syndrome (2) Acute hypoxemic respiratory failure due to COVID-19 Status: Acute Category: Medical Code(s): U07.1 - COVID-19; J96.01 - Acute respiratory failure with hypoxia (3) Tobacco use Status: Acute Category: Social Hx Code(s): Z72.0 - Tobacco use (4) Severe sepsis Status: Acute Category: Medical Code(s): A41.9 - Sepsis, unspecified organism; R65.20 - Severe sepsis without septic shock (5) Metabolic acidosis Status: Acute Category: Medical Code(s): E87.2 - Acidosis (6) Acute respiratory acidosis Status: Acute Category: Medical Code(s): E87.2 - Acidosis (7) Acute kidney injury Status: Acute Category: Medical Code(s): N17.9 - Acute kidney failure, unspecified (8) Cardiomyopathy Status: Acute Category: Medical Code(s): I42.9 - Cardiomyopathy, unspecified (9) Hyperkalemia Status: Acute Category: Medical Code(s): E87.5 - Hyperkalemia (10) Hypermagnesemia Status: Acute Category: Medical Code(s): E83.41 - Hypermagnesemia (11) Acute uremia Status: Acute Category: Medical Code(s): N19 - Unspecified kidney failure (12) Weakness acquired in ICU Status: Acute Category: Medical Code(s):
--- NOTE | 2020-04-21 08:15 | DIET.NUTRFU ---
Nutrition consult received. Pt with good tolerance TF and improvement nutrition related labs. In discussion with MD this morning, most appropriate next step in nutritional care plan to cautiously advance goal rate with current well tolerated formula, Osmolite 1.2. Goal rate in order changed to 55ml/hr, advance by 5ml/hr q 4h as tolerated from current rate of 45ml/hr. Cautious slow/low advancement important. Water flushes changed to 160ml q 4h to account for formula free water gained from rate advance. Osmolite 1.2 TF regimen at 55ml/hr provides 1584kcal, 83g protein, and 1036ml free water. Will monitor pt tolerance closely.
[2020-04-21 08:16] LABS: ABG Base Excess -4.3 mmol/L (-2.4-2.3); ABG HCO3 19.7 mmhg (22.0-26.0); ABG Oxygen Saturation 94 % (90-100); ABG PCO2 29.2 mmhg (35.0-45.0); ABG PH 7.45 mmol/L (7.35-7.45); ABG PO2 67.3 mmhg (80-100); ABG TCO2 20.6 mmhg (23-27)
[2020-04-21 08:17] LABS: Oxygen 50 %; PEEP 5; Pressure Support 5; Source Right Radial
--- NOTE | 2020-04-21 08:52 | HMH.PHACONS ---
- Pharmacy Consult Date: 04/21/20 Time: 08:52 Referring provider: DR. PERALTA Reason for Consult:: VANCOMYCIN DOSING Allergies and ADEs:: Allergies Allergy/AdvReac Type Severity Reaction Status Date / Time esomeprazole [From NEXIUM] Allergy Intermediate I-ITCHING Verified 04/03/20 19:25 methocarbamol [From ROBAXIN] Allergy Intermediate I-ITCHING Verified 04/03/20 19:25 morphine [MORPHINE] Allergy Mild NA-NAUSEA Verified 04/03/20 19:25 Home Medications:: Home Medications Medication Instructions Recorded Confirmed Type No Known Home Medications 04/04/20 04/04/20 History Height: 1.78 m Weight: 67.302 kg Laboratory Results:: Laboratory Results - last 24 hr 04/21/20 04:10: WBC 14.9 H, RBC 3.98 L, Hgb 12.1 L, Hct 37.9 L, MCV 95.2 H, MCH 30.3, MCHC 31.8, RDW 14.9, Plt Count 457 H, MPV 10.2, Neut % (Auto) 85.0 H, Lymph % (Auto) 9.9 L, [place] % (Auto) 3.0, Eos % (Auto) 1.7, Baso % (Auto) 0.4, Neut # (Auto) 12.6 H, Lymph # (Auto) 1.5, [place] # (Auto) 0.4, Eos # (Auto) 0.3, Baso # (Auto) 0.1, Total Counted 100, Neutrophils % (Manual) 84 H, Band Neutrophils % 8.0, Lymphocytes % (Manual) 7 L, Monocytes % (Manual) 1 L, Platelet Estimate Slight increase, Hypochromasia 1+, Macrocytosis 1+, Rouleaux 2+ 04/21/20 04:10: Sodium 139, Potassium 4.0, Chloride 109 H, Carbon Dioxide 25, Anion Gap 9.0, BUN 33 H, Creatinine 0.80, Estimated Creat Clear 95, Estimated GFR 99, Est GFR ( Amer) 120, Glucose 123 H, Calcium 9.4, Magnesium 2.0, Total Bilirubin 0.5, AST 45, ALT 60, Alkaline Phosphatase 134 H, Total Protein 7.6, Albumin 3.3 L, Globulin 4.3 H, Albumin/Globulin Ratio 0.8 L 04/21/20 07:00: Specimen Source Right radial, O2 % 50, ABG pH 7.45, ABG pCO2 29.2 L, ABG pO2 67.3 L, ABG HCO3 19.7 L, ABG Total CO2 20.6 L, ABG O2 Saturation 94, ABG Base Excess -4.3 L, PEEP 5 Medical History: Reports:: Hyperlipidemia Denies:: Internal Pacemaker Assessment and Plan (1) Acute respiratory distress syndrome (ARDS) due to 2019 novel coronavirus Status: Acute Category: Medical Code(s): U07.1 - COVID-19; J80 - Acute respiratory distress syndrome (2) Acute hypoxemic respiratory failure due to COVID-19 Status: Acute Category: Medical Code(s): U07.1 - COVID-19; J96.01 - Acute respiratory failure with hypoxia (3) Tobacco use Status: Acute Category: Social Hx Code(s): Z72.0 - Tobacco use (4) Severe sepsis Status: Acute Category: Medical Code(s): A41.9 - Sepsis, unspecified organism; R65.20 - Severe sepsis without septic shock (5) Metabolic acidosis Status: Acute Category: Medical Code(s): E87.2 - Acidosis (6) Acute respiratory acidosis Status: Acute Category: Medical Code(s): E87.2 - Acidosis (7) Acute kidney injury Status: Acute Category: Medical Code(s): N17.9 - Acute kidney failure, unspecified (8) Cardiomyopathy Status: Acute Category: Medical Code(s): I42.9 - Cardiomyopathy, unspecified (9) Hyperkalemia Status: Acute Category: Medical Code(s): E87.5 - Hyperkalemia (10) Hypermagnesemia Status: Acute Category: Medical Code(s): E83.41 - Hypermagnesemia (11) Acute uremia Status: Acute Category: Medical Code(s): N19 - Unspecified kidney failure (12) Weakness acquired in ICU Status: Acute Category: Medical Code(s): R53.1 - Weakness - Assessment and plan all Dx Assessment and Plan for all problems:: PATIENT RECEIVED VANCOMYCIN 1250 MG X1 DOSE OVERNIGHT. RECOMMEND CONTINUING WITH VANCOMYCIN DOSING AT 1500 MG Q18H AT THIS TIME. PHARMACY WILL FOLLOW DAILY AND ADJUST APPROPRIATE.
--- NOTE | 2020-04-21 10:30 | PC.NURSE ---
Tubefeeds turned OFF in preparation for trach procedure today. Pt also is becoming agitated/restless and bucking the vent. He is following commands by shaking his head. RT requested that sedation gtts be restarted. Both gtts (Fentanyl and Propofol) restarted @ half the dose he was getting when they were turned off. Fentanyl gtt now @ 30mcg/hr and Propofol gtt @ 20mcg/kg/hr. Goal is for pt to continue to follow commands but no longer be agitated/restless. RT also put him back on a rate. He has been on SBT since early this AM.
--- NOTE | 2020-04-21 11:30 | HMH.PULMPN ---
Internal Medicine - PN: Subj *Date: 04/21/20 *Time: 11:30 Interval history: No acute respiratory events overnight Exam - Constitutional Constitutional:: Absent: no acute distress, comfortable - Respiratory Exam Comments: Patient in moderate respiratory distress while on spontaneous breathing trial. Using abdominal muscles for breathing. - Cardiovascular Exam Cardiac:: Present: S1, S2 - GI Exam GI:: Present: soft - Skin Exam Skin: Present: warm, no rash - Extremities Exam Extremities: Present: no cyanosis, no clubbing, no edema Assessment and Plan (1) Acute respiratory distress syndrome (ARDS) due to 2019 novel coronavirus Status: Acute Category: Medical Code(s): U07.1 - COVID-19; J80 - Acute respiratory distress syndrome (2) Acute hypoxemic respiratory failure due to COVID-19 Status: Acute Category: Medical Code(s): U07.1 - COVID-19; J96.01 - Acute respiratory failure with hypoxia (3) Tobacco use Status: Acute Category: Social Hx Code(s): Z72.0 - Tobacco use (4) Severe sepsis Status: Acute Category: Medical Code(s): A41.9 - Sepsis, unspecified organism; R65.20 - Severe sepsis without septic shock (5) Metabolic acidosis Status: Acute Category: Medical Code(s): E87.2 - Acidosis (6) Acute respiratory acidosis Status: Acute Category: Medical Code(s): E87.2 - Acidosis (7) Acute kidney injury Status: Acute Category: Medical Code(s): N17.9 - Acute kidney failure, unspecified (8) Cardiomyopathy Status: Acute Category: Medical Code(s): I42.9 - Cardiomyopathy, unspecified (9) Hyperkalemia Status: Acute Category: Medical Code(s): E87.5 - Hyperkalemia (10) Hypermagnesemia Status: Acute Category: Medical Code(s): E83.41 - Hypermagnesemia (11) Acute uremia Status: Acute Category: Medical Code(s): N19 - Unspecified kidney failure (12) Weakness acquired in ICU Status: Acute Category: Medical Code(s): R53.1 - Weakness - Assessment and plan all Dx Assessment and Plan for all problems:: # Acute hypoxic respiratory failure needing mechanical ventilation: # COVID-19 pneumonia: #ICU acquired weakness 60-year-old COPD presented with worsening respiratory failure and chest x-ray showed bilateral pulmonary infiltrates. CTA did not show evidence of PE but showed diffuse bilateral pulmonary infiltrates along with trace effusions. Patient respiratory status acutely worsened after admission, escalated from 3 L nasal cannula to mechanical ventilation within 12 hours. Patient during the course also started on heparin drip as concern for NSTEMI Vancomycin and azithromycin DC'd owing to negative cultures and completed 5-day course. Endotracheal aspirate from grew strep pneumonia, completed Abx course with Zosyn. Interval update: Patient respiratory status remained stable for the last 3 days, patient found to have ICU acquired weakness, using abdominal muscles for breathing concerning for diaphragm weakness. Patient becoming tachypneic with high RSBI with spontaneous breathing trials. Patient also noted to have weakness in her bilateral upper and lower extremities. Given his extreme weakness I believe that patient will benefit from tracheostomy followed by rehabilitation. Hypernatremia and hyperkalemia resolved. Hemoglobin remained stable. Afebrile. Hemodynamically stable. Abdomen soft nondistended. BAL culture from 04/15 growing E faecalis and staph epidermidis -given his worsening chest x-ray - Patient was initiated on vancomycin to complete a 7-day total course Plan: - Continue vancomycin for total of 7 days - ENT consult for tracheostomy - Sedation and analgesics with a RASS goal of 1-2 and the CPOT goal of less than or equal to 2 (no need for deep sedation). - Discontinue dexamethasone - Continue lung protective mechanical ventilation, wean as tolerated, currently on PEEP of 5 and FiO2 of 40% - Continue tube feeding - VAP bundle with aspirat
--- NOTE | 2020-04-21 11:39 | PC.NURSE ---
pt continues to follow commands AEB shaking his head yes or no . Fentanyl gtt continues @ 30mcg/hr and Propofol gtt continues @ 20mcg.
--- NOTE | 2020-04-21 11:56 | HMH.PTEV ---
Physical Therapy Evaluation Rehab PT IP Evaluation Start: 04/21/20 07:30 Freq: ONCE Status: Active Protocol: Document 04/21/20 11:50 AINSLEY (Rec: 04/21/20 11:56 CAYETANOJYOTSNA [id number]) Subjective/History History History bryn Gayle is a 60-year-old male who presented to the ER due to 2 to 3 days of shortness of breath. He has a history of smoking, reported history of hypertension but does not currently take anything. Complains that he has been feeling tightness in his chest and difficulty breathing leading to the point he needed to come to the hospital. On presentation he was found to be hypoxic on room air with a saturation in the high 80s. Was started on oxygen and initial work-up begun. Found to be positive for COVID-19 with diffuse bilateral infiltrates necessitating admission. On assessment this morning, unable to gain any further information from the patient due to his fatigue and somnolence. He will wake briefly to answer questions and then dozes back off. Overnight he has had progressive worsening of respiratory failure with escalation of support to high flow nasal cannula on 100% oxygen this morning at 40 L. History predominantly obtained from chart. Patient is a service patient and we will reach out to his primary care, Dr. Lee in [place], for further information on next of kin and medical history. Pharmacy assisting this morning with obtaining medical record/medications over the past year. At this time it appears that he is on no
[2020-04-21 12:13] LABS: POC Glucose,Bedside 278 (70-110)
--- NOTE | 2020-04-21 15:27 | HMH.OTEV ---
OT Inpatient Evaluation Rehab OT IP Evaluation Start: 04/21/20 07:30 Freq: ONCE Status: Complete Protocol: Document 04/21/20 15:15 [facility] (Rec: 04/21/20 15:27 [facility] [id number]) Rehab OT IP Assessment Subjective History Pt was admitted via ED on due to COVID PNA and respiratory distress. Pt has a past medical history of HTN and COPD. Pt was unable to answer any orientation or past functional abilities due to being on mechanical ventilator . Pt was alert and had his eyes open. He was able to nod his head yes to a few questions asked by therapist. Therapist asked if patient could move either hand or arm; pt was unable to move anything on bilateral UE's. Both UE's appear to be flaccid . Thearpist provided manual therapy to bilateral UE's. Pt 's right side was passively ranged at wrist and elbow in all directions at both joints; 10 reps, 1 set. Pt's left UE was passively ranged as well at wrist, elbow, and shoulder. Shoulder was only stretched to 90 degrees of flexion due to PICC line. Pt was stretched at all joints in all directions; 10 reps, 1 set. Both hands appeared swollen. Subjective Pt resting in bed, on ventilator, positioned on right side after being turned by nurse. Objective Bed Mobility bed mobility-scooting,bed mobility - rolling Assist Level Maximum x 2 (75% assist) Rehab OT IP prob,goals,plan Problems Date of Evaluation: 04/21/20 OT IP Problems Bed Mobility,Transfers,Gait, Balance,Self care,Safety Rehab Potential Rehab Potential Fair Equipment Needs Assistive Devices Rolling / Wheeled Walker Plan OT intervention Plan Bed Mobility,Transfers,Gait, Balance,Self care,Safety,
--- NOTE | 2020-04-21 16:46 | PC.NURSE ---
tubefeeds restarted @ 25ml/hr
[2020-04-22] VITALS (35 sets, daily range): BP systolic 108–151; BP diastolic 71–88; PULSE 88–115; RESP 23–32; TEMP 36.3–37.6; O2SAT 88–99; BMI 21.2
--- NOTE | 2020-04-22 06:55 | HMH.ACPN2 ---
Internal Medicine - PN: Subj *Date: 04/22/20 *Time: 08:45 Interval history: Mr. Gayle remained stable overnight. No further fever. On antibiotics for 36 hours. Unfortunately was switched to style vent for his spontaneous breathing trial this morning given a malfunction in his regular ventilator. Still on just pressure support with a PEEP of 5, respiratory rate in the 20s. Had previously been tolerat FiO2 of 50% on regular ventilator. Alert, interactive on exam and following commands though extremely weak. Exam Vital signs and Labs for Last 24 Hours: Temp Pulse Resp BP Pulse Ox 97.4 F L 93 H 23 120/77 99 04/22/20 06:00 04/22/20 06:00 04/22/20 06:00 04/22/20 06:00 04/22/20 06:00 Laboratory Results - last 24 hr 04/20/20 10:09: POC Glucose 278 H 04/21/20 07:00: Specimen Source Right radial, O2 % 50, ABG pH 7.45, ABG pCO2 29.2 L, ABG pO2 67.3 L, ABG HCO3 19.7 L, ABG Total CO2 20.6 L, ABG O2 Saturation 94, ABG Base Excess -4.3 L, PEEP 5 I & O for Last 24 hours: Intake & Output 04/19/20 04/20/20 04/21/20 04/22/20 23:59 23:59 23:59 23:59 Intake Total 2566 / 2873 2066 / 2382 1629 / 1674 591 / 591 Output Total 2130 / 2200 2099 / 2100 1919 / 1994 455 / 455 Balance 436 / 673 -34 / 282 -291 / -321 136 / 136 Weight 67.086 kg 67.5 kg 67.302 kg 67.302 kg Microbiology Reports for the Last 24 Hours: Microbiology 04/21/20 04:10 Urine,Catheterized Urine Culture - Preliminary NO GROWTH AFTER 24 HOURS 04/21/20 04:10 Blood Blood Culture - Preliminary 04/21/20 03:25 Sputum - Endotracheal Tube Aspirate Gram Stain - Final Narrative: - Constitutional minimal distress, awake and alert, weak but following verbal commands. Unable to assess orientation due to intubation - *Routine HEENT Exam Head: Present: normocephalic Eye: Present: EOMI, PERRL ENT: Present: mucous membranes moist Comments: Poor dentition; ET tube, 26 cm at lip, lip breakdown with scabbing - *Routine Neck Exam Present: supple. Absent: lymphadenopathy - *Routine Respiratory Exam Present: patient mechanically ventilated, breathing independently, some belly breathing appreciated. Interval improvement in bilateral lung sounds. - *Routine Cardiovascular Exam Present: Regular rate and rhythm, no appreciable murmurs - *Routine Abdominal Exam Present: soft, normoactive bowel sounds. Absent: tenderness - *Routine Extremities Exam Absent: cyanosis, clubbing, 1+ edema in upper extremities, trace in lower extremities - *Routine Skin Exam Present: warm. stage 2 decub on coccyx, unstageable early discoloration on left heel - *Routine Neurological Exam No focal deficit, very weak Assessment and Plan (1) Acute respiratory distress syndrome (ARDS) due to 2019 novel coronavirus Status: Acute Category: Medical Code(s): U07.1 - COVID-19; J80 - Acute respiratory distress syndrome (2) Acute hypoxemic respiratory failure due to COVID-19 Status: Acute Category: Medical Code(s): U07.1 - COVID-19; J96.01 - Acute respiratory failure with hypoxia (3) Tobacco use Status: Acute Category: Social Hx Code(s): Z72.0 - Tobacco use (4) Severe sepsis Status: Acute Category: Medical Code(s): A41.9 - Sepsis, unspecified organism; R65.20 - Severe sepsis without septic shock (5) Metabolic acidosis Status: Acute Category: Medical Code(s): E87.2 - Acidosis (6) Acute respiratory acidosis Status: Acute Category: Medical Code(s): E87.2 - Acidosis (7) Acute kidney injury Status: Acute Category: Medical Code(s): N17.9 - Acute kidney failure, unspecified (8) Cardiomyopathy Status: Acute Category: Medical Code(s): I42.9 - Cardiomyopathy, unspecified (9) Hyperkalemia Status: Acute Category: Medical Code(s): E87.5 - Hyperkalemia (10) Hypermagnesemia Status: Acute Category: Medical Code(s): E83.41 - Hypermagnesemia (11) Acute uremia Status:
--- NOTE | 2020-04-22 07:12 | XR_ITS ---
PROCEDURE: XR CHEST PORTABLE CLINICAL HISTORY: resp failure Covid19 pneumonia follow-up COMPARISON: CT CT ANGIO CHEST from 04/03/2020 CR XR CHEST PORTABLE from 04/17/2020 CR XR CHEST PORTABLE from 04/18/2020 CR XR CHEST PORTABLE from 04/21/2020 FINDINGS: Endotracheal tube, nasogastric tube, and left subclavian central venous line all remain in good position. Bilateral lower lobe pneumonia with COPD unchanged. No evidence of pneumothorax. IMPRESSION: Tubes and lines remain in good position with continued bilateral pneumonia Dictated by: Jamie Shoemaker MD 04/22/2020 09:05 Jamie Shoemaker MD in [place] 04/22/2020 09:05
--- NOTE | 2020-04-22 08:48 | HMH.PULMPN ---
Internal Medicine - PN: Subj *Date: 04/22/20 *Time: 10:59 Interval history: No acute respiratory events overnight, technical issues with the ventilator that happened overnight were fixed. Exam - Constitutional Constitutional:: Present: no acute distress, comfortable - HENMT Exam HENMT: Present: normocephalic - Respiratory Exam Respiratory:: Present: crackles - Cardiovascular Exam Cardiac:: Present: S1, S2 - GI Exam GI:: Present: soft, no hepatosplenomegaly - Skin Exam Skin: Present: warm, no rash - Neurological Exam Neurological: Present: alert, awake - Extremities Exam Extremities: Present: no cyanosis, no clubbing, edema Assessment and Plan (1) Acute respiratory distress syndrome (ARDS) due to 2019 novel coronavirus Status: Acute Category: Medical Code(s): U07.1 - COVID-19; J80 - Acute respiratory distress syndrome (2) Acute hypoxemic respiratory failure due to COVID-19 Status: Acute Category: Medical Code(s): U07.1 - COVID-19; J96.01 - Acute respiratory failure with hypoxia (3) Tobacco use Status: Acute Category: Social Hx Code(s): Z72.0 - Tobacco use (4) Severe sepsis Status: Acute Category: Medical Code(s): A41.9 - Sepsis, unspecified organism; R65.20 - Severe sepsis without septic shock (5) Metabolic acidosis Status: Acute Category: Medical Code(s): E87.2 - Acidosis (6) Acute respiratory acidosis Status: Acute Category: Medical Code(s): E87.2 - Acidosis (7) Acute kidney injury Status: Acute Category: Medical Code(s): N17.9 - Acute kidney failure, unspecified (8) Cardiomyopathy Status: Acute Category: Medical Code(s): I42.9 - Cardiomyopathy, unspecified (9) Hyperkalemia Status: Acute Category: Medical Code(s): E87.5 - Hyperkalemia (10) Hypermagnesemia Status: Acute Category: Medical Code(s): E83.41 - Hypermagnesemia (11) Acute uremia Status: Acute Category: Medical Code(s): N19 - Unspecified kidney failure (12) Weakness acquired in ICU Status: Acute Category: Medical Code(s): R53.1 - Weakness - Assessment and plan all Dx Assessment and Plan for all problems:: # Acute hypoxic respiratory failure needing mechanical ventilation: # COVID-19 pneumonia: #ICU acquired weakness 60-year-old COPD presented with worsening respiratory failure and chest x-ray showed bilateral pulmonary infiltrates. CTA did not show evidence of PE but showed diffuse bilateral pulmonary infiltrates along with trace effusions. Patient respiratory status acutely worsened after admission, escalated from 3 L nasal cannula to mechanical ventilation within 12 hours. Patient during the course also started on heparin drip as concern for NSTEMI Vancomycin and azithromycin DC'd owing to negative cultures and completed 5-day course. Endotracheal aspirate from 04/04/20 grew strep pneumonia, completed Abx course with Zosyn. Endotracheal aspirate was repeated from 04/15 given worsening chest inflammatory Enterococcus faecalis and staph epidermis and patient was initiated on vancomycin on 04/20/2020. Interval update. Patient respiratory status remained stable for the last 3 days mentation significantly improved now following commands. Patient ICU care weakness is probably the limiting factor holding him from extubation. ENT was called for tracheostomy however recommended to wait for 48 to 72 hours given concerning pneumonia and initiation of antibiotics. We will closely monitor and follow with the ENT. We will continue our efforts with daily SBT's and extubations until then. Chest x-ray unchanged from yesterday. Patient PEEP was increased 8 yesterday, will wean as tolerated. - Continue vancomycin for total of 7 days - ENT consult for tracheostomy - Sedation and analgesics with a RASS goal of 1-2 and the CPOT goal of less than or equal to 2 (no need for deep sedation). - Continue lung protective mechanical ventilation, wean as tolerated, currently on PEEP of 8
[2020-04-22 08:55] LABS: Basophils % 0.4 % (0.1-2.0); Eosinophils # 0.4 K/mm3 (0.0-0.4); Eosinophils % 3.6 % (0.1-12.0); Hematocrit 35.8 % (42.0-52.0); Hemoglobin 11.1 g/dL (14.1-18.0); Lymphocytes # 0.5 K/mm3 (0.7-4.5); Lymphocytes % 5.1 % (10-50); Mean Corpuscular Hemoglobin 30.2 pg (27.0-31.2); Mean Corpuscular Volume 97.3 fl (80-94); Mean Platelet Volume 10.3 fl (7.4-10.4); Monocytes # 0.3 K/mm3 (0.1-1.0); Monocytes % 2.9 % (1.7-9.3); Neutrophils % 87.9 % (37.0-80.0); Platelet Count 398 K/mm3 (142-424); Red Blood Count 3.68 M/mm3 (4.60-6.20); Red Cell Distribution Width 14.8 % (11.5-17.5); White Blood Count 10.2 K/mm3 (4.8-10.8)
[2020-04-22 09:00] LABS: Alanine Aminotransferase 45 U/L (12-78); Albumin/Globulin Ratio 0.8 (1.1-1.8); Alkaline Phosphatase 123 U/L (38-126); Anion Gap 9.9 mEq/L (5-15); Aspartate Amino Transferase 37 U/L (17-59); Bilirubin,Total 0.4 mg/dl (0.2-1.3); Blood Urea Nitrogen 32 mg/dl (9-20); Calcium 9.2 mg/dl (8.4-10.2); Carbon Dioxide 26 mmol/L (22.0-30.0); Chloride 109 mmol/L (98-107); Creatinine Clearance Estimated 126 mL/min (50-200); Estimated Glomerular Filt Rate 138 ml/min (>60); GFR (African American) 167 ML/MIN (>60); Glucose 200 mg/dl (74-100); Potassium 3.9 mmoL/L (3.5-5.1); Sodium 141 mmol/L (136-145)
[2020-04-22 09:03] LABS: MANUAL DIFFERENTIAL MANUAL DIFFERENTIAL (MANUAL DIFF)
--- NOTE | 2020-04-22 10:59 | HMH.GSCON ---
*Admission Date: 04/05/20 *Reason for consult:: trach eval *History of present illness: Mr. Gayle is a 60-year-old male significant smoking history, carries a diagnosis of OPD using inhalers presented to the hospital complaining of 2 to 3-day worsening shortness of breath and productive phlegm. Of breath also says the fevers and chills are worsening productive phlegm. Patient did not remember any known sick contacts. Presentation the patient needing oxygen requirement with his saturations initially on high 80s. He was admitted to the isolation unit and pulmonary was called for further management. Review of Systems - ENT Comments: see exam note - *Neurologic Denies seizure-like activity [facility] History Medical History: Reports:: Hyperlipidemia Denies:: Internal Pacemaker *Have you ever received a pneumonia vaccine?: No *Have you received a flu vaccine this season?: No Other Surgeries: Yes: No Previous Surgery. No: Pacemaker - *Social History Last grade of school completed: 11th or 12th Smoking Status: Current every day smoker Tobacco Type: cigarettes # Packs/Day (cigarettes): 1 Alcohol Intake: never Alcohol Intake Frequency:: holidays/special occasions only *Occupational Status:: disabled *Travel in the last 8 weeks: None Family Hx:: No significant family history Meds Home Medications Medication Instructions Recorded Confirmed Type No Known Home Medications 04/04/20 04/04/20 History Allergies Allergy/AdvReac Type Severity Reaction Status Date / Time esomeprazole [From NEXIUM] Allergy Intermediate I-ITCHING Verified 04/03/20 19:25 methocarbamol [From ROBAXIN] Allergy Intermediate I-ITCHING Verified 04/03/20 19:25 morphine [MORPHINE] Allergy Mild NA-NAUSEA Verified 04/03/20 19:25 Exam Vital signs and Labs for Last 24 Hours: Temp Pulse Resp BP Pulse Ox 98.6 F 89 26 H 128/71 93 L 04/22/20 10:45 04/22/20 10:45 04/22/20 10:45 04/22/20 10:45 04/22/20 10:45 Laboratory Results - last 24 hr 04/20/20 10:09: POC Glucose 278 H 04/22/20 07:00: WBC 10.2 D, RBC 3.68 L, Hgb 11.1 L, Hct 35.8 L, MCV 97.3 H, MCH 30.2, MCHC 31.0 L, RDW 14.8, Plt Count 398, MPV 10.3, Neut % (Auto) 87.9 H, Lymph % (Auto) 5.1 L, [place] % (Auto) 2.9, Eos % (Auto) 3.6, Baso % (Auto) 0.4, Neut # (Auto) 9.0 H, Lymph # (Auto) 0.5 L, [place] # (Auto) 0.3, Eos # (Auto) 0.4, Baso # (Auto) 0.0 04/22/20 07:00: Sodium 141, Potassium 3.9, Chloride 109 H, Carbon Dioxide 26, Anion Gap 9.9, BUN 32 H, Creatinine 0.60 L D, Estimated Creat Clear 126, Estimated GFR 138, Est GFR ( Amer) 167 D, Glucose 200 H, Calcium 9.2, Magnesium 2.0, Total Bilirubin 0.4, AST 37, ALT 45, Alkaline Phosphatase 123, Total Protein 7.0, Albumin 3.0 L, Globulin 4.0 H, Albumin/Globulin Ratio 0.8 L I & O for Last 24 hours: Intake & Output 04/19/20 04/20/20 04/21/20 04/22/20 23:59 23:59 23:59 23:59 Intake Total 2566 / 2873 2066 / 2382 1629 / 1674 591 / 591 Output Total 2130 / 2200 2099 / 2099 1919 / 1994 820 / 820 Balance 436 / 673 -34 / 282 -291 / -321 -229 / -229 Weight 147 lb 14.4 oz 148 lb 12.992 oz 148 lb 6 oz 148 lb 6.008 oz Microbiology Reports for the Last 24 Hours: Microbiology 04/21/20 04:10 Urine,Catheterized Urine Culture - Preliminary 04/21/20 04:10 Blood Blood Culture - Preliminary - *Routine HEENT Exam ENT: Present: other Comments: Patient this patient was examined at 8:30 AM on April 22, 2020 he was on a style ventilator with the oxygen level set at 100% and he was in bed, his chest was indrawing while we examined him. The ventilation tube was in situ. He did have significant irritation of his lower and upper lips. There was no cervical lymphadenopathy and his trachea was midline. He does of course have ARDS due to the [id number]. As well as severe sepsis. His chest x-ray showed bilateral pulmonary infiltrates. He apparently was started on vancomycin in the last 24 hours given his septicemia he is at high
[2020-04-22 11:47] LABS: Lymphocytes % 4 % (10-50); Monocytes % 5 % (2-9); Neutrophils % 90 % (42-76); Platelet Estimate Normal; RBC Morphology Normal; Total Cells Counted 100
[2020-04-22 12:23] LABS: ABG Base Excess -5.6 mmol/L (-2.4-2.3); ABG HCO3 18.6 mmhg (22.0-26.0); ABG Oxygen Saturation 99 % (90-100); ABG PCO2 28.3 mmhg (35.0-45.0); ABG PH 7.44 mmol/L (7.35-7.45); ABG PO2 123.3 mmhg (80-100); ABG TCO2 19.5 mmhg (23-27)
[2020-04-22 12:25] LABS: Oxygen 50 %; PEEP 8; Pressure Support 5; Tidal Volume CPAP
[2020-04-22 12:26] LABS: Source Right Radial; Vent Rate 26
--- NOTE | 2020-04-22 16:45 | PC.NURSE ---
Per Dr. Shah: pt put back on a rate and gtts turned back on (Propofol @ 20mcg and Fentanyl @ 30mcg). Will vent rest over night. All sedation to be turned back OFF @ 0400 for SBT @ 0500. Will relay info to nightshift RN.
[2020-04-23] VITALS (27 sets, daily range): BP systolic 123–161; BP diastolic 61–95; PULSE 81–105; RESP 22–34; TEMP 36.4–37.2; O2SAT 88–98; BMI 20.2
--- NOTE | 2020-04-23 06:00 | XR_ITS ---
PROCEDURE: XR CHEST PORTABLE CLINICAL HISTORY: ETT placement Covid19 pneumonia follow up COMPARISON: CT CT ANGIO CHEST from 04/03/2020 CR XR CHEST PORTABLE from 04/18/2020 CR XR CHEST PORTABLE from 04/21/2020 CR XR CHEST PORTABLE from 04/22/2020 FINDINGS: 5:21 a.m.. Endotracheal tube tip is in good position well above the scooby at T3-T4 level. Left subclavian central venous line and orogastric tube are also in good position. Pneumonia is present in both lower lobes with superimposed COPD. No acute bony abnormalities. IMPRESSION: Tubes and lines in good position. No change bilateral pneumonia Dictated by: Jamie Shoemaker MD 04/23/2020 06:10 Jamie Shoemaker MD in [place] 04/23/2020 06:10
[2020-04-23 08:02] LABS: Basophils % 0.4 % (0.1-2.0); Eosinophils # 0.4 K/mm3 (0.0-0.4); Eosinophils % 5.7 % (0.1-12.0); Hematocrit 33.2 % (42.0-52.0); Hemoglobin 10.2 g/dL (14.1-18.0); Lymphocytes # 0.5 K/mm3 (0.7-4.5); Lymphocytes % 7.5 % (10-50); Mean Corpuscular HGB Conc 30.8 g/dL (31.8-35.4); Mean Corpuscular Hemoglobin 29.9 pg (27.0-31.2); Mean Corpuscular Volume 96.9 fl (80-94); Mean Platelet Volume 9.9 fl (7.4-10.4); Monocytes # 0.3 K/mm3 (0.1-1.0); Monocytes % 4.8 % (1.7-9.3); Neutrophils # 5.4 K/mm3 (1.8-7.8); Neutrophils % 81.6 % (37.0-80.0); Platelet Count 369 K/mm3 (142-424); Red Blood Count 3.42 M/mm3 (4.60-6.20); Red Cell Distribution Width 14.4 % (11.5-17.5); White Blood Count 6.6 K/mm3 (4.8-10.8)
[2020-04-23 08:11] LABS: Alanine Aminotransferase 41 U/L (12-78); Albumin/Globulin Ratio 0.8 (1.1-1.8); Alkaline Phosphatase 100 U/L (38-126); Anion Gap 10.8 mEq/L (5-15); Aspartate Amino Transferase 33 U/L (17-59); Bilirubin,Total 0.2 mg/dl (0.2-1.3); Blood Urea Nitrogen 31 mg/dl (9-20); Calcium 9.3 mg/dl (8.4-10.2); Carbon Dioxide 27 mmol/L (22.0-30.0); Chloride 107 mmol/L (98-107); Creatinine Clearance Estimated 103 mL/min (50-200); Estimated Glomerular Filt Rate 115 ml/min (>60); GFR (African American) 140 ML/MIN (>60); Globulin 3.8 g/dL (1.3-3.2); Glucose 139 mg/dl (74-100); Potassium 3.8 mmoL/L (3.5-5.1); Sodium 141 mmol/L (136-145); Total Protein,Serum 6.8 g/dl (6.3-8.2)
--- NOTE | 2020-04-23 08:13 | HMH.ACPN2 ---
Internal Medicine - PN: Subj *Date: 04/23/20 *Time: 08:13 Interval history: Patient remains stable, awake, intubated, has been doing well with his spontaneous breathing trials. Reviewed ENT/pulmonary consult notes-appreciate both services input. Exam Vital signs and Labs for Last 24 Hours: Temp Pulse Resp BP Pulse Ox 98.9 F 97 H 28 H 153/82 H 90 L 04/23/20 03:00 04/23/20 06:50 04/23/20 06:10 04/23/20 06:50 04/23/20 06:50 Laboratory Results - last 24 hr 04/22/20 06:48: Specimen Source Right radial, O2 % 50, ABG pH 7.44, ABG pCO2 28.3 L, ABG pO2 123.3 H, ABG HCO3 18.6 L, ABG Total CO2 19.5 L, ABG O2 Saturation 99, ABG Base Excess -5.6 L, Jamie Test N/a, Vent Rate 26, Tidal Volume Cpap, PEEP 8 04/22/20 07:00: WBC 10.2 D, RBC 3.68 L, Hgb 11.1 L, Hct 35.8 L, MCV 97.3 H, MCH 30.2, MCHC 31.0 L, RDW 14.8, Plt Count 398, MPV 10.3, Neut % (Auto) 87.9 H, Lymph % (Auto) 5.1 L, [place] % (Auto) 2.9, Eos % (Auto) 3.6, Baso % (Auto) 0.4, Neut # (Auto) 9.0 H, Lymph # (Auto) 0.5 L, [place] # (Auto) 0.3, Eos # (Auto) 0.4, Baso # (Auto) 0.0, Total Counted 100, Neutrophils % (Manual) 90 H, Band Neutrophils % 1.0, Lymphocytes % (Manual) 4 L, Monocytes % (Manual) 5, Platelet Estimate Normal, RBC Morphology Normal 04/22/20 07:00: Sodium 141, Potassium 3.9, Chloride 109 H, Carbon Dioxide 26, Anion Gap 9.9, BUN 32 H, Creatinine 0.60 L D, Estimated Creat Clear 126, Estimated GFR 138, Est GFR ( Amer) 167 D, Glucose 200 H, Calcium 9.2, Magnesium 2.0, Total Bilirubin 0.4, AST 37, ALT 45, Alkaline Phosphatase 123, Total Protein 7.0, Albumin 3.0 L, Globulin 4.0 H, Albumin/Globulin Ratio 0.8 L 04/23/20 06:15: WBC 6.6 D, RBC 3.42 L, Hgb 10.2 L, Hct 33.2 L, MCV 96.9 H, MCH 29.9, MCHC 30.8 L, RDW 14.4, Plt Count 369, MPV 9.9, Neut % (Auto) 81.6 H, Lymph % (Auto) 7.5 L, [place] % (Auto) 4.8, Eos % (Auto) 5.7, Baso % (Auto) 0.4, Neut # (Auto) 5.4, Lymph # (Auto) 0.5 L, [place] # (Auto) 0.3, Eos # (Auto) 0.4, Baso # (Auto) 0.0 I & O for Last 24 hours: Intake & Output 04/20/20 04/21/20 04/22/20 04/23/20 11:59 11:59 11:59 11:59 Intake Total 3010 / 3010 1851 / 1851 976 / 976 1799 / 1799 Output Total 1625 / 1625 2520 / 2520 1570 / 1570 1170 / 1170 Balance 1385 / 1385 -669 / -669 -594 / -594 629 / 629 Weight 148 lb 12.992 oz 148 lb 6 oz 148 lb 6.008 oz 141 lb 8 oz Microbiology Reports for the Last 24 Hours: Microbiology 04/21/20 04:10 Blood Blood Culture - Preliminary Staphylococcus hominis 04/21/20 03:25 Sputum - Endotracheal Tube Aspirate Gram Stain - Final 04/21/20 03:25 Sputum - Endotracheal Tube Aspirate Sputum Culture - Preliminary 04/21/20 04:10 Urine,Catheterized Urine Culture - Preliminary Narrative: Alert, intubated, responds with head nods to questions. Lungs have good air expansion, abdomen soft, good perfusion. Neurologic exam nonfocal. Oropharynx moist, ET and OG tube in good position. No skin rash. Assessment and Plan (1) Acute respiratory distress syndrome (ARDS) due to 2019 novel coronavirus Status: Acute Category: Medical Code(s): U07.1 - COVID-19; J80 - Acute respiratory distress syndrome (2) Acute hypoxemic respiratory failure due to COVID-19 Status: Acute Category: Medical Code(s): U07.1 - COVID-19; J96.01 - Acute respiratory failure with hypoxia (3) Tobacco use Status: Acute Category: Social Hx Code(s): Z72.0 - Tobacco use (4) Severe sepsis Status: Acute Category: Medical Code(s): A41.9 - Sepsis, unspecified organism; R65.20 - Severe sepsis without septic shock (5) Metabolic acidosis Status: Acute Category: Medical Code(s): E87.2 - Acidosis (6) Acute respiratory acidosis Status: Acute Category: Medical Code(s): E87.2 - Acidosis (7) Acute kidney injury Status: Acute Category: Medical Code(s): N17.9 - Acute kidney failure, unspecified (8) Cardiomyopathy Status: Acute Category: Medical Code(s): I42.9 - Cardiomyopat
[2020-04-23 08:42] LABS: Vancomycin,Trough 8.7 ug/mL (5.0-10.0)
--- NOTE | 2020-04-23 09:39 | HMH.PULMPN ---
Internal Medicine - PN: Subj *Date: 04/23/20 *Time: 13:07 Interval history: # Acute hypoxic respiratory failure needing mechanical ventilation: # COVID-19 pneumonia: #ICU acquired weakness 60-year-old COPD presented with worsening respiratory failure and chest x-ray showed bilateral pulmonary infiltrates. CTA did not show evidence of PE but showed diffuse bilateral pulmonary infiltrates along with trace effusions. Patient respiratory status acutely worsened after admission, escalated from 3 L nasal cannula to mechanical ventilation within 12 hours. Patient during the course also started on heparin drip as concern for NSTEMI Vancomycin and azithromycin DC'd owing to negative cultures and completed 5-day course. Endotracheal aspirate from 04/04/20 grew strep pneumonia, completed Abx course with Zosyn. Endotracheal aspirate was repeated from 04/15 given worsening chest inflammatory Enterococcus faecalis and staph epidermis and patient was initiated on vancomycin on 04/20/2020. Blood cultures from 04/21 grew staph hominis which is methicillin-resistant. Urine from the same day growing yeast, antibiotics managed by the primary team Interval update. Patient ventilator requirements overall remains relatively stable with fluctuations in his PEEP going back and forth from 5-8 along with his FiO2. Patient continued to receive vancomycin for his possible he faecalis pneumonia. Patient continued to work with PT OT and showing some improvement however given his respiratory muscle weakness patient does not appear to be ready for extubation at this point of time-we will continue to work with the patient towards extubation. ENT following the patient awaiting septicemia clearance for tracheostomy. Chest x-ray from today Persistent lower lobe pneumonia unchanged from prior. ABG this morning showed improved oxygenation. Plan: - Continue lung protective mechanical ventilation, wean as tolerated, patient failed his SBT this morning, became tachypneic and diaphoretic. - Continue vancomycin for total of 7 days for pneumonia, antibiotics managed by the primary team - Sedation and analgesics with a RASS goal of 1-2 and the CPOT goal of less than or equal to 2 (no need for deep sedation). - Continue tube feeding - VAP bundle with aspiration precautions - Chemical DVT and PPI prophylaxis Rest of the medical management as per primary team. Please call pulmonary with any further questions. Total critical care time spent on this patient is 35 minutes managing acute hypoxic respiratory failure needing mechanical ventilation. This time spent include reviewing test results including interpreting chest x-rays, labs and arterial blood gas, optimizing the ventilator settings,formulating plan of care, discussing the plan of care with the team and the nursing staff. Assessment and Plan (1) Acute respiratory distress syndrome (ARDS) due to 2019 novel coronavirus Status: Acute Category: Medical Code(s): U07.1 - COVID-19; J80 - Acute respiratory distress syndrome (2) Acute hypoxemic respiratory failure due to COVID-19 Status: Acute Category: Medical Code(s): U07.1 - COVID-19; J96.01 - Acute respiratory failure with hypoxia (3) Tobacco use Status: Acute Category: Social Hx Code(s): Z72.0 - Tobacco use (4) Severe sepsis Status: Acute Category: Medical Code(s): A41.9 - Sepsis, unspecified organism; R65.20 - Severe sepsis without septic shock (5) Metabolic acidosis Status: Acute Category: Medical Code(s): E87.2 - Acidosis (6) Acute respiratory acidosis Status: Acute Category: Medical Code(s): E87.2 - Acidosis (7) Acute kidney injury Status: Acute Category: Medical Code(s): N17.9 - Acute kidney failure, unspecified (8) Cardiomyopathy Status: Acute Category: Medical Code(s): I42.9 - Cardiomyopathy, unspecified (9) Hyperkalemia Status: Acute Category: Medical Code(s): E87.5 - Hyperkalemia (10) Hypermagnesemia Status: Ac
--- NOTE | 2020-04-23 10:11 | HMH.PHACONS ---
- Pharmacy Consult Date: 04/23/20 Time: 10:11 Referring provider: DR. PERALTA Reason for Consult:: VANCOMYCIN TROUGH LEVEL Allergies and ADEs:: Allergies Allergy/AdvReac Type Severity Reaction Status Date / Time esomeprazole [From NEXIUM] Allergy Intermediate I-ITCHING Verified 04/03/20 19:25 methocarbamol [From ROBAXIN] Allergy Intermediate I-ITCHING Verified 04/03/20 19:25 morphine [MORPHINE] Allergy Mild NA-NAUSEA Verified 04/03/20 19:25 Home Medications:: Home Medications Medication Instructions Recorded Confirmed Type No Known Home Medications 04/04/20 04/04/20 History Height: 1.78 m Weight: 64.183 kg Laboratory Results:: Laboratory Results - last 24 hr 04/22/20 06:48: Specimen Source Right radial, O2 % 50, ABG pH 7.44, ABG pCO2 28.3 L, ABG pO2 123.3 H, ABG HCO3 18.6 L, ABG Total CO2 19.5 L, ABG O2 Saturation 99, ABG Base Excess -5.6 L, Jamie Test N/a, Vent Rate 26, Tidal Volume Cpap, PEEP 8 04/22/20 07:00: Total Counted 100, Neutrophils % (Manual) 90 H, Band Neutrophils % 1.0, Lymphocytes % (Manual) 4 L, Monocytes % (Manual) 5, Platelet Estimate Normal, RBC Morphology Normal 04/23/20 06:15: WBC 6.6 D, RBC 3.42 L, Hgb 10.2 L, Hct 33.2 L, MCV 96.9 H, MCH 29.9, MCHC 30.8 L, RDW 14.4, Plt Count 369, MPV 9.9, Neut % (Auto) 81.6 H, Lymph % (Auto) 7.5 L, [place] % (Auto) 4.8, Eos % (Auto) 5.7, Baso % (Auto) 0.4, Neut # (Auto) 5.4, Lymph # (Auto) 0.5 L, [place] # (Auto) 0.3, Eos # (Auto) 0.4, Baso # (Auto) 0.0 04/23/20 06:15: Sodium 141, Potassium 3.8, Chloride 107, Carbon Dioxide 27, Anion Gap 10.8, BUN 31 H, Creatinine 0.70, Estimated Creat Clear 103, Estimated GFR 115, Est GFR ( Amer) 140, Glucose 139 H D, Calcium 9.3, Magnesium 2.0, Total Bilirubin 0.2, AST 33, ALT 41, Alkaline Phosphatase 100, Total Protein 6.8, Albumin 3.0 L, Globulin 3.8 H, Albumin/Globulin Ratio 0.8 L 04/23/20 08:10: Vancomycin Trough 8.7 Medical History: Reports:: Hyperlipidemia Denies:: Internal Pacemaker Assessment and Plan (1) Acute respiratory distress syndrome (ARDS) due to 2019 novel coronavirus Status: Acute Category: Medical Code(s): U07.1 - COVID-19; J80 - Acute respiratory distress syndrome (2) Acute hypoxemic respiratory failure due to COVID-19 Status: Acute Category: Medical Code(s): U07.1 - COVID-19; J96.01 - Acute respiratory failure with hypoxia (3) Tobacco use Status: Acute Category: Social Hx Code(s): Z72.0 - Tobacco use (4) Severe sepsis Status: Acute Category: Medical Code(s): A41.9 - Sepsis, unspecified organism; R65.20 - Severe sepsis without septic shock (5) Metabolic acidosis Status: Acute Category: Medical Code(s): E87.2 - Acidosis (6) Acute respiratory acidosis Status: Acute Category: Medical Code(s): E87.2 - Acidosis (7) Acute kidney injury Status: Acute Category: Medical Code(s): N17.9 - Acute kidney failure, unspecified (8) Cardiomyopathy Status: Acute Category: Medical Code(s): I42.9 - Cardiomyopathy, unspecified (9) Hyperkalemia Status: Acute Category: Medical Code(s): E87.5 - Hyperkalemia (10) Hypermagnesemia Status: Acute Category: Medical Code(s): E83.41 - Hypermagnesemia (11) Acute uremia Status: Acute Category: Medical Code(s): N19 - Unspecified kidney failure (12) Weakness acquired in ICU Status: Acute Category: Medical Code(s): R53.1 - Weakness - Assessment and plan all Dx Assessment and Plan for all problems:: BASED ON PATIENT FACTORS AND VANCOMYCIN TROUGH LEVEL, RECOMMEND CHANGING INTERVAL TO VANCOMYCIN 1500 MG IV Q12H. PHARMACY WILL CONTINUE TO MONITOR DAILY AND ADJUST APPROPRIATE.
[2020-04-23 12:46] LABS: POC Glucose,Bedside 158 (70-110)
[2020-04-23 16:19] LABS: POC Glucose,Bedside 112 (70-110)
[2020-04-23 23:01] LABS: POC Glucose,Bedside 108 (70-110)
[2020-04-24] VITALS (32 sets, daily range): BP systolic 109–139; BP diastolic 62–83; PULSE 78–111; RESP 21–35; TEMP 36.5–37.3; O2SAT 78–99; BMI 20.7
[2020-04-24 05:27] LABS: POC Glucose,Bedside 122 (70-110)
--- NOTE | 2020-04-24 06:00 | XR_ITS ---
PROCEDURE: XR CHEST PORTABLE CLINICAL HISTORY: resp failure Covid19 pneumonia COMPARISON: CT CT ANGIO CHEST from 04/03/2020 CR XR CHEST PORTABLE from 04/21/2020 CR XR CHEST PORTABLE from 04/22/2020 CR XR CHEST PORTABLE from 04/23/2020 FINDINGS: 6 a.m.. The endotracheal tube tip is slightly high at the T3 level 8 cm above the scooby and could be advanced 2-3 cm. Nasogastric tube tip is not visible on the image but is below the GE junction. Left subclavian central venous line tip in good position at the SVC area. COPD with bilateral pneumonia unchanged. No acute bony abnormalities. IMPRESSION: 1. Endotracheal tube nasogastric tube and left subclavian central venous line are in place. ET tube tip slightly high and could be advanced 2-3 cm. 2. No change COPD with bilateral pneumonia Dictated by: Jamie Shoemaker MD 04/24/2020 06:17 Jamie Shoemaker MD in [facility] 04/24/2020 06:17
[2020-04-24 06:17] LABS: Basophils % 0.5 % (0.1-2.0); Eosinophils # 0.7 K/mm3 (0.0-0.4); Eosinophils % 8.3 % (0.1-12.0); Hemoglobin 10.8 g/dL (14.1-18.0); Lymphocytes # 1.1 K/mm3 (0.7-4.5); Lymphocytes % 13.3 % (10-50); Mean Corpuscular HGB Conc 32.8 g/dL (31.8-35.4); Mean Corpuscular Hemoglobin 30.7 pg (27.0-31.2); Mean Corpuscular Volume 93.7 fl (80-94); Mean Platelet Volume 9.8 fl (7.4-10.4); Monocytes # 0.4 K/mm3 (0.1-1.0); Monocytes % 4.5 % (1.7-9.3); Neutrophils % 73.3 % (37.0-80.0); Platelet Count 408 K/mm3 (142-424); Red Blood Count 3.52 M/mm3 (4.60-6.20); Red Cell Distribution Width 14.7 % (11.5-17.5); White Blood Count 8.2 K/mm3 (4.8-10.8)
--- NOTE | 2020-04-24 06:18 | PC.NURSE ---
Pt has been sedated and asleep most of shift. Propofol @ 20, Fentanyl @ 30, pt relaxed, vent not alarming. Sedation was turned off at 0430 and pt eyes are open, pt answering yes and no questions appropriately but not moving extremities. Pt HR has increased since sedation has been off, from mid 80s to 110s. Pt more restless and agitated, coughing over ett. Lungs have coarse crackles throughout, Vent settings of FiO2 60%, TV 480, PEEP 5, RR 20. Pt switched to PS at 0630. Sats have been in mid 90s throughout shift. No edema, pt draining clear yellow urine via guido. TF have been tolerated well at 45 ml/hr. Pt turned q2h, dressing over coccyx changed x2, large BM x1. Pt bathed, linens changed. Oral care q2h and prn. VSS, no concerns at this time.
[2020-04-24 06:50] LABS: Anion Gap 10.7 mEq/L (5-15); Blood Urea Nitrogen 32 mg/dl (9-20); Calcium 9.1 mg/dl (8.4-10.2); Carbon Dioxide 28 mmol/L (22.0-30.0); Chloride 107 mmol/L (98-107); Creatinine Clearance Estimated 106 mL/min (50-200); Estimated Glomerular Filt Rate 115 ml/min (>60); GFR (African American) 140 ML/MIN (>60); Glucose 126 mg/dl (74-100); Potassium 3.7 mmoL/L (3.5-5.1); Sodium 142 mmol/L (136-145)
--- NOTE | 2020-04-24 08:51 | HMH.ACPN2 ---
Internal Medicine - PN: Subj *Date: 04/24/20 *Time: 08:51 Interval history: Patient is unchanged overnight, remains intubated in the intensive care unit, mild sedation. Is responsive and nods yes or no to questions, is extremely weak. Exam Vital signs and Labs for Last 24 Hours: Temp Pulse Resp BP Pulse Ox 99.1 F 100 H 30 H 133/78 93 L 04/24/20 08:00 04/24/20 08:00 04/24/20 08:00 04/24/20 08:00 04/24/20 08:00 Laboratory Results - last 24 hr 04/23/20 12:38: POC Glucose 158 H 04/23/20 16:05: POC Glucose 112 H 04/23/20 20:48: POC Glucose 108 04/24/20 05:00: WBC 8.2, RBC 3.52 L, Hgb 10.8 L, Hct 33.0 L, MCV 93.7, MCH 30.7, MCHC 32.8, RDW 14.7, Plt Count 408, MPV 9.8, Neut % (Auto) 73.3, Lymph % (Auto) 13.3, [place] % (Auto) 4.5, Eos % (Auto) 8.3, Baso % (Auto) 0.5, Neut # (Auto) 6.0, Lymph # (Auto) 1.1, [place] # (Auto) 0.4, Eos # (Auto) 0.7 H, Baso # (Auto) 0.0 04/24/20 05:00: Sodium 142, Potassium 3.7, Chloride 107, Carbon Dioxide 28, Anion Gap 10.7, BUN 32 H, Creatinine 0.70, Estimated Creat Clear 106, Estimated GFR 115, Est GFR ( Amer) 140, Glucose 126 H, Calcium 9.1 04/24/20 05:18: POC Glucose 122 H I & O for Last 24 hours: Intake & Output 04/21/20 04/22/20 04/23/20 04/24/20 11:59 11:59 11:59 11:59 Intake Total 1851 / 1851 976 / 976 1799 / 1799 1145 / 1145 Output Total 2520 / 2520 1570 / 1570 1270 / 1270 2155 / 2155 Balance -669 / -669 -594 / -594 529 / 529 -1010 / -1010 Weight 148 lb 6 oz 148 lb 6.008 oz 141 lb 8 oz 144 lb 14.395 oz Microbiology Reports for the Last 24 Hours: Microbiology 04/21/20 03:25 Sputum - Endotracheal Tube Aspirate Gram Stain - Final 04/21/20 03:25 Sputum - Endotracheal Tube Aspirate Sputum Culture - Preliminary 04/21/20 04:10 Urine,Catheterized Urine Culture - Final Yeast 04/21/20 04:10 Blood Blood Culture - Preliminary Staphylococcus hominis Narrative: Alert, responsive as noted above. Lungs have ventilatory sounds but good expansion. He is able to pull extra tidal volume when requested, continues to be very weak however. Heart rate regular. Abdomen soft, good distal perfusion. ET tube and OG tube in place. Assessment and Plan (1) Acute respiratory distress syndrome (ARDS) due to 2019 novel coronavirus Status: Acute Category: Medical Code(s): U07.1 - COVID-19; J80 - Acute respiratory distress syndrome (2) Acute hypoxemic respiratory failure due to COVID-19 Status: Acute Category: Medical Code(s): U07.1 - COVID-19; J96.01 - Acute respiratory failure with hypoxia (3) Tobacco use Status: Acute Category: Social Hx Code(s): Z72.0 - Tobacco use (4) Severe sepsis Status: Acute Category: Medical Code(s): A41.9 - Sepsis, unspecified organism; R65.20 - Severe sepsis without septic shock (5) Metabolic acidosis Status: Acute Category: Medical Code(s): E87.2 - Acidosis (6) Acute respiratory acidosis Status: Acute Category: Medical Code(s): E87.2 - Acidosis (7) Acute kidney injury Status: Acute Category: Medical Code(s): N17.9 - Acute kidney failure, unspecified (8) Cardiomyopathy Status: Acute Category: Medical Code(s): I42.9 - Cardiomyopathy, unspecified (9) Hyperkalemia Status: Acute Category: Medical Code(s): E87.5 - Hyperkalemia (10) Hypermagnesemia Status: Acute Category: Medical Code(s): E83.41 - Hypermagnesemia (11) Acute uremia Status: Acute Category: Medical Code(s): N19 - Unspecified kidney failure (12) Weakness acquired in ICU Status: Acute Category: Medical Code(s): R53.1 - Weakness - Assessment and plan all Dx Assessment and Plan for all problems:: Pain is extremely stable. 1. Has responded well to antibiotics for positive endotracheal culture with probable bronchitis, patient does not appear to have ventilatory associated pneumonia given lack of worsening infiltrate. Fever curve
--- NOTE | 2020-04-24 08:55 | HMH.PULMPN ---
Internal Medicine - PN: Subj *Date: 04/24/20 *Time: 11:27 Interval history: No acute respiratory event overnight. Exam - Constitutional Constitutional:: Present: no acute distress, comfortable - HENMT Exam HENMT: Present: normocephalic, atraumatic - Respiratory Exam Comments: Patient appeared to be in mild respiratory distress. - Cardiovascular Exam Cardiac:: Present: S1, S2 - Skin Exam Skin: Present: no rash - Neurological Exam Neurological: Present: alert, awake - Extremities Exam Extremities: Present: no cyanosis, no clubbing, no edema Assessment and Plan (1) Acute respiratory distress syndrome (ARDS) due to 2019 novel coronavirus Status: Acute Category: Medical Code(s): U07.1 - COVID-19; J80 - Acute respiratory distress syndrome (2) Acute hypoxemic respiratory failure due to COVID-19 Status: Acute Category: Medical Code(s): U07.1 - COVID-19; J96.01 - Acute respiratory failure with hypoxia (3) Tobacco use Status: Acute Category: Social Hx Code(s): Z72.0 - Tobacco use (4) Severe sepsis Status: Acute Category: Medical Code(s): A41.9 - Sepsis, unspecified organism; R65.20 - Severe sepsis without septic shock (5) Metabolic acidosis Status: Acute Category: Medical Code(s): E87.2 - Acidosis (6) Acute respiratory acidosis Status: Acute Category: Medical Code(s): E87.2 - Acidosis (7) Acute kidney injury Status: Acute Category: Medical Code(s): N17.9 - Acute kidney failure, unspecified (8) Cardiomyopathy Status: Acute Category: Medical Code(s): I42.9 - Cardiomyopathy, unspecified (9) Hyperkalemia Status: Acute Category: Medical Code(s): E87.5 - Hyperkalemia (10) Hypermagnesemia Status: Acute Category: Medical Code(s): E83.41 - Hypermagnesemia (11) Acute uremia Status: Acute Category: Medical Code(s): N19 - Unspecified kidney failure (12) Weakness acquired in ICU Status: Acute Category: Medical Code(s): R53.1 - Weakness - Assessment and plan all Dx Assessment and Plan for all problems:: # Acute hypoxic respiratory failure needing mechanical ventilation: # COVID-19 pneumonia: #ICU acquired weakness 60-year-old COPD presented with worsening respiratory failure and chest x-ray showed bilateral pulmonary infiltrates. CTA did not show evidence of PE but showed diffuse bilateral pulmonary infiltrates along with trace effusions. Patient respiratory status acutely worsened after admission, escalated from 3 L nasal cannula to mechanical ventilation within 12 hours. Patient during the course also started on heparin drip as concern for NSTEMI Vancomycin and azithromycin DC'd owing to negative cultures and completed 5-day course. Endotracheal aspirate from 04/04/20 grew strep pneumonia, completed Abx course with Zosyn. Endotracheal aspirate was repeated from 04/15 given worsening chest inflammatory Enterococcus faecalis and staph epidermis and patient was initiated on again vancomycin on 04/20/2020. Patient blood cultures from 125 also growing staph hominis which is methicillin-resistant. Interval Update: Patient respiratory status remained stable. Chest x-ray viewed, relatively unchanged from yesterday, will advance ET tube by 2 cm. ABG continued to show respiratory alkalosis. Working with PT OT daily, strength improving. We will closely monitor. Plan: - Continue lung protective mechanical ventilation, wean as tolerated,-weight is improving muscle strength and respiratory status, will attempt to extubate the patient after diuresis today. Patient respiratory status is still guarded we will closely monitor post extubation. Continue to work on PT OT. ENT was called for tracheostomy, will closely monitor his post extubation status and to determine the need for tracheostomy - Continue vancomycin for total at least 7 days for Pneumonia - Consider repeating blood cultures - Continue tube feeding - VAP bundle with aspiration precaution
--- NOTE | 2020-04-24 09:22 | P.PN_ITS ---
Internal Medicine - PN: Subj *Date: 04/24/20 *Time: 09:22 Exam Vital signs and Labs for Last 24 Hours: Temp Pulse Resp BP Pulse Ox 99.0 F 94 H 29 H 130/76 94 L 04/24/20 08:52 04/24/20 08:52 04/24/20 08:52 04/24/20 08:52 04/24/20 08:52 Laboratory Results - last 24 hr 04/23/20 12:38: POC Glucose 158 H 04/23/20 16:05: POC Glucose 112 H 04/23/20 20:48: POC Glucose 108 04/24/20 05:00: WBC 8.2, RBC 3.52 L, Hgb 10.8 L, Hct 33.0 L, MCV 93.7, MCH 30.7, MCHC 32.8, RDW 14.7, Plt Count 408, MPV 9.8, Neut % (Auto) 73.3, Lymph % (Auto) 13.3, [place] % (Auto) 4.5, Eos % (Auto) 8.3, Baso % (Auto) 0.5, Neut # (Auto) 6.0, Lymph # (Auto) 1.1, [place] # (Auto) 0.4, Eos # (Auto) 0.7 H, Baso # (Auto) 0.0 04/24/20 05:00: Sodium 142, Potassium 3.7, Chloride 107, Carbon Dioxide 28, Anion Gap 10.7, BUN 32 H, Creatinine 0.70, Estimated Creat Clear 106, Estimated GFR 115, Est GFR ( Amer) 140, Glucose 126 H, Calcium 9.1 04/24/20 05:18: POC Glucose 122 H I & O for Last 24 hours: Intake & Output 04/21/20 04/22/20 04/23/20 04/24/20 23:59 23:59 23:59 23:59 Intake Total 1629 / 1674 2338 / 2346 717 / 717 480 / 480 Output Total 1919 / 1994 1685 / 1720 1894 / 1990 740 / 740 Balance -291 / -321 653 / 626 -1178 / -1273 -260 / -260 Weight 67.302 kg 67.302 kg 64.183 kg 65.725 kg Microbiology Reports for the Last 24 Hours: Microbiology 04/21/20 03:25 Sputum - Endotracheal Tube Aspirate Gram Stain - Final 04/21/20 03:25 Sputum - Endotracheal Tube Aspirate Sputum Culture - Preliminary 04/21/20 04:10 Urine,Catheterized Urine Culture - Final Yeast 04/21/20 04:10 Blood Blood Culture - Preliminary Staphylococcus hominis Assessment and Plan (1) Acute respiratory distress syndrome (ARDS) due to 2019 novel coronavirus Status: Acute Category: Medical Code(s): U07.1 - COVID-19; J80 - Acute respiratory distress syndrome (2) Acute hypoxemic respiratory failure due to COVID-19 Status: Acute Category: Medical Code(s): U07.1 - COVID-19; J96.01 - Acute respiratory failure with hypoxia (3) Tobacco use Status: Acute Category: Social Hx Code(s): Z72.0 - Tobacco use (4) Severe sepsis Status: Acute Category: Medical Code(s): A41.9 - Sepsis, unspecified organism; R65.20 - Severe sepsis without septic shock (5) Metabolic acidosis Status: Acute Category: Medical Code(s): E87.2 - Acidosis (6) Acute respiratory acidosis Status: Acute Category: Medical Code(s): E87.2 - Acidosis (7) Acute kidney injury Status: Acute Category: Medical Code(s): N17.9 - Acute kidney failure, unspecified (8) Cardiomyopathy Status: Acute Category: Medical Code(s): I42.9 - Cardiomyopathy, unspecified (9) Hyperkalemia Status: Acute Category: Medical Code(s): E87.5 - Hyperkalemia (10) Hypermagnesemia Status: Acute Category: Medical Code(s): E83.41 - Hypermagnesemia (11) Acute uremia Status: Acute Category: Medical Code(s): N19 - Unspecified kidney failure (12) Weakness acquired in ICU Status: Acute Category: Medical Code(s): R53.1 - Weakness The patient's infection will respond to the chosen ABx?: Yes Is the patient receiving the right drug, dose, and route?: Yes Could a more targeted ABx be ordered?: No (WBC WNL, TMAX 99.1 F OVERNIGHT. CONTINUE CURRENT.)
--- NOTE | 2020-04-24 09:56 | SW/DCPLANNER ---
Addendum entered by Yesika Denney 05/06/20 14:02: PATIENT WAS ACCEPTED TO GO TODAY AND HAS LEFT THE BUILDING VIA AMBULANCE AND WILL BE SKILLED UNDER HIS INSURANCE BENEFIT... Addendum entered by Yesika Denney 05/05/20 07:53: SENT UPDATES THIS MORNING TO SEE IF PATIENT CAN DISCHARGE TO [facility] TODAY TO BEGIN HIS INTENSIVE REHAB... WAITING ON A CALL BACK ... Addendum entered by Yesika Denney 05/02/20 13:09: RECEIVED A CALL FROM [facility] THIS MORNING AFTER FAXING UPDATES AND THE DON STATED THEY WILL NOT TAKE HIM RIGHT NOW BECAUSE THEY DON'T THINK HE IS MEDICALLY STABLE TO GO... I HAVE NOTIFIED MD.. Addendum entered by Yesika Denney 04/30/20 15:07: CALLED THIS PATIENTS BROTHER AND SISTER IN LAW TO INFORM THEM PATIENT WOULD BE DISCHARGING TO [facility] IF HE HAS NO SETBACKS AND ASKED IF THEY COULD MEET DOWN THERE TO DO THE PAPERWORK.. THEY WERE IN AGREEMENT OF THE PLAN... Addendum entered by Yesika Denney 04/30/20 08:25: COLLABORATED WITH DR IZQUIERDO THIS MORNING AND HE STATED PATIENT CAN GO [facility] PENDING NO SETBACKS, I DID CONTACT JUJU WITH [facility] AND SHE HAS REQUESTED UPDATES.. I HAVE SENT THEM AND ASKED FOR HER TO LET ME KNOW IF SHE NEEDS ANYTHING ELSE AND TO GIVE ME AN OK FOR HIM TO COME [facility].... Addendum entered by Yesika Denney 04/30/20 06:29: PATIENT HAS A SKILLED BED IN [facility] IN [facility] [place] ONCE MEDICALLY READY TO MAKE A MOVE.. HE RECEIVED G-TUBE PLACEMENT YESTERDAY AND WILL NEED TO BE ABLE TO TOLERATE FEEDINGS BEFORE HE CAN BE READY TO MOVE.. IF ALL GOES WELL HE MAY BE READY THE END OF THE WEEK.. WILL NOTIFY HIS BROTHER AND SISTER IN LAW WE SEE IF HE CAN GO... Addendum entered by Yesika Denney 04/28/20 11:18: PATIENT HAS BEEN EXTUBATED AND IS CURRENTLY ON VAPOTHERM HOPEFUL TO WEAN TO A NASAL CANNULA IN THE NEXT DAY OR TWO AND THEN HE WILL BE READY FOR A SKILLED REHAB FACILITY...I HAVE SENT IT TO [facility] TO SEE IF THEY CAN ACCEPT THIS PATIENT SINCE HE IS FROM [facility]... WILL THEN CALL FAMILY TO INFORM THEM.. PATIENT IS HARD TO UNDERSTAND AND TOO WEAK TO WRITE AT THIS TIME.. Addendum entered by Yesika Denney 04/25/20 10:10: RECEIVED A CALL THIS MORNING FROM [facility] [place] AND THEY ARE INTERESTED IN THIS PATIENT BUT HE HAS TO MEET THE REQUIREMENTS TO GO....PATIENT HAS TO BE TRACHED FOR 48 HRS AND FEVER FREE FOR 72 HRS WITH A TEMP LESS THAN 100.4.... WE ARE GOING TO ATTEMPT TO WEAN TODAY AND IF NOT SUCCESSFUL I WILL REACH OUT TO [facility] AND SEE IF THEY HAVE A BED FOR HIM... CURRENTLY CHECKING TO SEE IF HE HAS AN INSURANCE THAT IS IN NETWORK WITH [facility].. Addendum entered by Yesika Denney 04/24/20 15:31: PATIENT IS GOING TO HAVE TO BE TRACHED AND PEG TUBE PLACEMENT BEFORE HE CAN GO ANYWHERE... I HAVE SHARED THIS WITH DR IZQUIERDO. Addendum entered by Yesiak Denney 04/24/20 14:53: HAVE SENT THIS REFERRAL TO [facility] IN [place], [place], [place] AND [facility].. HAVE NOT FOUND ONE TO ACCEPT HIM YET... I DO HAVE SOME THAT ARE REVIEWING THE INFORMATION AND IF ACCEPTED PATIENT MAY BE ABLE TO GO [facility]... WAITING TO HEAR BACK... Addendum entered by Yesika Denney 04/24/20 10:17: MADE CONTACT WITH [facility] IN [facility] AND SPOKE WITH AZIZA.. SENT REFERRAL TO SEE IF HE IS A CANDIDATE TO GO THERE.. WAITING FOR A RETURN CALL... Original Note: MADE CONTACT WITH [facility] [place] TO SEE IF THIS PATIENT IS A CANDIDATE FOR THEIR UNIT... THIS PATIENT IS MEDICALLY COMPLEX AND COULD BENEFIT A HIGHER LEVEL OF CARE.. IF NOT A CANDIDATE I WILL REACH OUT TO ONE OF OUR [facility]. WAITING ON A RETURN CALL...
[2020-04-24 11:51] LABS: POC Glucose,Bedside 131 (70-110)
--- NOTE | 2020-04-24 15:37 | PC.NURSE ---
No acute changes noted this shift patient has tolerated SBT well this shift, is off sedation at this time, is awake and can follow simple commands, nods yes or no to answer questions appropriately, Sedation to be turned back on at 1600, vent settings AC, FiO2 60%, TV 480, PEEP 5, Rate 20. 7.5 ETT 26@ lip, OG tube in place at 55, Pulmocare infusing at goal rate, no residual noted, given 255 flush q4h, Dsg changed on L SC TLDL, patient has been turned q2h and provided oral care and suctioning q2h, vital signs have remained stable this shift, will continue to monitor.
[2020-04-24 16:13] LABS: POC Glucose,Bedside 116 (70-110)
--- NOTE | 2020-04-24 17:48 | PC.NURSE ---
1600- Propofol restarted at 20mcg and Fentanyl restarted at 30mcg at this time
[2020-04-25] VITALS (31 sets, daily range): BP systolic 114–147; BP diastolic 67–86; PULSE 70–109; RESP 18–33; TEMP 36.8–37.2; O2SAT 91–98; BMI 20.7
--- NOTE | 2020-04-25 05:00 | XR_ITS ---
PROCEDURE: XR CHEST PORTABLE CLINICAL HISTORY: ETT, OG, Central line placement Follow-up Covid19 pneumonia COMPARISON: CT CT ANGIO CHEST from 04/03/2020 CR XR CHEST PORTABLE from 04/22/2020 CR XR CHEST PORTABLE from 04/23/2020 CR XR CHEST PORTABLE from 04/24/2020 FINDINGS: 5:29 a.m. Endotracheal tube nasogastric tube and left subclavian central venous line remain in good position. No change bilateral lower lobe pneumonia. IMPRESSION: Tubes and lines in good position with no change in the bilateral lower lobe pneumonia Dictated by: Jamie Shoemaker MD 04/25/2020 06:36 Jamie Shoemaker MD in [facility] 04/25/2020 06:36
--- NOTE | 2020-04-25 05:00 | PC.NURSE ---
No acute changes overnight. PT is still intubated and sedated. Propofol @ 20 and Fentanyl @ 30mcg. Lung sounds have coarse crackles and diminished overall. 7.5 ETT 26 @ lip. Vent settings are currently FiO2 @ 50%, TV 480, PEEP 5, RR 20. Sats have been in the low to mid 90s. Pt has thick, tenacious secretions. Oral care performed q2h and prn. Sedation was turned off @ 0400, RASS currently @ 0, CPOT <3. Pt is very awake and is able to answer yes/no questions appropriately and had slight weak bilateral hand neurology teacher and foot pushes. OG @ 55, Pulmocare @ 45. No residual noted. Pt turned q2h, bathed and linens changed. VSS, no concerns at this time.
[2020-04-25 05:22] LABS: POC Glucose,Bedside 106 (70-110)
--- NOTE | 2020-04-25 06:22 | PC.WOUNDNOTE ---
Wound Location: left heel Length: 4cm Width: 2cm Depth: Undermining Y/N: Tunneling cm: Granulation %: Slough/necrotic tissue %: Inflammation/swelling Y/N: N Pain and/or tenderness Y/N: N Color: Red
--- NOTE | 2020-04-25 07:29 | HMH.ACPN2 ---
Internal Medicine - PN: Subj *Date: 04/25/20 *Time: 13:04 Interval history: Continues to be stable overnight. Afebrile. Tolerating spontaneous breathing trial this morning. Patient trying to communicate. Showing some frustration because of difficulty with communication given intubation. Attempted to right, does not have the strength to hold a pen. Otherwise at this time, meeting criteria for potential extubation today. Will defer decision to pulmonology. Tolerating tube feeds at goal, adequate urine output. Reviewed labs, improved at this time on antibiotics Exam Vital signs and Labs for Last 24 Hours: Temp Pulse Resp BP Pulse Ox 98.9 F 94 H 25 H 139/81 93 L 04/25/20 00:00 04/25/20 06:36 04/25/20 06:36 04/25/20 06:36 04/25/20 06:36 Laboratory Results - last 24 hr 04/24/20 11:02: POC Glucose 131 H 04/24/20 16:02: POC Glucose 116 H 04/24/20 20:30: POC Glucose 106 I & O for Last 24 hours: Intake & Output 04/22/20 04/23/20 04/24/20 04/25/20 23:59 23:59 23:59 23:59 Intake Total 2338 / 2346 717 / 717 1232.75 / 1232.75 327 / 327 Output Total 1685 / 1720 1895 / 1990 2235 / 2280 435 / 435 Balance 653 / 626 -1178 / -1273 -1002.25 / -1047.25 -108 / -108 Weight 67.302 kg 64.183 kg 65.725 kg 65.589 kg Microbiology Reports for the Last 24 Hours: Microbiology 04/21/20 03:25 Sputum - Endotracheal Tube Aspirate Gram Stain - Final 04/21/20 03:25 Sputum - Endotracheal Tube Aspirate Sputum Culture - Preliminary Narrative: - Constitutional minimal distress, awake and alert, weak but following verbal commands. Oriented to person. Aware he is in a hospital. Trying to speak to care team - *Routine HEENT Exam Head: Present: normocephalic Eye: Present: EOMI, PERRL ENT: Present: mucous membranes moist Comments: Poor dentition; ET tube, 26 cm at lip, lip breakdown with scabbing - *Routine Neck Exam Present: supple. Absent: lymphadenopathy - *Routine Respiratory Exam Present: patient mechanically ventilated, breathing independently, some belly breathing appreciated. Interval improvement in bilateral lung sounds. - *Routine Cardiovascular Exam Present: Regular rate and rhythm, no appreciable murmurs - *Routine Abdominal Exam Present: soft, normoactive bowel sounds. Absent: tenderness - *Routine Extremities Exam Absent: cyanosis, clubbing, trace edema in upper extremities, trace in lower extremities - *Routine Skin Exam Present: warm. stage 2 decub on coccyx, unstageable early discoloration on left heel - *Routine Neurological Exam No focal deficit, very weak Assessment and Plan (1) Acute respiratory distress syndrome (ARDS) due to 2019 novel coronavirus Status: Acute Category: Medical Code(s): U07.1 - COVID-19; J80 - Acute respiratory distress syndrome (2) Acute hypoxemic respiratory failure due to COVID-19 Status: Acute Category: Medical Code(s): U07.1 - COVID-19; J96.01 - Acute respiratory failure with hypoxia (3) Tobacco use Status: Acute Category: Social Hx Code(s): Z72.0 - Tobacco use (4) Severe sepsis Status: Acute Category: Medical Code(s): A41.9 - Sepsis, unspecified organism; R65.20 - Severe sepsis without septic shock (5) Metabolic acidosis Status: Acute Category: Medical Code(s): E87.2 - Acidosis (6) Acute respiratory acidosis Status: Acute Category: Medical Code(s): E87.2 - Acidosis (7) Acute kidney injury Status: Acute Category: Medical Code(s): N17.9 - Acute kidney failure, unspecified (8) Cardiomyopathy Status: Acute Category: Medical Code(s): I42.9 - Cardiomyopathy, unspecified (9) Hyperkalemia Status: Acute Category: Medical Code(s): E87.5 - Hyperkalemia (10) Hypermagnesemia Status: Acute Category: Medical Code(s): E83.41 - Hypermagnesemia (11) Acute uremia Status: Acute Category: Medical Code(s): N19 - Unspecified kidney failure (12) Weakness acquired in ICU Status:
[2020-04-25 07:43] LABS: ABG Base Excess 3.6 mmol/L (-2.4-2.3); ABG HCO3 26.6 mmhg (22.0-26.0); ABG Oxygen Saturation 96 % (90-100); ABG PCO2 34.1 mmhg (35.0-45.0); ABG PH 7.51 mmol/L (7.35-7.45); ABG PO2 72.6 mmhg (80-100); ABG TCO2 27.6 mmhg (23-27)
[2020-04-25 07:44] LABS: Allen's Test ACCEPTABLE; Oxygen 50 %; PEEP 5; Pressure Support 8
[2020-04-25 07:45] LABS: Source Right Radial
--- NOTE | 2020-04-25 08:32 | HMH.PULMPN ---
Internal Medicine - PN: Subj *Date: 04/25/20 *Time: 08:32 Assessment and Plan (1) Acute respiratory distress syndrome (ARDS) due to 2019 novel coronavirus Status: Acute Category: Medical Code(s): U07.1 - COVID-19; J80 - Acute respiratory distress syndrome (2) Acute hypoxemic respiratory failure due to COVID-19 Status: Acute Category: Medical Code(s): U07.1 - COVID-19; J96.01 - Acute respiratory failure with hypoxia (3) Tobacco use Status: Acute Category: Social Hx Code(s): Z72.0 - Tobacco use (4) Severe sepsis Status: Acute Category: Medical Code(s): A41.9 - Sepsis, unspecified organism; R65.20 - Severe sepsis without septic shock (5) Metabolic acidosis Status: Acute Category: Medical Code(s): E87.2 - Acidosis (6) Acute respiratory acidosis Status: Acute Category: Medical Code(s): E87.2 - Acidosis (7) Acute kidney injury Status: Acute Category: Medical Code(s): N17.9 - Acute kidney failure, unspecified (8) Cardiomyopathy Status: Acute Category: Medical Code(s): I42.9 - Cardiomyopathy, unspecified (9) Hyperkalemia Status: Acute Category: Medical Code(s): E87.5 - Hyperkalemia (10) Hypermagnesemia Status: Acute Category: Medical Code(s): E83.41 - Hypermagnesemia (11) Acute uremia Status: Acute Category: Medical Code(s): N19 - Unspecified kidney failure (12) Weakness acquired in ICU Status: Acute Category: Medical Code(s): R53.1 - Weakness - Assessment and plan all Dx Assessment and Plan for all problems:: # Acute hypoxic respiratory failure needing mechanical ventilation: # COVID-19 pneumonia: #ICU acquired weakness 60-year-old COPD presented with worsening respiratory failure and chest x-ray showed bilateral pulmonary infiltrates. CTA did not show evidence of PE but showed diffuse bilateral pulmonary infiltrates along with trace effusions. Patient respiratory status acutely worsened after admission, escalated from 3 L nasal cannula to mechanical ventilation within 12 hours. Patient during the course also started on heparin drip as concern for NSTEMI Vancomycin and azithromycin DC'd owing to negative cultures and completed 5-day course. Endotracheal aspirate from 04/04/20 grew strep pneumonia, completed Abx course with Zosyn. Endotracheal aspirate was repeated from 04/15 given worsening chest xray amd PAL grew Enterococcus faecalis and staph epidermis and patient was initiated on again vancomycin on 04/20/2020. Patient blood cultures from 04/21 also growing staph hominis which is methicillin-resistant. Interval Update: Chest x-ray reviewed, relatively unchanged from yesterday. Stable pulmonary infiltrates. My dynamically stable. Afebrile. Plan: - Continue lung protective mechanical ventilation, wean as tolerated,-weight is improving muscle strength and respiratory status, will attempt to extubate the patient after diuresis today. Patient respiratory status is still guarded we will closely monitor post extubation. Continue to work on PT OT. ENT was called for tracheostomy, will closely monitor his post extubation status and to determine the need for tracheostomy - Continue vancomycin for total at least 7 days for Pneumonia - Consider repeating blood cultures - Continue tube feeding - VAP bundle with aspiration precautions - Chemical DVT and PPI prophylaxis Rest of the medical management as per primary team. Please call pulmonary with any further questions. Total critical care time spent on this patient is 35 minutes managing acute hypoxic respiratory failure needing mechanical ventilation. This time spent include reviewing test results including interpreting chest x-rays, labs and arterial blood gas, optimizing the ventilator settings,formulating plan of care, discussing the plan of care with the team and the nursing staff.
[2020-04-25 09:26] LABS: Basophils # 0.1 K/mm3 (0-0.2); Basophils % 0.7 % (0.1-2.0); Eosinophils # 0.5 K/mm3 (0.0-0.4); Eosinophils % 6.5 % (0.1-12.0); Hematocrit 33.1 % (42.0-52.0); Hemoglobin 10.8 g/dL (14.1-18.0); Lymphocytes % 12.2 % (10-50); Mean Corpuscular HGB Conc 32.7 g/dL (31.8-35.4); Mean Corpuscular Volume 91.8 fl (80-94); Mean Platelet Volume 9.1 fl (7.4-10.4); Monocytes # 0.5 K/mm3 (0.1-1.0); Monocytes % 5.6 % (1.7-9.3); Neutrophils # 6.2 K/mm3 (1.8-7.8); Platelet Count 428 K/mm3 (142-424); Red Blood Count 3.61 M/mm3 (4.60-6.20); Red Cell Distribution Width 14.6 % (11.5-17.5); White Blood Count 8.2 K/mm3 (4.8-10.8)
[2020-04-25 09:29] LABS: Anion Gap 11.8 mEq/L (5-15); Blood Urea Nitrogen 36 mg/dl (9-20); Calcium 8.9 mg/dl (8.4-10.2); Carbon Dioxide 29 mmol/L (22.0-30.0); Chloride 103 mmol/L (98-107); Creatinine Clearance Estimated 105 mL/min (50-200); Estimated Glomerular Filt Rate 115 ml/min (>60); GFR (African American) 140 ML/MIN (>60); Glucose 120 mg/dl (74-100); Potassium 3.8 mmoL/L (3.5-5.1); Sodium 140 mmol/L (136-145)
[2020-04-25 09:40] LABS: Vancomycin,Trough 19.7 ug/mL (5.0-10.0)
--- NOTE | 2020-04-25 10:43 | HMH.PHACONS ---
- Pharmacy Consult Date: 04/25/20 Time: 10:43 Referring provider: DR. PERALTA Reason for Consult:: VANCOMYCIN TROUGH LEVEL AND DOSE CHANGE Allergies and ADEs:: Allergies Allergy/AdvReac Type Severity Reaction Status Date / Time esomeprazole [From NEXIUM] Allergy Intermediate I-ITCHING Verified 04/03/20 19:25 methocarbamol [From ROBAXIN] Allergy Intermediate I-ITCHING Verified 04/03/20 19:25 morphine [MORPHINE] Allergy Mild NA-NAUSEA Verified 04/03/20 19:25 Home Medications:: Home Medications Medication Instructions Recorded Confirmed Type No Known Home Medications 04/04/20 04/04/20 History Height: 1.78 m Weight: 65.589 kg Laboratory Results:: Laboratory Results - last 24 hr 04/24/20 11:02: POC Glucose 131 H 04/24/20 16:02: POC Glucose 116 H 04/24/20 20:30: POC Glucose 106 04/25/20 06:42: Specimen Source Right radial, O2 % 50, ABG pH 7.51 H, ABG pCO2 34.1 L, ABG pO2 72.6 L, ABG HCO3 26.6 H, ABG Total CO2 27.6 H, ABG O2 Saturation 96, ABG Base Excess 3.6 H, Jamie Test Acceptable, PEEP 5 04/25/20 08:40: Vancomycin Trough 19.7 H 04/25/20 08:40: WBC 8.2, RBC 3.61 L, Hgb 10.8 L, Hct 33.1 L, MCV 91.8, MCH 30.0, MCHC 32.7, RDW 14.6, Plt Count 428 H, MPV 9.1, Neut % (Auto) 75.0, Lymph % (Auto) 12.2, [place] % (Auto) 5.6, Eos % (Auto) 6.5, Baso % (Auto) 0.7, Neut # (Auto) 6.2, Lymph # (Auto) 1.0, [place] # (Auto) 0.5, Eos # (Auto) 0.5 H, Baso # (Auto) 0.1 04/25/20 08:40: Sodium 140, Potassium 3.8, Chloride 103, Carbon Dioxide 29, Anion Gap 11.8, BUN 36 H, Creatinine 0.70, Estimated Creat Clear 105, Estimated GFR 115, Est GFR ( Amer) 140, Glucose 120 H, Calcium 8.9 Medical History: Reports:: Hyperlipidemia Denies:: Internal Pacemaker Assessment and Plan (1) Acute respiratory distress syndrome (ARDS) due to 2019 novel coronavirus Status: Acute Category: Medical Code(s): U07.1 - COVID-19; J80 - Acute respiratory distress syndrome (2) Acute hypoxemic respiratory failure due to COVID-19 Status: Acute Category: Medical Code(s): U07.1 - COVID-19; J96.01 - Acute respiratory failure with hypoxia (3) Tobacco use Status: Acute Category: Social Hx Code(s): Z72.0 - Tobacco use (4) Severe sepsis Status: Acute Category: Medical Code(s): A41.9 - Sepsis, unspecified organism; R65.20 - Severe sepsis without septic shock (5) Metabolic acidosis Status: Acute Category: Medical Code(s): E87.2 - Acidosis (6) Acute respiratory acidosis Status: Acute Category: Medical Code(s): E87.2 - Acidosis (7) Acute kidney injury Status: Acute Category: Medical Code(s): N17.9 - Acute kidney failure, unspecified (8) Cardiomyopathy Status: Acute Category: Medical Code(s): I42.9 - Cardiomyopathy, unspecified (9) Hyperkalemia Status: Acute Category: Medical Code(s): E87.5 - Hyperkalemia (10) Hypermagnesemia Status: Acute Category: Medical Code(s): E83.41 - Hypermagnesemia (11) Acute uremia Status: Acute Category: Medical Code(s): N19 - Unspecified kidney failure (12) Weakness acquired in ICU Status: Acute Category: Medical Code(s): R53.1 - Weakness - Assessment and plan all Dx Assessment and Plan for all problems:: BASED ON PATIENT FACTORS AND VANCOMYCIN TROUGH LEVEL OF 19.7, RECOMMEND SLIGHTLY DECREASING VANC DOSE TO 1,250MG IV EVERY 12 HOURS. PHARMACY WILL CONTINUE TO MONITOR AND WILL ADJUST DOSE APPROPRIATE. -CHELSEA PRICE PHARMD
--- NOTE | 2020-04-25 11:00 | HMH.PULMPN ---
Internal Medicine - PN: Subj *Date: 04/25/20 *Time: 11:00 Interval history: No acute respiratory events overnight Exam - Constitutional Constitutional:: Present: no acute distress, comfortable - Respiratory Exam Respiratory:: Present: normal breath sounds, crackles - Cardiovascular Exam Cardiac:: Present: S1, S2 - GI Exam GI:: Present: soft, no hepatosplenomegaly - Skin Exam Skin: Present: warm, no rash, dry - Neurological Exam Neurological: Present: alert, awake - Extremities Exam Extremities: Present: no cyanosis, no clubbing, no edema Assessment and Plan (1) Acute respiratory distress syndrome (ARDS) due to 2019 novel coronavirus Status: Acute Category: Medical Code(s): U07.1 - COVID-19; J80 - Acute respiratory distress syndrome (2) Acute hypoxemic respiratory failure due to COVID-19 Status: Acute Category: Medical Code(s): U07.1 - COVID-19; J96.01 - Acute respiratory failure with hypoxia (3) Tobacco use Status: Acute Category: Social Hx Code(s): Z72.0 - Tobacco use (4) Severe sepsis Status: Acute Category: Medical Code(s): A41.9 - Sepsis, unspecified organism; R65.20 - Severe sepsis without septic shock (5) Metabolic acidosis Status: Acute Category: Medical Code(s): E87.2 - Acidosis (6) Acute respiratory acidosis Status: Acute Category: Medical Code(s): E87.2 - Acidosis (7) Acute kidney injury Status: Acute Category: Medical Code(s): N17.9 - Acute kidney failure, unspecified (8) Cardiomyopathy Status: Acute Category: Medical Code(s): I42.9 - Cardiomyopathy, unspecified (9) Hyperkalemia Status: Acute Category: Medical Code(s): E87.5 - Hyperkalemia (10) Hypermagnesemia Status: Acute Category: Medical Code(s): E83.41 - Hypermagnesemia (11) Acute uremia Status: Acute Category: Medical Code(s): N19 - Unspecified kidney failure (12) Weakness acquired in ICU Status: Acute Category: Medical Code(s): R53.1 - Weakness - Assessment and plan all Dx Assessment and Plan for all problems:: # Acute hypoxic respiratory failure needing mechanical ventilation: # COVID-19 pneumonia: #ICU acquired weakness 60-year-old COPD presented with worsening respiratory failure and chest x-ray showed bilateral pulmonary infiltrates. CTA did not show evidence of PE but showed diffuse bilateral pulmonary infiltrates along with trace effusions. Patient respiratory status acutely worsened after admission, escalated from 3 L nasal cannula to mechanical ventilation within 12 hours. Patient during the course also started on heparin drip as concern for NSTEMI Vancomycin and azithromycin DC'd owing to negative cultures and completed 5-day course. Endotracheal aspirate from 04/04/20 grew strep pneumonia, completed Abx course with Zosyn. Endotracheal aspirate was repeated from 04/15 given worsening chest xray amd PAL grew Enterococcus faecalis and staph epidermis and patient was initiated on again vancomycin on 04/20/2020. Patient blood cultures from 04/21 also growing staph hominis which is methicillin-resistant. Interval Update: Chest x-ray reviewed, relatively unchanged from yesterday. Stable pulmonary infiltrates. My dynamically stable. Afebrile. Plan: -Extubate to BiPAP, will closely monitor his respiratory status post extubation. - Continue vancomycin for total at least 7 days for Pneumonia - Consider repeating blood cultures - Continue tube feeding - VAP bundle with aspiration precautions - Chemical DVT and PPI prophylaxis Rest of the medical management as per primary team. Please call pulmonary with any further questions. Total critical care time spent on this patient is 35 minutes managing acute hypoxic respiratory failure needing mechanical ventilation. This time spent include reviewing test results including interpreting chest x-rays, labs and arterial blood gas, optimizing the ventilator settings,formulating plan of care, discussing th
--- NOTE | 2020-04-25 11:43 | PC.NURSE ---
1120- Patient extubated per RT at bedside at this time, placed on bipap @100%, patient tolerating well
[2020-04-25 12:29] LABS: POC Glucose,Bedside 141 (70-110)
[2020-04-25 12:35] LABS: POC Glucose,Bedside 137 (70-110)
[2020-04-25 21:39] LABS: POC Glucose,Bedside 87 (70-110)
--- NOTE | 2020-04-25 23:58 | PC.NURSE ---
Pt is currently resting in bed. Tolerating Bipap. Current settings 16/8 FiO2 100%. O2 sat 99%. Oral care provided. Ointment applied to lips. Bath given. Pt repositioned Q2 hr. Medication administered per may. VSS. Will continue to monitor.
[2020-04-26] VITALS (34 sets, daily range): BP systolic 110–143; BP diastolic 60–95; PULSE 66–91; RESP 18–36; TEMP 35.9–37.1; O2SAT 92–100; BMI 20.2
--- NOTE | 2020-04-26 06:00 | XR_ITS ---
PROCEDURE: XR CHEST PORTABLE Referring Doctor: Renan Dorsey Patient Age:60Y CLINICAL HISTORY: post extubation, reassess pna COMPARISON: CT CT ANGIO CHEST from 04/03/2020 CR XR CHEST PORTABLE from 04/23/2020 CR XR CHEST PORTABLE from 04/24/2020 CR XR CHEST PORTABLE from 04/25/2020 FINDINGS: The patient has been extubated. ET tube removed. NG tube is been removed. Left subclavian central line remains in satisfactory position with tip at SVC.. Bibasilar infiltrates again noted with slight progression since previous study. Also would question some very very subtle minimal wispy infiltrates elsewhere at along peripheral lung [place] bilateral which were likely present before. Left lung-progression of dense infiltrate and consolidation at the left infrahilar region and left lung base retrocardiac region. This is the most pronounced area of infiltrate on today's film infiltrate. Further obscured the left hemidiaphragm with compared to 04/25/2020 CXR . Only slight progression slightly denser patchy airspace disease at right lung base. Suspect there is significant atelectasis likely associated with minimal infiltrate here at the right lung base my suspect involving the RML and possibly RLL. Findings will require close ongoing follow-up IMPRESSION: ET tube and NG tube have been removed. Slight progression of airspace disease at lung bases since April 25, particularly evident at the left lung base retrocardiac region This dense infiltrate/consolidation left lower lobe further obscuring the left hemidiaphragm . Only slight progressive density and atelectasis at right lung base Dictated by: Rex Jackson MD 04/26/2020 09:33 Rex Jackson MD in [facility] 04/26/2020 09:33
[2020-04-26 06:01] LABS: POC Glucose,Bedside 105 (70-110)
[2020-04-26 06:04] LABS: Basophils # 0.1 K/mm3 (0-0.2); Basophils % 0.9 % (0.1-2.0); Eosinophils # 0.2 K/mm3 (0.0-0.4); Eosinophils % 2.3 % (0.1-12.0); Hematocrit 33.7 % (42.0-52.0); Hemoglobin 10.7 g/dL (14.1-18.0); Lymphocytes # 1.1 K/mm3 (0.7-4.5); Lymphocytes % 12.7 % (10-50); Mean Corpuscular HGB Conc 31.7 g/dL (31.8-35.4); Mean Corpuscular Hemoglobin 29.5 pg (27.0-31.2); Mean Corpuscular Volume 93.2 fl (80-94); Mean Platelet Volume 8.4 fl (7.4-10.4); Monocytes # 0.4 K/mm3 (0.1-1.0); Monocytes % 4.7 % (1.7-9.3); Neutrophils # 6.7 K/mm3 (1.8-7.8); Neutrophils % 79.4 % (37.0-80.0); Platelet Count 420 K/mm3 (142-424); Red Blood Count 3.62 M/mm3 (4.60-6.20); Red Cell Distribution Width 14.6 % (11.5-17.5); White Blood Count 8.4 K/mm3 (4.8-10.8)
[2020-04-26 06:16] LABS: Alanine Aminotransferase 44 U/L (12-78); Albumin/Globulin Ratio 0.8 (1.1-1.8); Alkaline Phosphatase 99 U/L (38-126); Anion Gap 10.6 mEq/L (5-15); Aspartate Amino Transferase 37 U/L (17-59); Bilirubin,Total 0.3 mg/dl (0.2-1.3); Blood Urea Nitrogen 36 mg/dl (9-20); Calcium 9.1 mg/dl (8.4-10.2); Carbon Dioxide 30 mmol/L (22.0-30.0); Chloride 104 mmol/L (98-107); Creatinine Clearance Estimated 103 mL/min (50-200); Estimated Glomerular Filt Rate 115 ml/min (>60); GFR (African American) 140 ML/MIN (>60); Globulin 3.8 g/dL (1.3-3.2); Glucose 111 mg/dl (74-100); Magnesium 1.9 mg/dl (1.6-2.3); Potassium 3.6 mmoL/L (3.5-5.1); Sodium 141 mmol/L (136-145); Total Protein,Serum 6.8 g/dl (6.3-8.2)
--- NOTE | 2020-04-26 08:18 | HMH.ACPN2 ---
Internal Medicine - PN: Subj *Date: 04/26/20 *Time: 08:18 Interval history: Patient remained on BiPAP overnight with no complications. Is alert and very weak but talkative and oriented Exam Vital signs and Labs for Last 24 Hours: Temp Pulse Resp BP Pulse Ox 97.5 F L 81 20 127/79 99 04/26/20 08:00 04/26/20 08:00 04/26/20 08:00 04/26/20 08:00 04/26/20 08:00 Laboratory Results - last 24 hr 04/25/20 05:25: POC Glucose 137 H 04/25/20 08:40: Vancomycin Trough 19.7 H 04/25/20 08:40: WBC 8.2, RBC 3.61 L, Hgb 10.8 L, Hct 33.1 L, MCV 91.8, MCH 30.0, MCHC 32.7, RDW 14.6, Plt Count 428 H, MPV 9.1, Neut % (Auto) 75.0, Lymph % (Auto) 12.2, [place] % (Auto) 5.6, Eos % (Auto) 6.5, Baso % (Auto) 0.7, Neut # (Auto) 6.2, Lymph # (Auto) 1.0, [place] # (Auto) 0.5, Eos # (Auto) 0.5 H, Baso # (Auto) 0.1 04/25/20 08:40: Sodium 140, Potassium 3.8, Chloride 103, Carbon Dioxide 29, Anion Gap 11.8, BUN 36 H, Creatinine 0.70, Estimated Creat Clear 105, Estimated GFR 115, Est GFR ( Amer) 140, Glucose 120 H, Calcium 8.9 04/25/20 12:20: POC Glucose 141 H 04/25/20 20:09: POC Glucose 87 04/26/20 05:27: POC Glucose 105 04/26/20 05:50: WBC 8.4, RBC 3.62 L, Hgb 10.7 L, Hct 33.7 L, MCV 93.2, MCH 29.5, MCHC 31.7 L, RDW 14.6, Plt Count 420, MPV 8.4, Neut % (Auto) 79.4, Lymph % (Auto) 12.7, [place] % (Auto) 4.7, Eos % (Auto) 2.3, Baso % (Auto) 0.9, Neut # (Auto) 6.7, Lymph # (Auto) 1.1, [place] # (Auto) 0.4, Eos # (Auto) 0.2, Baso # (Auto) 0.1 04/26/20 05:50: Sodium 141, Potassium 3.6, Chloride 104, Carbon Dioxide 30, Anion Gap 10.6, BUN 36 H, Creatinine 0.70, Estimated Creat Clear 103, Estimated GFR 115, Est GFR ( Amer) 140, Glucose 111 H, Calcium 9.1, Magnesium 1.9, Total Bilirubin 0.3, AST 37, ALT 44, Alkaline Phosphatase 99, Total Protein 6.8, Albumin 3.0 L, Globulin 3.8 H, Albumin/Globulin Ratio 0.8 L I & O for Last 24 hours: Intake & Output 04/23/20 04/24/20 04/25/20 04/26/20 11:59 11:59 11:59 11:59 Intake Total 1799 / 1799 1558 / 1558 836.75 / 836.75 500 / 500 Output Total 1270 / 1270 2380 / 2380 2065 / 2065 1826 / 1826 Balance 529 / 529 -822 / -822 -1228.25 / -1228.25 -1326 / -1326 Weight 141 lb 8 oz 144 lb 14.395 oz 144 lb 9.6 oz 141 lb 6 oz Microbiology Reports for the Last 24 Hours: Microbiology 04/21/20 03:25 Sputum - Endotracheal Tube Aspirate Gram Stain - Final 04/21/20 03:25 Sputum - Endotracheal Tube Aspirate Sputum Culture - Final Normal Respiratory Linsey Narrative: On BiPAP with acceptable saturations. Vital signs otherwise normal. Oropharynx dry but clear. Neurologic exam intact but very weak. Lungs have good air movement, heart rate regular. Abdomen soft. No distal perfusion problems. Assessment and Plan (1) Acute respiratory distress syndrome (ARDS) due to 2019 novel coronavirus Status: Acute Category: Medical Code(s): U07.1 - COVID-19; J80 - Acute respiratory distress syndrome (2) Acute hypoxemic respiratory failure due to COVID-19 Status: Acute Category: Medical Code(s): U07.1 - COVID-19; J96.01 - Acute respiratory failure with hypoxia (3) Tobacco use Status: Acute Category: Social Hx Code(s): Z72.0 - Tobacco use (4) Severe sepsis Status: Acute Category: Medical Code(s): A41.9 - Sepsis, unspecified organism; R65.20 - Severe sepsis without septic shock (5) Metabolic acidosis Status: Acute Category: Medical Code(s): E87.2 - Acidosis (6) Acute respiratory acidosis Status: Acute Category: Medical Code(s): E87.2 - Acidosis (7) Acute kidney injury Status: Acute Category: Medical Code(s): N17.9 - Acute kidney failure, unspecified (8) Cardiomyopathy Status: Acute Category: Medical Code(s): I42.9 - Cardiomyopathy, unspecified (9) Hyperkalemia Status: Acute Category: Medical Code(s): E87.5 - Hyperkalemia (10) Hypermagnesemia Status: Acute Category: Medical Code(s): E83.41 - Hypermagnesemia (1
--- NOTE | 2020-04-26 12:03 | HMH.SLDYSPHA ---
Speech & Language Evaluation Speech/Language Dysphagia Evaluation Start: 04/26/20 11:28 Freq: ONCE Status: Active Protocol: Document 04/26/20 11:28 CMASander (Rec: 04/26/20 12:03 CMAY [id number]) Dysphagia Assess/Goals/Plan Assessment Date of Evaluation: 04/26/20 Evaluation Type Initial Certification Assessment/Problems Postextubation Dysphagia Does Patient Qualify for Service No Qualify/Failure Comment Patient does not qualify for ST services at this time based on the results of today's evaluation. ST will monitor patient and attempt to upgrade diet throughout the remainder of patient's stay. Recommendations PHYSICIAN CERTIFICATION: The specified therapy services are required, authorized, and reviewed every 30 days. Diet Recommendations NPO SL Swallow Guidelines High aspiration risk Comment Patient can have swab dipped in water with excess water squeezed out to help with dry mouth symptoms. Plan Pt/Guardian verbally ack understanding Yes: Reinforcement may be of dx/prognosis/goals needed G -code Required No Education Instructions provided Education provided to NSG ( Yesi) about NPO diet recommendation and allowing patient to have swab dipped in water with excess water squeezed out to help with dry mouth symptoms. Education also provided to patient about remaining NPO and sitting upright for 30 minutes after liquid trials were given during evaluation. Patient voiced understanding, however, he appeared confused at times based on some things he said. Pt/Caregiver able to recall information Reinforcement needed Reinforcement needed Yes Speech & Language HPI Language Primary Language Cymro General Information General Current Food Consistancy NPO Dentition Poor Dentition Oxygen Status Vapotherm Patient Orientation Person Ability to Follow Directions Good Dysphagia:Food Presentation Evaluation Food Type Liquid Normal/Thin Liquid Response Coughing after swallow,Wet voice [place] Consistency Liquid Response C
--- NOTE | 2020-04-26 18:53 | PC.NURSE ---
patient has had an okay day. requiring total care from staff. keeps saying he wants to go home and is going home and wanting to smoke. educated on his plan of care and why he continues to need care. one bm this shift. no complaints. slight cough. cream to lips. vitals stable. has tolerated vapotherm well
[2020-04-27] VITALS (27 sets, daily range): BP systolic 115–136; BP diastolic 67–91; PULSE 57–99; RESP 16–30; TEMP 36–36.7; O2SAT 90–100; BMI 18.8
--- NOTE | 2020-04-27 01:44 | PC.NURSE ---
Pt desat early in shift to 82%. Was noted to be on left lateral side. Had head down with copious amount of sputum noted. Pt was suctioned and placed on Bipap per RT at 100% fiO2. Pt recovered quickly. He is currently on Vapotherm 40L 50%. Has been agitated at times stating that he wants to leave or wants a cigarette. Has not slept well tonight. Has had 2 loose incontinent stools. F/C draining to bedside. Bedbath given per staff. Pt turned q2Hr. Oral care provided. Pt continues to have areas to lips. Gums bleed during oral care due to prior poor dental hygiene. Medication administered per may. VSS at this time. Will continue to monitor.
[2020-04-27 06:35] LABS: Basophils # 0.1 K/mm3 (0-0.2); Basophils % 0.9 % (0.1-2.0); Eosinophils # 0.2 K/mm3 (0.0-0.4); Hematocrit 33.4 % (42.0-52.0); Hemoglobin 10.7 g/dL (14.1-18.0); Lymphocytes # 1.1 K/mm3 (0.7-4.5); Mean Corpuscular HGB Conc 32.1 g/dL (31.8-35.4); Mean Corpuscular Volume 93.5 fl (80-94); Monocytes # 0.5 K/mm3 (0.1-1.0); Monocytes % 4.9 % (1.7-9.3); Neutrophils % 82.2 % (37.0-80.0); Platelet Count 435 K/mm3 (142-424); Red Blood Count 3.58 M/mm3 (4.60-6.20); Red Cell Distribution Width 14.7 % (11.5-17.5); White Blood Count 10.9 K/mm3 (4.8-10.8)
[2020-04-27 06:57] LABS: Chloride 108 mmol/L (98-107); Sodium 144 mmol/L (136-145)
[2020-04-27 06:58] LABS: Potassium 3.3 mmoL/L (3.5-5.1)
[2020-04-27 07:00] LABS: Blood Urea Nitrogen 38 mg/dl (9-20); Creatinine Clearance Estimated 96 mL/min (50-200); Estimated Glomerular Filt Rate 115 ml/min (>60); GFR (African American) 140 ML/MIN (>60)
[2020-04-27 07:01] LABS: Anion Gap 11.3 mEq/L (5-15); Calcium 9.4 mg/dl (8.4-10.2); Carbon Dioxide 28 mmol/L (22.0-30.0); Glucose 103 mg/dl (74-100)
--- NOTE | 2020-04-27 08:41 | HMH.ACPN2 ---
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 Much more alert, talkative, has discussed with the nurses that he wishes to start smoking and to be discharged home. Discussed his case with speech therapy yesterday personally, unfortunately he did not do well with swallowing. Exam Vital signs and Labs for Last 24 Hours: Temp Pulse Resp BP Pulse Ox 97.6 F 74 20 123/80 100 04/27/20 08:00 04/27/20 08:00 04/27/20 08:00 04/27/20 08:00 04/27/20 08:00 Laboratory Results - last 24 hr 04/27/20 05:30: WBC 10.9 H D, RBC 3.58 L, Hgb 10.7 L, Hct 33.4 L, MCV 93.5, MCH 30.0, MCHC 32.1, RDW 14.7, Plt Count 435 H, MPV 9.0, Neut % (Auto) 82.2 H, Lymph % (Auto) 10.0, [place] % (Auto) 4.9, Eos % (Auto) 2.0, Baso % (Auto) 0.9, Neut # (Auto) 9.0 H, Lymph # (Auto) 1.1, [place] # (Auto) 0.5, Eos # (Auto) 0.2, Baso # (Auto) 0.1 04/27/20 05:30: Sodium 144, Potassium 3.3 L, Chloride 108 H, Carbon Dioxide 28, Anion Gap 11.3, BUN 38 H, Creatinine 0.70, Estimated Creat Clear 96, Estimated GFR 115, Est GFR ( Amer) 140, Glucose 103 H, Calcium 9.4 I & O for Last 24 hours: Intake & Output 04/24/20 04/25/20 04/26/20 04/27/20 11:59 11:59 11:59 11:59 Intake Total 1558 / 1558 836.75 / 836.75 500 / 500 560 / 560 Output Total 2380 / 2380 2064 / 2062075 / 2075 1036 / 1036 Balance -822 / -822 -1228.25 / -1228.25 -1576 / -1576 -476 / -476 Weight 144 lb 14.395 oz 144 lb 9.6 oz 141 lb 6 oz 132 lb 1.6 oz Narrative: Extremely weak, unable to lift his head up off of the pillow, is able to move his arms laterally, power grades out at 3/5 in the arms, 2/5 in the legs. No perfusion deficits. Lungs have rhonchorous sounds but good air movement, heart rate regular. Abdomen is soft. Oropharynx moist but clear. ENT exam otherwise clear. Assessment and Plan (1) Acute respiratory distress syndrome (ARDS) due to 2019 novel coronavirus Status: Acute Category: Medical Code(s): U07.1 - COVID-19; J80 - Acute respiratory distress syndrome (2) Acute hypoxemic respiratory failure due to COVID-19 Status: Acute Category: Medical Code(s): U07.1 - COVID-19; J96.01 - Acute respiratory failure with hypoxia (3) Tobacco use Status: Acute Category: Social Hx Code(s): Z72.0 - Tobacco use (4) Severe sepsis Status: Acute Category: Medical Code(s): A41.9 - Sepsis, unspecified organism; R65.20 - Severe sepsis without septic shock (5) Metabolic acidosis Status: Acute Category: Medical Code(s): E87.2 - Acidosis (6) Acute respiratory acidosis Status: Acute Category: Medical Code(s): E87.2 - Acidosis (7) Acute kidney injury Status: Acute Category: Medical Code(s): N17.9 - Acute kidney failure, unspecified (8) Cardiomyopathy Status: Acute Category: Medical Code(s): I42.9 - Cardiomyopathy, unspecified (9) Hyperkalemia Status: Acute Category: Medical Code(s): E87.5 - Hyperkalemia (10) Hypermagnesemia Status: Acute Category: Medical Code(s): E83.41 - Hypermagnesemia (11) Acute uremia Status: Acute Category: Medical Code(s): N19 - Unspecified kidney failure (12) Weakness acquired in ICU Status: Acute Category: Medical Code(s): R53.1 - Weakness - Assessment and plan all Dx Assessment and Plan for all problems:: Overall patient continues to improve, albeit slowly. I discussed with him his absolute need for ongoing rehabilitation given his 4 weeks of no movement. PT/OT/speech therapy will continue to work with him-I reviewed these notes personally. Personally reviewed labs and medication list. Beginning tomorrow we will begin the search for an appropriate rehab facility for him. Please note 30 minutes critical care time
--- NOTE | 2020-04-27 09:59 | PC.NURSE ---
Pt placed on Vapotherm 40L/80%. O2 sat 94% on Vapotherm. His cough is weak but is able to cough and swallow. Follows commands by sticking out tongue and nodding head yes or no.
[2020-04-27 11:36] LABS: Vancomycin,Trough 18.1 ug/mL (5.0-10.0)
--- NOTE | 2020-04-27 13:44 | HMH.PHACONS ---
- Pharmacy Consult Date: 04/27/20 Time: 13:44 Referring provider: DR. PERALTA Reason for Consult:: VANCOMYCIN TROUGH LEVEL Allergies and ADEs:: Allergies Allergy/AdvReac Type Severity Reaction Status Date / Time esomeprazole [From NEXIUM] Allergy Intermediate I-ITCHING Verified 04/03/20 19:25 methocarbamol [From ROBAXIN] Allergy Intermediate I-ITCHING Verified 04/03/20 19:25 morphine [MORPHINE] Allergy Mild NA-NAUSEA Verified 04/03/20 19:25 Home Medications:: Home Medications Medication Instructions Recorded Confirmed Type No Known Home Medications 04/04/20 04/04/20 History Height: 1.78 m Weight: 59.92 kg Laboratory Results:: Laboratory Results - last 24 hr 04/27/20 05:30: WBC 10.9 H D, RBC 3.58 L, Hgb 10.7 L, Hct 33.4 L, MCV 93.5, MCH 30.0, MCHC 32.1, RDW 14.7, Plt Count 435 H, MPV 9.0, Neut % (Auto) 82.2 H, Lymph % (Auto) 10.0, [place] % (Auto) 4.9, Eos % (Auto) 2.0, Baso % (Auto) 0.9, Neut # (Auto) 9.0 H, Lymph # (Auto) 1.1, [place] # (Auto) 0.5, Eos # (Auto) 0.2, Baso # (Auto) 0.1 04/27/20 05:30: Sodium 144, Potassium 3.3 L, Chloride 108 H, Carbon Dioxide 28, Anion Gap 11.3, BUN 38 H, Creatinine 0.70, Estimated Creat Clear 96, Estimated GFR 115, Est GFR ( Amer) 140, Glucose 103 H, Calcium 9.4 04/27/20 10:30: Vancomycin Trough 18.1 H Medical History: Reports:: Hyperlipidemia Denies:: Internal Pacemaker Assessment and Plan (1) Acute respiratory distress syndrome (ARDS) due to 2019 novel coronavirus Status: Acute Category: Medical Code(s): U07.1 - COVID-19; J80 - Acute respiratory distress syndrome (2) Acute hypoxemic respiratory failure due to COVID-19 Status: Acute Category: Medical Code(s): U07.1 - COVID-19; J96.01 - Acute respiratory failure with hypoxia (3) Tobacco use Status: Acute Category: Social Hx Code(s): Z72.0 - Tobacco use (4) Severe sepsis Status: Acute Category: Medical Code(s): A41.9 - Sepsis, unspecified organism; R65.20 - Severe sepsis without septic shock (5) Metabolic acidosis Status: Acute Category: Medical Code(s): E87.2 - Acidosis (6) Acute respiratory acidosis Status: Acute Category: Medical Code(s): E87.2 - Acidosis (7) Acute kidney injury Status: Acute Category: Medical Code(s): N17.9 - Acute kidney failure, unspecified (8) Cardiomyopathy Status: Acute Category: Medical Code(s): I42.9 - Cardiomyopathy, unspecified (9) Hyperkalemia Status: Acute Category: Medical Code(s): E87.5 - Hyperkalemia (10) Hypermagnesemia Status: Acute Category: Medical Code(s): E83.41 - Hypermagnesemia (11) Acute uremia Status: Acute Category: Medical Code(s): N19 - Unspecified kidney failure (12) Weakness acquired in ICU Status: Acute Category: Medical Code(s): R53.1 - Weakness - Assessment and plan all Dx Assessment and Plan for all problems:: BASED ON PATIENT FACTORS AND VANCOMYCIN TROUGH LEVEL, RECOMMEND CONTINUING VANCOMYCIN 1250 MG IV Q12H. PHARMACY WILL CONTINUE TO MONITOR DAILY AND ADJUST APPROPRIATE.
--- NOTE | 2020-04-27 16:21 | PC.NURSE ---
spoke with who was okay letting patient be medsurg instead of ICU, also okay to reswab patient for covid.
--- NOTE | 2020-04-27 18:36 | PC.NURSE ---
DONE WELL THIS SHIFT ON VAPOTHERM. HAS HAD NO COMPLAINTS. MOOD HAS BEEN DOWN, NOT HAPPY ABOUT NOT EATING OR DRINKING. WANTS TO GO DOWN TO THE [facility] AND SMOKE HE SAYS. WANTING TO GO HOME. LUNGS NOTED HAVE SOME RONCHIN THROUGH OUT. HAS BEEN SLEEPING WELL. REMAINS ON CONTINUOS PULSE OX WITH NO ISSUES. NOTIFIED MD PATIENT FSBS HAS BEEN GOING DOWN AND INSTRUCTED TO HANG D5NS AT 100ML/HR. ORDER FAXED TO PHARMACY. VITALS REMAIN STABLE. NSR ON MONITOR.
--- NOTE | 2020-04-27 20:05 | PC.NURSE ---
PO meds held due to pt NPO status.
--- NOTE | 2020-04-27 22:24 | PC.NURSE ---
Pt refusing BiPAP at this time
[2020-04-28] VITALS (13 sets, daily range): BP systolic 117–144; BP diastolic 69–83; PULSE 60–75; RESP 16–35; TEMP 36.3–36.9; O2SAT 90–97; BMI 18.8
--- NOTE | 2020-04-28 02:10 | PC.NURSE ---
Pt is currently sleeping. He has asked for something to drink and wants to leave. Education on NPO status provided to pt. He is currently on Vapotherm 30 L @ 60% with an O2 sat of 97%. Rhonchi noted t/o lung dickinson. VSS. Oral care provided and ointment applied to lips. Medication administered per may. F/C draining to bedside. Will continue to monitor.
[2020-04-28 06:23] LABS: Basophils # 0.1 K/mm3 (0-0.2); Basophils % 0.8 % (0.1-2.0); Eosinophils # 0.2 K/mm3 (0.0-0.4); Eosinophils % 1.9 % (0.1-12.0); Hematocrit 33.5 % (42.0-52.0); Hemoglobin 10.8 g/dL (14.1-18.0); Lymphocytes # 1.5 K/mm3 (0.7-4.5); Lymphocytes % 11.3 % (10-50); Mean Corpuscular HGB Conc 32.2 g/dL (31.8-35.4); Mean Corpuscular Hemoglobin 30.4 pg (27.0-31.2); Mean Corpuscular Volume 94.4 fl (80-94); Mean Platelet Volume 8.5 fl (7.4-10.4); Monocytes # 0.5 K/mm3 (0.1-1.0); Monocytes % 3.7 % (1.7-9.3); Neutrophils # 10.6 K/mm3 (1.8-7.8); Neutrophils % 82.2 % (37.0-80.0); Platelet Count 427 K/mm3 (142-424); Red Blood Count 3.54 M/mm3 (4.60-6.20); Red Cell Distribution Width 14.7 % (11.5-17.5); White Blood Count 12.9 K/mm3 (4.8-10.8)
[2020-04-28 06:48] LABS: Anion Gap 8.1 mEq/L (5-15); Blood Urea Nitrogen 32 mg/dl (9-20); Calcium 8.8 mg/dl (8.4-10.2); Carbon Dioxide 26 mmol/L (22.0-30.0); Chloride 115 mmol/L (98-107); Creatinine Clearance Estimated 112 mL/min (50-200); Estimated Glomerular Filt Rate 138 ml/min (>60); GFR (African American) 167 ML/MIN (>60); Glucose 153 mg/dl (74-100); Potassium 3.1 mmoL/L (3.5-5.1); Sodium 146 mmol/L (136-145)
--- NOTE | 2020-04-28 08:10 | HMH.ACPN2 ---
Internal Medicine - PN: Subj *Date: 04/28/20 *Time: 08:10 Interval history: Patient has done well with Vapotherm overnight, is awake and alert, much more talkative. Had a long discussion about nutrition options. Exam Vital signs and Labs for Last 24 Hours: Temp Pulse Resp BP Pulse Ox 97.9 F 75 17 117/69 96 04/28/20 04:00 04/28/20 06:31 04/28/20 04:00 04/28/20 04:00 04/28/20 06:31 Laboratory Results - last 24 hr 04/27/20 10:30: Vancomycin Trough 18.1 H 04/28/20 05:40: WBC 12.9 H, RBC 3.54 L, Hgb 10.8 L, Hct 33.5 L, MCV 94.4 H, MCH 30.4, MCHC 32.2, RDW 14.7, Plt Count 427 H, MPV 8.5, Neut % (Auto) 82.2 H, Lymph % (Auto) 11.3, [place] % (Auto) 3.7, Eos % (Auto) 1.9, Baso % (Auto) 0.8, Neut # (Auto) 10.6 H, Lymph # (Auto) 1.5, [place] # (Auto) 0.5, Eos # (Auto) 0.2, Baso # (Auto) 0.1 04/28/20 05:40: Sodium 146 H, Potassium 3.1 L, Chloride 115 H, Carbon Dioxide 26, Anion Gap 8.1, BUN 32 H, Creatinine 0.60 L, Estimated Creat Clear 112, Estimated GFR 138, Est GFR ( Amer) 167, Glucose 153 H, Calcium 8.8 I & O for Last 24 hours: Intake & Output 04/25/20 04/26/20 04/27/20 04/28/20 11:59 11:59 11:59 11:59 Intake Total 836.75 / 836.75 500 / 500 560 / 560 817 / 817 Output Total 2064 / 2064 2075 / 2075 1181 / 1256 975 / 975 Balance -1228.25 / -1228.25 -1576 / -1576 -621 / -696 -158 / -158 Weight 144 lb 9.6 oz 141 lb 6 oz 132 lb 1.6 oz 132 lb 1.616 oz Microbiology Reports for the Last 24 Hours: Microbiology 04/27/20 16:15 Nasopharyngeal Coronavirus COVID-19 PCR - Final Narrative: Alert, oriented x2, still little fuzzy about the date. Lungs have lots of rhonchi, when he takes a deep breath he has a good cough that clears out some of the lung dickinson. Heart rate regular. Abdomen soft, good perfusion. Neurologic exam notable for global but symmetric severe weakness. Oropharynx slightly dry but clear. Assessment and Plan (1) Acute respiratory distress syndrome (ARDS) due to 2019 novel coronavirus Status: Acute Category: Medical Code(s): U07.1 - COVID-19; J80 - Acute respiratory distress syndrome (2) Acute hypoxemic respiratory failure due to COVID-19 Status: Acute Category: Medical Code(s): U07.1 - COVID-19; J96.01 - Acute respiratory failure with hypoxia (3) Tobacco use Status: Acute Category: Social Hx Code(s): Z72.0 - Tobacco use (4) Severe sepsis Status: Acute Category: Medical Code(s): A41.9 - Sepsis, unspecified organism; R65.20 - Severe sepsis without septic shock (5) Metabolic acidosis Status: Acute Category: Medical Code(s): E87.2 - Acidosis (6) Acute respiratory acidosis Status: Acute Category: Medical Code(s): E87.2 - Acidosis (7) Acute kidney injury Status: Acute Category: Medical Code(s): N17.9 - Acute kidney failure, unspecified (8) Cardiomyopathy Status: Acute Category: Medical Code(s): I42.9 - Cardiomyopathy, unspecified (9) Hyperkalemia Status: Acute Category: Medical Code(s): E87.5 - Hyperkalemia (10) Hypermagnesemia Status: Acute Category: Medical Code(s): E83.41 - Hypermagnesemia (11) Acute uremia Status: Acute Category: Medical Code(s): N19 - Unspecified kidney failure (12) Weakness acquired in ICU Status: Acute Category: Medical Code(s): R53.1 - Weakness - Assessment and plan all Dx Assessment and Plan for all problems:: Overall very nice improvement from respiratory status. Still requiring high flow Vapotherm. Weaning per pulmonary service. Nutritional issues are a problem, patient would benefit from G-tube placement. He is agreeable to this, surgery consult initiated, I would like pulmonary's opinion about timing and his ability to tolerate the procedure. Cardiac issues stable. Has been transferred out of ICU. PT will continue. Will need skilled care placement for PT/OT/G-tube issues once G-tube placed and oxygenation improves.
--- NOTE | 2020-04-28 08:34 | HMH.PULMPN ---
Internal Medicine - PN: Subj *Date: 04/28/20 *Time: 13:00 Interval history: No acute respiratory events overnight. Tolerating extubation well with HFNC and BiPAP Exam - Constitutional Constitutional:: Present: no acute distress, comfortable - HENMT Exam HENMT: Present: normocephalic, atraumatic - Eye Exam Eyes:: Present: normal appearance both eyes and related structures - Neck Exam Neck:: Present: normal visual inspection, thyroid normal - Respiratory Exam Respiratory:: Present: able to speak in complete sentences, crackles - Cardiovascular Exam Cardiac:: Present: S1, S2 - GI Exam GI:: Present: soft, no hepatosplenomegaly - Skin Exam Skin: Present: warm - Neurological Exam Neurological: Present: alert, awake, normal cognition - Extremities Exam Extremities: Present: no cyanosis, no clubbing, no edema Assessment and Plan (1) Acute respiratory distress syndrome (ARDS) due to 2019 novel coronavirus Status: Acute Category: Medical Code(s): U07.1 - COVID-19; J80 - Acute respiratory distress syndrome (2) Acute hypoxemic respiratory failure due to COVID-19 Status: Acute Category: Medical Code(s): U07.1 - COVID-19; J96.01 - Acute respiratory failure with hypoxia (3) Tobacco use Status: Acute Category: Social Hx Code(s): Z72.0 - Tobacco use (4) Severe sepsis Status: Acute Category: Medical Code(s): A41.9 - Sepsis, unspecified organism; R65.20 - Severe sepsis without septic shock (5) Metabolic acidosis Status: Acute Category: Medical Code(s): E87.2 - Acidosis (6) Acute respiratory acidosis Status: Acute Category: Medical Code(s): E87.2 - Acidosis (7) Acute kidney injury Status: Acute Category: Medical Code(s): N17.9 - Acute kidney failure, unspecified (8) Cardiomyopathy Status: Acute Category: Medical Code(s): I42.9 - Cardiomyopathy, unspecified (9) Hyperkalemia Status: Acute Category: Medical Code(s): E87.5 - Hyperkalemia (10) Hypermagnesemia Status: Acute Category: Medical Code(s): E83.41 - Hypermagnesemia (11) Acute uremia Status: Acute Category: Medical Code(s): N19 - Unspecified kidney failure (12) Weakness acquired in ICU Status: Acute Category: Medical Code(s): R53.1 - Weakness - Assessment and plan all Dx Assessment and Plan for all problems:: # Acute hypoxic respiratory failure needing mechanical ventilation: # COVID-19 pneumonia: #ICU acquired weakness 60-year-old COPD presented with worsening respiratory failure and chest x-ray showed bilateral pulmonary infiltrates. CTA did not show evidence of PE but showed diffuse bilateral pulmonary infiltrates along with trace effusions. Patient respiratory status acutely worsened after admission, escalated from 3 L nasal cannula to mechanical ventilation within 12 hours. Patient during the course also started on heparin drip as concern for NSTEMI Vancomycin and azithromycin DC'd owing to negative cultures and completed 5-day course. Endotracheal aspirate from 04/04/20 grew strep pneumonia, completed Abx course with Zosyn. Endotracheal aspirate was repeated from 04/15 given worsening chest xray amd PAL grew Enterococcus faecalis and staph epidermis and patient was initiated on again vancomycin on 04/20/2020. Patient blood cultures from 04/21 also growing staph hominis which is methicillin-resistant. Extubated on 04/25/2020, tolerating well, continue to work with PT/OT. Receiving Vancomycin for Staph.hominis bactremia. CXR from 04/26 - relatively unchanged with persistent stable RLL infiltrate. Worsening leukocytosis on today's labs. Hypernatremia and hypokalemia noted on labs. Plan: - Continue resp support with HFNC/BiPAP as needed - wean as tolerated - Continued to receive vancomycin for bactremia (dexamethasone discontinued today) - Continue PT OT - Consider repeating blood cultures - Chemical DVT and PPI prophylaxis Rest of the medical management as per primary team. Pl
--- NOTE | 2020-04-28 11:30 | P.PN_ITS ---
Internal Medicine - PN: Subj *Date: 04/28/20 *Time: 11:30 Exam Vital signs and Labs for Last 24 Hours: Temp Pulse Resp BP Pulse Ox 97.4 F L 67 16 144/80 H 97 04/28/20 08:00 04/28/20 10:33 04/28/20 08:00 04/28/20 08:00 04/28/20 08:00 Laboratory Results - last 24 hr 04/27/20 10:30: Vancomycin Trough 18.1 H 04/28/20 05:40: WBC 12.9 H, RBC 3.54 L, Hgb 10.8 L, Hct 33.5 L, MCV 94.4 H, MCH 30.4, MCHC 32.2, RDW 14.7, Plt Count 427 H, MPV 8.5, Neut % (Auto) 82.2 H, Lymph % (Auto) 11.3, [place] % (Auto) 3.7, Eos % (Auto) 1.9, Baso % (Auto) 0.8, Neut # (Auto) 10.6 H, Lymph # (Auto) 1.5, [place] # (Auto) 0.5, Eos # (Auto) 0.2, Baso # (Auto) 0.1 04/28/20 05:40: Sodium 146 H, Potassium 3.1 L, Chloride 115 H, Carbon Dioxide 26, Anion Gap 8.1, BUN 32 H, Creatinine 0.60 L, Estimated Creat Clear 112, Estimated GFR 138, Est GFR ( Amer) 167, Glucose 153 H, Calcium 8.8 I & O for Last 24 hours: Intake & Output 04/25/20 04/26/20 04/27/20 04/28/20 23:59 23:59 23:59 23:59 Intake Total 747 / 997 560 / 560 250 / 1067 817 / 817 Output Total 2295 / 2318 1282 / 1282 950 / 950 450 / 450 Balance -1548 / -1321 -722 / -722 -700 / 117 367 / 367 Weight 65.589 kg 64.127 kg 59.92 kg 59.92 kg Microbiology Reports for the Last 24 Hours: Microbiology 04/27/20 16:15 Nasopharyngeal Coronavirus COVID-19 PCR - Final Assessment and Plan (1) Acute respiratory distress syndrome (ARDS) due to 2019 novel coronavirus Status: Acute Category: Medical Code(s): U07.1 - COVID-19; J80 - Acute resp iratory distress syndrome (2) Acute hypoxemic respiratory failure due to COVID-19 Status: Acute Category: Medical Code(s): U07.1 - COVID-19; J96.01 - Acute respiratory failure with hypoxia (3) Tobacco use Status: Acute Category: Social Hx Code(s): Z72.0 - Tobacco use (4) Severe sepsis Status: Acute Category: Medical Code(s): A41.9 - Sepsis, unspecified organism; R65.20 - Severe sepsis without septic shock (5) Metabolic acidosis Status: Acute Category: Medical Code(s): E87.2 - Acidosis (6) Acute respiratory acidosis Status: Acute Category: Medical Code(s): E87.2 - Acidosis (7) Acute kidney injury Status: Acute Category: Medical Code(s): N17.9 - Acute kidney failure, unspecified (8) Cardiomyopathy Status: Acute Category: Medical Code(s): I42.9 - Cardiomyopathy, unspecified (9) Hyperkalemia Status: Acute Category: Medical Code(s): E87.5 - Hyperkalemia (10) Hypermagnesemia Status: Acute Category: Medical Code(s): E83.41 - Hypermagnesemia (11) Acute uremia Status: Acute Category: Medical Code(s): N19 - Unspecified kidney failure (12) Weakness acquired in ICU Status: Acute Category: Medical Code(s): R53.1 - Weakness The patient's infection will respond to the chosen ABx?: Yes Is the patient receiving the right drug, dose, and route?: Yes Could a more targeted ABx be ordered?: No
--- NOTE | 2020-04-28 12:34 | PC.NURSE ---
DR. HDZ CALLED REGARDING CONSULT. INFORMED HIM THAT HE WAS CONSULTED FOR GTUBE PLACEMENT. STATED HE WOULD BE UP TO SEE PATIENT TODAY.
--- NOTE | 2020-04-28 13:49 | HMH.GSCON ---
*Admission Date: 04/05/20 *Reason for consult:: PEG tube placement *History of present illness: Patient is a 60-year-old male hospitalized for Covid pneumonia who was extubated on 04/24/2020 after prolonged intubation and mechanical ventilation for several weeks. He underwent speech therapy swallowing evaluation on 04/25/2020. He was deemed high aspiration risk and recommendations for n.p.o. status were recommended. Due to his failure of swallowing evaluation surgery was consulted for possible PEG tube placement. Review of Systems - Review of Systems Review of systems:: unable to obtain - *Neurologic Denies seizure-like activity [facility] History I have reviewed the patient's past medical history: Yes Medical History: Reports:: Hyperlipidemia Denies:: Internal Pacemaker *Have you ever received a pneumonia vaccine?: No *Have you received a flu vaccine this season?: No Other Surgeries: Yes: No Previous Surgery. No: Pacemaker - *Social History Last grade of school completed: 11th or 12th Smoking Status: Current every day smoker Tobacco Type: cigarettes # Packs/Day (cigarettes): 1 Alcohol Intake: never Alcohol Intake Frequency:: holidays/special occasions only *Occupational Status:: disabled *Travel in the last 8 weeks: None Family Hx:: No significant family history Meds Home Medications Medication Instructions Recorded Confirmed Type No Known Home Medications 04/04/20 04/04/20 History Allergies Allergy/AdvReac Type Severity Reaction Status Date / Time esomeprazole [From NEXIUM] Allergy Intermediate I-ITCHING Verified 04/03/20 19:25 methocarbamol [From ROBAXIN] Allergy Intermediate I-ITCHING Verified 04/03/20 19:25 morphine [MORPHINE] Allergy Mild NA-NAUSEA Verified 04/03/20 19:25 Exam Vital signs and Labs for Last 24 Hours: Temp Pulse Resp BP Pulse Ox 97.7 F 70 35 H 128/83 93 L 04/28/20 12:00 04/28/20 13:39 04/28/20 13:39 04/28/20 12:00 04/28/20 13:39 Laboratory Results - last 24 hr 04/28/20 05:40: WBC 12.9 H, RBC 3.54 L, Hgb 10.8 L, Hct 33.5 L, MCV 94.4 H, MCH 30.4, MCHC 32.2, RDW 14.7, Plt Count 427 H, MPV 8.5, Neut % (Auto) 82.2 H, Lymph % (Auto) 11.3, [place] % (Auto) 3.7, Eos % (Auto) 1.9, Baso % (Auto) 0.8, Neut # (Auto) 10.6 H, Lymph # (Auto) 1.5, [place] # (Auto) 0.5, Eos # (Auto) 0.2, Baso # (Auto) 0.1 04/28/20 05:40: Sodium 146 H, Potassium 3.1 L, Chloride 115 H, Carbon Dioxide 26, Anion Gap 8.1, BUN 32 H, Creatinine 0.60 L, Estimated Creat Clear 112, Estimated GFR 138, Est GFR ( Amer) 167, Glucose 153 H, Calcium 8.8 I & O for Last 24 hours: Intake & Output 04/26/20 04/27/20 04/28/20 04/29/20 11:59 11:59 11:59 11:59 Intake Total 500 / 500 560 / 560 817 / 817 0 / 0 Output Total 2076 / 2076 1181 / 1256 975 / 975 Balance -1576 / -1576 -621 / -696 -158 / -158 0 / 0 Weight 141 lb 6 oz 132 lb 1.6 oz 132 lb 1.616 oz Microbiology Reports for the Last 24 Hours: Microbiology 04/27/20 16:15 Nasopharyngeal Coronavirus COVID-19 PCR - Final Narrative: Limited examination reveals abdomen soft and nontender with no masses or surgical scars. Results - Labs 04/28/20 05:40 04/28/20 05:40 Laboratory Results - last 24 hr 04/28/20 05:40: WBC 12.9 H, RBC 3.54 L, Hgb 10.8 L, Hct 33.5 L, MCV 94.4 H, MCH 30.4, MCHC 32.2, RDW 14.7, Plt Count 427 H, MPV 8.5, Neut % (Auto) 82.2 H, Lymph % (Auto) 11.3, [place] % (Auto) 3.7, Eos % (Auto) 1.9, Baso % (Auto) 0.8, Neut # (Auto) 10.6 H, Lymph # (Auto) 1.5, [place] # (Auto) 0.5, Eos # (Auto) 0.2, Baso # (Auto) 0.1 04/28/20 05:40: Sodium 146 H, Potassium 3.1 L, Chloride 115 H, Carbon Dioxide 26, Anion Gap 8.1, BUN 32 H, Creatinine 0.60 L, Estimated Creat Clear 112, Estimated GFR 138, Est GFR ( Amer) 167, Glucose 153 H, Calcium 8.8 Assessment and Plan (1) Acute respiratory distress syndrome (ARDS) due to 2019 novel coronavirus Status: Acute Category: Medical Code(s): U07.1 - COVID-19; J80 - Acute respiratory distress syndrome (
--- NOTE | 2020-04-28 14:05 | FL_ITS ---
PROCEDURE: FL BARIUM SWALLOW MODIFIED CLINICAL INDICATION: EVALUATE Dysphagia COMPARISON: No exams were available for comparison TECHNIQUE: Patient administered varying consistencies of barium contrast, while viewed in lateral position under real-time fluoroscopy with cine recording. FLUOROSCOPY TIME:23 seconds The study was performed in conjunction with speech pathologist. Please see that report & recommendations. FINDINGS: Patient was given varying consistencies of barium. There was rosanna aspiration with thin liquids. There is a moderate degree of stasis with honey consistency. There was aspiration with honey is well.. IMPRESSION: Aspiration with thin liquids and honey with stasis Please see speech pathologist report and recommendations. Dictated by: Jamie Shoemaker MD 07/18/2020 19:11 Jamie Shoemaker MD in [place] 07/18/2020 19:11
--- NOTE | 2020-04-28 14:08 | PC.NURSE ---
RESPIRATORY CARE NOTE: 1405- PT PLACED ON 100% NON-REBREATHER MASK AT THIS TIME FOR TRANSPORT FOR BARIUM SWALLOW TEST. MASK WAS PLACED ON PT TEST TO SEE IF HE COULD TOLERATE. PT OXYGEN SATURATION REMAINED IN UPPER 90'S ON MASK PRIOR TO PT TRANSPORT.
--- NOTE | 2020-04-28 14:54 | PC.NURSE ---
RESPIRATORY CARE NOTE: 1450- PT RETURNED FROM BARIUM SWALLOW PROCEDURE, AND WAS PLACED ON VAPOTHERM. PT TOLERATED NON-REBREATHER MASK WELL.
--- NOTE | 2020-04-28 18:03 | PC.NURSE ---
Pt is alert to self and place. He has moments of aggression where he verbally abuses staff. He is currently NPO for failing swallow eval and barium swallow. He is to have a gtube placed tomorrow. Pt has agreed to this and verbal phone consent was obtained from pt's brother and is on the chart. Rhonchi noted to lungs, he remains on vapotherm 30L 50% fio2. He is tolerating well with O2 sats in the mid 90's. He has had oral care q2hr and q2hr turns. Stage 2/3 noted to coccyx. Dressing changed today and remains clean, dry and intact. Erythema/excoriation noted to groin and down inner thighs. Maria Alejandra care proved and barrier cream applied. [place] to gravity draining clear yellow urine. Will continue to monitor.
[2020-04-29] VITALS (25 sets, daily range): BP systolic 127–161; BP diastolic 71–97; PULSE 60–115; RESP 16–21; TEMP 36.3–37.1; O2SAT 91–99; BMI 18.9
--- NOTE | 2020-04-29 03:26 | PC.NURSE ---
Pt has been agitated and restless this shift. Pt states he wants to leave. Asks staff to give him something to drink and/or to get him out of here. Pt has been educated multiple times on NPO status. Pt has refused to be placed on Bipap this shift. He is currrently on Vapotherm 30L @ 50 %. Pt has had a moderate amount of sputum this shift. Oral care provided. VSS. Medications administered per may. Pt turned Q2 hr. F/C draining to bedside. No other concerns. Will continue to monitor.
[2020-04-29 06:08] LABS: Basophils # 0.1 K/mm3 (0-0.2); Basophils % 0.4 % (0.1-2.0); Chloride 121 mmol/L (98-107); Eosinophils # 0.7 K/mm3 (0.0-0.4); Eosinophils % 3.8 % (0.1-12.0); Hematocrit 32.4 % (42.0-52.0); Hemoglobin 10.6 g/dL (14.1-18.0); Lymphocytes % 11.8 % (10-50); Mean Corpuscular HGB Conc 32.6 g/dL (31.8-35.4); Mean Corpuscular Hemoglobin 30.7 pg (27.0-31.2); Mean Corpuscular Volume 94.2 fl (80-94); Mean Platelet Volume 8.7 fl (7.4-10.4); Monocytes # 0.4 K/mm3 (0.1-1.0); Monocytes % 2.6 % (1.7-9.3); Neutrophils # 13.7 K/mm3 (1.8-7.8); Neutrophils % 81.4 % (37.0-80.0); Platelet Count 400 K/mm3 (142-424); Potassium 3.3 mmoL/L (3.5-5.1); Red Blood Count 3.44 M/mm3 (4.60-6.20); Red Cell Distribution Width 14.8 % (11.5-17.5); Sodium 148 mmol/L (136-145); White Blood Count 16.8 K/mm3 (4.8-10.8)
[2020-04-29 06:11] LABS: Anion Gap 7.3 mEq/L (5-15); Blood Urea Nitrogen 19 mg/dl (9-20); Calcium 8.6 mg/dl (8.4-10.2); Carbon Dioxide 23 mmol/L (22.0-30.0); Creatinine Clearance Estimated 112 mL/min (50-200); Estimated Glomerular Filt Rate 138 ml/min (>60); GFR (African American) 167 ML/MIN (>60); Glucose 149 mg/dl (74-100)
--- NOTE | 2020-04-29 06:44 | HMH.ACPN2 ---
Internal Medicine - PN: Subj *Date: 04/29/20 *Time: 14:28 Interval history: stable overnight, no acute events. Continues to require just nasal cannula oxygen, stable saturations on current vapotherm 50%. Still with weak voice but able to communicate this morning. Plan for PEG tube placement today. Adequate urine output and [place]. Remains afebrile Exam Vital signs and Labs for Last 24 Hours: Temp Pulse Resp BP Pulse Ox 98.0 F 73 17 139/79 94 L 04/29/20 04:00 04/29/20 04:00 04/29/20 04:00 04/29/20 04:00 04/29/20 04:00 Laboratory Results - last 24 hr 04/28/20 05:40: WBC 12.9 H, RBC 3.54 L, Hgb 10.8 L, Hct 33.5 L, MCV 94.4 H, MCH 30.4, MCHC 32.2, RDW 14.7, Plt Count 427 H, MPV 8.5, Neut % (Auto) 82.2 H, Lymph % (Auto) 11.3, [place] % (Auto) 3.7, Eos % (Auto) 1.9, Baso % (Auto) 0.8, Neut # (Auto) 10.6 H, Lymph # (Auto) 1.5, [place] # (Auto) 0.5, Eos # (Auto) 0.2, Baso # (Auto) 0.1 04/28/20 05:40: Sodium 146 H, Potassium 3.1 L, Chloride 115 H, Carbon Dioxide 26, Anion Gap 8.1, BUN 32 H, Creatinine 0.60 L, Estimated Creat Clear 112, Estimated GFR 138, Est GFR ( Amer) 167, Glucose 153 H, Calcium 8.8 I & O for Last 24 hours: Intake & Output 04/26/20 04/27/20 04/28/20 04/29/20 23:59 23:59 23:59 23:59 Intake Total 560 / 560 250 / 1067 2180 / 2180 250 / 250 Output Total 1282 / 1282 950 / 950 1625 / 1625 1450 / 1450 Balance -722 / -722 -700 / 117 555 / 555 -1200 / -1200 Weight 64.127 kg 59.92 kg 59.92 kg 59.931 kg - Constitutional no acute distress, thin, chronically ill appearing - *Routine HEENT Exam Head: Present: normocephalic Eye: Present: EOMI, PERRL ENT: Present: mucous membranes moist. Absent: dentition normal Comments: Loss of periorbital fat - *Routine Neck Exam Present: supple. Absent: lymphadenopathy - *Routine Respiratory Exam Present: rhonchi, crackles (Fine bibasilar). Absent: wheezes - *Routine Cardiovascular Exam Present: RRR - *Routine Abdominal Exam Present: soft, normoactive bowel sounds. Absent: tenderness - *Routine Extremities Exam Absent: cyanosis, clubbing, edema Comments: Significant sarcopenia, - *Routine Skin Exam Present: warm. Absent: rash - *Routine Neurological Exam Present: alert Global weakness strength 2/5 in all 4 extremities. Able to wiggle toes and squeeze fingers, voice very weak. Assessment and Plan (1) Acute respiratory distress syndrome (ARDS) due to 2019 novel coronavirus Status: Acute Category: Medical Code(s): U07.1 - COVID-19; J80 - Acute respiratory distress syndrome (2) Acute hypoxemic respiratory failure due to COVID-19 Status: Acute Category: Medical Code(s): U07.1 - COVID-19; J96.01 - Acute respiratory failure with hypoxia (3) Tobacco use Status: Acute Category: Social Hx Code(s): Z72.0 - Tobacco use (4) Severe sepsis Status: Acute Category: Medical Code(s): A41.9 - Sepsis, unspecified organism; R65.20 - Severe sepsis without septic shock (5) Metabolic acidosis Status: Acute Category: Medical Code(s): E87.2 - Acidosis (6) Acute respiratory acidosis Status: Acute Category: Medical Code(s): E87.2 - Acidosis (7) Acute kidney injury Status: Acute Category: Medical Code(s): N17.9 - Acute kidney failure, unspecified (8) Cardiomyopathy Status: Acute Category: Medical Code(s): I42.9 - Cardiomyopathy, unspecified (9) Hyperkalemia Status: Acute Category: Medical Code(s): E87.5 - Hyperkalemia (10) Hypermagnesemia Status: Acute Category: Medical Code(s): E83.41 - Hypermagnesemia (11) Acute uremia Status: Acute Category: Medical Code(s): N19 - Unspecified kidney failure (12) Weakness acquired in ICU Status: Acute Category: Medical Code(s): R53.1 - Weakness - Assessment and plan all Dx Assessment and Plan for all problems:: 60-year-old male status post COVID-19 pneumonia and acute respiratory failure. Gradually improved with ability
[2020-04-29 06:46] LABS: MANUAL DIFFERENTIAL MANUAL DIFFERENTIAL (MANUAL DIFF)
[2020-04-29 07:58] LABS: Eosinophils % 3 % (0-3); Lymphocytes % 12 % (10-50); Monocytes % 2 % (2-9); Neutrophils % 83 % (42-76); Platelet Estimate Slight Increase; RBC Morphology Normal; Total Cells Counted 100
--- NOTE | 2020-04-29 08:17 | HMH.PULMPN ---
Internal Medicine - PN: Subj *Date: 04/29/20 *Time: 12:48 Interval history: No acute respiratory events overnight. Patient continued to improve. Exam - Constitutional Constitutional:: Present: no acute distress, comfortable - HENMT Exam HENMT: Present: normocephalic, moist mucous membranes - Neck Exam Neck:: Present: thyroid normal, no lymphadenopathy - Respiratory Exam Respiratory:: Present: able to speak in complete sentences, bibailar crackels heard - Cardiovascular Exam Cardiac:: Present: S1, S2 - GI Exam GI:: Present: soft, no hepatosplenomegaly - Skin Exam Skin: Present: warm, no rash, dry - Neurological Exam Neurological: Present: alert, awake - Extremities Exam Extremities: Present: no cyanosis, no clubbing, no edema Assessment and Plan (1) Acute respiratory distress syndrome (ARDS) due to 2019 novel coronavirus Status: Acute Category: Medical Code(s): U07.1 - COVID-19; J80 - Acute respiratory distress syndrome (2) Acute hypoxemic respiratory failure due to COVID-19 Status: Acute Category: Medical Code(s): U07.1 - COVID-19; J96.01 - Acute respiratory failure with hypoxia (3) Tobacco use Status: Acute Category: Social Hx Code(s): Z72.0 - Tobacco use (4) Severe sepsis Status: Acute Category: Medical Code(s): A41.9 - Sepsis, unspecified organism; R65.20 - Severe sepsis without septic shock (5) Metabolic acidosis Status: Acute Category: Medical Code(s): E87.2 - Acidosis (6) Acute respiratory acidosis Status: Acute Category: Medical Code(s): E87.2 - Acidosis (7) Acute kidney injury Status: Acute Category: Medical Code(s): N17.9 - Acute kidney failure, unspecified (8) Cardiomyopathy Status: Acute Category: Medical Code(s): I42.9 - Cardiomyopathy, unspecified (9) Hyperkalemia Status: Acute Category: Medical Code(s): E87.5 - Hyperkalemia (10) Hypermagnesemia Status: Acute Category: Medical Code(s): E83.41 - Hypermagnesemia (11) Acute uremia Status: Acute Category: Medical Code(s): N19 - Unspecified kidney failure (12) Weakness acquired in ICU Status: Acute Category: Medical Code(s): R53.1 - Weakness - Assessment and plan all Dx Assessment and Plan for all problems:: # Acute hypoxic respiratory failure needing mechanical ventilation: # COVID-19 pneumonia: #ICU acquired weakness: 60-year-old COPD presented with respiratory failure secondary to COVID-[address] on admission did not show any evidence of PE but showed trace effusions. Patient respiratory acutely worsened within 12 hours of admission needing intubation and mechanical ventilation. Patient during the course also found to have NSTEMI and heparin drip was initiated to eventually discontinued concern for bleeding. During his hospital course patient endotracheal aspirate from 04/04/2020 grew strep pneumonia and patient completed antibiotic course with Zosyn. Patient also briefly received vancomycin and was eventually discontinued. However patient endotracheal aspirate from 119 grew Enterococcus faecalis and staph epidermidis and was patient initiated on vancomycin again on 04/20/2020 and eventually patient blood cultures also grew staph hominis which is methicillin-resistant from and patient has been receiving vancomycin as per primary team. Patient ICU course also complicated by ICU acquired weakness that delayed his extubation. Patient was eventually extubated on 04/25/2020, tolerated well initially on BiPAP to high flow nasal cannula eventually weaned to nonrebreather today. Will eventually further wean patient's oxygen requirements to nasal cannula 6 L Patient also failed his swallow evaluation surgery was consulted for PEG tube placement. Plan: -Patient oxygen commence weaned from high flow nasal cannula to nonrebreather, continue to wean oxygen requirements to nasal cannula as tolerated - Continued to receive vancomycin for bactremia (dexame
[2020-04-29 09:30] LABS: POC Glucose,Bedside 102 (70-110)
[2020-04-29 09:30] LABS: POC Glucose,Bedside 106 (70-110)
[2020-04-29 09:30] LABS: POC Glucose,Bedside 86 (70-110)
[2020-04-29 09:30] LABS: POC Glucose,Bedside 89 (70-110)
[2020-04-29 09:30] LABS: POC Glucose,Bedside 75 (70-110)
[2020-04-29 09:30] LABS: POC Glucose,Bedside 92 (70-110)
[2020-04-29 09:30] LABS: POC Glucose,Bedside 361 (70-110)
[2020-04-29 09:30] LABS: POC Glucose,Bedside 92 (70-110)
[2020-04-29 09:31] LABS: POC Glucose,Bedside 97 (70-110)
[2020-04-29 09:31] LABS: POC Glucose,Bedside 108 (70-110)
--- NOTE | 2020-04-29 10:24 | P.PN_ITS ---
[facility] Anesthesia Checklist - Patient Identification Patient Identification: Arm Band, Verbal (Name & ) - Structural Data Admitted From: Inpatient Planned Operative Procedure/s: peg Consent for Planned Operative Procedure(s) Verified: Yes Verified Documents: Surgical Consent - Neurological Assessment Level of Consciousness: Awake - Anesthesia Plan Anesthesia Risk discussed: Yes Anesthesia Plan: Verified ASA Class: III Anesthesia Type: General [facility] History I have reviewed the patient's past medical history: Yes Medical History: Reports:: Hyperlipidemia Denies:: Internal Pacemaker *Have you ever received a pneumonia vaccine?: No *Have you received a flu vaccine this season?: No Anesthesia experience/problems:: none covid pt Other Surgeries: Yes: No Previous Surgery. No: Pacemaker - *Social History Last grade of school completed: 11th or 12th Smoking Status: Current every day smoker Tobacco Type: cigarettes # Packs/Day (cigarettes): 1 Alcohol Intake: never Alcohol Intake Frequency:: holidays/special occasions only Substance Use Type: denies use *Occupational Status:: disabled *Travel in the last 8 weeks: None Family Hx:: No significant family history
[2020-04-29 10:42] LABS: POC Glucose,Bedside 97 (70-110)
--- NOTE | 2020-04-29 11:20 | HMH.SCOPE ---
- Procedure: Date: 04/29/20 Patient Date of :: 1960 Procedure Performed:: Placement of 20 Azeri pull-type PEG tube. Indications:: Patient is a 60-year-old male who has been convalescing from Covid pneumonia who has been intubated and mechanically ventilated for several weeks. After extubation he underwent evaluation by speech pathology with modified barium swallow and swallowing assessment which he failed and it was recommended that he remain on n.p.o. status. Surgical consultation was obtained for gastrostomy tube placement Performing Provider:: Chung Valles MD Referring Provider:: Renan Dorsey MD Sedation:: MAC sedation Procedure:: Patient was maintained on the hospital bed. He was in a supine position. Adequate sedation was achieved with anesthesia titration of propofol. Olympus endoscope was inserted via the oropharynx. Stomach was cannulated and insufflated. Limited esophagogastroscopy was performed. There was good light reflex on the anterior abdomen in the right upper abdomen. Abdomen was prepped and draped. Local anesthetic was infiltrated at the site of the light reflex. Small incision was made. Catheter was the needle was inserted through the incision into the gastric lumen. Loop guidewire was inserted through the catheter which was then grasped with the loop grasping device via the endoscope. Endoscope was then withdrawn with traction on the loop guidewire. 20 Azeri pull-type PEG tube was secured to the loop guidewire and lubricated. It was then pulled with traction via the oropharynx to exit the abdomen at the incision site. It was ultimately secured at approximately 3.5 cm. PEG tube was cut to the appropriate length. Bumper device was secured and as stated above this was at 3.5 cm. After it was cut to the appropriate length tube feed infusion apparatus was secured to the cut PEG tube. Antibiotic ointment was applied at the insertion site. Completion upper endoscopy was performed which revealed good positioning in the antrum of the stomach. Stomach was desufflated and the endoscope was withdrawn. Findings:: Normal gastric lumen Recommendations:: May be able to use PEG tube tomorrow morning on 04/30/2020. Keep abdominal binder in place to prevent patient from pulling PEG tube. Complications:: None immediately apparent Estimated blood obtained (mL): 3
[2020-04-29 11:22] LABS: POC Glucose,Bedside 121 (70-110)
[2020-04-29 11:22] LABS: POC Glucose,Bedside 110 (70-110)
[2020-04-29 11:22] LABS: POC Glucose,Bedside 89 (70-110)
--- NOTE | 2020-04-29 11:25 | SUR.PHASEII ---
PT TRANSPORTED TO ICU VIA BED. PT TRANSPORTED BY RN AND Orquidea SHAFER CRNA. BEDSIDE REPORT GIVEN TO LETY GRANDE RN. PT STABLE. VSS. PEG TUBE PLACEMENT 3.5 CM AT BUMPER/SKIN SITE. RN NOTIFIED TO PLACE ABD BINDER ON PT FOR PEG TUBE PROTECTION.
[2020-04-29 11:34] LABS: Vancomycin,Trough 20.4 ug/mL (5.0-10.0)
--- NOTE | 2020-04-29 11:47 | HMH.PHACONS ---
- Pharmacy Consult Date: 04/29/20 Time: 11:47 Referring provider: DR. PERALTA Reason for Consult:: VANCOMYCIN TROUGH LEVEL AND DOSE CHANGE Allergies and ADEs:: Allergies Allergy/AdvReac Type Severity Reaction Status Date / Time esomeprazole [From NEXIUM] Allergy Intermediate I-ITCHING Verified 04/03/20 19:25 methocarbamol [From ROBAXIN] Allergy Intermediate I-ITCHING Verified 04/03/20 19:25 morphine [MORPHINE] Allergy Mild NA-NAUSEA Verified 04/03/20 19:25 Home Medications:: Home Medications Medication Instructions Recorded Confirmed Type No Known Home Medications 04/04/20 04/04/20 History Height: 1.78 m Weight: 59.931 kg Laboratory Results:: Laboratory Results - last 24 hr 04/26/20 11:27: POC Glucose 106 04/26/20 17:06: POC Glucose 361 H* 04/26/20 17:29: POC Glucose 102 04/26/20 20:46: POC Glucose 75 04/26/20 21:16: POC Glucose 92 04/27/20 05:19: POC Glucose 89 04/27/20 11:17: POC Glucose 92 04/27/20 17:30: POC Glucose 86 04/27/20 20:01: POC Glucose 89 04/28/20 11:48: POC Glucose 121 H 04/28/20 16:19: POC Glucose 110 04/28/20 20:46: POC Glucose 97 04/29/20 05:10: WBC 16.8 H D, RBC 3.44 L, Hgb 10.6 L, Hct 32.4 L, MCV 94.2 H, MCH 30.7, MCHC 32.6, RDW 14.8, Plt Count 400, MPV 8.7, Neut % (Auto) 81.4 H, Lymph % (Auto) 11.8, [place] % (Auto) 2.6, Eos % (Auto) 3.8, Baso % (Auto) 0.4, Neut # (Auto) 13.7 H, Lymph # (Auto) 2.0, [place] # (Auto) 0.4, Eos # (Auto) 0.7 H, Baso # (Auto) 0.1, Total Counted 100, Neutrophils % (Manual) 83 H, Lymphocytes % (Manual) 12, Monocytes % (Manual) 2, Eosinophils % (Manual) 3, Platelet Estimate Slight increase, RBC Morphology Normal 04/29/20 05:10: Sodium 148 H, Potassium 3.3 L, Chloride 121 H, Carbon Dioxide 23, Anion Gap 7.3, BUN 19 D, Creatinine 0.60 L, Estimated Creat Clear 112, Estimated GFR 138, Est GFR ( Amer) 167, Glucose 149 H, Calcium 8.6 04/29/20 05:12: POC Glucose 108 04/29/20 10:30: Vancomycin Trough 20.4 H 04/29/20 10:30: POC Glucose 97 Medical History: Reports:: Hyperlipidemia Denies:: Internal Pacemaker Assessment and Plan (1) Acute respiratory distress syndrome (ARDS) due to 2019 novel coronavirus Status: Acute Category: Medical Code(s): U07.1 - COVID-19; J80 - Acute respiratory distress syndrome (2) Acute hypoxemic respiratory failure due to COVID-19 Status: Acute Category: Medical Code(s): U07.1 - COVID-19; J96.01 - Acute respiratory failure with hypoxia (3) Tobacco use Status: Acute Category: Social Hx Code(s): Z72.0 - Tobacco use (4) Severe sepsis Status: Acute Category: Medical Code(s): A41.9 - Sepsis, unspecified organism; R65.20 - Severe sepsis without septic shock (5) Metabolic acidosis Status: Acute Category: Medical Code(s): E87.2 - Acidosis (6) Acute respiratory acidosis Status: Acute Category: Medical Code(s): E87.2 - Acidosis (7) Acute kidney injury Status: Acute Category: Medical Code(s): N17.9 - Acute kidney failure, unspecified (8) Cardiomyopathy Status: Acute Category: Medical Code(s): I42.9 - Cardiomyopathy, unspecified (9) Hyperkalemia Status: Acute Category: Medical Code(s): E87.5 - Hyperkalemia (10) Hypermagnesemia Status: Acute Category: Medical Code(s): E83.41 - Hypermagnesemia (11) Acute uremia Status: Acute Category: Medical Code(s): N19 - Unspecified kidney failure (12) Weakness acquired in ICU Status: Acute Category: Medical Code(s): R53.1 - Weakness - Assessment and plan all Dx Assessment and Plan for all problems:: PATIENT'S VANCOMYCIN TROUGH WAS 20.4 MCG/ML THIS AM. RECOMMEND CHANGING DOSE TO VANCOMYCIN 1000 MG Q12H STARTING AT 2100 TONIGHT.
[2020-04-29 16:41] LABS: POC Glucose,Bedside 100 (70-110)
--- NOTE | 2020-04-29 16:41 | PC.NURSE ---
Pt has been pleasant and cooperative this shift. Alert to person only. Pt received PEG tube placement today and has complained of pain X1 since returning to his room. Received 0.5 MG Dilaudid order per Dr. Valles and pt reports complete relief. PEG site is covered with a 4X4 and an ABD binder. Tube is clamped and is to remain clamped until 2/3. Pt is receiving O2 via NC @ 6 LPM with sats. >90%. Lung sounds reveal inspiratory/expiratory rhonchi. Generalized, non-pitting edema is noted to extremities. Stage 2 pressure ulcer noted to coccyx, covered with Allevyn dressing, C/D/I. F/C is patent and draining clear, yellow urine at bedside to gravity without issue. No BM this shift. Pt has been turned/repositioned and provided oral care Q2H this shift. Triple lumen central line in the LT subclavian artery is patent and infusing D5W NS w/ 20 K+ @ 150 ML/HR. 20 G peripheral IV in the RT AC is patent and SL. FSBS results have been 97 and 100 this shift. B/P has been slightly elevated. Otherwise, VSS. Call light within reach. Bed safety alarm is set. Will continue to monitor.
[2020-04-29 20:28] LABS: POC Glucose,Bedside 88 (70-110)
--- NOTE | 2020-04-29 21:00 | PC.NURSE ---
He continues in contact and airborne precautions. He is A&O. His speech is clear but also difficult to understand at times. He received a complete bed bath and linen change. Denies pain. F/c is patient and draining yellow urine with sediment. Continues to have edema in bilateral hands and feet. DSG changed on coccyx. DSG in place on left heel. Heel protectors in place. Oral care and turning and repositioning q 2 hours. He continues to be NPO with abdominal binder in place.
[2020-04-30] VITALS (8 sets, daily range): BP systolic 114–142; BP diastolic 63–88; PULSE 60–94; RESP 16–21; TEMP 36.6–37; O2SAT 94–100; BMI 18.8
[2020-04-30 04:57] LABS: POC Glucose,Bedside 115 (70-110)
--- NOTE | 2020-04-30 08:02 | HMH.ACPN2 ---
Internal Medicine - PN: Subj *Date: 04/30/20 *Time: 08:02 Interval history: G-tube was placed yesterday without problems. Nutrition consult pending. Patient's oxygenation continues to improve, currently on 6 L nasal cannula and oxygenating very nicely at 98%. When awakened he is pleasant and to me indicates that he is willing to go to rehab facility. Exam Vital signs and Labs for Last 24 Hours: Temp Pulse Resp BP Pulse Ox 97.9 F 60 18 137/88 96 04/30/20 03:25 04/30/20 04:00 04/30/20 03:25 04/30/20 03:25 04/30/20 03:25 Laboratory Results - last 24 hr 04/26/20 11:27: POC Glucose 106 04/26/20 17:06: POC Glucose 361 H* 04/26/20 17:29: POC Glucose 102 04/26/20 20:46: POC Glucose 75 04/26/20 21:16: POC Glucose 92 04/27/20 05:19: POC Glucose 89 04/27/20 11:17: POC Glucose 92 04/27/20 17:30: POC Glucose 86 04/27/20 20:01: POC Glucose 89 04/28/20 11:48: POC Glucose 121 H 04/28/20 16:19: POC Glucose 110 04/28/20 20:46: POC Glucose 97 04/29/20 05:12: POC Glucose 108 04/29/20 10:30: Vancomycin Trough 20.4 H 04/29/20 10:30: POC Glucose 97 04/29/20 16:27: POC Glucose 100 04/29/20 20:12: POC Glucose 88 04/30/20 04:48: POC Glucose 115 H I & O for Last 24 hours: Intake & Output 04/27/20 04/28/20 04/29/20 04/30/20 11:59 11:59 11:59 11:59 Intake Total 560 / 560 817 / 817 1613 / 1613 5075 / 5075 Output Total 1181 / 1256 975 / 975 2625 / 2625 1800 / 1800 Balance -621 / -696 -158 / -158 -1012 / -1012 3275 / 3275 Weight 132 lb 1.6 oz 132 lb 1.616 oz 132 lb 2 oz 132 lb Narrative: G-tube site looks great. No changes otherwise on exam, rhonchorous lungs but good air movement, heart rate regular. Perfusion is good, globally extremely very weak but no focal neurologic deficits. Oropharynx clear other than poor dentition. Assessment and Plan (1) Acute respiratory distress syndrome (ARDS) due to 2019 novel coronavirus Status: Acute Category: Medical Code(s): U07.1 - COVID-19; J80 - Acute respiratory distress syndrome (2) Acute hypoxemic respiratory failure due to COVID-19 Status: Acute Category: Medical Code(s): U07.1 - COVID-19; J96.01 - Acute respiratory failure with hypoxia (3) Tobacco use Status: Acute Category: Social Hx Code(s): Z72.0 - Tobacco use (4) Severe sepsis Status: Acute Category: Medical Code(s): A41.9 - Sepsis, unspecified organism; R65.20 - Severe sepsis without septic shock (5) Metabolic acidosis Status: Acute Category: Medical Code(s): E87.2 - Acidosis (6) Acute respiratory acidosis Status: Acute Category: Medical Code(s): E87.2 - Acidosis (7) Acute kidney injury Status: Acute Category: Medical Code(s): N17.9 - Acute kidney failure, unspecified (8) Cardiomyopathy Status: Acute Category: Medical Code(s): I42.9 - Cardiomyopathy, unspecified (9) Hyperkalemia Status: Acute Category: Medical Code(s): E87.5 - Hyperkalemia (10) Hypermagnesemia Status: Acute Category: Medical Code(s): E83.41 - Hypermagnesemia (11) Acute uremia Status: Acute Category: Medical Code(s): N19 - Unspecified kidney failure (12) Weakness acquired in ICU Status: Acute Category: Medical Code(s): R53.1 - Weakness - Assessment and plan all Dx Assessment and Plan for all problems:: Nicely improved. Patient should be ready for transfer to skilled care facility tomorrow for PT/G-tube care/rehabilitation. Start feeds today. Should be finished with antibiotics later today.
[2020-04-30 08:45] LABS: Basophils # 0.1 K/mm3 (0-0.2); Basophils % 0.4 % (0.1-2.0); Eosinophils # 0.7 K/mm3 (0.0-0.4); Eosinophils % 3.6 % (0.1-12.0); Hemoglobin 10.7 g/dL (14.1-18.0); Lymphocytes # 1.6 K/mm3 (0.7-4.5); Mean Corpuscular HGB Conc 31.4 g/dL (31.8-35.4); Mean Corpuscular Hemoglobin 30.2 pg (27.0-31.2); Mean Corpuscular Volume 96.1 fl (80-94); Monocytes # 0.4 K/mm3 (0.1-1.0); Monocytes % 2.1 % (1.7-9.3); Platelet Count 386 K/mm3 (142-424); Red Blood Count 3.54 M/mm3 (4.60-6.20); Red Cell Distribution Width 15.5 % (11.5-17.5); White Blood Count 19.8 K/mm3 (4.8-10.8)
[2020-04-30 08:51] LABS: Chloride 120 mmol/L (98-107); Potassium 3.7 mmoL/L (3.5-5.1); Sodium 148 mmol/L (136-145)
[2020-04-30 08:54] LABS: Anion Gap 8.7 mEq/L (5-15); Blood Urea Nitrogen 11 mg/dl (9-20); Carbon Dioxide 23 mmol/L (22.0-30.0); Creatinine Clearance Estimated 112 mL/min (50-200); Estimated Glomerular Filt Rate 138 ml/min (>60); GFR (African American) 167 ML/MIN (>60)
[2020-04-30 08:55] LABS: Calcium 8.5 mg/dl (8.4-10.2); Glucose 101 mg/dl (74-100); Magnesium 1.5 mg/dl (1.6-2.3)
--- NOTE | 2020-04-30 08:57 | HMH.PULMPN ---
Internal Medicine - PN: Subj *Date: 04/30/20 *Time: 11:04 Interval history: No acute respiratory events overnight. Patient respiratory status continued to improve. Exam - Constitutional Constitutional:: Present: no acute distress, comfortable - HENMT Exam HENMT: Present: normocephalic, atraumatic - Eye Exam Eyes:: Present: normal appearance both eyes and related structures - Neck Exam Neck:: Present: normal visual inspection - Respiratory Exam Respiratory:: Present: able to speak in complete sentences, no respiratory distress, normal respiratory effort, crackles - Cardiovascular Exam Cardiac:: Present: S1, S2 - GI Exam GI:: Present: soft - Skin Exam Skin: Present: warm, no rash, dry - Neurological Exam Neurological: Present: alert, awake - Extremities Exam Extremities: Present: no cyanosis, no clubbing, no edema Assessment and Plan (1) Acute respiratory distress syndrome (ARDS) due to 2019 novel coronavirus Status: Acute Category: Medical Code(s): U07.1 - COVID-19; J80 - Acute respiratory distress syndrome (2) Acute hypoxemic respiratory failure due to COVID-19 Status: Acute Category: Medical Code(s): U07.1 - COVID-19; J96.01 - Acute respiratory failure with hypoxia (3) Tobacco use Status: Acute Category: Social Hx Code(s): Z72.0 - Tobacco use (4) Severe sepsis Status: Acute Category: Medical Code(s): A41.9 - Sepsis, unspecified organism; R65.20 - Severe sepsis without septic shock (5) Metabolic acidosis Status: Acute Category: Medical Code(s): E87.2 - Acidosis (6) Acute respiratory acidosis Status: Acute Category: Medical Code(s): E87.2 - Acidosis (7) Acute kidney injury Status: Acute Category: Medical Code(s): N17.9 - Acute kidney failure, unspecified (8) Cardiomyopathy Status: Acute Category: Medical Code(s): I42.9 - Cardiomyopathy, unspecified (9) Hyperkalemia Status: Acute Category: Medical Code(s): E87.5 - Hyperkalemia (10) Hypermagnesemia Status: Acute Category: Medical Code(s): E83.41 - Hypermagnesemia (11) Acute uremia Status: Acute Category: Medical Code(s): N19 - Unspecified kidney failure (12) Weakness acquired in ICU Status: Acute Category: Medical Code(s): R53.1 - Weakness - Assessment and plan all Dx Assessment and Plan for all problems:: # Acute hypoxic respiratory failure needing mechanical ventilation: # COVID-19 pneumonia: #ICU acquired weakness: 60-year-old COPD presented with respiratory failure secondary to COVID-[address] on admission did not show any evidence of PE but showed trace effusions. Patient respiratory acutely worsened within 12 hours of admission needing intubation and mechanical ventilation. Patient during the course also found to have NSTEMI and heparin drip was initiated to eventually discontinued concern for bleeding. During his hospital course patient endotracheal aspirate from 04/04/2020 grew strep pneumonia and patient completed antibiotic course with Zosyn. Patient also briefly received vancomycin and was eventually discontinued. However patient endotracheal aspirate from 119 grew Enterococcus faecalis and staph epidermidis and was patient initiated on vancomycin again on 04/20/2020 and eventually patient blood cultures also grew staph hominis which is methicillin-resistant from and patient has been receiving vancomycin as per primary team. Patient ICU course also complicated by ICU acquired weakness that delayed his extubation. Patient was eventually extubated on 04/25/2020, tolerated well initially on BiPAP to high flow nasal cannula eventually weaned to nasal cannula. Patient also failed his swallow evaluation surgery was consulted for PEG tube placement. Plan: -Patient this morning on 3 L nasal cannula saturating 96% - COntinue O2 supplementation with sat goal of 88% to 92% - wean as tolerated - Continued to receive vancomycin for bactremia - Contin
[2020-04-30 09:10] LABS: MANUAL DIFFERENTIAL MANUAL DIFFERENTIAL (MANUAL DIFF)
--- NOTE | 2020-04-30 09:15 | DIET.NUTRFU ---
Nutritional consult for tube feeding received. Pt had PEG tube placed yesterday. Pt has hx COPD. Was previously intubated and receiving continuous tube feeds of Pulmocare. Pt developed tolerance issues with tube feeding rt COVID 19 requiring stops in feeding and hypocaloric feeding for electrolyte disturbance corrections. He lost significant weight t/o stay and developed weakness acquired in ICU, he is at risk for malnutrition. Weight has remained stable 3 days since extubation, electrolytes wnl, hypernatremia noted. Recommend initiating bolus tube feeding regimen appropriate for discharge to rehab facility. Pulmocare is most appropriate formula choice rt COPD and continued respiratory failure. Will monitor pt tolerance and alter as indicated. Recommend initiating bolus tube feeding regimen of Pulmocare 1.5 with feedings of ml q 6h. Pt is currently receiving IVF at 150ml/hr, recommend minimal water flushes of 30-60ml at GRV checks/for irrigation q 4h. Will monitor IVF to alter water flushes as needed. This regimen provides 1500kcal, 63g protein, 106g cho, 93g fat, and 785ml free water.
[2020-04-30 11:04] LABS: POC Glucose,Bedside 77 (70-110)
[2020-04-30 11:32] LABS: Eosinophils % 1 % (0-3); Lymphocytes % 25 % (10-50); Monocytes % 6 % (2-9); Neutrophils % 68 % (42-76); Platelet Estimate Normal; RBC Morphology Normal; Total Cells Counted 100
--- NOTE | 2020-04-30 14:36 | PC.NURSE ---
A TO SELKF. PT HAS TOLERATED 4L NC WELL THROUGHOUT SHIFT. RESPIRATIONS REGULAR AND UNLABORED. RHONCHI NOTED THROUGHOUT. PRODUCTIVE COUGH NOTED. SPUTUM IS VERY THICK. WEAKNESS NOTED. STAGE 2 NOTED TO COCCYX. DRESSING IN PLACE . CDI. DRESSING NOTED TO L HEEL. HEEL PROTECTORS IN PLACE TO BILATERAL HEELS. RASH NOTED TO BACK, CENTRAL LINE IN PLACE TO L UPPER CHEST. PEG TUBE IN PLACE TO RUQ. TUBE FEEDING GOING 250 ML BOLUS EVERY 6 HOURS. PT TOLERATING WELL. HEAD ABOVE 45 DEGREES. PT HAS BEEN TURNED Q 2 HOURS. ORAL CARE PERFORMED Q2 HOURS. DOTSON CATHETER IN PLACE WITH YELLOW URINE DRAINING. ACTIVE BOWEL SOUNDS HEARD IN ALL 4 QUADRANTS. SOFT AND NONTENDER ABDOMEN. PT HAS HAD 1 LOOSE BM THUS FAR. PT HAS SLEPT MOST OF THE SHIFT. BED ALARM ON TO PROMOTE SAFETY. RESIDUAL CHECKED Q 4 HOURS. +2 PULSES NOTED THROUGHOUT. NO EDEMA NOTED. BED IN LOWEST POSITION. CALL LIGHT WITHIN REACH. VSS. WILL CONTINUE TO MONITOR.
[2020-04-30 16:24] LABS: POC Glucose,Bedside 100 (70-110)
[2020-04-30 21:11] LABS: POC Glucose,Bedside 87 (70-110)
[2020-05-01] VITALS (8 sets, daily range): BP systolic 109–139; BP diastolic 63–85; PULSE 60–100; RESP 18–22; TEMP 36.7–37.3; O2SAT 91–96
--- NOTE | 2020-05-01 01:03 | PC.NURSE ---
PT IS RESTING IN BED. TURNED AND REPOSITIONED FREQUENTLY. ORAL CARE Q2H. BATH AND BED CHANGE THIS SHIFT. STAGE 3 NOTED TO THE BUTTOCKS WITH CLEAN DRESSING INTACT. CENTRAL LINE DRESSING CHANGED THIS SHIFT. PT HAS HAD 250 ML'S OF TUBE FEEDING AND A 60 ML FLUSH. PT IS ALERT TO SELF ONLY. DURING BATH PT ASKED OVER IN OVER IF WE COULD CALL B/C HE WAS SUPPOSED TO FOLLOW UP WITH HIM SEVERAL WEEKS AGO. PT HAS A RASH NOTED TO BACK/LEGS/GROIN. HEEL PROTECTORS IN PLACE. BLISTER NOTED TO THE LT HEEL. OPEN AREAS NOTED TO THE LIPS. LUNG SOUNDS HAVE SCATTERED RHONCHI/CRACKLES. ABDOMEN SOFT/NON TENDER WITH HYPOACTIVE BOWEL SOUNDS. VSS. O2 SATURATION 90-93% ON 3 L NC. REPORT HAND OFF TO SANDY THIBODEAUX RN.
[2020-05-01 05:49] LABS: POC Glucose,Bedside 133 (70-110)
--- NOTE | 2020-05-01 07:59 | XR_ITS ---
PROCEDURE: XR CHEST PORTABLE CLINICAL HISTORY: f/u icu exam Pneumonia follow-up COMPARISON: CT CT ANGIO CHEST from 04/03/2020 CR XR CHEST PORTABLE from 04/24/2020 CR XR CHEST PORTABLE from 04/25/2020 CR XR CHEST PORTABLE from 04/26/2020 FINDINGS: The cardiomediastinal silhouette and pulmonary vascularity are within normal limits. Left subclavian central venous line is present. The tip is in the region the SVC. Patchy pneumonia is present in both upper and lower lobes and appears slightly worse and in part could be related to the degree of inspiration. Atelectatic changes are present in the right lower lobe. IMPRESSION: Slight worsening bilateral pneumonia Dictated by: Jamie Shoemaker MD 05/01/2020 11:19 Jamie Shoemaker MD in [place] 05/01/2020 11:19
--- NOTE | 2020-05-01 09:16 | PC.NURSE ---
NOTIFIED DR IZQUIERDO ABOUT RASH ON PT'S ABDOMEN AND UPPER THIGHS. PICTURES TAKEN AND ON THE CHART. SOLUMEDROL 60MG IV ONE TIME DOSE ORDERED.
--- NOTE | 2020-05-01 10:37 | HMH.PULMPN ---
Internal Medicine - PN: Subj *Date: 05/01/20 *Time: 10:37 Interval history: No acute respiratory events overnight. Exam - Constitutional Constitutional:: Present: no acute distress, comfortable - HENMT Exam HENMT: Present: normocephalic, atraumatic - Neck Exam Neck:: Present: normal visual inspection, thyroid normal - Respiratory Exam Respiratory:: Present: able to speak in complete sentences, bibailar crackels heard, no respiratory distress, normal respiratory effort - Cardiovascular Exam Cardiac:: Present: S1, S2 - GI Exam GI:: Present: soft, no hepatosplenomegaly - Skin Exam Skin: Present: warm, no rash - Neurological Exam Neurological: Present: alert, awake - Extremities Exam Extremities: Present: no cyanosis, no clubbing, no edema Assessment and Plan (1) Acute respiratory distress syndrome (ARDS) due to 2019 novel coronavirus Status: Acute Category: Medical Code(s): U07.1 - COVID-19; J80 - Acute respiratory distress syndrome (2) Acute hypoxemic respiratory failure due to COVID-19 Status: Acute Category: Medical Code(s): U07.1 - COVID-19; J96.01 - Acute respiratory failure with hypoxia (3) Tobacco use Status: Acute Category: Social Hx Code(s): Z72.0 - Tobacco use (4) Severe sepsis Status: Acute Category: Medical Code(s): A41.9 - Sepsis, unspecified organism; R65.20 - Severe sepsis without septic shock (5) Metabolic acidosis Status: Acute Category: Medical Code(s): E87.2 - Acidosis (6) Acute respiratory acidosis Status: Acute Category: Medical Code(s): E87.2 - Acidosis (7) Acute kidney injury Status: Acute Category: Medical Code(s): N17.9 - Acute kidney failure, unspecified (8) Cardiomyopathy Status: Acute Category: Medical Code(s): I42.9 - Cardiomyopathy, unspecified (9) Hyperkalemia Status: Acute Category: Medical Code(s): E87.5 - Hyperkalemia (10) Hypermagnesemia Status: Acute Category: Medical Code(s): E83.41 - Hypermagnesemia (11) Acute uremia Status: Acute Category: Medical Code(s): N19 - Unspecified kidney failure (12) Weakness acquired in ICU Status: Acute Category: Medical Code(s): R53.1 - Weakness - Assessment and plan all Dx Assessment and Plan for all problems:: # Acute hypoxic respiratory failure needing mechanical ventilation: # COVID-19 pneumonia: #ICU acquired weakness: 60-year-old COPD presented with respiratory failure secondary to COVID-[address] on admission did not show any evidence of PE but showed trace effusions. Patient respiratory acutely worsened within 12 hours of admission needing intubation and mechanical ventilation. Patient during the course also found to have NSTEMI and heparin drip was initiated to eventually discontinued concern for bleeding. During his hospital course patient endotracheal aspirate from 04/04/2020 grew strep pneumonia and patient completed antibiotic course with Zosyn. Patient also briefly received vancomycin and was eventually discontinued. However patient endotracheal aspirate from 119 grew Enterococcus faecalis and staph epidermidis and was patient initiated on vancomycin again on 04/20/2020 and eventually patient blood cultures also grew staph hominis which is methicillin-resistant from and patient has been receiving vancomycin as per primary team. Patient ICU course also complicated by ICU acquired weakness that delayed his extubation. Patient was eventually extubated on 04/25/2020, tolerated well initially on BiPAP to high flow nasal cannula eventually weaned to nasal cannula. Patient also failed his swallow evaluation surgery was consulted for PEG tube placement. Patient respiratory status remained stable/improved post extubation. Continue PT / OT and follow with surgery for PEG tube placement. We will continue DuoNebs every 6 hours as needed Rest of the medical management as per primary team. #Thank you for involving pulmonary in this p
[2020-05-01 11:22] LABS: POC Glucose,Bedside 95 (70-110)
--- NOTE | 2020-05-01 14:37 | PC.WOUNDNOTE ---
Wound Location: RASH NOTED TO LOWER ABDOMEN, SCROTUM, GROIN, AND BLE Length: Width: Depth: Undermining Y/N: N Tunneling cm: Granulation %: Slough/necrotic tissue %: Inflammation/swelling Y/N: Y Pain and/or tenderness Y/N: N Exudate: Serosanguinous Sanguinous Serosanguinous Seropurulent Purulent Color: Clear Chelly Cloudy/milky Parcoal Red Green Yellow Brown Lowery Blue Consistency: Thick Thin Amount: None: X Scant Small Moderate Large Odor Y/N: N
[2020-05-01 16:34] LABS: POC Glucose,Bedside 143 (70-110)
--- NOTE | 2020-05-01 16:53 | HMH.ACPN2 ---
Internal Medicine - PN: Subj *Date: 05/01/20 *Time: 16:54 Interval history: Through the night last night and through the day today patient has done well on nasal cannula oxygen. Only concern today has been elevated WBC count. Exam Vital signs and Labs for Last 24 Hours: Temp Pulse Resp BP Pulse Ox 98.7 F 72 18 131/79 94 L 05/01/20 15:57 05/01/20 15:57 05/01/20 15:57 05/01/20 15:57 05/01/20 15:57 Laboratory Results - last 24 hr 04/30/20 21:03: POC Glucose 87 05/01/20 05:40: POC Glucose 133 H 05/01/20 11:15: POC Glucose 95 05/01/20 14:30: Procalcitonin 0.090 05/01/20 16:27: POC Glucose 143 H I & O for Last 24 hours: Intake & Output 04/29/20 04/30/20 05/01/20 05/02/20 11:59 11:59 11:59 11:59 Intake Total 1613 / 1613 5075 / 5075 4107 / 4107 Output Total 2625 / 2625 1800 / 1800 2500 / 2501 801 / 801 Balance -1012 / -1012 3275 / 3275 1607 / 1606 -801 / -801 Weight 132 lb 2 oz 132 lb Microbiology Reports for the Last 24 Hours: Microbiology 04/29/20 08:15 Blood Blood Culture - Preliminary NO GROWTH AFTER 48 HOURS 04/29/20 08:05 Blood Blood Culture - Preliminary NO GROWTH AFTER 48 HOURS Narrative: Alert, verbal, communicating in complete sentences. Some rhonchi in the lungs, good air movement, heart rate regular, abdomen soft. No perfusion deficits. Oropharynx clear. Poor dentition, unchanged. Neurologic exam globally weak but unchanged. G-tube site looks good Assessment and Plan (1) Acute respiratory distress syndrome (ARDS) due to 2019 novel coronavirus Status: Acute Category: Medical Code(s): U07.1 - COVID-19; J80 - Acute respiratory distress syndrome (2) Acute hypoxemic respiratory failure due to COVID-19 Status: Acute Category: Medical Code(s): U07.1 - COVID-19; J96.01 - Acute respiratory failure with hypoxia (3) Tobacco use Status: Acute Category: Social Hx Code(s): Z72.0 - Tobacco use (4) Severe sepsis Status: Acute Category: Medical Code(s): A41.9 - Sepsis, unspecified organism; R65.20 - Severe sepsis without septic shock (5) Metabolic acidosis Status: Acute Category: Medical Code(s): E87.2 - Acidosis (6) Acute respiratory acidosis Status: Acute Category: Medical Code(s): E87.2 - Acidosis (7) Acute kidney injury Status: Acute Category: Medical Code(s): N17.9 - Acute kidney failure, unspecified (8) Cardiomyopathy Status: Acute Category: Medical Code(s): I42.9 - Cardiomyopathy, unspecified (9) Hyperkalemia Status: Acute Category: Medical Code(s): E87.5 - Hyperkalemia (10) Hypermagnesemia Status: Acute Category: Medical Code(s): E83.41 - Hypermagnesemia (11) Acute uremia Status: Acute Category: Medical Code(s): N19 - Unspecified kidney failure (12) Weakness acquired in ICU Status: Acute Category: Medical Code(s): R53.1 - Weakness - Assessment and plan all Dx Assessment and Plan for all problems:: Patient has done exceedingly well over the past 24 hours. WBC count elevation is concerning, we started Diflucan per G-tube today for yeast in urine and amoxicillin per G-tube for residual Enterobacter coverage. Procalcitonin level repeated this afternoon is actually fallen, therefore I do not think the WBC count elevation is from acute bacterial infection. As a result we will hold off on more broad-spectrum antibiotic coverage. I think patient will be suitable for discharge to rehab facility tomorrow given his current clinical condition. WBC count elevation might be from G-tube placement inflammation.
--- NOTE | 2020-05-01 17:09 | P.DS_ITS ---
General - General Admission date:: 04/03/20 Discharge date: 05/02/20 HPI HPI: Mr. Gayle is a 60-year-old male who presented to the ER due to 2 to 3 days of shortness of breath. He has a history of smoking, reported history of hypertension but does not currently take anything. Complains that he has been feeling tightness in his chest and difficulty breathing leading to the point he needed to come to the hospital. On presentation he was found to be hypoxic on room air with a saturation in the high 80s. Was started on oxygen and initial work-up begun. Found to be positive for COVID-19 with diffuse bilateral infiltrates necessitating admission. On assessment this morning, unable to gain any further information from the patient due to his fatigue and somnolence. He will wake briefly to answer questions and then dozes back off. Overnight he has had progressive worsening of respiratory failure with escalation of support to high flow nasal cannula on 100% oxygen this morning at 40 L. History predominantly obtained from chart. Patient is a service patient and we will reach out to his primary care, Dr. Lee in [place], for further information on next of kin and medical history. Pharmacy assisting this morning with obtaining medical record/medications over the past year. At this time it appears that he is on no medications as an outpatient. Hospital Course Hospital Course: Mr. Gayle is a 60-year-old male with COVID-19 pneumonia, presented with severe ARDS and respiratory failure. CT on admission did not show any evidence of PE but showed trace effusions. Patient respiratory acutely worsened within 12 hours of admission needing intubation and mechanical ventilation. Patient during the course also found to have NSTEMI and heparin drip was initiated to eventually discontinued concern for bleeding. He was intubated for prolonged period from 04/04/20 - 04/25/20. Pulmonary: -The worsening respiratory failure on admission. Intubated on 04/04/2020. Required high pressure and vent settings to maintain adequate oxygenation and ventilation. Pulmonology was consulted during admission. Assisted with vent management and gradual de-escalation of vent leading to eventual extubation to BiPAP and Vapotherm on 04/25/2020 after 3 weeks of intubation. - During his hospital course patient endotracheal aspirate from 04/04/2020 grew strep pneumonia and patient completed antibiotic course with Zosyn. Patient also briefly received vancomycin and was eventually discontinued. However patient endotracheal aspirate from 04/15 grew Enterococcus faecalis and staph epidermidis and was initiated on vancomycin again on 04/20/2020 due to recurrent fever. Single bottle from blood cultures obtained at that time grew positive for Staph hominis which is methicillin-resistant, however unclear clinical significance given single positive culture and no positive repeat cultures. - Patient ICU course also complicated by ICU acquired weakness that delayed his extubation. ENT was consulted during spontaneous breathing trials for possible need of tracheostomy. As patient responded well to SBT over the course of a week, it was decided to give him the opportunity to extubate to BiPAP before performing tracheostomy. Patient tolerated this well with continued respiratory stability. Tolerated extubation well initially on BiPAP to high flow nasal cannula, gradual weaning to nasal cannula. -Swallow study performed by speech, failed multiple times. Surgery consulted for PEG tube placement, placed on 04/29/2020 -Tube feeds initiated via PEG on 04/30/20 Electrolyte disturbances - normalized, monitor with daily labs. - replace as need
--- NOTE | 2020-05-01 19:00 | PC.NURSE ---
ALERT TO SELF AND BIRTHDAY. PT HAS TOLERATED 3L NC WELL THROUGHOUT SHIFT. RESPIRATIONS REGULAR AND UNLABORED. RHONCHI NOTED THROUGHOUT. PRODUCTIVE COUGH NOTED. VERY THICK SPUTUM NOTED. STAGE 2 NOTED TO COCCYX. DRESSING IN PLACE . CDI. DRESSING NOTED TO L HEEL. HEEL PROTECTORS IN PLACE TO BILATERAL HEELS. RASH NOTED TO BACK, OLMAN, AND SCROTUM. CENTRAL LINE IN PLACE TO L UPPER CHEST. PEG TUBE IN PLACE TO RUQ. TUBE FEEDING GOING 250 ML BOLUS EVERY 6 HOURS. PT TOLERATING WELL. HEAD ABOVE 45 DEGREES DURING TUBE FEEDING BOLUS. PT HAS BEEN TURNED Q 2 HOURS. ORAL CARE PERFORMED Q2 HOURS. SCABS NOTED TO LIPS. DOTSON CATHETER IN PLACE WITH YELLOW URINE DRAINING. ACTIVE BOWEL SOUNDS HEARD IN ALL 4 QUADRANTS. SOFT AND NONTENDER ABDOMEN. PT HAS HAD 2 LOOSE BMS THUS FAR. PT HAS BEEN AWAKE MOST OF THE SHIFT. BED ALARM ON TO PROMOTE SAFETY. RESIDUAL CHECKED Q 4 HOURS. +2 PULSES NOTED THROUGHOUT. EDEMA NOTED TO BILATERAL HANDS. BED IN LOWEST POSITION. CALL LIGHT WITHIN REACH. VSS. WILL CONTINUE TO MONITOR.
[2020-05-01 21:07] LABS: POC Glucose,Bedside 152 (70-110)
[2020-05-02] VITALS (7 sets, daily range): BP systolic 110–144; BP diastolic 71–83; PULSE 72–110; RESP 18–20; TEMP 36.6–37; O2SAT 90–96; BMI 20.9
--- NOTE | 2020-05-02 | FL_ITS ---
PROCEDURE: FL BARIUM SWALLOW MODIFIED CLINICAL INDICATION: DYSPHAGIA COMPARISON: No exams were available for comparison TECHNIQUE: Patient administered varying consistencies of barium contrast, while viewed in lateral position under real-time fluoroscopy with cine recording. FLUOROSCOPY TIME: The study was performed in conjunction with speech pathologist. Please see that report & recommendations. FINDINGS: Patient was given varying consistencies of barium. There is a moderate degree of aspiration with thin liquids with cough reflex. There was penetration with nectar. There was early spillage with multiple consistencies with moderate amount residual. IMPRESSION: Aspiration with thin liquids and penetration with nectar with early spillage and moderate residual. Please see speech pathologist report and recommendations. Dictated by: Jamie Shoemaker MD 07/18/2020 19:08 Jamie Shoemaker MD in [facility] 07/18/2020 19:08
--- NOTE | 2020-05-02 05:35 | PC.WOUNDNOTE ---
Wound Location: Redness/Rash spread posterior BUE & posterior BLE. Appeared to be more dense than previous assessment. Inflammation/swelling Y/N: Y Color: Red
--- NOTE | 2020-05-02 06:21 | PC.NURSE ---
Pt has been A&O to person, place, and birthday. Pt slept fairly well through the night. Only c/o persistent lower back pain around the area of his stage 2 DTI. Drsg c/d/i. IV Dilaudid has been given per mar with desired effect. Pt has been on 4L through the shift with sats in the low 90s. Lung sounds note inspiratory/expiratory rhonchi throughout. 2+ edema noted to BUE. Pt has a rash extending from campos area down to the knees and up the abd and arms. Pics noted in chart, MD aware. Pt turned q2h, oral care q2h. Heels floated. VSS, call light in reach. No concerns at this time.
[2020-05-02 06:29] LABS: POC Glucose,Bedside 107 (70-110)
[2020-05-02 06:42] LABS: Basophils # 0.1 K/mm3 (0-0.2); Basophils % 0.5 % (0.1-2.0); Eosinophils # 0.2 K/mm3 (0.0-0.4); Eosinophils % 0.6 % (0.1-12.0); Hematocrit 32.8 % (42.0-52.0); Hemoglobin 9.9 g/dL (14.1-18.0); Lymphocytes # 2.1 K/mm3 (0.7-4.5); Lymphocytes % 7.4 % (10-50); Mean Corpuscular HGB Conc 30.2 g/dL (31.8-35.4); Mean Corpuscular Hemoglobin 28.8 pg (27.0-31.2); Mean Corpuscular Volume 95.6 fl (80-94); Mean Platelet Volume 9.2 fl (7.4-10.4); Monocytes # 0.9 K/mm3 (0.1-1.0); Monocytes % 3.2 % (1.7-9.3); Neutrophils # 24.6 K/mm3 (1.8-7.8); Neutrophils % 88.4 % (37.0-80.0); Platelet Count 364 K/mm3 (142-424); Red Blood Count 3.43 M/mm3 (4.60-6.20); Red Cell Distribution Width 14.8 % (11.5-17.5); White Blood Count 27.8 K/mm3 (4.8-10.8)
[2020-05-02 06:49] LABS: Chloride 119 mmol/L (98-107); Potassium 3.8 mmoL/L (3.5-5.1); Sodium 145 mmol/L (136-145)
[2020-05-02 06:52] LABS: Alanine Aminotransferase 37 U/L (12-78); Albumin Level 2.6 g/dl (3.5-5.0); Albumin/Globulin Ratio 0.7 (1.1-1.8); Alkaline Phosphatase 98 U/L (38-126); Anion Gap 8.8 mEq/L (5-15); Aspartate Amino Transferase 34 U/L (17-59); Bilirubin,Total 0.3 mg/dl (0.2-1.3); Blood Urea Nitrogen 15 mg/dl (9-20); Calcium 8.4 mg/dl (8.4-10.2); Carbon Dioxide 21 mmol/L (22.0-30.0); Creatinine Clearance Estimated 125 mL/min (50-200); Estimated Glomerular Filt Rate 138 ml/min (>60); GFR (African American) 167 ML/MIN (>60); Globulin 3.5 g/dL (1.3-3.2); Glucose 105 mg/dl (74-100); Total Protein,Serum 6.1 g/dl (6.3-8.2)
[2020-05-02 06:58] LABS: MANUAL DIFFERENTIAL MANUAL DIFFERENTIAL (MANUAL DIFF)
--- NOTE | 2020-05-02 07:04 | PC.NURSE ---
S/W Dr. Metzger regarding fluid gain of 1,939ml, audible & auscultated crackles and rhonchi, and increased edema to bilat hands. New order to stop IVF and give Lasix 40mg IVP 1x. Order sent to [facility]. Also reported that pt has c/o itching and noted increased rash to posterior BUE, torso, and BLE.
[2020-05-02 08:38] LABS: Lymphocytes % 17 % (10-50); Monocytes % 2 % (2-9); Neutrophils % 78 % (42-76); Platelet Estimate Normal; RBC Morphology Normal; Total Cells Counted 100
--- NOTE | 2020-05-02 08:50 | DIET.NUTRFU ---
IVF dc'd- water flushes of 200ml q 4h added to TF order. Pt to dc. He has tolerated bolus tube feeds well for 3 days, weight up 7kg past 48h likely rt IVF, BG wnl-moderate, nutrition related labs wnl.
[2020-05-02 11:58] LABS: POC Glucose,Bedside 98 (70-110)
--- NOTE | 2020-05-02 13:21 | HMH.ACPN2 ---
Internal Medicine - PN: Subj *Date: 05/02/20 *Time: 14:58 Interval history: Patient stable on exam this morning. Continues to be quite weak however tolerating tube feeds without difficulty. Reviewed labs from this morning, white cell count went up again however received steroids yesterday for his rash. Continues to complain of itchy rash on his body. Urine output appropriate in his catheter liver appears subjectively more edematous when compared to exam on Tuesday. Oxygen requirement 5 L today which is an increase over the past few days. Remains hemodynamically stable and afebrile. Exam Vital signs and Labs for Last 24 Hours: Temp Pulse Resp BP Pulse Ox 98.1 F 72 18 133/78 95 05/02/20 12:00 05/02/20 12:00 05/02/20 12:00 05/02/20 12:00 05/02/20 12:00 Laboratory Results - last 24 hr 05/01/20 14:30: Procalcitonin 0.090 05/01/20 16:27: POC Glucose 143 H 05/01/20 20:52: POC Glucose 152 H 05/02/20 05:15: WBC 27.8 H* D, RBC 3.43 L, Hgb 9.9 L, Hct 32.8 L, MCV 95.6 H, MCH 28.8, MCHC 30.2 L, RDW 14.8, Plt Count 364, MPV 9.2, Neut % (Auto) 88.4 H, Lymph % (Auto) 7.4 L, Archer % (Auto) 3.2, Eos % (Auto) 0.6, Baso % (Auto) 0.5, Neut # (Auto) 24.6 H, Lymph # (Auto) 2.1, Archer # (Auto) 0.9, Eos # (Auto) 0.2, Baso # (Auto) 0.1, Total Counted 100, Neutrophils % (Manual) 78 H, Band Neutrophils % 3.0, Lymphocytes % (Manual) 17, Monocytes % (Manual) 2, Platelet Estimate Normal, RBC Morphology Normal 05/02/20 05:15: Sodium 145, Potassium 3.8, Chloride 119 H, Carbon Dioxide 21 L, Anion Gap 8.8, BUN 15 D, Creatinine 0.60 L, Estimated Creat Clear 125, Estimated GFR 138, Est GFR ( Amer) 167, Glucose 105 H, Calcium 8.4, Total Bilirubin 0.3, AST 34, ALT 37, Alkaline Phosphatase 98, Total Protein 6.1 L, Albumin 2.6 L, Globulin 3.5 H, Albumin/Globulin Ratio 0.7 L 05/02/20 06:19: POC Glucose 107 05/02/20 11:44: POC Glucose 98 I & O for Last 24 hours: Intake & Output 04/29/20 04/30/20 05/01/20 05/02/20 23:59 23:59 23:59 23:59 Intake Total 3678 / 3678 4424 / 4424 3891 / 3891 450 / 450 Output Total 2900 / 2900 1850 / 2250 1801 / 2076 3450 / 3450 Balance 778 / 778 2574 / 2174 2090 / 1815 -3000 / -3000 Weight 59.931 kg 59.874 kg 66.542 kg Microbiology Reports for the Last 24 Hours: Microbiology 04/29/20 08:15 Blood Blood Culture - Preliminary 04/29/20 08:05 Blood Blood Culture - Preliminary NO GROWTH AFTER 48 HOURS Narrative: - Constitutional no acute distress, thin, chronically ill appearing - *Routine HEENT Exam Head: Present: normocephalic Eye: Present: EOMI, PERRL ENT: Present: mucous membranes moist. Absent: dentition normal Comments: Loss of periorbital fat - *Routine Neck Exam Present: supple. Absent: lymphadenopathy - *Routine Respiratory Exam Present: rhonchi, crackles (Fine bibasilar). Absent: wheezes - *Routine Cardiovascular Exam Present: RRR - *Routine Abdominal Exam Present: soft, normoactive bowel sounds. Absent: tenderness - *Routine Extremities Exam Absent: cyanosis, clubbing; positive for 1-2+ UE and LE edema Comments: Significant sarcopenia - *Routine Skin Exam Present: warm, fine macular erythematous rash on torso: suspected secondary to drug reaction. - *Routine Neurological Exam Present: alert; Global weakness strength 2/5 in all 4 extremities. Able to wiggle toes and squeeze fingers, voice very weak Assessment and Plan (1) Acute respiratory distress syndrome (ARDS) due to 2019 novel coronavirus Status: Acute Category: Medical Code(s): U07.1 - COVID-19; J80 - Acute respiratory distress syndrome (2) Acute hypoxemic respiratory failure due to COVID-19 Status: Acute Category: Medical Code(s): U07.1 - COVID-19; J96.01 - Acute respiratory failure with hypoxia (3) Tobacco use Status: Acute Category: Social Hx Code(s): Z72.0 - Tobacco use (4) Severe sepsis Status: Acute Category: Medical Code(s): A41.9 - Seps
--- NOTE | 2020-05-02 15:17 | HMH.SLMBS2 ---
Speech & Language Evaluation Speech/Language Mod Barium Swallow Start: 04/28/20 13:50 Freq: ONCE Status: Complete Protocol: Document 04/28/20 16:02 JAMAR (Rec: 04/28/20 16:29 JAMAR [id number]) General Information General Current Food Consistancy NPO Dentition Good Dentition Oxygen Status Non-Rebreather Patient Orientation Person Communication Ability Mild Impairment MBS Recommendations Diet Dietary Recommendations NPO Referrals/Other Recommended Referrals GI Consult,CXR f/u in 3 days Mod Barium Swallow Impressions Summary and Impressions Oral Phase Impression Moderate Impairment Oral Phase Summary Mr. Gayle was given the following consistencies: thins via straw and open cup, Honey thick liquids via spoon, and pudding. Mr. Gayle exhibited premature spillage with thins and honey thick liquids. Pharyngeal Phase Impression Severe Impairment Pharyngeal Phase Summary Mr. Gayle exhibited rosanna aspiration with cough reflex with thin liquids. Mr. Gayle exhibited delay in the swallow reflex with all consistencies. He had a significant amount of residue in valleculae after each trial . He is at risk for aspiration on residue with all consistencies. At this time, it is recommended that he remain NPO due to his severe risk for aspiration. Speech/Language MBS Assessment/Goals/Plan Assessment Date of Evaluation: 04/28/20 Evaluation Type Initial Certification Assessment/Problems Dysphagia Does Patient Qualify for Service Yes Qualify/Failure Comment Mr. Gayle qualifies for speech therapy due to rosanna aspiration Recommendations PHYSICIAN CERTIFICATION: The specified therapy services are required, authorized, and reviewed every 30 days. Pt will be seen # times/week 1 for # weeks 1 Diet Recommendations NPO SL Swallow Guidelines Oral Care Education [facility] Meds Subs. delivery (liquid?) Plan Anticipate reaching STG in # weeks 1 Anticipate reaching LTG in # weeks 1 Pt/Guardian verbally ack understanding Yes of dx/prognosis/goals G -code Required
--- NOTE | 2020-05-02 15:36 | PC.NURSE ---
PT HAS BEEN ALERT T/O THE SHIFT. RECEIVED BATH AND BED CHANGE. PT WAS INITIALLY GOING TO BE TRANSFERRED TO A DIFFERENT FACILITY BUT DISCHARGE WAS CANCELLED EARLY THIS AFTERNOON. PT HAS BEEN TURNED AND REPOSITIONED FREQUENTLY. ORAL CARE PROVIDED. PT GOT VERY UPSET OVER NOT BEING ABLE TO HAVE ANYTHING TO EAT OR DRINK THIS MORNING. PT HAS A STAGE 2 NOTED TO THE BUTTOCKS WITH DRESSING C/D/I. LUNG SOUNDS HAVE SCATTERED RHONCHI/CRACKLES. O2 SATURATION HAS MAINTAINED 93-96% ON 3 L NC. PT HAD A TOTAL OF 2750ML'S OF UOP. [employer]SON CATHETER WAS CHANGED THIS SHIFT. SPEECH CALLED AND STATED PT FAILED THE MODIFIED SWALLOW TEST AND HE WILL STILL NEED TO BE NPO AND HAVE TUBE FEEDINGS ONLY. IT WAS REPORTED TO CLAUDETTE LOMAS RN THAT PCP CALLED AND STATED FOR PT'S CENTRAL LINE TO BE DC'D.
[2020-05-02 17:21] LABS: POC Glucose,Bedside 107 (70-110)
--- NOTE | 2020-05-02 20:41 | PC.NURSE ---
since gaining care of patient he has done okay. was unable to get an iv and md is aware so central line has been left in place. wants staff to continue to try and gain iv access. did increase o2 to 4l md is aware. rash remains through out body. complaints about not being able to drink. vitals stable.
[2020-05-03] VITALS (9 sets, daily range): BP systolic 102–146; BP diastolic 62–83; PULSE 68–87; RESP 17–22; TEMP 36.5–36.9; O2SAT 88–97; BMI 21.3
[2020-05-03 02:25] LABS: POC Glucose,Bedside 104 (70-110)
[2020-05-03 05:56] LABS: POC Glucose,Bedside 108 (70-110)
--- NOTE | 2020-05-03 06:15 | PC.NURSE ---
No acute changes. Pt is currently on 4.5 L O2 NC with sats 88-90%. Pt occasionally will desat while sleeping. Pt encouraged to cough and breathe through nose and out mouth. Inspiratory and expiratory rhonchi noted t/o lung dickinson. Pulmocare feedings 250 ml Q 6 hrs. Flushes of 200 ml Q4. Pt has tolerated well. 0 residual. Pt continues to rash. Lips have improved, but continue to have areas. Oral care and ointment applied. VSS. Medications administered per may. Will continue to monitor.
--- NOTE | 2020-05-03 07:24 | HMH.ACPN2 ---
Internal Medicine - PN: Subj *Date: 05/03/20 *Time: 10:13 Interval history: Mr. Gayle had improvement overnight in his oxygen requirement after diuresis. Remains afebrile and hemodynamically stable. Denies any chest pain or worsening shortness of breath. Continues to state he is hungry, but understands that he is failed his swallow studies and is not ready to tolerate p.o. intake. On interview this morning, he admits that his heart hurts. Further discussion elicits that he has been on antidepressants in the past. Was on Paxil while he was incarcerated and it helped significantly. Would like to resume this medication. Does have some mild pain at the site of his G-tube. Overall though is pleased to be in a room with a window interview, states this is helped him feel somewhat better. Continues to have itchy rash, has not worsened however. Exam Vital signs and Labs for Last 24 Hours: Temp Pulse Resp BP Pulse Ox 98 F 70 17 141/83 H 88 L 05/03/20 04:00 05/03/20 04:00 05/03/20 04:00 05/03/20 04:00 05/03/20 04:00 Laboratory Results - last 24 hr 05/02/20 05:15: Total Counted 100, Neutrophils % (Manual) 78 H, Band Neutrophils % 3.0, Lymphocytes % (Manual) 17, Monocytes % (Manual) 2, Platelet Estimate Normal, RBC Morphology Normal 05/02/20 11:44: POC Glucose 98 05/02/20 16:41: POC Glucose 107 05/02/20 22:39: POC Glucose 104 05/03/20 05:30: POC Glucose 108 I & O for Last 24 hours: Intake & Output 04/30/20 05/01/20 05/02/20 05/03/20 23:59 23:59 23:59 23:59 Intake Total 4424 / 4424 3891 / 3891 650 / 650 Output Total 1850 / 2250 1801 / 2076 4775 / 4775 500 / 500 Balance 2574 / 2174 2090 / 1815 -4125 / -4125 -500 / -500 Weight 59.874 kg 66.542 kg 67.642 kg Microbiology Reports for the Last 24 Hours: Microbiology 04/29/20 08:15 Blood Blood Culture - Preliminary Narrative: - Constitutional no acute distress, thin, chronically ill appearing - *Routine HEENT Exam Head: Present: normocephalic Eye: Present: EOMI, PERRL ENT: Present: mucous membranes moist. Absent: dentition normal Comments: Loss of periorbital fat - *Routine Neck Exam Present: supple. Absent: lymphadenopathy - *Routine Respiratory Exam Present: Interval improvement in rhonchi, faint bibasilar posterior crackles, improved from yesterday. No significant wheeze - *Routine Cardiovascular Exam Present: RRR, no murmur - *Routine Abdominal Exam Present: soft, normoactive bowel sounds. Minimal tenderness around G-tube site, otherwise nontender - *Routine Extremities Exam Absent: cyanosis, clubbing; positive for 1+ UE edema; Significant sarcopenia, pressure wound on left heel stable; no splinter hemorrhages appreciated. Multiple lesions on fingers from fingerstick glucose monitoring - *Routine Skin Exam Present: warm, fine macular erythematous rash on torso: suspected secondary to drug reaction. - *Routine Neurological Exam Present: alert; Global weakness strength 2/5 in all 4 extremities. Able to wiggle toes and squeeze fingers, voice somewhat stronger today. Can lift shoulders briefly and knees briefly off the bed but cannot hold for more than a few seconds Assessment and Plan (1) Acute respiratory distress syndrome (ARDS) due to 2019 novel coronavirus Status: Acute Category: Medical Code(s): U07.1 - COVID-19; J80 - Acute respiratory distress syndrome (2) Acute hypoxemic respiratory failure due to COVID-19 Status: Acute Category: Medical Code(s): U07.1 - COVID-19; J96.01 - Acute respiratory failure with hypoxia (3) Tobacco use Status: Acute Category: Social Hx Code(s): Z72.0 - Tobacco use (4) Severe sepsis Status: Acute Category: Medical Code(s): A41.9 - Sepsis, unspecified organism; R65.20 - Severe sepsis without septic shock (5) Metabolic acidosis Status: Acute Category: Medical Code(s): E87.2 - Acidosis (6) Acute respiratory acidosis Status: Acute Category: Medical
[2020-05-03 07:37] LABS: Basophils # 0.1 K/mm3 (0-0.2); Basophils % 0.4 % (0.1-2.0); Eosinophils # 0.1 K/mm3 (0.0-0.4); Eosinophils % 0.3 % (0.1-12.0); Hemoglobin 10.3 g/dL (14.1-18.0); Lymphocytes # 2.1 K/mm3 (0.7-4.5); Lymphocytes % 9.7 % (10-50); Mean Corpuscular HGB Conc 33.1 g/dL (31.8-35.4); Mean Corpuscular Hemoglobin 30.5 pg (27.0-31.2); Mean Platelet Volume 8.9 fl (7.4-10.4); Monocytes # 0.9 K/mm3 (0.1-1.0); Monocytes % 4.1 % (1.7-9.3); Neutrophils # 18.4 K/mm3 (1.8-7.8); Neutrophils % 85.5 % (37.0-80.0); Platelet Count 360 K/mm3 (142-424); Red Blood Count 3.37 M/mm3 (4.60-6.20); Red Cell Distribution Width 15.1 % (11.5-17.5); White Blood Count 21.5 K/mm3 (4.8-10.8)
[2020-05-03 07:38] LABS: MANUAL DIFFERENTIAL MANUAL DIFFERENTIAL (MANUAL DIFF)
[2020-05-03 08:06] LABS: Lymphocytes % 8 % (10-50); Monocytes % 4 % (2-9); Neutrophils % 88 % (42-76); Platelet Estimate Normal; RBC Morphology Normal; Total Cells Counted 100
[2020-05-03 08:30] LABS: Chloride 108 mmol/L (98-107)
[2020-05-03 08:31] LABS: Potassium 3.5 mmoL/L (3.5-5.1); Sodium 138 mmol/L (136-145)
[2020-05-03 08:33] LABS: Alanine Aminotransferase 39 U/L (12-78); Alkaline Phosphatase 103 U/L (38-126); Anion Gap 9.5 mEq/L (5-15); Aspartate Amino Transferase 36 U/L (17-59); Bilirubin,Total 0.3 mg/dl (0.2-1.3); Blood Urea Nitrogen 25 mg/dl (9-20); Carbon Dioxide 24 mmol/L (22.0-30.0); Creatinine Clearance Estimated 127 mL/min (50-200); Estimated Glomerular Filt Rate 138 ml/min (>60); GFR (African American) 167 ML/MIN (>60)
[2020-05-03 08:34] LABS: Albumin Level 2.5 g/dl (3.5-5.0); Albumin/Globulin Ratio 0.8 (1.1-1.8); Calcium 8.6 mg/dl (8.4-10.2); Globulin 3.1 g/dL (1.3-3.2); Glucose 95 mg/dl (74-100); Magnesium 1.7 mg/dl (1.6-2.3); Total Protein,Serum 5.6 g/dl (6.3-8.2)
[2020-05-03 11:48] LABS: POC Glucose,Bedside 121 (70-110)
--- NOTE | 2020-05-03 18:50 | PC.NURSE ---
pt has had a good day. pt is now on 2lnc with o2 sat >95%. pt has been turned q2hr, oral given given. pt has also been using the IS with this afternoon pt has been resistive to all care. central line removed per md order. 20G placed in the LAC. pt given a one time dose to morphine, md aware of allergy. pt has the rash on his body from yesterday still, applied topical medication. vss. will cont. to monitor.
[2020-05-03 20:30] LABS: POC Glucose,Bedside 85 (70-110)
[2020-05-04] VITALS (10 sets, daily range): BP systolic 97–143; BP diastolic 59–74; PULSE 65–83; RESP 17–22; TEMP 36.5–37.2; O2SAT 90–97; BMI 20.2
--- NOTE | 2020-05-04 03:44 | PC.NURSE ---
No acute changes. Pt has not slept well this shift. Has c/o discofort to extremities. ROM performed. Pt turned and repositioned Q2 HR. Oral care provided. Ointments applied to lips and skin. Rash remains t/o. Pulmocare feedings of 250 ml with flushes of 200 ml. Pt is currently on O2 2L NC. Rhonchi t/o lung dickinson. Pt coughing and using incentive spirometer. VSS. No other concerns. Will continue to monitor.
[2020-05-04 05:42] LABS: POC Glucose,Bedside 96 (70-110)
[2020-05-04 06:00] LABS: Basophils # 0.2 K/mm3 (0-0.2); Basophils % 0.9 % (0.1-2.0); Eosinophils # 0.7 K/mm3 (0.0-0.4); Eosinophils % 3.6 % (0.1-12.0); Hematocrit 32.6 % (42.0-52.0); Hemoglobin 10.7 g/dL (14.1-18.0); Lymphocytes # 2.4 K/mm3 (0.7-4.5); Lymphocytes % 12.7 % (10-50); Mean Corpuscular HGB Conc 32.7 g/dL (31.8-35.4); Mean Corpuscular Hemoglobin 30.5 pg (27.0-31.2); Mean Corpuscular Volume 93.4 fl (80-94); Mean Platelet Volume 9.6 fl (7.4-10.4); Monocytes % 5.2 % (1.7-9.3); Neutrophils # 14.4 K/mm3 (1.8-7.8); Neutrophils % 77.6 % (37.0-80.0); Platelet Count 350 K/mm3 (142-424); Red Blood Count 3.49 M/mm3 (4.60-6.20); Red Cell Distribution Width 15.3 % (11.5-17.5); White Blood Count 18.6 K/mm3 (4.8-10.8)
--- NOTE | 2020-05-04 06:00 | XR_ITS ---
PROCEDURE: XR CHEST PORTABLE Referring Doctor: Zion Metzger Patient Age:60Y CLINICAL HISTORY: monitor pneumonia Respiratory distress, hypoxia, cardiomyopathy. Smoker COMPARISON: CT CT ANGIO CHEST from 04/03/2020 CR XR CHEST PORTABLE from 04/25/2020 CR XR CHEST PORTABLE from 04/26/2020 CR XR CHEST PORTABLE from 05/01/2020 FINDINGS: AP portable upright chest compared to May 01. Right lung: Improved expansion right lung on today's CXR. Infiltrate and atelectasis at the right lung base again noted-if anything slightly more evident/more pronounced compared to May 01 however this may be in part due to the better inspiration which yields better visualization of this region (as it appears slightly improved compared to April 26 P CXR) There continues to be a subtle diffuse infiltrate throughout the periphery of the right lung is a similar to previous study Left lung: Diffuse low-density infiltrate throughout left lung-most evident at left infrahilar and left lung base. Although consolidation here has improved since April 26 there has been no significant change since 05/01/2020.-If anything the infiltrate may be very slightly more evident left lung base now partially obscuring the hemidiaphragm laterally Stable the low-density infiltrate suspect throughout the periphery of the left lung IMPRESSION: Diffuse bilateral infiltrates most evident towards lung bases. . Overall little change since May 01: There is better inspiration today but basilar infiltrates are perhaps very very slightly more evident than on May 01 p CXR, (but have improved since April 26). Dictated by: Rex Jackson MD 05/04/2020 06:05 Rex Jackson MD in [place] 05/04/2020 06:05
[2020-05-04 06:10] LABS: MANUAL DIFFERENTIAL MANUAL DIFFERENTIAL (MANUAL DIFF)
[2020-05-04 06:29] LABS: Anion Gap 9.7 mEq/L (5-15); Blood Urea Nitrogen 27 mg/dl (9-20); Calcium 8.5 mg/dl (8.4-10.2); Carbon Dioxide 25 mmol/L (22.0-30.0); Chloride 103 mmol/L (98-107); Creatinine Clearance Estimated 120 mL/min (50-200); Estimated Glomerular Filt Rate 138 ml/min (>60); GFR (African American) 167 ML/MIN (>60); Glucose 93 mg/dl (74-100); Potassium 3.7 mmoL/L (3.5-5.1); Sodium 134 mmol/L (136-145)
[2020-05-04 07:25] LABS: Eosinophils % 3 % (0-3); Lymphocytes % 10 % (10-50); Neutrophils % 79 % (42-76); Platelet Estimate Normal; RBC Morphology Normal; Total Cells Counted 100
--- NOTE | 2020-05-04 08:33 | HMH.ACPN2 ---
Internal Medicine - PN: Subj *Date: 05/04/20 *Time: 10:56 Interval history: Mr. Gayle has remained stable overnight, improvement in O2 requirement to 2-3L NC Continues to have good response to lasix, negative 1.6L in the past 24hrs. Remains afebrile and hemodynamically stable. Denies any chest pain or worsening shortness of breath. Does have some mild pain at the site of his G-tube, denies nausea or vomiting. No chest pain. Continues to have itchy rash, improved with initiation of steroid cream. Exam Vital signs and Labs for Last 24 Hours: Temp Pulse Resp BP Pulse Ox 97.8 F 65 17 120/74 97 05/04/20 04:00 05/04/20 06:12 05/04/20 04:00 05/04/20 04:00 05/04/20 06:12 Laboratory Results - last 24 hr 05/03/20 06:56: Carbon Dioxide 24, Anion Gap 9.5, BUN 25 H D, Creatinine 0.60 L, Estimated Creat Clear 127, Estimated GFR 138, Est GFR ( Amer) 167, Glucose 95, Calcium 8.6, Magnesium 1.7, Total Bilirubin 0.3, AST 36, ALT 39, Alkaline Phosphatase 103, Total Protein 5.6 L, Albumin 2.5 L, Globulin 3.1, Albumin/Globulin Ratio 0.8 L 05/03/20 11:39: POC Glucose 121 H 05/03/20 20:23: POC Glucose 85 05/04/20 05:00: WBC 18.6 H, RBC 3.49 L, Hgb 10.7 L, Hct 32.6 L, MCV 93.4, MCH 30.5, MCHC 32.7, RDW 15.3, Plt Count 350, MPV 9.6, Neut % (Auto) 77.6, Lymph % (Auto) 12.7, Erath % (Auto) 5.2, Eos % (Auto) 3.6, Baso % (Auto) 0.9, Neut # (Auto) 14.4 H, Lymph # (Auto) 2.4, Erath # (Auto) 1.0, Eos # (Auto) 0.7 H, Baso # (Auto) 0.2, Total Counted 100, Neutrophils % (Manual) 79 H, Band Neutrophils % 8.0, Lymphocytes % (Manual) 10, Eosinophils % (Manual) 3, Platelet Estimate Normal, RBC Morphology Normal 05/04/20 05:00: Sodium 134 L, Potassium 3.7, Chloride 103, Carbon Dioxide 25, Anion Gap 9.7, BUN 27 H, Creatinine 0.60 L, Estimated Creat Clear 120, Estimated GFR 138, Est GFR ( Amer) 167, Glucose 93, Calcium 8.5 05/04/20 05:30: POC Glucose 96 I & O for Last 24 hours: Intake & Output 05/01/20 05/02/20 05/03/20 05/04/20 23:59 23:59 23:59 23:59 Intake Total 3891 / 3891 650 / 650 450 / 450 450 / 450 Output Total 180 / 2076 4775 / 4775 2100 / 2100 425 / 425 Balance 2089 / 1814 -4125 / -412 -1650 / -165 Weight 66.542 kg 67.642 kg 64.098 kg Microbiology Reports for the Last 24 Hours: Microbiology 04/29/20 08:15 Blood Blood Culture - Preliminary Staphylococcus pettenkoferi Narrative: - Constitutional no acute distress, thin, chronically ill appearing - *Routine HEENT Exam Head: Present: normocephalic Eye: Present: EOMI, PERRL ENT: Present: mucous membranes moist; dentition poor; Loss of periorbital fat - *Routine Neck Exam Present: supple. Absent: lymphadenopathy - *Routine Respiratory Exam Present: Stable lung exam, fair airmovement, rhonchi that change with cough; faint bibasilar posterior crackles stable; No significant wheeze - *Routine Cardiovascular Exam Present: RRR, no murmur - *Routine Abdominal Exam Present: soft, normoactive bowel sounds. Minimal tenderness around G-tube site, otherwise nontender - *Routine Extremities Exam No cyanosis, clubbing; positive for 1+ UE edema; Significant sarcopenia, pressure wound on left heel stable; no splinter hemorrhages appreciated. Multiple lesions on fingers from fingerstick glucose monitoring - *Routine Skin Exam Present: warm, fine macular erythematous rash on torso: suspected secondary to drug reaction. - *Routine Neurological Exam Present: alert; Global weakness strength 2/5 in all 4 extremities. Able to wiggle toes and squeeze fingers, voice somewhat stronger today. Can lift shoulders briefly and knees briefly off the bed but cannot hold for more than a few seconds Assessment and Plan (1) Acute respiratory distress syndrome (ARDS) due to 2019 novel coronavirus Status: Acute Category: Medical Code(s): U07.1 - COVID-19; J80 - Acute respiratory distress syndrome (2) Acute hypoxemic respiratory failu
[2020-05-04 12:03] LABS: POC Glucose,Bedside 123 (70-110)
--- NOTE | 2020-05-04 17:50 | PC.NURSE ---
pt has had a good day. pt has been cooperative with care. oral care given, and pt turned q2hr. ROM performed on pt. pt has had multiple bowel movements this shift. bath given. dressing applied to coccyx and left heel. vss. will cont. to monitor.
--- NOTE | 2020-05-04 19:30 | PC.NURSE ---
REPORT RECEIVED FROM Kanika WOLF RN
[2020-05-04 21:05] LABS: POC Glucose,Bedside 86 (70-110)
[2020-05-05] VITALS (9 sets, daily range): BP systolic 114–141; BP diastolic 67–97; PULSE 63–83; RESP 16–21; TEMP 36.3–36.8; O2SAT 89–95
--- NOTE | 2020-05-05 05:39 | PC.NURSE ---
pt has been awake most of shift, pt is alert and oriented x self only can tell you he is in [place] but not that he is in hospital. pt has yelled at anyone who has passed room to have them come into room, ROM performed multiple times to extremities with states relief, mouth care performed multiple times, gtube is patent patient remains NPO, productive cough continues with thick white sputum noted, lung sounds improved since previous assessment, scattered rhonci continue to be noted throughout, no SOB noted, heart rate regular, vss, dressings remain intact to buttocks and heel, no needs at this time,
--- NOTE | 2020-05-05 08:35 | HMH.DCSUM ---
General - General Admission date:: 04/03/20 Discharge date: 05/05/20 HPI HPI: Mr. Gayle is a 60-year-old male who presented to the ER due to 2 to 3 days of shortness of breath. He has a history of smoking, reported history of hypertension but does not currently take anything. Complains that he has been feeling tightness in his chest and difficulty breathing leading to the point he needed to come to the hospital. On presentation he was found to be hypoxic on room air with a saturation in the high 80s. Was started on oxygen and initial work-up begun. Found to be positive for COVID-19 with diffuse bilateral infiltrates necessitating admission. On assessment this morning, unable to gain any further information from the patient due to his fatigue and somnolence. He will wake briefly to answer questions and then dozes back off. Overnight he has had progressive worsening of respiratory failure with escalation of support to high flow nasal cannula on 100% oxygen this morning at 40 L. History predominantly obtained from chart. Patient is a service patient and we will reach out to his primary care, Dr. Lee in [place], for further information on next of kin and medical history. Pharmacy assisting this morning with obtaining medical record/medications over the past year. At this time it appears that he is on no medications as an outpatient. Hospital Course Hospital Course: Mr. Gayle is a 60-year-old male with COVID-19 pneumonia, presented with severe ARDS and respiratory failure. CT on admission did not show any evidence of PE but showed trace effusions. Patient respiratory acutely worsened within 12 hours of admission needing intubation and mechanical ventilation. Patient during the course also found to have NSTEMI and heparin drip was initiated to eventually discontinued concern for bleeding. He was intubated for prolonged period from 04/04/20 - 04/25/20. Pulmonary: -The worsening respiratory failure on admission. Intubated on 04/04/2020. Required high pressure and vent settings to maintain adequate oxygenation and ventilation. Pulmonology was consulted during admission. Assisted with vent management and gradual de-escalation of vent leading to eventual extubation to BiPAP and Vapotherm on 04/25/2020 after 3 weeks of intubation. - During his hospital course patient endotracheal aspirate from 04/04/2020 grew strep pneumonia and patient completed antibiotic course with Zosyn. Patient also briefly received vancomycin and was eventually discontinued. However patient endotracheal aspirate from 04/15 grew Enterococcus faecalis and staph epidermidis and was initiated on vancomycin again on 04/20/2020 due to recurrent fever. Single bottle from blood cultures obtained at that time grew positive for Staph hominis which is methicillin-resistant, however unclear clinical significance given single positive culture and no positive repeat cultures. - Patient ICU course also complicated by ICU acquired weakness that delayed his extubation. ENT was consulted during spontaneous breathing trials for possible need of tracheostomy. As patient responded well to SBT over the course of a week, it was decided to give him the opportunity to extubate to BiPAP before performing tracheostomy. Patient tolerated this well with continued respiratory stability. Tolerated extubation well initially on BiPAP to high flow nasal cannula, gradual weaning to nasal cannula. -Swallow study performed by speech, failed multiple times. Surgery consulted for PEG tube placement, placed on 04/29/2020 -Tube feeds initiated via PEG on 04/30/20 Electrolyte disturbances - normalized, monitor with daily labs. - replace as needed via IV repletion or through nutrition when possible - BUN normalized, showing improvement since addressing GI bleed/decreasing therapeutic Lovenox ID - See antibiotics as per above and pulmonary discussion. - On admission was initiated on COVID-19 protocol includ
[2020-05-05 08:52] LABS: Basophils # 0.1 K/mm3 (0-0.2); Basophils % 0.6 % (0.1-2.0); Eosinophils # 0.7 K/mm3 (0.0-0.4); Eosinophils % 3.9 % (0.1-12.0); Hematocrit 31.8 % (42.0-52.0); Hemoglobin 10.2 g/dL (14.1-18.0); Lymphocytes # 2.1 K/mm3 (0.7-4.5); Lymphocytes % 11.3 % (10-50); Mean Corpuscular Hemoglobin 29.3 pg (27.0-31.2); Mean Corpuscular Volume 91.7 fl (80-94); Mean Platelet Volume 8.7 fl (7.4-10.4); Monocytes # 0.7 K/mm3 (0.1-1.0); Monocytes % 3.9 % (1.7-9.3); Neutrophils # 15.2 K/mm3 (1.8-7.8); Neutrophils % 80.4 % (37.0-80.0); Platelet Count 391 K/mm3 (142-424); Red Blood Count 3.47 M/mm3 (4.60-6.20); White Blood Count 18.9 K/mm3 (4.8-10.8)
[2020-05-05 08:55] LABS: MANUAL DIFFERENTIAL MANUAL DIFFERENTIAL (MANUAL DIFF)
[2020-05-05 09:42] LABS: Eosinophils % 2 % (0-3); Lymphocytes % 13 % (10-50); Monocytes % 3 % (2-9); Neutrophils % 81 % (42-76); Platelet Estimate Normal; RBC Morphology Normal; Total Cells Counted 100
--- NOTE | 2020-05-05 09:49 | CA_ITS ---
APPROVED REPORT EXAM: Comprehensive 2D, Doppler, and color-flow Echocardiogram Commercial Specialist: Nery Vences, RT(R) Ht: 5 ft 10 in Wt: 140lbs BSA: 1.79 BP: 120/74 mmHg Indications: post COVID and intubation, acute resp failure, smoker, positive blood cultures, assess EF and valves for vegetations 2D Dimensions LVOT 2.01 cm (M/F) 1.5-2.5 LA Volume 51.50 mL LA Volume Index 28.77 mL/m2 (M/F) 16-34 M-Mode Dimensions RVDd 2.54 cm (0.9-2.6) LA Diam 3.62 cm (1.9-4.0) LVDd 4.89 cm (3.5-5.7) Ao Diam 3.05 cm (2.0-3.7) LVDs 3.18 cm (3.5-5.7) IVSd 0.75 cm (0.6-1.1) PWd 1.00 cm (0.6-1.1) EF (Teich) 64.10% FS 35.00% EDV (Teich) 112.30 mL ESV (Teich) 40.30 mL LV Diastology E Decel Time 217.00 (160-240 msec) E/A Ratio 0.8 MED E' 7.00 (< 7 cm/sec) E'/MED E' Ratio 10.44 (>14) LAT E' 7.80 (<10 cm/sec) E/LAT E' Ratio 9.37 (>14) Aortic Valve LVOT Max 143.00 (70-110 cm/s) LVOT VTI 27.00 cm AoV Peak Capo. 183.00 (50-130 cm/s) AO Peak GR. 13.50 mmHg AO Mean GR. 7.50 (<5 mmHg) AO VTI 33.46 (18-25 cm) TRACY (VTI) 2.56 (2.5-4.5 cm2) Mitral Valve MV E Max Capo. 73.00 (40-130 cm/s) MV A Velocity 86.00 (40-130 cm/s) E/A Ratio 0.85 MV Decel. Time 217.00 (160-240 ms) MV PHT 63.00 ms Tricuspid Valve TR P. Velocity 203.00 cm/s RAP Estimate 15.00 mmHg RVSP 31.50 mmHg Left Ventricle Left atrium is mildly enlarged, left ventricle is normal size, there is preserved left ventricular systolic function, visually estimated ejection fraction 55% with no regional wall motion abnormality, grade 1 diastolic dysfunction without tissue Doppler evidence of raise left atrial pressure. Right Ventricle Right atrium and right ventricle are normal size and contractility. Aortic Valve Aortic valve is minimally thickened and fibrosed, there is no aortic stenosis or aortic insufficiency. Mitral Valve Mitral valve is grossly normal, there is trace mitral regurgitation. Tricuspid Valve Tricuspid valve is grossly normal, there is trace tricuspid regurgitation. Pulmonic Valve Pulmonic valve is poorly visualized. Great Vessels Aortic root is normal size. Pericardium No significant pericardial effusion noted. Conclusion 1. Normal left ventricular size, mild concentric left ventricular hypertrophy, visually estimated ejection fraction 55% with no regional wall motion abnormality, grade 1 diastolic dysfunction seen without tissue Doppler evidence of raise left atrial pressure. 2. Trace mitral and tricuspid regurgitation. 3. No significant pericardial effusion noted. Electronically signed by : Guillermo Siegel, 05/05/2020 21:12:12
--- NOTE | 2020-05-05 10:36 | DIET.NUTRFU ---
Pt to discharge to SNF for rehab. Tube feeding regimen for dc is as stated in order/below: Bolus feeds of Pulmocare 1.5- 250ml q 6h with water flushes of 200ml q 4h. This regimen provides 1500kcal, 63g protein, 106g cho, 93g fat, and 785ml free water. Regimen provides 23kcal/kg and 1g/kg pro- recommend gradually increasing regimen to provide 25kcal/kg and 1.2-1.5g/kg pro as pt progresses to OOB activity. Recommend slowly transitioning to supplemental feedings as pt regains swallowing ability. Pt tolerated this regimen well for 5 days-no s/s poor tolerance, nutrition related labs wnl, weight stable. Also tolerated continuous tube feedings pulmocare well previously. Did have some electrolyte abnormality when continuous feeds first initiated, was switched to osmolite and then back to pulmocare when electrolytes improved. Pt had a 12# weight loss t/o stay- 31 days, BG were moderately elevated t/o stay r/t COVID infection and steroids, as stated above had some electrolyte abnormalities which were resolved with hypocaloric feedings and gradually progressed to 23kcal/kg as tolerated by pt.
[2020-05-05 11:14] LABS: POC Glucose,Bedside 109 (70-110)
[2020-05-05 17:17] LABS: POC Glucose,Bedside 117 (70-110)
--- NOTE | 2020-05-05 20:41 | PC.NURSE ---
Received order for prn tylenol q 6 hrs. CB in reach. Have turned and repositioned q 1-2 hrs. Dsg changed to staged area x 2 this shift. Incont of b&b. VSS. Pt has been alert and oriented with episodes of confusion. Meds per g tube. Dsg to L heel CDI and chadd heel protectors in place. Abd binder in place. Remains on 2 L NC.
[2020-05-05 21:23] LABS: POC Glucose,Bedside 82 (70-110)
[2020-05-06] VITALS: BP 159/63; PULSE 75; RESP 17; TEMP 36.4; O2SAT 94
[2020-05-06 04:00] VITALS: BP 159/77; PULSE 81; RESP 18; TEMP 36.6; O2SAT 93
[2020-05-06 05:21] LABS: POC Glucose,Bedside 109 (70-110)
--- NOTE | 2020-05-06 05:56 | PC.NURSE ---
pt has been awake most of the shift, has been yelling out for coffee, remains on 2L NC with O2 sats 91-94%, breathing is spontaneous and non-labored, no complaints of SOA, respiratory rate 17-21, rash noted all over body and has been treated per MAY, dressing to coccyx and left heel C/D/I, redness to campos area and bottom treated as well, incontinent of bowel 2 x this shift, tube feeds done Q6 with flushes Q4 per order, no residuals noted this shift
[2020-05-06 06:13] VITALS: PULSE 77; PULSE 80; O2SAT 93
[2020-05-06 08:00] VITALS: BP 105/64; PULSE 89; RESP 20; TEMP 36.8; O2SAT 90
[2020-05-06 11:19] VITALS: PULSE 89; O2SAT 98
== END 2020-05-06 12:57 | DRG 207 ==
LOC: ER 19:20 → ICU 22:04 → 2ND 05-04 10:02
PROVIDERS: Emergency Medicine; Family Medicine; Internal Medicine Adolescent Medicine; Internal Medicine Pulmonary Disease; Surgery; Admitting Provider Internal Medicine Adolescent Medicine; Emergency Provider Emergency Medicine; Visit Provider Internal Medicine Adolescent Medicine
PROC: 0DH63UZ Insertion of Feeding Device into Stomach, Percutaneous Approach (ICD-10-PCS; CPT 43246; principal; 2020-04-29 12:30)
DX: U07.1 COVID-19 (principal); J96.01 Acute respiratory failure with hypoxia; J12.82 Pneumonia due to coronavirus disease 2019; I21.4 Non-ST elevation (NSTEMI) myocardial infarction; R65.20 Severe sepsis without septic shock; N17.9 Acute kidney failure, unspecified; I42.9 Cardiomyopathy, unspecified; Z72.0 Tobacco use; E87.5 Hyperkalemia; E83.41 Hypermagnesemia; Z88.8 Allergy status to other drugs, medicaments and biological substances; Z88.5 Allergy status to narcotic agent; Z79.899 Other long term (current) drug therapy
CPT/HCPCS: 31500; 94002; 43246; 36556; 36415; 70371; 71045; 71275; 80048; 80053; 80202; 81001; 82272; 82550; 82803; 82962; 83605; 83735; 83880; 84145; 84484; 85007; 85014; 85018; 85025; 85378; 85651; 85730; 86140; 86328; 86850; 87040; 87070; 87077; 87081; 87086; 87186; 87205; 87581; 87633; 87798; 92526; 92610; 92611; 93005; 93306; 93308; 93970; 94003; 94640; 94660; 94760; 94761; 96365; 96372; 96375; 97110; 97140; 97163; 97166; 97530; 99284; C1751; G0328; J0456; J1956; J2405; J2704; J3370; P9016; Q9967; U0003

== ENCOUNTER 2020-07-05 18:49 | Emergency (ER) | payer MEDICARE, SELFPAY ==
[2020-07-05 19:00] VITALS: BP 121/82; PULSE 77; RESP 18; TEMP 36.6; O2SAT 96; BMI 21.9
--- NOTE | 2020-07-05 19:07 | HMH.EDGENADL ---
ED Disposition Clinical Impression: Opiate dependence Qualifiers: Substance use status: in withdrawal Qualified Code(s): F11.23 - Opioid dependence with withdrawal Disposition: Home, Self-Care Condition on Discharge: Good Prescriptions: Cyclobenzaprine HCl [Cyclobenzaprine 5mg Tab] 5 mg PO Q8HP PRN #30 tab PRN Reason: pain/spasm Transmission Status: Received by [facility] #[id number] Ketorolac Tromethamine [Toradol 10mg tablet] 10 mg PO Q6H 5 Days #20 tab Transmission Status: Received by [facility] #[id number] Referrals: PCP,No [Primary Care Provider] - - Critical Care Critical Care Time: No Attestation: On 07/05/20, the high probability of a clinically significant, sudden or life threatening deterioration of the following system(s) required my full and direct attention, intervention and personal management. The time I documented below is in addition to time spent performing reported procedures but includes the following listed in this critical care notation. Medical Decision Making - Medical Records Medical records reviewed: Yes: I reviewed the patient's medical records. - Jose Inquiry Pt receiving controlled substance: No Vital Signs: 07/05/20 19:00 Temperature 97.8 F Temperature Source Oral Pulse Rate [Right Brachial] 77 Respiratory Rate 18 Blood Pressure [right ar] 121/82 Blood Pressure Mean [right ar] 95 Blood Pressure Source [right ar] Automatic Cuff Blood Pressure Position [right ar] Sitting 02 Sat by Pulse Oximetry 96 Oxygen Delivery Method Room Air Orders (Tests/Meds): ED MEDICATIONS Discontinued Medications Generic Name Dose Route Start Last Admin Trade Name Freq PRN Reason Stop Dose Admin Ketorolac Tromethamine 60 mg 07/05/20 18:59 Ketorolac 60mg/2ml Vial IM 07/05/20 19:00 ONCE ONE Orphenadrine Citrate 60 mg 07/05/20 18:59 Orphenadrine Citrate 60mg/2ml Vial IM 07/05/20 19:00 ONCE ONE General Adult HPI - General Chief complaint: PAIN Stated complaint: weakness Time Seen by Provider: 07/05/20 19:00 Mode of Arrival: EMS Limitations: No Limitations Description of Symptoms (Recalled from ER Triage Doc. by RN): pt presents with complaints of chronic pain secondary to recent removal from his ultram by his pcp. pt states he needs something to get out of this pain or he just will leave. - History of Present Illness HPI narrative: This is a 60-year-old male who presents with pain all over . Symptoms ongoing for 1 week. Patient does report he has been recently taken off of his narcotic medications. He does not know why his primary took him off of his medications. Symptoms are moderate intensity without palliating or provoking measures. Patient does endorse nausea without vomiting. No diarrhea. No localized pain. - Related Data Previous Rx's Medication Instructions Recorded Ascorbic Acid [Vitamin C 500mg 500 mg PO QID tab 05/02/20 tablet] Docusate Sodium [Docusate Sod 10 ml PO BID udc 05/02/20 Liquid 100mg/10mL udc] Enoxaparin Sodium [Lovenox 40 mg SQ DAILY syringe 05/02/20 40mg/0.4mL syringe] Ergocalciferol (Vitamin D2) 50,000 unit PO WEEKLY cap 05/02/20 [Drisdol 50,000 units (1.25mg) capsule] Ipratropium/Albuterol Sulfate 3 ml IH Q6HP PRN ampul.neb 05/02/20 [Duoneb 3mL neb] Loratadine [Claritin 10mg 10 mg PO DAILY tab 05/02/20 Tablet] Famotidine [Pepcid 20mg Tablet] 20 mg PO BID tab 05/05/20 Ipratropium/Albuterol Sulfate 3 ml IH Q6RT ampul.neb 05/05/20 [Duoneb 3mL neb] Petrolatum,White [Aquaphor 1 gm TP NEEDED PRN tube 05/05/20 (Petrolatum) Oint 3oz] Triamcinolone Acetonide [Kenalog 0 gm TP BID tube 05/05/20 0.1% cream 30gm tube] Famotidine [Pepcid 20mg Tablet] 20 mg G-TUBE BID tab 05/06/20 Nystatin [Nystatin Cr 100,000 0 gm TP BID tube 05/06/20 Units/GM 30GM] PARoxetine HCL [Paxil 20mg Tablet] 20 mg PO DAILY tab 05/06/20 Pantoprazole Sodium [Protonix 40m
[2020-07-05 19:27] VITALS: BP 121/74; PULSE 82; RESP 15; TEMP 36.8; O2SAT 98
== END 2020-07-05 19:31 | disposition home or self-care (01) ==
PROVIDERS: Emergency Provider Emergency Medicine; PCP Internal Medicine Cardiovascular Disease
DX: F11.23 Opioid dependence with withdrawal (principal); E78.5 Hyperlipidemia, unspecified; F17.210 Nicotine dependence, cigarettes, uncomplicated; Z88.5 Allergy status to narcotic agent; Z88.8 Allergy status to other drugs, medicaments and biological substances; Z79.899 Other long term (current) drug therapy
CPT/HCPCS: 96372; 99281

== ENCOUNTER 2021-11-08 00:26 | Emergency (ER) | payer MEDICARE, SELFPAY ==
[2021-11-08] VITALS (18 sets, daily range): BP systolic 104–130; BP diastolic 67–106; PULSE 62–71; RESP 11–17; TEMP 36.4; O2SAT 91–98; BMI 23.5
--- NOTE | 2021-11-08 00:23 | ECG_ITS ---
APPROVED REPORT Exam: Resting ECG HR:63 bpm ECG Measurements Heart Rate 63 AXES CO 159 P 68 QRSd 92 QRS 10 QT 462 T 57 QTc 469 Conclusion SINUS RHYTHM POSSIBLE LEFT ATRIAL ENLARGEMENT [-0.1mV P-WAVE IN V1/V2] POSSIBLE RIGHT VENTRICULAR CONDUCTION DELAY [RSR (QR) IN V1/V2] SEPTAL MYOCARDIAL INFARCTION , PROBABLY OLD [40+ ms Q WAVE IN V1/V2] ABNORMAL ECG UNCONFIRMED REPORT Electronically signed by : Renan Dorsey MD 11/09/2021 14:31:23
--- NOTE | 2021-11-08 00:32 | CT_ITS ---
PROCEDURE INFORMATION: Exam: CT Head Without Contrast Exam date and time: 11/08/2021 12:47 AM Age: 61 years old Clinical indication: Injury or trauma; Fall; Blunt trauma (contusions or hematomas); Without loss of consciousness; Additional info: Fall; Acute alcohol intoxication TECHNIQUE: Imaging protocol: Computed tomography of the head without contrast. Radiation optimization: All CT scans at this facility use at least one of these dose optimization techniques: automated exposure control; mA and/or kV adjustment per patient size (includes targeted exams where dose is matched to clinical indication); or iterative reconstruction. COMPARISON: No relevant prior studies available. FINDINGS: Brain: Mild bilateral white matter hypodensities which are nonspecific but most commonly associated with chronic microvascular ischemia in this age group. The IACs are grossly normal. No extra-axial fluid collections. Mild prominence of the peripheral CSF spaces, felt to be related to generalized atrophy. No evidence of acute intracranial hemorrhage. No CT evidence of large territory acute or subacute intracranial ischemia/infarct. No intracranial mass lesions. No midline shift or herniation. Cerebral ventricles: There is mild normal variant lateral ventricular asymmetry. Ventricles otherwise unremarkable. Pituitary gland and sella: The sella is grossly normal. Paranasal sinuses: Mucosal thickening in the left maxillary sinus with fluid level dependently/posteriorly, suspicious for changes of acute on chronic sinus inflammatory disease. Mastoid air cells: Visualized mastoid air cells are clear. Orbital cavities: No acute intraorbital findings. Bones/joints: Calvarium intact. Slight 1 mm offset of the left nasal bone at the nasal maxillary suture suspicious for minimally displaced fracture. Soft tissues: Question mild soft tissue swelling over the left supraorbital ridge. Vasculature: Moderate calcific atherosclerosis. No asymmetric vascular hyperdensities suggestive of thrombosis are identified. Other findings: Mild-moderate generalized atrophy. Bernstein-white differentiation is well maintained. IMPRESSION: 1. No acute intracranial process. No intracranial hemorrhage or mass effect. 2. Mild atrophy and microvascular changes consistent with age. 3. Question mild soft tissue swelling over the left supraorbital ridge with slight offset of the left nasal bone at the nasal maxillary suture suspicious for minimally displaced fracture. 4. Mucosal thickening and fluid in the left maxillary sinus which may relate to acute on chronic sinus inflammatory disease, or small amount of traumatic sinus hemorrhage, with no sinus fractures identified.
--- NOTE | 2021-11-08 00:32 | CT_ITS ---
PROCEDURE INFORMATION: Exam: CT Cervical Spine Without Contrast Exam date and time: 11/08/2021 12:49 AM Age: 61 years old Clinical indication: Injury or trauma; Fall; Blunt trauma; Additional info: Fall; Acute alcohol intoxication TECHNIQUE: Imaging protocol: Computed tomography of the cervical spine without contrast. Radiation optimization: All CT scans at this facility use at least one of these dose optimization techniques: automated exposure control; mA and/or kV adjustment per patient size (includes targeted exams where dose is matched to clinical indication); or iterative reconstruction. COMPARISON: CT HEAD/BRAIN WO CON 11/08/2021 12:47 AM FINDINGS: Bones/joints: Craniocervical alignment is normal. The odontoid is intact. No fractures. Slight degenerative anterolisthesis C7-T1. No blastic or lytic lesions. Prior median sternotomy partially visualized at the edge of the scan. Discs/Spinal canal/Neural foramina: The occipital condyles are intact. Mild degenerative sclerosis and spurring at the atlantodens interval. No jumped or perched facets. Moderate right-sided facet hypertrophy C7-T1. Moderate-severe disc space narrowing with moderate marginal spurring C5-C6. No compressive soft disc protrusion or extrusion is evident by CT. Mild canal stenosis C5-C6. There is left foraminal stenosis which is moderate at C5-C6 and mild at C4-C5. There is right foraminal stenosis which is mild-moderate at C5-C6. Lungs: Mild bilateral apical pleural/parenchymal scarring and moderate apical emphysematous changes. Thyroid: Small left thyroid lobe, likely normal variant. The right lobe unremarkable. Soft tissues: Paraspinous soft tissues are unremarkable without significant soft tissue swelling or soft tissue hematoma. IMPRESSION: 1. No evidence of fracture or acute traumatic subluxation. 2. Moderate disc degenerative changes C5-C6 with mild canal stenosis at this level. Bilateral foraminal stenoses detailed above. 3. Slight degenerative anterolisthesis C7-T1.
--- NOTE | 2021-11-08 00:32 | XR_ITS ---
PROCEDURE INFORMATION: Exam: XR Chest Exam date and time: 11/08/2021 1:07 AM Age: 61 years old Clinical indication: Injury or trauma; Fall; Blunt trauma (contusions or hematomas); Prior surgery; Surgery date: 6+ months; Surgery type: Open heart surgery; Additional info: Fall; Acute alcohol intoxication TECHNIQUE: Imaging protocol: Radiologic exam of the chest. Views: 4 or more views. COMPARISON: CR XR CHEST PORTABLE 05/04/2020 5:16 AM FINDINGS: Lungs: Low lung volumes. Pulmonary vasculature grossly normal. Alveolar opacity in the right lung base could represent chronic atelectasis and fibrosis, cannot exclude patchy mild edema or pneumonia or small focus of pulmonary contusion radiographically, although considered less likely. Pleural spaces: No pleural effusion. No pneumothorax. Heart/Mediastinum: Heart size normal. Prior median sternotomy. No tracheal/mediastinal shift. Bones/joints: No acute osseous abnormalities are identified. IMPRESSION: 1. Low lung volumes. 2. Mild airspace disease in the right lung base is probably atelectasis or fibrosis, less likely patchy mild edema, pneumonitis, or contusion.
--- NOTE | 2021-11-08 00:32 | XR_ITS ---
PROCEDURE INFORMATION: Exam: XR Pelvis Exam date and time: 11/08/2021 1:09 AM Age: 61 years old Clinical indication: Injury or trauma; Fall; Blunt trauma (contusions or hematomas); Bilateral; Pelvic region; Additional info: Fall; Acute alcohol intoxication TECHNIQUE: Imaging protocol: Radiologic exam of the pelvis. Views: 1 or 2 view. COMPARISON: No relevant prior studies available. FINDINGS: Bones/joints: No fracture. Hip joints are well aligned. Hip joint spaces and articular surfaces are grossly well-maintained. No radiographic evidence to suggest transient osteoporosis or avascular necrosis. No blastic or lytic lesions. The SI joints are unremarkable. The pubic symphysis is unremarkable. Soft tissues: No gross soft tissue abnormalities. Vasculature: Mild calcific atherosclerosis. Other findings: No gross sacrococcygeal abnormalities. IMPRESSION: No acute findings.
[2021-11-08 00:43] LABS: Basophils # 0.1 K/mm3 (0-0.2); Basophils % 0.7 % (0.1-2.0); Eosinophils # 0.3 K/mm3 (0.0-0.4); Eosinophils % 3.7 % (0.1-12.0); Hematocrit 43.7 % (42.0-52.0); Hemoglobin 13.1 g/dL (14.1-18.0); Lymphocytes # 2.4 K/mm3 (0.7-4.5); Lymphocytes % 33.6 % (10-50); Mean Corpuscular Hemoglobin 29.6 pg (27.0-31.2); Mean Corpuscular Volume 98.6 fl (80-94); Monocytes # 0.4 K/mm3 (0.1-1.0); Monocytes % 5.8 % (1.7-9.3); Neutrophils % 56.1 % (37.0-80.0); Platelet Count 233 K/mm3 (142-424); Red Blood Count 4.43 M/mm3 (4.60-6.20); Red Cell Distribution Width 15.1 % (11.5-17.5); White Blood Count 7.1 K/mm3 (4.8-10.8)
--- NOTE | 2021-11-08 00:47 | PC.NURSE ---
Pt gone to RAD for scans
--- NOTE | 2021-11-08 01:02 | HMH.EDALCO ---
ED Disposition Clinical Impression: Alcohol use disorder, Amphetamine abuse, Cocaine abuse Disposition: Home, Self-Care Condition on Discharge: Good Instructions: DI for Alcohol Use Disorder Additional Instructions: consider drug rehab Referrals: Provider,ReferralMD [Referring] - - Critical Care Critical Care Time: No Attestation: On 11/08/21, the high probability of a clinically significant, sudden or life threatening deterioration of the following system(s) required my full and direct attention, intervention and personal management. The time I documented below is in addition to time spent performing reported procedures but includes the following listed in this critical care notation. Medical Decision Making - Medical Records Medical records reviewed: Yes: I reviewed the patient's medical records. - Jose Inquiry Pt receiving controlled substance: No Vital Signs: 11/08/21 00:26 11/08/21 01:29 11/08/21 01:34 Temperature 97.5 F L Temperature Source Oral Pulse Rate [Left Radial] 68 Respiratory Rate 16 13 11 L Blood Pressure 104/74 L 130/106 H Blood Pressure [Right Arm] 108/73 L Blood Pressure Mean 82 114 Blood Pressure Mean [Right Arm] 84 Blood Pressure Source [Right Arm] Automatic Cuff Blood Pressure Position [Right Arm] Sitting 02 Sat by Pulse Oximetry 93 L Oxygen Delivery Method Room Air 11/08/21 01:39 11/08/21 01:44 11/08/21 01:49 Temperature Temperature Source Pulse Rate [Left Radial] Respiratory Rate 15 17 15 Blood Pressure 114/67 118/75 116/77 Blood Pressure [Right Arm] Blood Pressure Mean 82 85 87 Blood Pressure Mean [Right Arm] Blood Pressure Source [Right Arm] Blood Pressure Position [Right Arm] 02 Sat by Pulse Oximetry Oxygen Delivery Method - Lab Data Lab results reviewed: Yes: I reviewed the patient's lab results. Lab Results 11/08/21 00:32: WBC 7.1, RBC 4.43 L, Hgb 13.1 L, Hct 43.7, MCV 98.6 H, MCH 29.6, MCHC 30.0 L, RDW 15.1, Plt Count 233, MPV 9.0, Neut % (Auto) 56.1, Lymph % (Auto) 33.6, [place] % (Auto) 5.8, Eos % (Auto) 3.7, Baso % (Auto) 0.7, Neut # (Auto) 4.0, Lymph # (Auto) 2.4, [place] # (Auto) 0.4, Eos # (Auto) 0.3, Baso # (Auto) 0.1 11/08/21 00:32: Sodium 144, Potassium 3.8, Chloride 110 H, Carbon Dioxide 25, Anion Gap 12.8, BUN 23 H, Creatinine 1.10, Estimated Creat Clear 69, Estimated GFR 68, Est GFR ( Amer) 83, Glucose 93, Calcium 8.8, Total Bilirubin < 0.1 L, Direct Bilirubin < 0.1, Conjugated Bilirubin 0.0, Indirect Bilirubin 0.0, Unconjugated Bilirubin 0.0, AST 78 H, ALT 68, Alkaline Phosphatase 74, Total Protein 7.1 D, Albumin 3.9 11/08/21 00:32: Plasma/Serum Alcohol 67 H 11/08/21 00:32: Magnesium 1.7 11/08/21 00:32: Troponin I < 0.01 11/08/21 01:46: Urine Color Yellow, Urine Appearance Clear, Urine pH 6.0, Ur Specific Embudo >= 1.030, Urine Protein 1+, Urine Glucose (UA) Negative, Urine Ketones Negative, Urine Blood Negative, Urine Nitrate Negative, Urine Bilirubin Negative, Urine Urobilinogen 0.2, Ur Leukocyte Esterase Negative, Urine WBC 3-5, Amorphous Sediment Trace, Urine Mucus 1+ 11/08/21 01:46: Urine Opiates Screen Negative, Urine Methadone Screen Negative, Ur Barbituates Screen Negative, Ur Phencyclidine Scrn Negative, Ur Amphetamines Screen Positive H, U Benzodiazepines Scrn Negative, Urine Cocaine Screen Positive H, U Marijuana (THC) Screen Positive H Result diagrams: 11/08/21 00:32 11/08/21 00:32 Orders (Tests/Meds): ED MEDICATIONS Generic Name Dose Route Start Last Admin Trade Name Freq PRN Reason Stop Dose Admin Sodium Chloride 1,000 mls @ 999 mls/hr 11/08/21 00:45 11/08/21 00:57 Sod Chlor 0.9% 1000ml Bag IV 11/08/21 01:45 999 mls/hr .Q1H1M HOMERO Administration ORDERS Category Date Time Status Troponin I Q3H Lab 11/08/21 03:30 Ordered Troponin I Q3H Lab 11/08/21 06:30 Ordered - Radiology Data #1 Image(s): Chest, Pelvis Image Reviewed: Yes I have reviewed rad
--- NOTE | 2021-11-08 01:02 | PC.NURSE ---
Pt back from RAD
[2021-11-08 01:03] LABS: Alanine Aminotransferase 68 U/L (12-78); Albumin Level 3.9 g/dl (3.5-5.0); Alkaline Phosphatase 74 U/L (38-126); Anion Gap 12.8 mEq/L (5-15); Aspartate Amino Transferase 78 U/L (17-59); Blood Urea Nitrogen 23 mg/dl (9-20); Calcium 8.8 mg/dl (8.4-10.2); Carbon Dioxide 25 mmol/L (22.0-30.0); Chloride 110 mmol/L (98-107); Creatinine Clearance Estimated 69 mL/min (50-200); Estimated Glomerular Filt Rate 68 ml/min (>60); Ethyl Alcohol 67 mg/dl (0-10); GFR (African American) 83 ML/MIN (>60); Glucose 93 mg/dl (74-100); Potassium 3.8 mmoL/L (3.5-5.1); Sodium 144 mmol/L (136-145); Total Protein,Serum 7.1 g/dl (6.3-8.2)
[2021-11-08 01:05] LABS: Bilirubin,Direct < 0.1 mg/dl (0.0-0.4); Bilirubin,Total < 0.1 mg/dl (0.2-1.3)
--- NOTE | 2021-11-08 01:05 | PC.NURSE ---
at speaking with pt about POC
[2021-11-08 01:14] LABS: Magnesium 1.7 mg/dl (1.6-2.3)
--- NOTE | 2021-11-08 01:38 | PC.NURSE ---
PT AWARE OF NEED FOR URINE SAMPLE. PT REFUSES IN/OUT CATH AT THIS TIME. FAMILY AT BEDSIDE.
--- NOTE | 2021-11-08 01:49 | PC.NURSE ---
URINE COLLECTED. PT UPDATED WITH EXPECTED WAIT TIMES. NO ACUTE DISTRESS NOTED. FAMILY AT BEDSIDE.
[2021-11-08 01:52] LABS: Microscopic, Urine URINE MICROSCOPIC (MICROSCOPIC)
[2021-11-08 01:57] LABS: Appearance,Urine CLEAR (Clear); Bilirubin,Urine Negative (Negative); Blood, Urine Negative (Negative); Color,Urine YELLOW (Yellow); Glucose,Urine (UA) Negative (Negative); Ketones,Urine Negative (Negative); Leukocyte Esterase,Urine Negative (Negative); Nitrate,Urine Negative (Negative); Protein,Urine 1+ (Negative); Specific Gravity, Urine >= 1.030 (1.005-1.030); Urobilinogen,Urine 0.2 EU/dl (0.2)
[2021-11-08 01:57] LABS: Troponin I < 0.01 ng/ml (0.00-0.034)
[2021-11-08 02:00] LABS: Amorphous Sediment,Urine Trace /lpf; Mucus,Urine 1+ /lpf
[2021-11-08 02:08] LABS: Barbiturates Screen,Urine Negative ng/ml (<200); Benzodiazepines Screen,Urine Negative ng/ml (<200)
[2021-11-08 02:10] LABS: Cannabinoid Screen,Urine Positive ng/ml (<50); Cocaine Screen,Urine Positive ng/ml (<300)
[2021-11-08 02:11] LABS: Methadone Screen,Urine Negative ng/ml (<300); Opiate Screen,Urine Negative ng/ml (<300)
[2021-11-08 02:12] LABS: Phencyclidine Screen,Urine Negative ng/ml (<25)
[2021-11-08 02:13] LABS: Amphetamine/Metha Screen,Urine Positive ng/ml (<1000)
--- NOTE | 2021-11-08 02:50 | PC.NURSE ---
Second trop drawn and sent to lab per Shanae Ward
[2021-11-08 03:19] LABS: Troponin I < 0.01 ng/ml (0.00-0.034)
== END 2021-11-08 03:06 | disposition home or self-care (01) ==
PROVIDERS: Emergency Provider Emergency Medicine; PCP Family Medicine
DX: F14.10 Cocaine abuse, uncomplicated (principal); Z72.89 Other problems related to lifestyle; F15.129 Other stimulant abuse with intoxication, unspecified; Z03.89 Encounter for observation for other suspected diseases and conditions ruled out
CPT/HCPCS: 70450; 71045; 72125; 72170; 80048; 80076; 80305; 81001; 83735; 84484; 85025; 93005; 96365; 99285

== ENCOUNTER 2023-10-04 12:33 | Emergency (ER) | payer MEDICARE, SELFPAY ==
[2023-10-04 12:38] VITALS: BP 112/77; PULSE 55; RESP 13; TEMP 36.8; O2SAT 98; BMI 17.2
--- NOTE | 2023-10-04 12:50 | XR_ITS ---
FINAL REPORT CLINICAL HISTORY: epigastric pain COMPARISON: 11/08/2021 FINDINGS: A single portable view of the chest was obtained. The heart size and pulmonary vascularity are within normal limits. Prior median sternotomy. There is mild right base atelectasis or scarring. Postoperative changes are noted in the left thorax. IMPRESSION: Mild right base atelectasis or scarring. Reviewed, Interpreted and Dictated by Chung Gong III, MD Transcribed by Yesika Pinon Authenticated and [facility]
--- NOTE | 2023-10-04 12:51 | ED_ITS ---
Discharge Plan Disposition Patient Disposition: Home, Self-Care Prescriptions Prescriptions: New esomeprazole magnesium 20 mg capsule,delayed release(DR/EC) 20 mg PO DAILY 56 Days Qty: 56 1RF No Action metoprolol succinate 25 MG tablet extended release 24 hr 1 tab PO DAILY amitriptyline 50 mg Tablet 50 mg PO DAILY acyclovir 800 mg Tablet 800 mg PO DAILY ibuprofen 600 mg tablet 600 mg PO NEEDED PRN (Reason: Pain) Patient Comments: TAKE 1 TABLET BY MOUTH EVERY 8 HOURS NEEDED FOR PAIN. paroxetine HCl 40 mg tablet 40 mg PO DAILY Patient Comments: TAKE 1 TABLET BY MOUTH ONCE DAILY. Referrals Follow up/Referrals: Provider,Referral, MD [Primary Care Provider] - See instructions Activity Restrictions/Add. Instructions Additional Instructions/Restrictions: Stop taking ibuprofen and any NSAID including Aleve, ketorolac, etc. They can cause gastritis and inflammation of your stomach and worsening of your ulcer. Continue taking your antiacid medication (Protonix), more of this has been sent to the pharmacy. Call your family doctor to establish care for this visit to the emergency department and schedule follow-up within 48 hours to ensure improvement. If you have any worsening of your condition or any other concerning signs or symptoms, return to the emergency department or your primary care doctor for further evaluation. Clinical Impressions Clinical Impression: Gastritis Discharge ED Provider: Luis Enrique Ruvalcaba General Chief Complaint: Chest Pain Stated Complaint: chest pain Time Seen by Provider: 10/04/23 12:40 Mode of Arrival: EMS Source of Information: Patient and EMS Limitations: No Limitations Description of Symptoms (Recalled from ER Triage Doc. by RN): Pt. here with complaints of on and off chest pain for 1 week. He called EMS because he states he cannot take care of himself anymore and has had multiple health issues. He states he has a skin lesion on his right chest that is extremely painful. He states he has not seen his doctor in a while. He also states he has lost about 35 lbs in the last few months. History of Present Illness HPI narrative: Please note that above description of symptoms, in this electronic medical record under categorization of recalled from ER triage doctor by RN are reflective of an initial nursing assessment, however, is not reflective of my full history and physical exam that was personally taken and clarified. Consequentially, this preceding description of symptoms, which may include the patient's categorized chief complaint in the EMR, do not reflect my personal clinical impression, and the ultimate description of history of present illness and patient stated complaints should be deferred to this section of the note. Unless stated otherwise or congruent with this section of the note, additional signs, symptoms, or incongruence should be interpreted as inaccurate with my clinical impression. Related Data Home Medications Medication Instructions Recorded Confirmed metoprolol succinate 25 mg 1 tab PO DAILY Hypertension 11/08/21 10/04/23 tablet,extended release 24 hr acyclovir 800 mg tablet 800 mg PO DAILY 10/04/23 10/04/23 amitriptyline 50 mg tablet 50 mg PO DAILY 10/04/23 10/04/23 ibuprofen 600 mg tablet 600 mg PO NEEDED PRN Pain 10/04/23 10/04/23 paroxetine HCl 40 mg tablet 40 mg PO DAILY 10/04/23 10/04/23 Previous Rx's Medication Instructions Recorded esomeprazole magnesium 20 mg 20 mg PO DAILY 8 weeks #56 caps 10/04/23 capsule,delayed release Allergies Allergy/AdvReac Type Severity Reaction Status Date / Time esomeprazole [From NEXIUM] Allergy Intermediate I-ITCHING Verified 10/04/23 12:50 methocarbamol [From ROBAXIN] Allergy Intermediate I-ITCHING Verified 10/04/23 12:50 morphine [MORPHINE] Allergy Mild NA-NAUSEA Verified 10/04/23 12:50 [facility] Disclaimer: The information contained in this section may have been updated after the patient was seen, as this information can be updated by other users. Medical History (Updated 10/04/23 @ 13:45 by Luis Enrique Ruvalcaba MD) History of alcohol use Depression Depressed Shingles Hyperlipidemia Hypertension Surgical History (Updated 10/04/23 @ 12:51 by Sybil Wolfe RN) History of open heart surgery Social History Smoking Status: Current every day smoker tobacco type: cigarettes packs per day: 1 alcohol intake: never substance use type: denies use current occupational status: disabled Travel in the last 8 weeks: None caffeine: Yes ROS Obtained: Yes All systems reviewed & no additional complaints except as documented Physical Exam General General appearance: alert Neck Neck exam: Present trachea midline Chest Chest inspection: Present normal inspection and symmetric chest wall rise Respiratory Respiratory exam: Present normal lung sounds bilaterally; Absent respiratory distress, wheezes, stridor, accessory muscle use or prolonged expiratory phase Cardiovascular Cardiovascular exam: Present regular rate and normal rhythm Abdominal Exam Abdominal exam: Present soft and tenderness; Absent distention Abdominal tenderness: Present epigastrium Extremities Exam Extremities exam: Absent edema Neurological Exam Neurological exam: Present alert, oriented X3 and CN II-XII intact Skin Skin exam: Present warm and dry; Absent cyanosis, diaphoresis or pallor HEART Score HEART Score HEART Score assessment performed?: Yes HEART Score: 2 Critical Care Critical Care Time Critical Care Time: No Medical Decision Making Medical Records Medical records reviewed: Yes I reviewed the patient's medical records. Jose Inquiry Pt receiving controlled substance: No Jose was queried for this patient: No Vital Signs Vital Signs: 10/04/23 12:38 10/04/23 13:43 Temperature 98.2 F 98.1 F Temperature Source Temporal Artery Scan Oral Pulse Rate 52 L Pulse Rate [Right Brachial] 55 L Respiratory Rate 13 18 Blood Pressure 141/76 H Blood Pressure [Right Arm] 112/77 Blood Pressure Mean [Right Arm] 88 Blood Pressure Source [Right Arm] Automatic Cuff Blood Pressure Position [Right Arm] Sitting 02 Sat by Pulse Oximetry 98 Oxygen Delivery Method Room Air Room Air Lab Data Labs: Lab Results 10/04/23 12:37: WBC 11.9 H, RBC 4.22 L, Hgb 13.6 L, Hct 41.6 L, MCV 98.6 H, MCH 32.3 H, MCHC 32.7, RDW 15.4, Plt Count 281, MPV 9.6, Neut % (Auto) 73.7, Lymph % (Auto) 18.7, [place] % (Auto) 5.1, Eos % (Auto) 2.1, Baso % (Auto) 0.4, Neut # (Auto) 8.8 H, Lymph # (Auto) 2.2, [place] # (Auto) 0.6, Eos # (Auto) 0.3, Baso # (Auto) 0.0, Sodium 142, Potassium 3.8, Chloride 113 H, Carbon Dioxide 26, Anion Gap 6.8, BUN 15, Creatinine 0.90, Estimated Creat Clear 54, Estimated GFR 86, Est GFR ( Amer) 103, Glucose 91, Calcium 9.2, Total Bilirubin 0.3, AST 45, ALT 43, Alkaline Phosphatase 73, Troponin I < 0.01, Total Protein 6.3, A lbumin 3.4 L, Globulin 2.9, Albumin/Globulin Ratio 1.2 10/04/23 12:37 10/04/23 12:37 Response Orders (Tests/Meds): ED MEDICATIONS Discontinued Medications Generic Name Dose Route Start Last Admin Trade Name Roseanna PRN Reason Stop Dose Admin Belladonna Alkaloids 60 ml 10/04/23 12:50 10/04/23 12:56 Belladonna Alkaloids 60 Ml Ml PO 10/04/23 12:51 60 ml ONCE ONE Administration Famotidine 20 mg 10/04/23 12:50 10/04/23 12:56 Famotidine 20mg/2ml Vial IV 10/04/23 12:51 20 mg ONCE ONE Administration Sodium Chloride 8 ml 10/04/23 12:50 10/04/23 12:56 Sodium Chloride 0.9% 10ml Vial IV 11/03/23 12:49 8 ml NEEDED PRN Administration dilute pepcid ORDERS Category Date Time Status CXR --portable [XR chest portable] Stat Exams 10/04/23 12:50 Completed CBC w/Auto Diff [Complete Blood Count Auto Diff] Stat Lab 10/04/23 12:37 Completed CMP [Comprehensive Metabolic Panel] Stat Lab 10/04/23 12:37 Completed Trop I [Troponin I] Stat Lab 10/04/23 12:37 Completed MDM Narrative Medical Decision Narrative: 63-year-old male history of hypertension, hyperlipidemia, polysubstance abuse including stimulants, current tobacco use, CAD status post CABG and aortic and mitral valve repairs presenting with epigastric pain. Patient states that he has been having severe epigastric pain that he is not sure is related to his heart. Been going on for months. He has been taking 800 mg of ibuprofen multiple times a day in order to try to make it better, but he feels that it is making it worse. Unsure what to do. No vomiting, blood in his stool, melena, shortness of breath, diaphoresis, or any other concerns. History was obtained via conversation with patient and EMS. On arrival, patient hemodynamically stable, alert, [oriented x4, ][appropriate, ]GCS [15], moving all extremities spontaneously, pupils equal and reactive to light. Full physical exam performed and significant for disheveled appearing male in no acute distress. Abdomen is tender and nondistended in epigastrium. no overlying skin changes. Cardiopulmonary exam within normal limits. Pulses equal and symmetric in lower and upper extremities. Differential includes ACS, NE, pancreatitis, gastritis, PUD, dissection, among others. Patient was given GI cocktail, Pepcid for symptomatic management[ and correction of underlying abnormalities]. [Independent interpretation of EKG shows] bradycardia [address] or T wave changes concerning for acute ischemia. TX 149, QRS 87, QT41. [place] normal. Workup independently interpreted and significant for mild leukocytosis. Troponin negative. Chest x-ray without acute cardiopulmonary space disease. See radiology read for full review of final results. Patient placed on continuous cardiac monitoring and continuous pulse ox with initial blood pressure 112/77, heart rate 55, saturation 98% on room air. Heart score 2.On reevaluation, patient resting comfortably states that the GI cocktail helped, but did not totally relieve pain. Because patient been having this pain for months, delta troponin not deemed necessary at this time. Recommended outpatient follow-up and discontinuing NSAIDs, starting PPI. This was relayed to patient.. Given patient presentation, workup, history, this most likely represents PUD versus gastritis. Bundle Clerk disclaimer Much of this encounter note is an electronic packing line operator spoken language to printed text. Electronic packing line operator of the spoken language may permit errors. Although I have reviewed the note, some errors may still exist.
[2023-10-04] MEDS: SODIUM CHLORIDE 0.9% 10ML VIAL 8 ML IV (12:56)
[2023-10-04] MEDS: BELLADONNA ALKALOIDS 60 ML ML PO (12:56)
[2023-10-04] MEDS: FAMOTIDINE 20MG/2ML VIAL 20 MG IV (12:56)
[2023-10-04 13:03] LABS: Basophils % 0.4 % (0.1-2.0); Eosinophils # 0.3 K/mm3 (0.0-0.4); Eosinophils % 2.1 % (0.1-12.0); Hematocrit 41.6 % (42.0-52.0); Hemoglobin 13.6 g/dL (14.1-18.0); Lymphocytes # 2.2 K/mm3 (0.7-4.5); Lymphocytes % 18.7 % (10-50); Mean Corpuscular HGB Conc 32.7 g/dL (31.8-35.4); Mean Corpuscular Hemoglobin 32.3 pg (27.0-31.2); Mean Corpuscular Volume 98.6 fl (80-94); Mean Platelet Volume 9.6 fl (7.4-10.4); Monocytes # 0.6 K/mm3 (0.1-1.0); Monocytes % 5.1 % (1.7-9.3); Neutrophils # 8.8 K/mm3 (1.8-7.8); Neutrophils % 73.7 % (37.0-80.0); Platelet Count 281 K/mm3 (142-424); Red Blood Count 4.22 M/mm3 (4.60-6.20); Red Cell Distribution Width 15.4 % (11.5-17.5); White Blood Count 11.9 K/mm3 (4.8-10.8)
[2023-10-04 13:05] LABS: Chloride 113 mmol/L (98-107)
[2023-10-04 13:06] LABS: Potassium 3.8 mmoL/L (3.5-5.1); Sodium 142 mmol/L (136-145)
[2023-10-04 13:08] LABS: Alanine Aminotransferase 43 U/L (12-78); Albumin Level 3.4 g/dl (3.5-5.0); Alkaline Phosphatase 73 U/L (38-126); Anion Gap 6.8 mEq/L (5-15); Aspartate Amino Transferase 45 U/L (17-59); Bilirubin,Total 0.3 mg/dl (0.2-1.3); Blood Urea Nitrogen 15 mg/dl (9-20); Carbon Dioxide 26 mmol/L (22.0-30.0); Creatinine Clearance Estimated 54 mL/min (50-200); Estimated Glomerular Filt Rate 86 ml/min (>60); GFR (African American) 103 ML/MIN (>60)
[2023-10-04 13:09] LABS: Albumin/Globulin Ratio 1.2 (1.1-1.8); Calcium 9.2 mg/dl (8.4-10.2); Globulin 2.9 g/dL (1.3-3.2); Glucose 91 mg/dl (74-100); Total Protein,Serum 6.3 g/dl (6.3-8.2)
[2023-10-04 13:22] LABS: Troponin I < 0.01 ng/ml (0.00-0.034)
--- NOTE | 2023-10-04 13:23 | ECG_ITS ---
APPROVED REPORT Exam: Resting ECG HR:44 bpm ECG Measurements Heart Rate 44 AXES RI 149 P 70 QRSd 87 QRS 45 QT 481 T 84 QTc 432 Conclusion SINUS BRADYCARDIA POSSIBLE LEFT ATRIAL ENLARGEMENT [-0.1mV P-WAVE IN V1/V2] POSSIBLE RIGHT VENTRICULAR CONDUCTION DELAY [RSR (QR) IN V1/V2] BORDERLINE ECG WARNING: DATA QUALITY MAY AFFECT INTERPRETATION Electronically signed by : GERALD FUENTES, 10/05/2023 08:07:41
[2023-10-04 13:43] VITALS: BP 141/76; PULSE 52; RESP 18; TEMP 36.7; O2SAT 97
== END 2023-10-04 13:53 | disposition home or self-care (01) ==
PROVIDERS: Emergency Provider Emergency Medicine
DX: R07.89 Other chest pain (principal); R10.13 Epigastric pain; K29.70 Gastritis, unspecified, without bleeding; R00.1 Bradycardia, unspecified; F17.210 Nicotine dependence, cigarettes, uncomplicated; I11.9 Hypertensive heart disease without heart failure; I25.10 Atherosclerotic heart disease of native coronary artery without angina pectoris; E78.5 Hyperlipidemia, unspecified; Z95.1 Presence of aortocoronary bypass graft
CPT/HCPCS: 71045; 80053; 84484; 85025; 93005; 96374; 99284

== ENCOUNTER 2023-10-04 14:22 | Emergency (ER) | payer MEDICARE, SELFPAY ==
[2023-10-04 14:23] VITALS: BP 133/78; PULSE 88; RESP 18; TEMP 36.5; O2SAT 94; BMI 21.4
--- NOTE | 2023-10-04 14:37 | PC.NURSE ---
pt is asleep in his room. vs stable. denies any pain.
--- NOTE | 2023-10-04 14:42 | ED_ITS ---
Discharge Plan Disposition Chief Complaint: Recheck/Abnormal Lab/Rx Prescriptions Prescriptions: No Action metoprolol succinate 25 MG tablet extended release 24 hr 1 tab PO DAILY amitriptyline 50 mg Tablet 50 mg PO DAILY acyclovir 800 mg Tablet 800 mg PO DAILY ibuprofen 600 mg tablet 600 mg PO NEEDED PRN (Reason: Pain) Patient Comments: TAKE 1 TABLET BY MOUTH EVERY 8 HOURS NEEDED FOR PAIN. paroxetine HCl 40 mg tablet 40 mg PO DAILY Patient Comments: TAKE 1 TABLET BY MOUTH ONCE DAILY. esomeprazole magnesium 20 mg capsule,delayed release(DR/EC) 20 mg PO DAILY 56 Days Qty: 56 1RF Referrals Follow up/Referrals: Provider,Referral, MD [Primary Care Provider] - See instructions Discharge ED Provider: Luis Enrique Ruvalcaba General Adult HPI General Chief complaint: Recheck/Abnormal Lab/Rx Stated complaint: Fall Time Seen by Provider: 10/04/23 14:24 Mode of Arrival: Wheelchair Source of Information: Patient Limitations: No Limitations Description of Symptoms (Recalled from ER Triage Doc. by RN): pt was previously discharged. staff assisted pt in parking lot where he laid down. he does not want any scans. Related Data Home Medications Medication Instructions Recorded Confirmed metoprolol succinate 25 mg 1 tab PO DAILY Hypertension 11/08/21 10/04/23 tablet,extended release 24 hr acyclovir 800 mg tablet 800 mg PO DAILY 10/04/23 10/04/23 amitriptyline 50 mg tablet 50 mg PO DAILY 10/04/23 10/04/23 ibuprofen 600 mg tablet 600 mg PO NEEDED PRN Pain 10/04/23 10/04/23 paroxetine HCl 40 mg tablet 40 mg PO DAILY 10/04/23 10/04/23 Previous Rx's Medication Instructions Recorded esomeprazole magnesium 20 mg 20 mg PO DAILY 8 weeks #56 caps 10/04/23 capsule,delayed release Allergies Allergy/AdvReac Type Severity Reaction Status Date / Time esomeprazole [From NEXIUM] Allergy Intermediate I-ITCHING Verified 10/04/23 12:50 methocarbamol [From ROBAXIN] Allergy Intermediate I-ITCHING Verified 10/04/23 12:50 morphine [MORPHINE] Allergy Mild NA-NAUSEA Verified 10/04/23 12:50 [facility] Disclaimer: The information contained in this section may have been updated after the patient was seen, as this information can be updated by other users. Medical History (Updated 10/04/23 @ 13:45 by Luis Enrique Ruvalcaba MD) History of alcohol use Depression Depressed Shingles Hyperlipidemia Hypertension Surgical History (Updated 10/04/23 @ 12:51 by Sybil Wolfe RN) History of open heart surgery Social History Smoking Status: Current every day smoker tobacco type: cigarettes packs per day: 1 alcohol intake: never substance use type: denies use current occupational status: disabled Travel in the last 8 weeks: None caffeine: Yes ROS Obtained: Yes Systems reviewed as appropriate & no additional complaints except as documented Physical Exam General General appearance: alert and in no apparent distress Head Head exam: atraumatic and normal inspection Eye Eye exam: Present normal appearance, PERRL and EOMI ENT ENT exam: Present normal exam, normal oropharynx and mucous membranes moist Neck Neck exam: Present normal inspection, full ROM and trachea midline; Absent lymphadenopathy Chest Chest inspection: Present normal inspection and symmetric chest wall rise Respiratory Respiratory exam: Present normal lung sounds bilaterally; Absent accessory muscle use Cardiovascular Cardiovascular exam: Present regular rate, normal rhythm, normal heart sounds, +S1 and +S2 Abdominal Exam Abdominal exam: Present soft and normal bowel sounds; Absent tenderness, guarding or rebound Extremities Exam Extremities exam: Present normal inspection and full ROM Neurological Exam Neurological exam: Present alert, oriented X3 and CN II-XII intact Psychiatric Psychiatric exam: Present normal affect and normal mood Skin Skin exam: Present warm, dry and normal color Lymphatic Lymphatic Findings: no adenopathy Medical Decision Making Vital Signs: 10/04/23 14:23 Temperature 97.7 F Temperature Source Oral Pulse Rate [Right] 88 Respiratory Rate 18 Blood Pressure [Right Arm] 133/78 Blood Pressure Mean [Right Arm] 96 02 Sat by Pulse Oximetry 94 L Oxygen Delivery Method Room Air Orders (Tests/Meds): ED MEDICATIONS Generic Name Dose Route Start Last Admin Trade Name Freq PRN Reason Stop Dose Admin Lactated Ringer's 1,000 mls @ 999 mls/hr 10/04/23 14:24 Lactated Ringer's 1000 Ml Bag IV 10/04/23 15:24 .Q1H1M ONE Medical Decision Narrative: In summary patient is a [age, sex] who presents to the emergency department for evaluation of [complaint]. Patient is [hemodynamically stable/unstable] upon arrival, [febrile/afebrile]. [Unremarkable physical exam, nonfocal exam versus focal remarkable exam]. Differential diagnosis includes [DDx]. Initial workup will be conducted with [hematologic labs, imaging, respiratory swab, describe workup]. Initial interventions include [crystalloid bolus, medications, p.o. challenge, etc.] initial workup reviewed by me [hematologic labs are remarkable for... Imaging remarkable for... Urinalysis remarkable for]. Upon repeat evaluation [patient had acceptable resolution of symptoms, had persistent pain for which additional interventions were conducted (describe interventions), tolerated p.o., was ambulatory, etc.]. Given this [patient is appropriate for discharge at this time and will be discharged with a prescription for... The case was discussed with hospital medicine regarding management and they will admit the patient their service for continued evaluation at this time... Etc.] Places where you can increase complexity: I informally interpreted the patient's chest x-ray or CT read and is remarkable for... Documenting what the manager monitoring shows with rate and rhythm Consideration of test but deferring. Ex: I considered chest x-ray on this patient however given that they have no oxygen requirement and are clear to auscultation all lung dickinson will be deferred. Social determinants of health: Given that patient is undomiciled increases complexity. Given that patient has polysubstance abuse compounds all aspects of care
[2023-10-04 15:00] VITALS: O2SAT 98
[2023-10-04 15:07] VITALS: BP 135/78; PULSE 78; RESP 18; TEMP 36.8; O2SAT 98
[2023-10-04 15:11] VITALS: BP 135/77; PULSE 88; RESP 20; TEMP 36.7; O2SAT 95
--- NOTE | 2023-10-05 15:00 | HMH.EDGENADL ---
Discharge Plan Disposition Patient Disposition: Home, Self-Care Condition: Fair Prescriptions Prescriptions: No Action metoprolol succinate 25 MG tablet extended release 24 hr 1 tab PO DAILY amitriptyline 50 mg Tablet 50 mg PO DAILY acyclovir 800 mg Tablet 800 mg PO DAILY ibuprofen 600 mg tablet 600 mg PO NEEDED PRN (Reason: Pain) Patient Comments: TAKE 1 TABLET BY MOUTH EVERY 8 HOURS NEEDED FOR PAIN. paroxetine HCl 40 mg tablet 40 mg PO DAILY Patient Comments: TAKE 1 TABLET BY MOUTH ONCE DAILY. esomeprazole magnesium 20 mg capsule,delayed release(DR/EC) 20 mg PO DAILY 56 Days Qty: 56 1RF Referrals Follow up/Referrals: Provider,Referral, MD [Primary Care Provider] - See instructions Discharge ED Provider: Luis Enrique Ruvalcaba General Adult HPI General Chief complaint: Recheck/Abnormal Lab/Rx Stated complaint: Fall Time Seen by Provider: 10/04/23 14:24 Mode of Arrival: Wheelchair Source of Information: Patient Limitations: No Limitations Description of Symptoms (Recalled from ER Triage Doc. by RN): pt was previously discharged. staff assisted pt in parking lot where he laid down. he does not want any scans. History of Present Illness HPI narrative: Please note that above description of symptoms, in this electronic medical record under categorization of recalled from ER triage doctor by RN are reflective of an initial nursing assessment, however, is not reflective of my full history and physical exam that was personally taken and clarified. Consequentially, this preceding description of symptoms, which may include the patient's categorized chief complaint in the EMR, do not reflect my personal clinical impression, and the ultimate description of history of present illness and patient stated complaints should be deferred to this section of the note. Unless stated otherwise or congruent with this section of the note, additional signs, symptoms, or incongruence should be interpreted as inaccurate with my clinical impression. Related Data Home Medications Medication Instructions Recorded Confirmed metoprolol succinate 25 mg 1 tab PO DAILY Hypertension 11/08/21 10/04/23 tablet,extended release 24 hr acyclovir 800 mg tablet 800 mg PO DAILY 10/04/23 10/04/23 amitriptyline 50 mg tablet 50 mg PO DAILY 10/04/23 10/04/23 ibuprofen 600 mg tablet 600 mg PO NEEDED PRN Pain 10/04/23 10/04/23 paroxetine HCl 40 mg tablet 40 mg PO DAILY 10/04/23 10/04/23 Previous Rx's Medication Instructions Recorded esomeprazole magnesium 20 mg 20 mg PO DAILY 8 weeks #56 caps 10/04/23 capsule,delayed release Allergies Allergy/AdvReac Type Severity Reaction Status Date / Time esomeprazole [From NEXIUM] Allergy Intermediate I-ITCHING Verified 10/04/23 12:50 methocarbamol [From ROBAXIN] Allergy Intermediate I-ITCHING Verified 10/04/23 12:50 morphine [MORPHINE] Allergy Mild NA-NAUSEA Verified 10/04/23 12:50 PFSH [facility] Disclaimer: The information contained in this section may have been updated after the patient was seen, as this information can be updated by other users. Medical History (Updated 10/04/23 @ 13:45 by Luis Enrique Ruvalcaba MD) History of alcohol use Depression Depressed Shingles Hyperlipidemia Hypertension Surgical History (Updated 10/04/23 @ 12:51 by Sybil Wolfe RN) History of open heart surgery Social History Smoking Status: Current every day smoker tobacco type: cigarettes packs per day: 1 alcohol intake: never substance use type: denies use current occupational status: disabled Travel in the last 8 weeks: None caffeine: Yes ROS Obtained: Yes All systems reviewed & no additional complaints except as documented Physical Exam General General appearance: alert Head Head exam: atraumatic and normocephalic Eye Eye exam: Present normal appearance, PERRL and EOMI Neck Neck exam: Present normal inspection, full ROM and trachea midline Respiratory Respiratory exam: Absent respiratory distress, wheezes, stridor, accessory muscle use or prolonged expiratory phase Cardiovascular Cardiovascular exam: Present other (Pulses equal symmetric in upper and lower extremities) Abdominal Exam Abdominal exam: Present soft; Absent distention, tenderness or pulsatile mass Extremities Exam Extremities exam: Absent edema Neurological Exam Neurological exam: Present alert, oriented X3 and CN II-XII intact; Absent motor sensory deficit Skin Skin exam: Present warm and dry; Absent diaphoresis or erythema Medical Decision Making Medical Records Medical records reviewed: Yes I reviewed the patient's medical records. Jose Inquiry Pt receiving controlled substance: No Jose was queried for this patient: No Vital Signs: 10/04/23 14:23 10/04/23 15:00 10/04/23 15:07 Temperature 97.7 F 98.2 F Temperature Source Oral Oral Pulse Rate 78 Pulse Rate [Right] 88 Respiratory Rate 18 18 Blood Pressure 135/78 Blood Pressure [Right Arm] 133/78 Blood Pressure Mean [Right Arm] 96 02 Sat by Pulse Oximetry 94 L 98 Oxygen Delivery Method Room Air Room Air Room Air 10/04/23 15:11 Temperature 98.1 F Temperature Source Oral Pulse Rate 88 Pulse Rate [Right] Respiratory Rate 20 Blood Pressure 135/77 Blood Pressure [Right Arm] Blood Pressure Mean [Right Arm] 02 Sat by Pulse Oximetry Oxygen Delivery Method Room Air Orders (Tests/Meds): ED MEDICATIONS Discontinued Medications Generic Name Dose Route Start Last Admin Trade Name Roseanna PRN Reason Stop Dose Admin Lactated Ringer's 1,000 mls @ 999 mls/hr 10/04/23 14:24 Lactated Ringer's 1000 Ml Bag IV 10/04/23 15:24 .Q1H1M ONE Medical Decision Narrative: Is a 63-year-old male with history of polysubstance abuse CAD, aortic and mitral valve replacements, ischemic cardiomyopathy, psychiatric comorbidities presenting for medical evaluation. Patient was discharged just prior to this visit. Cardiac workup was negative, was mainly complaining of abdominal pain. Lester better after Pepcid and GI cocktail. Labs unremarkable, chest x-ray without free subdiaphragmatic gas, he is improved on reevaluation. Patient was sent home with esomeprazole for presumed gastritis versus PUD. Instructed to follow-up with his family doctor. He left the emergency department, laid down outside and concern was concern for weakness. Patient able to stand with some assistance and be escorted back to the emergency department. Patient states that he has someone he is able to call and help him get back to his place of residence. I feel is appropriate. Patient ambulatory out of the emergency department and remained stable at baseline. Much of this encounter note is an electronic operating room technician spoken language to printed text. Electronic operating room technician of the spoken language may permit errors. Although I have reviewed the note, some errors may still exist. Critical Care Critical Care Time Critical Care Time: No
== END 2023-10-04 15:12 | disposition home or self-care (01) ==
PROVIDERS: Emergency Provider Emergency Medicine
DX: Z00.00 Encounter for general adult medical examination without abnormal findings (principal)
CPT/HCPCS: 99211

== ENCOUNTER 2023-12-16 23:16 | Emergency (ER) | payer MEDICARE, SELFPAY ==
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
[2023-12-16 23:30] VITALS: BP 120/76; PULSE 71; RESP 16; TEMP 36.8; O2SAT 96
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
[2023-12-16 23:40] LABS: Basophils % 0.3 % (0.1-2.0); Eosinophils # 0.1 K/mm3 (0.0-0.4); Eosinophils % 1.3 % (0.1-12.0); Hematocrit 37.3 % (42.0-52.0); Hemoglobin 11.8 g/dL (14.1-18.0); Lymphocytes # 2.3 K/mm3 (0.7-4.5); Lymphocytes % 22.5 % (10-50); Mean Corpuscular HGB Conc 31.6 g/dL (31.8-35.4); Mean Corpuscular Volume 101.4 fl (80-94); Mean Platelet Volume 7.8 fl (7.4-10.4); Monocytes # 0.5 K/mm3 (0.1-1.0); Monocytes % 5.4 % (1.7-9.3); Neutrophils # 7.1 K/mm3 (1.8-7.8); Neutrophils % 70.5 % (37.0-80.0); Platelet Count 340 K/mm3 (142-424); Red Blood Count 3.68 M/mm3 (4.60-6.20); Red Cell Distribution Width 15.1 % (11.5-17.5); White Blood Count 10.1 K/mm3 (4.8-10.8)
[2023-12-16 23:46] LABS: Albumin Level 4.3 g/dl (3.5-5.0); Chloride 111 mmol/L (98-107); Potassium 3.9 mmoL/L (3.5-5.1); Sodium 142 mmol/L (136-145)
[2023-12-16] MEDS: ONDANSETRON 4MG/2ML VIAL 4 MG IV (23:47)
[2023-12-16] MEDS: FENTANYL 250MCG/5ML VIAL 50 MCG IV (23:47)
[2023-12-16 23:48] LABS: Blood Urea Nitrogen 14 mg/dl (9-20)
[2023-12-16] MEDS: LACTATED RINGERS 1000ML 1,000 ML 999 ML IV (23:48)
[2023-12-16 23:49] LABS: Alanine Aminotransferase 149 U/L (12-78); Albumin/Globulin Ratio 1.3 (1.1-1.8); Alkaline Phosphatase 80 U/L (38-126); Anion Gap 6.9 mEq/L (5-15); Aspartate Amino Transferase 127 U/L (17-59); Bilirubin,Total 0.6 mg/dl (0.2-1.3); Calcium 10.2 mg/dl (8.4-10.2); Carbon Dioxide 28 mmol/L (22.0-30.0); Estimated Glomerular Filt Rate 68 ml/min (>60); Ethyl Alcohol < 10 mg/dl (0-10); GFR (African American) 82 ML/MIN (>60); Globulin 3.3 g/dL (1.3-3.2); Glucose 86 mg/dl (74-100); Lipase 75 U/L (23-300); Total Protein,Serum 7.6 g/dl (6.3-8.2)
[2023-12-16 23:51] LABS: Activated Partial Thrombo Time 24.9 seconds (22.8-30.6); INR 1.08 (0.9-1.1)
[2023-12-17 00:30] VITALS: BP 117/81; PULSE 65; RESP 16; O2SAT 99
[2023-12-17] MEDS: 0.9 % SODIUM CHLORIDE 50 ML VIAL 100 ML IV (00:33)
[2023-12-17] MEDS: IOPAMIDOL-370 (76%);100ML BOTTLE 160 ML IV (00:33)
[2023-12-17] MEDS: SODIUM CHLORIDE 0.9% 10ML SYR (RAD ONLY) 10 ML IV (00:34)
--- NOTE | 2023-12-17 00:51 | PC.NURSE ---
Patient states that he has to urinate and unable to use urinal at bedside while still lying flat. MD at bedside and gives verbal order for catheter placement after bladder scan for cause and concern of decreased sensation and possible spinal injury. Bladder scan showed >584ml in bladder at this time. Catheter placed, secured, and urine sample obtained and sent to lab.
[2023-12-17 00:53] VITALS: BMI 21.4
[2023-12-17 01:01] VITALS: BP 147/96; PULSE 60; RESP 15; O2SAT 100
[2023-12-17 01:06] LABS: Barbiturates Screen,Urine Negative ng/ml (<200); Microscopic, Urine URINE MICROSCOPIC (MICROSCOPIC)
[2023-12-17 01:07] LABS: Benzodiazepines Screen,Urine Positive ng/ml (<200); Cannabinoid Screen,Urine Positive ng/ml (<50)
[2023-12-17 01:08] LABS: Appearance,Urine CLEAR (Clear); Bilirubin,Urine Negative (Negative); Blood, Urine TRACE-I (Negative); Cocaine Screen,Urine Negative ng/ml (<300); Color,Urine YELLOW (Yellow); Glucose,Urine (UA) Negative (Negative); Ketones,Urine Negative (Negative); Leukocyte Esterase,Urine Negative (Negative); Nitrate,Urine Negative (Negative); Protein,Urine Negative (Negative); Urobilinogen,Urine 0.2 EU/dl (0.2)
[2023-12-17 01:09] LABS: Methadone Screen,Urine Negative ng/ml (<300); Opiate Screen,Urine Negative ng/ml (<300)
[2023-12-17 01:10] LABS: Phencyclidine Screen,Urine Negative ng/ml (<25)
[2023-12-17 01:30] VITALS: BP 143/92; PULSE 56; RESP 12; O2SAT 98
--- NOTE | 2023-12-17 01:34 | PC.NURSE ---
contacted [facility] in regards for transfer [facility] will call back with answer
[2023-12-17] MEDS: HYDROMORPHONE 2MG/ML SYRINGE 0.5 MG IV (01:37)
--- NOTE | 2023-12-17 01:37 | PC.NURSE ---
[facility] [facility] ACCEPTED. 22 MINS OUT. SIDEHAND NOTED.
--- NOTE | 2023-12-17 01:40 | PC.NURSE ---
Pt given permission to speak to family voicemail left to family member regarding pt transport
--- NOTE | 2023-12-17 01:47 | PC.NURSE ---
Report called to Gretta at [facility]
[2023-12-17 02:09] VITALS: BP 144/85; PULSE 54; RESP 12; TEMP 36.8; O2SAT 100
== END 2023-12-17 02:11 | disposition short-term general hospital (02) ==
PROVIDERS: Emergency Provider Emergency Medicine
DX: S06.9X1A Unspecified intracranial injury with loss of consciousness of 30 minutes or less, initial encounter (principal); M54.2 Cervicalgia; M54.50 Low back pain, unspecified; R20.0 Anesthesia of skin; I10 Essential (primary) hypertension; E78.5 Hyperlipidemia, unspecified; F17.210 Nicotine dependence, cigarettes, uncomplicated; F10.90 Alcohol use, unspecified, uncomplicated; V49.09XA Driver injured in collision with other motor vehicles in nontraffic accident, initial encounter; Y92.410 Unspecified street and highway as the place of occurrence of the external cause
CPT/HCPCS: 70450; 70496; 70498; 71045; 71275; 72125; 72128; 72131; 72170; 72192; 74174; 80053; 80307; 80320; 80324; 81001; 83690; 85025; 85610; 85730; 96361; 96374; 96375; 99291; G0480; J1170; J2405; J3010; J7120; Q9967

== ENCOUNTER 2023-12-18 10:16 | Emergency (ER) | payer MEDICARE, SELFPAY ==
[2023-12-18 10:16] VITALS: BP 144/89; PULSE 89; RESP 18; TEMP 36.9; O2SAT 97; BMI 19.0
--- NOTE | 2023-12-18 12:30 | PC.NURSE ---
DR TORRES AT BEDSIDE
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
--- NOTE | 2023-12-18 13:01 | PC.NURSE ---
ATTEMPTED TO CHECK PVR, PT UNABLE TO VOID. 160ML NOTED ON BLADDER SCAN
[2023-12-18] MEDS: LIDOCAINE 5% TRANSDERMAL PATCH 1 EACH TP (13:12)
[2023-12-18] MEDS: KETOROLAC 30MG/ML VIAL 30 MG IV (13:12)
[2023-12-18] MEDS: CYCLOBENZAPRINE 10MG TABLET 10 MG PO (13:12)
[2023-12-18] MEDS: GABAPENTIN 300MG CAPSULE 300 MG PO (13:12)
[2023-12-18] MEDS: ACETAMINOPHEN 500MG TAB 1000 MG PO (13:12)
[2023-12-18 13:22] VITALS: BP 142/84; PULSE 78; RESP 18; TEMP 36.6; O2SAT 95
--- NOTE | 2023-12-26 18:36 | PEERSUPPORT ---
Peer Support Note Patient Information Patient Information: DOS: 12/26/2023 Reason: PS Consult Follow up PS attempted to make contact for follow up. No answer, no option of voicemail. PS will continue to try to make contact.
== END 2023-12-18 13:27 | disposition home or self-care (01) ==
PROVIDERS: Emergency Provider Emergency Medicine; PCP Pediatrics
DX: M54.42 Lumbago with sciatica, left side (principal); J98.4 Other disorders of lung; N28.9 Disorder of kidney and ureter, unspecified; I10 Essential (primary) hypertension; E78.5 Hyperlipidemia, unspecified; F17.210 Nicotine dependence, cigarettes, uncomplicated
CPT/HCPCS: 96374; 99284; J1885

== ENCOUNTER 2024-01-07 19:33 | Emergency (ER) | payer MEDICARE, SELFPAY ==
[2024-01-07] VITALS (9 sets, daily range): BP systolic 94–137; BP diastolic 56–84; PULSE 45–52; RESP 18; TEMP 36.9; O2SAT 96–99; BMI 19.5
--- NOTE | 2024-01-07 19:36 | ECG_ITS ---
APPROVED REPORT Exam: Resting ECG HR:48 bpm ECG Measurements Heart Rate 48 AXES OH 138 P 66 QRSd 91 QRS 21 QT 472 T 67 QTc 440 Conclusion Sinus bradycardia Electronically signed by : DOMENICO HELM, 01/07/2024 22:50:39
--- NOTE | 2024-01-07 19:41 | ED_ITS ---
Discharge Plan Disposition Patient Disposition: Xfer Other Condition: Good Prescriptions Prescriptions: No Action metoprolol succinate 25 MG tablet extended release 24 hr 1 tab PO DAILY gabapentin 300 mg capsule See Rx Instructions .ROUTE .COMPLEX Qty: 32 0RF Rx Instructions: 300 mg orally 2 times a day starting on 12-19-2023 then 300 mg 3 times a day thereafter. lidocaine 5 % adhesive patch,medicated 1 patch topical Q24H Qty: 15 0RF Rx Instructions: leave on most painful area for up to 12 hrs amitriptyline 50 mg Tablet 50 mg PO DAILY acyclovir 800 mg Tablet 800 mg PO DAILY ibuprofen 600 mg tablet 600 mg PO NEEDED PRN (Reason: Pain) Patient Comments: TAKE 1 TABLET BY MOUTH EVERY 8 HOURS NEEDED FOR PAIN. paroxetine HCl 40 mg tablet 40 mg PO DAILY Patient Comments: TAKE 1 TABLET BY MOUTH ONCE DAILY. esomeprazole magnesium 20 mg capsule,delayed release(DR/EC) 20 mg PO DAILY 56 Days Qty: 56 1RF Referrals Follow up/Referrals: Provider,Referral, MD [Referring] - See instructions Clinical Impressions Clinical Impression: Alcohol abuse, Suicidal ideation Stand Alone Forms Stand Alone Forms: Transfer Record - ED Print Language Print Language: Pakistani Discharge ED Provider: Luis Enrique Ruvalcaba General Adult HPI <Samaria Yee (ED), WHEELABRATOR OPERATOR - Last Filed: 01/07/24 22:56> General Chief complaint: Psychiatric Symptoms Stated complaint: SI, hallucinations Time Seen by Provider: 01/07/24 19:34 History of Present Illness HPI narrative: This is a 63-year-old male with EMS for suicidal ideations. Patient arrives to the ED with no clear plan saying that he just does not care if he lives or dies. He tells me that he drinks a half a pint of whiskey every day. He says he has been drunk for 3 weeks. His last drink was right before he came [facility]. He tells me he does want help and he would like to stop drinking but he just cannot. He does have a brother and a nephew that did kill themselves. Patient does have a daughter who lives in [place] and another child lives in [place]. Related Data Home Medications ?Medication ?Instructions ?Recorded ?Confirmed metoprolol succinate 25 mg 1 tab PO DAILY Hypertension 11/08/21 10/04/23 tablet,extended release 24 hr acyclovir 800 mg tablet 800 mg PO DAILY 10/04/23 10/04/23 amitriptyline 50 mg tablet 50 mg PO DAILY 10/04/23 10/04/23 ibuprofen 600 mg tablet 600 mg PO NEEDED PRN Pain 10/04/23 10/04/23 paroxetine HCl 40 mg tablet 40 mg PO DAILY 10/04/23 10/04/23 Previous Rx's ?Medication ?Instructions ?Recorded esomeprazole magnesium 20 mg 20 mg PO DAILY 8 weeks #56 caps 10/04/23 capsule,delayed release gabapentin 300 mg capsule See Rx Instructions .Route 12/18/23 .COMPLEX sciatica #32 caps lidocaine 5 % topical patch 1 patch topical Q24H #15 ea 12/18/23 Allergies Allergy/AdvReac Type Severity Reaction Status Date / Time esomeprazole [From NEXIUM] Allergy Intermediate I-ITCHING Verified 10/04/23 12:50 methocarbamol [From ROBAXIN] Allergy Intermediate I-ITCHING Verified 10/04/23 12:50 morphine [MORPHINE] Allergy Mild NA-NAUSEA Verified 10/04/23 12:50 PFSH <Samaria Yee (ED), WHEELABRATOR OPERATOR - Last Filed: 01/07/24 22:56> [facility] Disclaimer: The information contained in this section may have been updated after the patient was seen, as this information can be updated by other users. Medical History (Updated 01/08/24 @ 02:01 by Ivania Serna RN) History of alcohol use Depression Depressed Shingles Hyperlipidemia Hypertension Surgical History (Updated 10/04/23 @ 12:51 by Sybil Wolfe RN) History of open heart surgery Social History Smoking Status: Current every day smoker tobacco type: cigarettes packs per day: 1 alcohol intake: never substance use type: denies use current occupational status: disabled Travel in the last 8 weeks: None caffeine: Yes Other Medical History Have you received the Flu Vaccine for this season: No Have you received the Pneumonia Vaccine: No <Samaria Yee (ED), WHEELABRATOR OPERATOR - Last Filed: 01/07/24 22:56> ROS Obtained: Yes Systems reviewed as appropriate & no additional complaints except as documented Constitutional Constitutional: Reports as per HPI Physical Exam <Samaria Yee (ED), WHEELABRATOR OPERATOR - Last Filed: 01/07/24 22:56> General General appearance: alert and appears intoxicated Head Head exam: normocephalic Eye Eye exam: Present PERRL ENT ENT exam: Present mucous membranes moist Neck Neck exam: Present full ROM and trachea midline Chest Chest inspection: Present normal inspection Respiratory Respiratory exam: Present wheezes Cardiovascular Cardiovascular exam: Present regular rate, normal rhythm, normal heart sounds, +S1 and +S2 Abdominal Exam Abdominal exam: Present soft and normal bowel sounds Extremities Exam Extremities exam: Present normal inspection, full ROM and normal capillary refill Neurological Exam Neurological exam: Present alert and oriented X3 Psychiatric Psychiatric exam: Present anxious and other (Patient was brought from that he has no suicidal ideations at this time he says he just does not care if he lives or dies but he has no plan and has dog bite on the past but does not want to harm himself) Skin Skin exam: Present warm, dry and intact Medical Decision Making <Samaria Yee (ED), WHEELABRATOR OPERATOR - Last Filed: 01/07/24 22:56> Medical Records Screening: Per USPSTF and CDC recommendations, given the prevalence of disease in our region, it is our hospital?s policy to screen for HIV and viral Hepatitis for all patients aged 18 and over and those with ongoing risk factors. Jose Inquiry Pt receiving controlled substance: No Vital Signs: 01/07/24 19:33 01/07/24 20:00 01/07/24 20:31 Temperature 98.5 F Temperature Source Oral Pulse Rate 45 L 46 L Pulse Rate [Left Radial] 52 L Respiratory Rate 18 Blood Pressure 94/56 L 110/70 Blood Pressure [Left Arm] 94/57 L Blood Pressure Mean [Left Arm] 69 Blood Pressure Source Blood Pressure Source [Left Arm] Automatic Cuff Blood Pressure Position Blood Pressure Position [Left Arm] Supine 02 Sat by Pulse Oximetry 99 96 99 Oxygen Delivery Method Room Air 01/07/24 21:00 01/07/24 21:30 01/07/24 22:00 Temperature Temperature Source Pulse Rate 48 L 51 L 47 L Pulse Rate [Left Radial] Respiratory Rate Blood Pressure 114/69 114/72 121/77 Blood Pressure [Left Arm] Blood Pressure Mean [Left Arm] Blood Pressure Source Blood Pressure Source [Left Arm] Blood Pressure Position Blood Pressure Position [Left Arm] 02 Sat by Pulse Oximetry 99 98 97 Oxygen Delivery Method 01/07/24 22:30 01/07/24 23:00 01/07/24 23:31 Temperature Temperature Source Pulse Rate 50 L 49 L 50 L Pulse Rate [Left Radial] Respiratory Rate Blood Pressure 128/81 137/84 133/82 Blood Pressure [Left Arm] Blood Pressure Mean [Left Arm] Blood Pressure Source Blood Pressure Source [Left Arm] Blood Pressure Position Blood Pressure Position [Left Arm] 02 Sat by Pulse Oximetry 97 98 97 Oxygen Delivery Method 01/08/24 00:00 01/08/24 00:30 01/08/24 00:45 Temperature Temperature Source Pulse Rate 48 L 60 46 L Pulse Rate [Left Radial] Respiratory Rate Blood Pressure 133/81 140/82 141/86 H Blood Pressure [Left Arm] Blood Pressure Mean [Left Arm] Blood Pressure Source Blood Pressure Source [Left Arm] Blood Pressure Position Blood Pressure Position [Left Arm] 02 Sat by Pulse Oximetry 99 100 100 Oxygen Delivery Method 01/08/24 01:09 01/08/24 01:30 Temperature 97.9 F Temperature Source Oral Pulse Rate 50 L 46 L Pulse Rate [Left Radial] Respiratory Rate 18 Blood Pressure 140/74 150/88 H Blood Pressure [Left Arm] Blood Pressure Mean [Left Arm] Blood Pressure Source Automatic Cuff Blood Pressure Source [Left Arm] Blood Pressure Position Supine Blood Pressure Position [Left Arm] 02 Sat by Pulse Oximetry 97 Oxygen Delivery Method Room Air Lab Data Lab Results 01/07/24 19:35: Urine Color Yellow, Urine Appearance Clear, Urine pH 7.5, Ur Specific [place] 1.025, Urine Protein Negative, Urine Glucose (UA) Negative, Urine Ketones Negative, Urine Blood 1+ A, Urine Nitrate Negative, Urine Bilirubin Negative, Urine Urobilinogen 1.0, Ur Leukocyte Esterase Negative, Urine RBC 5-10, Urine WBC None, Ur Squamous Epith Cells Occasional, Urine Bacteria None 01/07/24 19:41: WBC 8.4, RBC 3.81 L, Hgb 12.4 L, Hct 37.2 L, MCV 97.6 H, MCH 32.4 H, MCHC 33.2, RDW 15.4, Plt Count 228, MPV 8.5, Neut % (Auto) 73.2, Lymph % (Auto) 20.5, Castro % (Auto) 4.4, Eos % (Auto) 1.4, Baso % (Auto) 0.5, Neut # (Auto) 6.1, Lymph # (Auto) 1.7, Castro # (Auto) 0.4, Eos # (Auto) 0.1, Baso # (Auto) 0.1, Sodium 141, Potassium 3.3 L, Chloride 111 H, Carbon Dioxide 24, Anion Gap 9.3, BUN 7 L, Creatinine 0.80, Estimated Creat Clear 61, Estimated GFR 98, Est GFR ( Amer) 119, Glucose 118 H, Calcium 9.3, Total Bilirubin 0.4, AST 77 H, ALT 74, Alkaline Phosphatase 72, Total Protein 6.8, Albumin 3.7, Globulin 3.1, Albumin/Globulin Ratio 1.2, TSH 1.23, Thyroxine (T4) 7.9, S alicylates < 1.0 L, Acetaminophen < 10 L, Plasma/Serum Alcohol 111 H, HIV 1&2 Antibody Rapid Nonreactive 01/07/24 20:18: SARS-CoV-2 (PCR) Not detected, Influenza A Untype (PCR) Not detected, Influenza Type B (PCR) Not detected 01/07/24 21:20: Urine Opiates Screen Negative, Urine Methadone Screen Negative, Ur Barbituates Screen Negative, Ur Phencyclidine Scrn Negative, Ur Amphetamines Screen TNP, U Benzodiazepines Scrn Positive H, Urine Cocaine Screen Negative, U Marijuana (THC) Screen Positive H 01/07/24 19:41 01/07/24 19:41 Orders (Tests/Meds): ED MEDICATIONS Discontinued Medications Generic Name Dose Route Start Last Admin Trade Name Casperq PRN Reason Stop Dose Admin Acetaminophen 1,000 mg 01/07/24 19:48 01/07/24 19:59 Acetaminophen 500mg Tab PO 01/07/24 19:49 1,000 mg ONCE ONE Administration Folic Acid 1 mg 01/07/24 19:48 01/07/24 19:59 Folic Acid 1mg Tablet PO 01/07/24 19:49 1 mg ONCE ONE Administration Multivitamins 10 ml/ Thiamine 1,015 mls @ 150 mls/hr 01/07/24 19:48 01/07/24 20:11 HCl 100 mg/ Magnesium Sulfate IV 01/08/24 02:33 Not Given 2 gm/ Lactated Ringer's .Q6H46M HOMERO Lactated Ringer's 1,000 mls @ 999 mls/hr 01/07/24 20:06 01/07/24 20:09 Lactated Ringer's 1000 Ml Bag IV 01/07/24 21:06 999 mls/hr .Q1H1M ONE Administration Thiamine HCl 100 mg/ Sodium 51 mls @ 204 mls/hr 01/07/24 20:07 01/07/24 20:32 Chloride IV 01/07/24 20:08 204 mls/hr ONCE ONE Administration Magnesium Sulfate 1 gm 01/07/24 20:07 01/07/24 20:10 Magnesium Sulfate 1gm/2ml Vial IM 01/07/24 20:08 1 gm ONCE ONE Administration Potassium Chloride 40 meq 01/07/24 20:35 01/07/24 20:54 Potassium Chloride 20meq Tab PO 01/07/24 20:36 40 meq ONCE ONE Administration ORDERS Category Date Time Status Consult 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 [CONS] Routine Cons 01/07/24 20:04 Active Acetaminophen Stat Lab 01/07/24 19:41 Completed Complete Blood Count Auto Diff Stat Lab 01/07/24 19:41 Completed Comprehensive Metabolic Panel Stat Lab 01/07/24 19:41 Completed Drug Screen,Urine Stat Lab 01/07/24 21:20 Completed Ethyl Alcohol Stat Lab 01/07/24 19:41 Completed HIV (1&2) Antibody Rapid Stat Lab 01/07/24 19:41 Completed Hep C Ab with Reflex to RNA Stat Lab 01/07/24 19:41 Received Rapid PCR Covid and Flu A/B Stat Lab 01/07/24 20:18 Completed Salicylate Stat Lab 01/07/24 19:41 Completed T4 (Thyroxine) Stat Lab 01/07/24 19:41 Completed Thyroid Stimulating Hormone Stat Lab 01/07/24 19:41 Completed Urinalysis and Microscopic Stat Lab 01/07/24 19:35 Completed EKG Request [ECG Request] Stat Y 01/07/24 19:36 Ordered Medical Decision Narrative: Insert review patient is a 63-year-old male presenting to the emergency department for evaluation of SI. Patient is hemodynamically stable and nontoxic-appearing upon arrival, afebrile. Differential diagnosis includes SI, depression, anxiety, alcoholism amongst others. Workup will be conducted with hematologic labs. Initial inventions include crystalloid bolus using a rally bag. Initial workup reviewed by me hematologic labs are remarkable for a low potassium at 3.3 otherwise pretty unremarkable lab work. Patient denies plan for suicide. He says currently he does not want to harm himself but he just does not care if he lives or dies. He has been drug-free for 3 weeks. He drinks a half a pint of whiskey daily. He does want help. His last drink was just prior to arrival to the ED. <Luis Enrique Ruvalcaba MD - Last Filed: 01/08/24 15:03> Vital Signs: 01/07/24 19:33 01/07/24 20:00 01/07/24 20:31 Temperature 98.5 F Temperature Source Oral Pulse Rate 45 L 46 L Pulse Rate [Left Radial] 52 L Respiratory Rate 18 Blood Pressure 94/56 L 110/70 Blood Pressure [Left Arm] 94/57 L Blood Pressure Mean [Left Arm] 69 Blood Pressure Source Blood Pressure Source [Left Arm] Automatic Cuff Blood Pressure Position Blood Pressure Position [Left Arm] Supine 02 Sat by Pulse Oximetry 99 96 99 Oxygen Delivery Method Room Air 01/07/24 21:00 01/07/24 21:30 01/07/24 22:00 Temperature Temperature Source Pulse Rate 48 L 51 L 47 L Pulse Rate [Left Radial] Respiratory Rate Blood Pressure 114/69 114/72 121/77 Blood Pressure [Left Arm] Blood Pressure Mean [Left Arm] Blood Pressure Source Blood Pressure Source [Left Arm] Blood Pressure Position Blood Pressure Position [Left Arm] 02 Sat by Pulse Oximetry 99 98 97 Oxygen Delivery Method 01/07/24 22:30 01/07/24 23:00 01/07/24 23:31 Temperature Temperature Source Pulse Rate 50 L 49 L 50 L Pulse Rate [Left Radial] Respiratory Rate Blood Pressure 128/81 137/84 133/82 Blood Pressure [Left Arm] Blood Pressure Mean [Left Arm] Blood Pressure Source Blood Pressure Source [Left Arm] Blood Pressure Position Blood Pressure Position [Left Arm] 02 Sat by Pulse Oximetry 97 98 97 Oxygen Delivery Method 01/08/24 00:00 01/08/24 00:30 01/08/24 00:45 Temperature Temperature Source Pulse Rate 48 L 60 46 L Pulse Rate [Left Radial] Respiratory Rate Blood Pressure 133/81 140/82 141/86 H Blood Pressure [Left Arm] Blood Pressure Mean [Left Arm] Blood Pressure Source Blood Pressure Source [Left Arm] Blood Pressure Position Blood Pressure Position [Left Arm] 02 Sat by Pulse Oximetry 99 100 100 Oxygen Delivery Method 01/08/24 01:09 01/08/24 01:30 Temperature 97.9 F Temperature Source Oral Pulse Rate 50 L 46 L Pulse Rate [Left Radial] Respiratory Rate 18 Blood Pressure 140/74 150/88 H Blood Pressure [Left Arm] Blood Pressure Mean [Left Arm] Blood Pressure Source Automatic Cuff Blood Pressure Source [Left Arm] Blood Pressure Position Supine Blood Pressure Position [Left Arm] 02 Sat by Pulse Oximetry 97 Oxygen Delivery Method Room Air Lab Data Lab Results 01/07/24 19:35: Urine Color Yellow, Urine Appearance Clear, Urine pH 7.5, Ur Specific [place] 1.025, Urine Protein Negative, Urine Glucose (UA) Negative, Urine Ketones Negative, Urine Blood 1+ A, Urine Nitrate Negative, Urine Bilirubin Negative, Urine Urobilinogen 1.0, Ur Leukocyte Esterase Negative, Urine RBC 5-10, Urine WBC None, Ur Squamous Epith Cells Occasional, Urine Bacteria None 01/07/24 19:41: WBC 8.4, RBC 3.81 L, Hgb 12.4 L, Hct 37.2 L, MCV 97.6 H, MCH 32.4 H, MCHC 33.2, RDW 15.4, Plt Count 228, MPV 8.5, Neut % (Auto) 73.2, Lymph % (Auto) 20.5, Castro % (Auto) 4.4, Eos % (Auto) 1.4, Baso % (Auto) 0.5, Neut # (Auto) 6.1, Lymph # (Auto) 1.7, Castro # (Auto) 0.4, Eos # (Auto) 0.1, Baso # (Auto) 0.1, Sodium 141, Potassium 3.3 L, Chloride 111 H, Carbon Dioxide 24, Anion Gap 9.3, BUN 7 L, Creatinine 0.80, Estimated Creat Clear 61, Estimated GFR 98, Est GFR ( Amer) 119, Glucose 118 H, Calcium 9.3, Total Bilirubin 0.4, AST 77 H, ALT 74, Alkaline Phosphatase 72, Total Protein 6.8, Albumin 3.7, Globulin 3.1, Albumin/Globulin Ratio 1.2, TSH 1.23, Thyroxine (T4) 7.9, S alicylates < 1.0 L, Acetaminophen < 10 L, Plasma/Serum Alcohol 111 H, HIV 1&2 Antibody Rapid Nonreactive 01/07/24 20:18: SARS-CoV-2 (PCR) Not detected, Influenza A Untype (PCR) Not detected, Influenza Type B (PCR) Not detected 01/07/24 21:20: Urine Opiates Screen Negative, Urine Methadone Screen Negative, Ur Barbituates Screen Negative, Ur Phencyclidine Scrn Negative, Ur Amphetamines Screen TNP, U Benzodiazepines Scrn Positive H, Urine Cocaine Screen Negative, U Marijuana (THC) Screen Positive H Orders (Tests/Meds): ED MEDICATIONS Discontinued Medications Generic Name Dose Route Start Last Admin Trade Name Freq PRN Reason Stop Dose Admin Acetaminophen 1,000 mg 01/07/24 19:48 01/07/24 19:59 Acetaminophen 500mg Tab PO 01/07/24 19:49 1,000 mg ONCE ONE Administration Folic Acid 1 mg 01/07/24 19:48 01/07/24 19:59 Folic Acid 1mg Tablet PO 01/07/24 19:49 1 mg ONCE ONE Administration Multivitamins 10 ml/ Thiamine 1,015 mls @ 150 mls/hr 01/07/24 19:48 01/07/24 20:11 HCl 100 mg/ Magnesium Sulfate IV 01/08/24 02:33 Not Given 2 gm/ Lactated Ringer's .Q6H46M HOMERO Lactated Ringer's 1,000 mls @ 999 mls/hr 01/07/24 20:06 01/07/24 20:09 Lactated Ringer's 1000 Ml Bag IV 01/07/24 21:06 999 mls/hr .Q1H1M ONE Administration Thiamine HCl 100 mg/ Sodium 51 mls @ 204 mls/hr 01/07/24 20:07 01/07/24 20:32 Chloride IV 01/07/24 20:08 204 mls/hr ONCE ONE Administration Magnesium Sulfate 1 gm 01/07/24 20:07 01/07/24 20:10 Magnesium Sulfate 1gm/2ml Vial IM 01/07/24 20:08 1 gm ONCE ONE Administration Potassium Chloride 40 meq 01/07/24 20:35 01/07/24 20:54 Potassium Chloride 20meq Tab PO 01/07/24 20:36 40 meq ONCE ONE Administration ORDERS Category Date Time Status Consult 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 [CONS] Routine Cons 01/07/24 20:04 Active Acetaminophen Stat Lab 01/07/24 19:41 Completed Complete Blood Count Auto Diff Stat Lab 01/07/24 19:41 Completed Comprehensive Metabolic Panel Stat Lab 01/07/24 19:41 Completed Drug Screen,Urine Stat Lab 01/07/24 21:20 Completed Ethyl Alcohol Stat Lab 01/07/24 19:41 Completed HIV (1&2) Antibody Rapid Stat Lab 01/07/24 19:41 Completed Hep C Ab with Reflex to RNA Stat Lab 01/07/24 19:41 Received Rapid PCR Covid and Flu A/B Stat Lab 01/07/24 20:18 Completed Salicylate Stat Lab 01/07/24 19:41 Completed T4 (Thyroxine) Stat Lab 01/07/24 19:41 Completed Thyroid Stimulating Hormone Stat Lab 01/07/24 19:41 Completed Urinalysis and Microscopic Stat Lab 01/07/24 19:35 Completed EKG Request [ECG Request] Stat Y 01/07/24 19:36 Ordered ECG Data Tracing #1: I reviewed this ECG and interpreted as documented below: (Sinus bradycardia 48 beats a minute without ST or T wave changes concerning for acute ischemia. KS 138, QRS 91, QTc 440. Normal axis.) Medical Decision Narrative: Insert review patient is a 63-year-old male presenting to the emergency department for evaluation of SI. Patient is hemodynamically stable and nontoxic-appearing upon arrival, afebrile. Differential diagnosis includes SI, depression, anxiety, alcoholism amongst others. Workup will be conducted with hematologic labs. Initial inventions include crystalloid bolus using a rally bag. Initial workup reviewed by me hematologic labs are remarkable for a low potassium at 3.3 otherwise pretty unremarkable lab work. Patient denies plan for suicide. He says currently he does not want to harm himself but he just does not care if he lives or dies. He has been drug-free for 3 weeks. He drinks a half a pint of whiskey daily. He does want help. His last drink was just prior to arrival to the ED. I was consulted by the TRACI, and we discussed the complexity of the problems being addressed. I approved the treatment and management plan for this patient's care in the Emergency Department, thus performing a substantive portion of the medical decision making. Independent interpretation of workup with nonactionable labs. EKG sinus bradycardia, otherwise normal. Tox labs negative. Patient was petition to [facility]. [facility] declined. Prior to disposition, care handed off. Luis Enrique Ruvalcaba MD Torres: Upon my assumption of care patient is stable. He does appear slightly intoxicated, EtOH is positive, UA negative for findings of infection, CMP nonactionable, benzos and marijuana positive on UDS as well as amphetamines, mild anemia, no leukocytosis. I believe patient requires psychiatric evaluation and treatment. [facility] been contacted for transfer and admission, they declined, [facility] was contacted, after evaluating the patient by phone, they accepted the patient for admission and treatment. Patient was transferred in stable condition. <Leticia Torres MD - Last Filed: 01/08/24 05:59> Vital Signs: 01/07/24 19:33 01/07/24 20:00 01/07/24 20:31 Temperature 98.5 F Temperature Source Oral Pulse Rate 45 L 46 L Pulse Rate [Left Radial] 52 L Respiratory Rate 18 Blood Pressure 94/56 L 110/70 Blood Pressure [Left Arm] 94/57 L Blood Pressure Mean [Left Arm] 69 Blood Pressure Source Blood Pressure Source [Left Arm] Automatic Cuff Blood Pressure Position Blood Pressure Position [Left Arm] Supine 02 Sat by Pulse Oximetry 99 96 99 Oxygen Delivery Method Room Air 01/07/24 21:00 01/07/24 21:30 01/07/24 22:00 Temperature Temperature Source Pulse Rate 48 L 51 L 47 L Pulse Rate [Left Radial] Respiratory Rate Blood Pressure 114/69 114/72 121/77 Blood Pressure [Left Arm] Blood Pressure Mean [Left Arm] Blood Pressure Source Blood Pressure Source [Left Arm] Blood Pressure Position Blood Pressure Position [Left Arm] 02 Sat by Pulse Oximetry 99 98 97 Oxygen Delivery Method 01/07/24 22:30 01/07/24 23:00 01/07/24 23:31 Temperature Temperature Source Pulse Rate 50 L 49 L 50 L Pulse Rate [Left Radial] Respiratory Rate Blood Pressure 128/81 137/84 133/82 Blood Pressure [Left Arm] Blood Pressure Mean [Left Arm] Blood Pressure Source Blood Pressure Source [Left Arm] Blood Pressure Position Blood Pressure Position [Left Arm] 02 Sat by Pulse Oximetry 97 98 97 Oxygen Delivery Method 01/08/24 00:00 01/08/24 00:30 01/08/24 00:45 Temperature Temperature Source Pulse Rate 48 L 60 46 L Pulse Rate [Left Radial] Respiratory Rate Blood Pressure 133/81 140/82 141/86 H Blood Pressure [Left Arm] Blood Pressure Mean [Left Arm] Blood Pressure Source Blood Pressure Source [Left Arm] Blood Pressure Position Blood Pressure Position [Left Arm] 02 Sat by Pulse Oximetry 99 100 100 Oxygen Delivery Method 01/08/24 01:09 01/08/24 01:30 Temperature 97.9 F Temperature Source Oral Pulse Rate 50 L 46 L Pulse Rate [Left Radial] Respiratory Rate 18 Blood Pressure 140/74 150/88 H Blood Pressure [Left Arm] Blood Pressure Mean [Left Arm] Blood Pressure Source Automatic Cuff Blood Pressure Source [Left Arm] Blood Pressure Position Supine Blood Pressure Position [Left Arm] 02 Sat by Pulse Oximetry 97 Oxygen Delivery Method Room Air Lab Data Lab Results 01/07/24 19:35: Urine Color Yellow, Urine Appearance Clear, Urine pH 7.5, Ur Specific [place] 1.025, Urine Protein Negative, Urine Glucose (UA) Negative, Urine Ketones Negative, Urine Blood 1+ A, Urine Nitrate Negative, Urine Bilirubin Negative, Urine Urobilinogen 1.0, Ur Leukocyte Esterase Negative, Urine RBC 5-10, Urine WBC None, Ur Squamous Epith Cells Occasional, Urine Bacteria None 01/07/24 19:41: WBC 8.4, RBC 3.81 L, Hgb 12.4 L, Hct 37.2 L, MCV 97.6 H, MCH 32.4 H, MCHC 33.2, RDW 15.4, Plt Count 228, MPV 8.5, Neut % (Auto) 73.2, Lymph % (Auto) 20.5, [place] % (Auto) 4.4, Eos % (Auto) 1.4, Baso % (Auto) 0.5, Neut # (Auto) 6.1, Lymph # (Auto) 1.7, [place] # (Auto) 0.4, Eos # (Auto) 0.1, Baso # (Auto) 0.1, Sodium 141, Potassium 3.3 L, Chloride 111 H, Carbon Dioxide 24, Anion Gap 9.3, BUN 7 L, Creatinine 0.80, Estimated Creat Clear 61, Estimated GFR 98, Est GFR ( Amer) 119, Glucose 118 H, Calcium 9.3, Total Bilirubin 0.4, AST 77 H, ALT 74, Alkaline Phosphatase 72, Total Protein 6.8, Albumin 3.7, Globulin 3.1, Albumin/Globulin Ratio 1.2, TSH 1.23, Thyroxine (T4) 7.9, S alicylates < 1.0 L, Acetaminophen < 10 L, Plasma/Serum Alcohol 111 H, HIV 1&2 Antibody Rapid Nonreactive 01/07/24 20:18: SARS-CoV-2 (PCR) Not detected, Influenza A Untype (PCR) Not detected, Influenza Type B (PCR) Not detected 01/07/24 21:20: Urine Opiates Screen Negative, Urine Methadone Screen Negative, Ur Barbituates Screen Negative, Ur Phencyclidine Scrn Negative, Ur Amphetamines Screen TNP, U Benzodiazepines Scrn Positive H, Urine Cocaine Screen Negative, U Marijuana (THC) Screen Positive H Orders (Tests/Meds): ED MEDICATIONS Discontinued Medications Generic Name Dose Route Start Last Admin Trade Name [facility] PRN Reason Stop Dose Admin Acetaminophen 1,000 mg 01/07/24 19:48 01/07/24 19:59 Acetaminophen 500mg Tab PO 01/07/24 19:49 1,000 mg ONCE ONE Administration Folic Acid 1 mg 01/07/24 19:48 01/07/24 19:59 Folic Acid 1mg Tablet PO 01/07/24 19:49 1 mg ONCE ONE Administration Multivitamins 10 ml/ Thiamine 1,015 mls @ 150 mls/hr 01/07/24 19:48 01/07/24 20:11 HCl 100 mg/ Magnesium Sulfate IV 01/08/24 02:33 Not Given 2 gm/ Lactated Ringer's .[id number] HOMREO Lactated Ringer's 1,000 mls @ 999 mls/hr 01/07/24 20:06 01/07/24 20:09 Lactated Ringer's 1000 Ml Bag IV 01/07/24 21:06 999 mls/hr .Q1H1M ONE Administration Thiamine HCl 100 mg/ Sodium 51 mls @ 204 mls/hr 01/07/24 20:07 01/07/24 20:32 Chloride IV 01/07/24 20:08 204 mls/hr ONCE ONE Administration Magnesium Sulfate 1 gm 01/07/24 20:07 01/07/24 20:10 Magnesium Sulfate 1gm/2ml Vial IM 01/07/24 20:08 1 gm ONCE ONE Administration Potassium Chloride 40 meq 01/07/24 20:35 01/07/24 20:54 Potassium Chloride 20meq Tab PO 01/07/24 20:36 40 meq ONCE ONE Administration ORDERS Category Date Time Status Consult 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 [CONS] Routine Cons 01/07/24 20:04 Active Acetaminophen Stat Lab 01/07/24 19:41 Completed Complete Blood Count Auto Diff Stat Lab 01/07/24 19:41 Completed Comprehensive Metabolic Panel Stat Lab 01/07/24 19:41 Completed Drug Screen,Urine Stat Lab 01/07/24 21:20 Completed Ethyl Alcohol Stat Lab 01/07/24 19:41 Completed HIV (1&2) Antibody Rapid Stat Lab 01/07/24 19:41 Completed Hep C Ab with Reflex to RNA Stat Lab 01/07/24 19:41 Received Rapid PCR Covid and Flu A/B Stat Lab 01/07/24 20:18 Completed Salicylate Stat Lab 01/07/24 19:41 Completed T4 (Thyroxine) Stat Lab 01/07/24 19:41 Completed Thyroid Stimulating Hormone Stat Lab 01/07/24 19:41 Completed Urinalysis and Microscopic Stat Lab 01/07/24 19:35 Completed EKG Request [ECG Request] Stat Y 01/07/24 19:36 Ordered Medical Decision Narrative: Insert review patient is a 63-year-old male presenting to the emergency department for evaluation of SI. Patient is hemodynamically stable and nontoxic-appearing upon arrival, afebrile. Differential diagnosis includes SI, depression, anxiety, alcoholism amongst others. Workup will be conducted with hematologic labs. Initial inventions include crystalloid bolus using a rally bag. Initial workup reviewed by me hematologic labs are remarkable for a low potassium at 3.3 otherwise pretty unremarkable lab work. Patient denies plan for suicide. He says currently he does not want to harm himself but he just does not care if he lives or dies. He has been drug-free for 3 weeks. He drinks a half a pint of whiskey daily. He does want help. His last drink was just prior to arrival to the ED. Torres: Upon my assumption of care patient is stable. He does appear slightly intoxicated, EtOH is positive, UA negative for findings of infection, CMP nonactionable, benzos and marijuana positive on UDS as well as amphetamines, mild anemia, no leukocytosis. I believe patient requires psychiatric evaluation and treatment. [facility] for transfer and admission, they declined, [facility], after evaluating the patient by phone, they accepted the patient for admission and treatment. Patient was transferred in stable condition. Critical Care <Samaria Yee (MICA), WHEELABRATOR OPERATOR - Last Filed: 01/07/24 22:56> Critical Care Time Critical Care Time: No
[2024-01-07 19:54] LABS: Basophils # 0.1 K/mm3 (0-0.2); Basophils % 0.5 % (0.1-2.0); Eosinophils # 0.1 K/mm3 (0.0-0.4); Eosinophils % 1.4 % (0.1-12.0); Hematocrit 37.2 % (42.0-52.0); Hemoglobin 12.4 g/dL (14.1-18.0); Lymphocytes # 1.7 K/mm3 (0.7-4.5); Lymphocytes % 20.5 % (10-50); Mean Corpuscular HGB Conc 33.2 g/dL (31.8-35.4); Mean Corpuscular Hemoglobin 32.4 pg (27.0-31.2); Mean Corpuscular Volume 97.6 fl (80-94); Mean Platelet Volume 8.5 fl (7.4-10.4); Monocytes # 0.4 K/mm3 (0.1-1.0); Monocytes % 4.4 % (1.7-9.3); Neutrophils # 6.1 K/mm3 (1.8-7.8); Neutrophils % 73.2 % (37.0-80.0); Platelet Count 228 K/mm3 (142-424); Red Blood Count 3.81 M/mm3 (4.60-6.20); Red Cell Distribution Width 15.4 % (11.5-17.5); White Blood Count 8.4 K/mm3 (4.8-10.8)
[2024-01-07 19:59] LABS: Albumin Level 3.7 g/dl (3.5-5.0); Chloride 111 mmol/L (98-107); Potassium 3.3 mmoL/L (3.5-5.1); Sodium 141 mmol/L (136-145)
[2024-01-07] MEDS: ACETAMINOPHEN 500MG TAB 1000 MG PO (19:59)
[2024-01-07] MEDS: FOLIC ACID 1MG TABLET 1 MG PO (19:59)
[2024-01-07 20:02] LABS: Alanine Aminotransferase 74 U/L (12-78); Albumin/Globulin Ratio 1.2 (1.1-1.8); Alkaline Phosphatase 72 U/L (38-126); Anion Gap 9.3 mEq/L (5-15); Aspartate Amino Transferase 77 U/L (17-59); Bilirubin,Total 0.4 mg/dl (0.2-1.3); Blood Urea Nitrogen 7 mg/dl (9-20); Calcium 9.3 mg/dl (8.4-10.2); Carbon Dioxide 24 mmol/L (22.0-30.0); Creatinine Clearance Estimated 61 mL/min (50-200); Estimated Glomerular Filt Rate 98 ml/min (>60); GFR (African American) 119 ML/MIN (>60); Globulin 3.1 g/dL (1.3-3.2); Glucose 118 mg/dl (74-100); Total Protein,Serum 6.8 g/dl (6.3-8.2)
[2024-01-07] MEDS: LACTATED RINGERS 1000ML 1,000 ML 999 ML IV (20:09)
[2024-01-07 20:10] LABS: Acetaminophen < 10 ug/ml (10-30); Salicylate < 1.0 mg/dL (2.0-20.0)
[2024-01-07] MEDS: MAGNESIUM SULFATE 1GM/2ML VIAL 1 GM IM (20:10)
[2024-01-07 20:13] LABS: Ethyl Alcohol 111 mg/dl (0-10)
[2024-01-07 20:19] LABS: T4 (Thyroxine) 7.9 ug/dl (5.53-11.0)
[2024-01-07 20:21] LABS: Coronavirus 19, PCR Not Detected (NotDetected); Influenza A, PCR Not Detected (NotDetected); Influenza B, PCR Not Detected (NotDetected)
[2024-01-07] MEDS: THIAMINE HCL 100 MG in 0.9 % SODIUM CHLORIDE 50 ML 204 MG IV (20:32)
[2024-01-07 20:33] LABS: Thyroid Stimulating Hormone 1.23 uIU/mL (0.465-4.68)
[2024-01-07] MEDS: POTASSIUM CHLORIDE 20MEQ TAB 40 MEQ PO (20:54)
--- NOTE | 2024-01-07 21:19 | PC.NURSE ---
call placed to [facility], was transferred to the wrong facility, awaiting a return call from [place] at this time
[2024-01-07 21:27] LABS: Microscopic, Urine URINE MICROSCOPIC (MICROSCOPIC)
[2024-01-07 21:29] LABS: Appearance,Urine CLEAR (Clear); Bilirubin,Urine Negative (Negative); Blood, Urine 1+ (Negative); Color,Urine YELLOW (Yellow); Glucose,Urine (UA) Negative (Negative); Ketones,Urine Negative (Negative); Leukocyte Esterase,Urine Negative (Negative); Nitrate,Urine Negative (Negative); PH,Urine 7.5 (5.0-8.5); Protein,Urine Negative (Negative); Specific Gravity, Urine 1.025 (1.005-1.030)
[2024-01-07 21:39] LABS: Squamous Epithelial Cell,Urine Occasional #/hpf (0-5)
[2024-01-07 21:45] LABS: Barbiturates Screen,Urine Negative ng/ml (<200)
[2024-01-07 21:46] LABS: Benzodiazepines Screen,Urine Positive ng/ml (<200)
[2024-01-07 21:47] LABS: Cannabinoid Screen,Urine Positive ng/ml (<50)
[2024-01-07 21:48] LABS: Cocaine Screen,Urine Negative ng/ml (<300); Methadone Screen,Urine Negative ng/ml (<300)
[2024-01-07 21:49] LABS: Opiate Screen,Urine Negative ng/ml (<300)
[2024-01-07 21:50] LABS: Phencyclidine Screen,Urine Negative ng/ml (<25)
--- NOTE | 2024-01-07 23:01 | PC.NURSE ---
call back to [facility] intake, they are not accepting tondaniele
--- NOTE | 2024-01-07 23:06 | PC.NURSE ---
Call to intake for [facility]
--- NOTE | 2024-01-07 23:29 | PC.NURSE ---
labs, EKG, ED notes faxed to [facility] @ [phone], confirmation received
[2024-01-08] VITALS: BP 133/81; PULSE 48; O2SAT 99
[2024-01-08 00:30] VITALS: BP 140/82; PULSE 60; O2SAT 100
[2024-01-08 00:45] VITALS: BP 141/86; PULSE 46; O2SAT 100
--- NOTE | 2024-01-08 00:46 | PC.NURSE ---
[facility] will call back to let us know if he's accepted. Sandi called to advise
[2024-01-08 01:09] VITALS: BP 140/74; PULSE 50; RESP 18; TEMP 36.6; O2SAT 100
[2024-01-08 01:30] VITALS: BP 150/88; PULSE 46; O2SAT 97
--- NOTE | 2024-01-08 02:00 | PC.NURSE ---
Courtesy call given to [facility] to let them know patient is on the way
[2024-01-08 08:36] LABS: HIV (1&2) Antibody Rapid NONREACTIVE (NONREACTIVE)
[2024-01-11 19:10] LABS: Amphetamine Positive (.); Amphetamine (GC/MS) 1177 ng/mL (Cutoff=500); Amphetamines Positive (.); Methamphetamine Positive (.); Methamphetamine (GC/MS) >3000 ng/mL (Cutoff=500)
== END 2024-01-08 02:00 | disposition other institution (70) ==
PROVIDERS: Emergency Provider Emergency Medicine; PCP Family Medicine
DX: R45.851 Suicidal ideations (principal); F10.10 Alcohol abuse, uncomplicated; R44.2 Other hallucinations
CPT/HCPCS: 80053; 80307; 80320; 80324; 80329; 81001; 84436; 84443; 85025; 87389; 87636; 93005; 96361; 96374; 96375; 99283; J3411; J7120